=== PATIENT | male | born 1960 | race Caucasian/White ===

== ENCOUNTER 2016-10-17 18:08 | Emergency (ER) | payer MEDICARE, MEDICAID ==
[~2016-10-17 18:08] MED LIST: /ATOR40TA PO; /BENA10TA PO; /ESCI10TA PO; /TAMS4CA PO; ASPI1TAB PO; ASPI1TAB24 PO; ASPI81TA7 PO; ASPI81TA85 PO; ATEN25TA PO; ATOR1TAB18 PO; AUGM500T34 PO; BISCODYL PO; CRAN500C4 PO; DOXY-278 PO; DULC10SU9 PR; FISH1000 PO; GLUC500T PO; HUMU70IN SC; INSULANT SC; LEXA1TAB PO; LIPI20TA PO; LISI25TA PO; LISI5TAB PO; MICA5TAB PO; MOM30SS PO; MULTCAP PO; NITR4TASL SL; NYAM10003 EXT; PERCOCET PO; SANT250O EX; SENO8.6T9 PO; TEST1VL IM; TRIC145T PO; TYLE325T5 PO; UROCTAB3 PO; VESI10TA PO; VITMTA PO; ZEST5TAB PO; ZOCO10TA PO; [UNRECOGNIZED DRUG - CODE] TOP; [UNRECOGNIZED DRUG - REMARK]; cranberry OR; fish oil OR; humalog insulin SC; lantus insulin SC; nitroglycerine SL; no home medications; potassium citrate OR; tenormin OR
[2016-10-17] MEDS ORDERED: regular insulin SC (18:37)
[2016-10-17 20:01] LABS: BASO % 0.6 % (0.0-1.0); EOS # 0.1 K/mm3 (0.0-0.50); EOS % 1.8 % (0.0-3.0); LARGE UNSTAINED CELL # 0.1 K/mm3 (0.0-0.4); LARGE UNSTAINED CELL % 1.5 % (0.0-4.0); LYMPH # 1.7 K/mm3 (1.5-4.5); LYMPH % 27.6 % (24.0-44.0); MEAN CORPUSCULAR HEMOGLOBIN 29.2 pg (27.0-33.0); MEAN CORPUSCULAR HGB CONC 34.4 g/dl (32.0-36.5); MEAN CORPUSCULAR VOLUME 84.9 fl (80.0-96.0); MONO # 0.5 K/mm3 (0.0-0.8); NEUTROPHILS # 3.6 K/mm3 (1.8-7.7); NEUTROPHILS % 60.6 % (36.0-66.0); PLATELET COUNT, AUTOMATED 179 k/mm3 (150-450); WHITE BLOOD COUNT 5.9 K/mm3 (4.0-10.0)
[2016-10-17 20:18] LABS: ANION GAP 8 MEQ/L (8-16); BLOOD UREA NITROGEN 19 MG/DL (7-18); CALCIUM LEVEL 9.6 MG/DL (8.5-10.1); CARBON DIOXIDE LEVEL 28 MEQ/L (21-32); CHLORIDE LEVEL 102 MEQ/L (98-107); CREATININE FOR GFR 0.53 MG/DL (0.70-1.30); GLOMERULAR FILTRATION RATE > 60.0 (>56); GLUCOSE, FASTING 122 MG/DL (70-105); POTASSIUM SERUM 3.4 MEQ/L (3.5-5.1); SODIUM LEVEL 138 MEQ/L (136-145)
[2016-10-17 21:06] LABS: YEAST LIKE CELL URINE AUTO LARGE
[2016-10-17 22:45] VITALS: BP 143/88
[2016-10-17] MEDS ORDERED: DOXYCYCLINE HYCLATE 100 MG TAB PO ONE (22:45)
[2016-10-17] MEDS ORDERED: DOXY-278 PO (22:49)
[2016-10-17] MEDS ORDERED: SANT250O8 TOP (22:49)
== END 2016-10-17 23:37 | disposition home or self-care (01) ==
LOC: M ED 20:59
DX: N39.0 Urinary tract infection, site not specified (principal); L89.301 Pressure ulcer of unspecified buttock, stage 1; Z89.512 Acquired absence of left leg below knee; Z88.0 Allergy status to penicillin; Z88.1 Allergy status to other antibiotic agents; Z88.8 Allergy status to other drugs, medicaments and biological substances; Z93.50 Unspecified cystostomy status; G47.30 Sleep apnea, unspecified; Z85.51 Personal history of malignant neoplasm of bladder; Z79.82 Long term (current) use of aspirin; Z79.899 Other long term (current) drug therapy

== ENCOUNTER → 2016-11-13 | Outpatient (REF) | payer MEDICARE, MEDICAID ==
[~2016-11-13] MED LIST changes: +SANT250O8 TOP; +regular insulin SC
[2016-11-13 15:17] LABS: MEAN CORPUSCULAR HEMOGLOBIN 28.7 pg (27.0-33.0); MEAN CORPUSCULAR HGB CONC 32.4 g/dl (32.0-36.5); MEAN CORPUSCULAR VOLUME 88.5 fl (80.0-96.0); RED CELL DISTRIBUTION WIDTH 14.2 % (11.5-14.5); WHITE BLOOD COUNT 8.3 K/mm3 (4.0-10.0)
[2016-11-13 15:48] LABS: ALBUMIN 3.4 GM/DL (3.2-5.2); ALBUMIN/GLOBULIN RATIO 1.03 (1.00-1.93); ALKALINE PHOSPHATASE 86 U/L (45-117); ALT/SGPT 61 U/L (12-78); ANION GAP 6 MEQ/L (8-16); AST/SGOT 30 U/L (15-37); BILIRUBIN,TOTAL 0.3 MG/DL (0.2-1.0); BLOOD UREA NITROGEN 16 MG/DL (7-18); CALCIUM LEVEL 8.7 MG/DL (8.5-10.1); CARBON DIOXIDE LEVEL 31 MEQ/L (21-32); CHLORIDE LEVEL 102 MEQ/L (98-107); CREATININE FOR GFR 0.44 MG/DL (0.70-1.30); GLOMERULAR FILTRATION RATE > 60.0 (>56); GLUCOSE, FASTING 155 MG/DL (70-105); POTASSIUM SERUM 4.2 MEQ/L (3.5-5.1); SODIUM LEVEL 139 MEQ/L (136-145); TOTAL PROTEIN 6.7 GM/DL (6.4-8.2)
== END ==
LOC: M LAB REF 14:54
PROVIDERS: ATTEND Surgery
DX: L89.151 Pressure ulcer of sacral region, stage 1 (principal); E13.622 Other specified diabetes mellitus with other skin ulcer

== ENCOUNTER → 2016-11-22 | Outpatient (REF) | payer MEDICARE, MEDICAID ==
[~2016-11-22] MED LIST changes: +LISI2.5T3 PO; +LISI2.5T76 PO; -LISI25TA PO
== END ==
LOC: M SMT 17:21
PROVIDERS: ATTEND Urology
DX: Z30.2 Encounter for sterilization (principal)

== ENCOUNTER → 2016-12-01 | Outpatient (CLI) | payer MEDICARE, MEDICAID ==
[2016-12-01 09:37] LABS: INR 0.86
== END ==
LOC: M LAB 08:12
PROVIDERS: ATTEND Urology
DX: Z01.818 Encounter for other preprocedural examination (principal); Z79.899 Other long term (current) drug therapy; E11.59 Type 2 diabetes mellitus with other circulatory complications; Z79.4 Long term (current) use of insulin; Z79.2 Long term (current) use of antibiotics; Z88.8 Allergy status to other drugs, medicaments and biological substances; Z88.1 Allergy status to other antibiotic agents

== ENCOUNTER → 2016-12-04 | Day surgery (SDC) | payer MEDICARE, MEDICAID ==
[~2016-12-04] VITALS: Ht 190.5 cm; Wt 111.1 kg
[~2016-12-04] MED LIST changes: +BUPIVACAINE HCL 0.25% 30 ML VIAL As Ordered ONE; +GENTAMICIN 80 MG in APPROPRIATE DILUENT 1 EA IV ONE; +LIDOCAINE 1% SDV INJ 30 ML VIAL As Ordered ONE; +LIDOCAINE 2% INJ 100 MG/5 ML SDV (FOR ANES.) As Ordered ONE; +LR 1,000 ML IV SCH; +METOCLOPRAMIDE INJ 10MG/2ML VIAL (J2765) As Ordered ONE; +MIDAZOLAM INJ 2 MG/2 ML VIAL (J2250) As Ordered ONE; +ONDANSETRON 4MG/2ML VIAL (J2405) As Ordered ONE; +PROPOFOL 200 MG/20 ML VIAL As Ordered ONE; +VANCOMYCIN HCL 1,000 MG, VIAL MATE ADAPTER 1 EACH in D5W 250 ML IV ONE; +fentaNYL 100 MCG/2 ML INJECTION (J3010) As Ordered ONE
[2016-12-04 15:15] VITALS: BP 155/80
--- NOTE | 2016-12-04 22:43 | RO ---
DATE OF PROCEDURE: 12/04/2016 PREPROCEDURE DIAGNOSIS: Sterilization, urinary retention. POSTPROCEDURE DIAGNOSIS: Sterilization, urinary retention. PROCEDURE: Right scrotal exploration and right vasectomy, suprapubic catheter change. SURGEON: Dr. Xavi Gongora LANDSCAPE FOREMAN: None. ANESTHESIA: MAC. OPERATIVE INDICATIONS: This is a 56-year-old male who underwent attempted bilateral vasectomy approximately 2-3 weeks ago in the office. The left side vasectomy was successful, but on the right side, I had a very difficult time palpating his vas deferens. I sent a segment off of a tubular structure, which I thought might have been his vas deferens to pathology, and they confirmed that it was not his vas deferens. It was, therefore, recommended he be brought to the operating room for right scrotal exploration, to perform a vasectomy. Of note, this patient also has urinary retention, which is managed with a suprapubic catheter. We also changed his suprapubic catheter in the operating room today. DESCRIPTION OF PROCEDURE: The patient was brought to the operating room and MAC anesthesia was administered. Prophylactic antibiotics were infused. He was then placed in the supine position and prepped and draped in the usual sterile fashion. At this point, I tried examining him under anesthesia to palpate the right sided vas deferens and I still could not palpate it. I, therefore, decided to perform a right scrotal exploration and a 4 cm transverse incision was made over the right hemiscrotum. I then dissected down through the scrotal wall layers and delivered the testicle out of the scrotum. The tunica vaginalis was then opened and the testicle was delivered out of the tunica vaginalis. I then dissected down to the epididymis and then tried tracing the vas deferens off the epididymis. Of note, I still had a very difficult time palpating a cord-like structure which is what the vas deferens normally feels like. This patient either has an absence of the right side of vas deferens or has an atretic right vas deferens. I was ultimately able to identify a tubular structure, which I thought was the vas deferens coming off the epididymal tail, and this was doubly ligated with separate #3-0 chromic ties. This structure was then transected in between and a segment of the structure was sent off for pathologic analysis to determine whether or not it was the right vas deferens. At this point, I checked for hemostasis and hemostasis was obtained using electrocautery. The testicle was then delivered back within the right hemiscrotum and it was thoroughly irrigated. The testicle was delivered back in its normal anatomic position. I then closed the dartos with a running #2-0 chromic suture. The skin was then closed with a running #4-0 subcuticular monocryl suture. Local anesthesia was applied and the skin was cleaned. Dermabond was then applied to the incision. At this point, the patient's suprapubic catheter was changed with a new 20- Slovenian suprapubic catheter under sterile conditions. There was return of clear yellow urine and the balloon was inflated with about 6-7 mL of sterile water. This was connected to gravity drainage. This marked the conclusion of the procedure. The patient was then awakened from anesthesia and transported to the recovery room in stable condition. ESTIMATED BLOOD LOSS: 5 mL. COMPLICATIONS: None. SPECIMENS: Segment of right vas deferens. PLAN: The patient will followup in the clinic in a few weeks for a postoperative visit. KETAN
== END | disposition home or self-care (01) ==
LOC: M SDC 11:07
PROVIDERS: ATTEND Urology
DX: Z30.2 Encounter for sterilization (principal); R33.9 Retention of urine, unspecified; E11.9 Type 2 diabetes mellitus without complications; I25.2 Old myocardial infarction; I11.0 Hypertensive heart disease with heart failure; E78.00 Pure hypercholesterolemia, unspecified; I73.9 Peripheral vascular disease, unspecified; R29.898 Other symptoms and signs involving the musculoskeletal system; M12.9 Arthropathy, unspecified; I50.30 Unspecified diastolic (congestive) heart failure; G47.33 Obstructive sleep apnea (adult) (pediatric); N31.9 Neuromuscular dysfunction of bladder, unspecified; E29.1 Testicular hypofunction; F32.9 Major depressive disorder, single episode, unspecified; K59.00 Constipation, unspecified; N39.0 Urinary tract infection, site not specified; M71.21 Synovial cyst of popliteal space [Baker], right knee; Z88.1 Allergy status to other antibiotic agents; Z79.899 Other long term (current) drug therapy; Z79.82 Long term (current) use of aspirin; Z79.4 Long term (current) use of insulin; Z89.512 Acquired absence of left leg below knee
CPT/HCPCS: 51705; 55110; 55250; 88302; J1580; J2250; J2405; J2765; J3010; J3370

== ENCOUNTER → 2017-01-09 | Outpatient (REF) | payer MEDICARE, MEDICAID ==
[~2017-01-09] MED LIST changes: -BUPIVACAINE HCL 0.25% 30 ML VIAL As Ordered ONE; -GENTAMICIN 80 MG in APPROPRIATE DILUENT 1 EA IV ONE; -LIDOCAINE 1% SDV INJ 30 ML VIAL As Ordered ONE; -LIDOCAINE 2% INJ 100 MG/5 ML SDV (FOR ANES.) As Ordered ONE; -LR 1,000 ML IV SCH; -METOCLOPRAMIDE INJ 10MG/2ML VIAL (J2765) As Ordered ONE; -MIDAZOLAM INJ 2 MG/2 ML VIAL (J2250) As Ordered ONE; -ONDANSETRON 4MG/2ML VIAL (J2405) As Ordered ONE; -PROPOFOL 200 MG/20 ML VIAL As Ordered ONE; -VANCOMYCIN HCL 1,000 MG, VIAL MATE ADAPTER 1 EACH in D5W 250 ML IV ONE; -fentaNYL 100 MCG/2 ML INJECTION (J3010) As Ordered ONE
[2017-01-09 18:14] LABS: LUTEINIZING HORMONE 7.8 mIU/mL (1.5-9.3)
[2017-01-09 18:15] LABS: FOLLICLE STIMULATING HORMONE 14.4 mIU/mL (1.4-18.1)
== END ==
LOC: M LAB REF 17:09
PROVIDERS: ATTEND Internal Medicine
DX: N52.9 Male erectile dysfunction, unspecified (principal)

== ENCOUNTER → 2017-02-12 | Outpatient (CLI) | payer MEDICARE, MEDICAID ==
[2017-02-12 10:03] LABS: PROLACTIN 19.9 NG/ML (2.1-17.7)
[2017-02-12 10:08] LABS: ESTRADIOL 51.8 PG/ML (<39.8)
== END ==
LOC: M LAB 08:24
PROVIDERS: ATTEND Urology
DX: E29.1 Testicular hypofunction (principal)

== ENCOUNTER → 2017-03-06 | Outpatient (CLI) | payer MEDICARE, MEDICAID ==
[~2017-03-06] MED LIST changes: +ASPI-161 PO; +ASPI1TAB15 PO; -ASPI1TAB24 PO; -ASPI81TA7 PO; -ATOR1TAB18 PO; +ATOR80TA59 PO; +IBUP-1022 PO; -TRIC145T PO; +TRIC145T22 PO; -VESI10TA PO; +VESI10TA2 PO
== END ==
LOC: M SMT 14:49
PROVIDERS: ATTEND Urology
DX: Z12.5 Encounter for screening for malignant neoplasm of prostate (principal)
CPT/HCPCS: 36415; G0103; G0463

== ENCOUNTER 2017-03-10 14:00 | Emergency (ER) | payer MEDICARE, MEDICAID ==
[~2017-03-10] VITALS: Ht 190.5 cm; Wt 106.8 kg
[~2017-03-10 14:00] MED LIST changes: -IBUP-1022 PO
[2017-03-10] MEDS ORDERED: ASPIRIN 81 MG CHEW TABLET PO ONE (14:45)
[2017-03-10 14:53] LABS: WHITE BLOOD COUNT 7.1 K/mm3 (4.0-10.0)
[2017-03-10 14:54] LABS: BASO % 0.3 % (0.0-1.0); EOS % 0.6 % (0.0-3.0); LARGE UNSTAINED CELL # 0.1 K/mm3 (0.0-0.4); LARGE UNSTAINED CELL % 1.5 % (0.0-4.0); LYMPH # 1.2 K/mm3 (1.5-4.5); LYMPH % 15.1 % (24.0-44.0); MEAN CORPUSCULAR HEMOGLOBIN 29.4 pg (27.0-33.0); MEAN CORPUSCULAR HGB CONC 33.5 g/dl (32.0-36.5); MEAN CORPUSCULAR VOLUME 87.9 fl (80.0-96.0); MONO # 0.7 K/mm3 (0.0-0.8); MONO % 9.1 % (0.0-5.0); NEUTROPHILS # 5.2 K/mm3 (1.8-7.7); NEUTROPHILS % 73.4 % (36.0-66.0); PLATELET COUNT, AUTOMATED 172 k/mm3 (150-450); RED CELL DISTRIBUTION WIDTH 14.2 % (11.5-14.5)
[2017-03-10 14:58] LABS: ALBUMIN 3.1 GM/DL (3.2-5.2); ALBUMIN/GLOBULIN RATIO 0.82 (1.00-1.93); ALKALINE PHOSPHATASE 83 U/L (45-117); ALT/SGPT 21 U/L (12-78); ANION GAP 8 MEQ/L (8-16); AST/SGOT 10 U/L (15-37); BILIRUBIN,DIRECT 0.2 MG/DL (0.0-0.2); BILIRUBIN,TOTAL 0.7 MG/DL (0.2-1.0); BLOOD UREA NITROGEN 5 MG/DL (7-18); CALCIUM LEVEL 8.5 MG/DL (8.5-10.1); CARBON DIOXIDE LEVEL 30 MEQ/L (21-32); CHLORIDE LEVEL 95 MEQ/L (98-107); CREATININE FOR GFR 0.44 MG/DL (0.70-1.30); GLOMERULAR FILTRATION RATE > 60.0 (>56); GLUCOSE, FASTING 242 MG/DL (70-105); POTASSIUM SERUM 3.6 MEQ/L (3.5-5.1); SODIUM LEVEL 133 MEQ/L (136-145); TOTAL PROTEIN 6.9 GM/DL (6.4-8.2)
[2017-03-10 18:10] VITALS: BP 196/88
--- NOTE | 2017-03-10 20:08 | ECGEPIP ---
Stationary ECG Study [facility] - ED Test Date: 2017-03-10 Pat Name: KERRY PERKINS Department: Room: - Gender: M Cordwainer: macario : 1960 Requested By: Chema Hawkins Order Number: [id number] Reading MD: Marybeth Whitten Measurements Intervals [place] Rate: 85 P: 4 MS: 190 QRS: -31 QRSD: 96 T: 26 QT: 389 QTc: 464 Interpretive Statements SINUS RHYTHM MARKED LEFT AXIS DEVIATION MODERATE VOLTAGE CRITERIA FOR LVH, CONSIDER NORMAL VARIANT NONSPECIFIC T-WAVE ABNORMALITY SIMILAR 08/05/16 Electronically Signed On 03-10-2017 20:08:13 EDT by Marybeth Whitten
--- NOTE | 2017-03-10 20:12 | ECGEPIP ---
Stationary ECG Study [facility] - ED Test Date: 2017-03-10 Pat Name: KERRY PERKINS Department: Room: - Gender: M Chief Communications Officer: sylvester : 1960 Requested By: Chema Hawkins Order Number: [id number] Reading MD: Marybteh Whitten Measurements Intervals [place] Rate: 86 P: 7 NC: 192 QRS: -31 QRSD: 95 T: 25 QT: 387 QTc: 463 Interpretive Statements SINUS RHYTHM MARKED LEFT AXIS DEVIATION MODERATE VOLTAGE CRITERIA FOR LVH, CONSIDER NORMAL VARIANT NSTTW ABNORMALITY SIMILAR 14:10 Electronically Signed On 03-10-2017 20:12:36 EDT by Marybeth Whitten
--- NOTE | 2017-03-11 06:50 | REP ---
PORTABLE CHEST: AP portable view of the chest is performed and compared to prior study of 08/05/2016. There is mild bibasilar fibroatelectatic change. There is left ventricular prominence. The mediastinal silhouette is unchanged. IMPRESSION: No acute pulmonary disease. Signed by Gustavo Plummer MD 03/11/2017 07:23 P
== END 2017-03-10 19:05 | disposition home or self-care (01) ==
LOC: M ED 14:00 → EDBD 14:00 → M ED 19:05
DX: R07.89 Other chest pain (principal); I10 Essential (primary) hypertension; I25.10 Atherosclerotic heart disease of native coronary artery without angina pectoris; E11.9 Type 2 diabetes mellitus without complications; E78.5 Hyperlipidemia, unspecified; N40.0 Benign prostatic hyperplasia without lower urinary tract symptoms; Z89.512 Acquired absence of left leg below knee; Z79.899 Other long term (current) drug therapy; Z88.1 Allergy status to other antibiotic agents; Z88.0 Allergy status to penicillin

== ENCOUNTER 2017-03-11 21:48 | Emergency (ER) | payer MEDICARE, MEDICAID ==
[~2017-03-11] VITALS: Ht 190.5 cm; Wt 107.0 kg
[2017-03-11 23:17] VITALS: BP 145/65
--- NOTE | 2017-03-12 07:53 | REP ---
Acute abdominal series four views including PA chest, upright abdomen and two supine views of the abdomen: PA chest: Comparison is 03/10/2017. The lung tiwari are clear. Cardiac size is normal. The alejandro, mediastinum, and bony thorax are unremarkable. There is no free subdiaphragmatic air. Impression: Negative PA chest. Abdomen, supine upright views: Comparison is the CT abdomen pelvis dated 12/08/2015. The bowel gas pattern is normal. There is no bowel obstruction. There are no calcifications. Skeletal structures and soft tissues are otherwise unremarkable. There are bridging osteophytes in the lumbar spine compatible with multilevel degenerative disc disease. Impression: Normal bowel gas pattern. Signed by Gustavo Mckinney MD 03/12/2017 07:44 A
== END 2017-03-11 23:20 | disposition home or self-care (01) ==
LOC: M ED 21:48
DX: R19.4 Change in bowel habit (principal); M51.36 Other intervertebral disc degeneration, lumbar region; I25.10 Atherosclerotic heart disease of native coronary artery without angina pectoris; E11.9 Type 2 diabetes mellitus without complications; I10 Essential (primary) hypertension; E66.9 Obesity, unspecified; F17.200 Nicotine dependence, unspecified, uncomplicated; Z88.1 Allergy status to other antibiotic agents; Z88.8 Allergy status to other drugs, medicaments and biological substances; Z79.4 Long term (current) use of insulin; Z79.82 Long term (current) use of aspirin; Z79.899 Other long term (current) drug therapy

== ENCOUNTER 2017-03-15 18:06 | Emergency (ER) | payer MEDICARE, MEDICAID ==
[~2017-03-15] VITALS: Ht 182.9 cm; Wt 106.8 kg
[2017-03-15] MEDS ORDERED: PERCOCET 5MG/325MG TAB PO ONE (20:15)
[2017-03-15] MEDS ORDERED: IBUP-1022 PO (21:14)
[2017-03-15 21:22] VITALS: BP 153/76
--- NOTE | 2017-03-16 07:56 | REP ---
Right ribs and PA chest: Right ribs four views: There is a nondisplaced fracture of the right sixth rib. There questionably fractures of the right fifth and seventh ribs. PA chest: Comparison is 03/11/2017. There is no pneumothorax, hemothorax or pulmonary contusion. Lung tiwari otherwise clear. Cardiac size is upper normal. The alejandro, mediastinum, and bony thorax are otherwise unremarkable. Signed by Gustavo Mckinney MD 03/16/2017 07:47 A
== END 2017-03-15 21:48 | disposition home or self-care (01) ==
LOC: M ED 18:06 → EDBD 18:06 → M ED 21:48
DX: S20.211A Contusion of right front wall of thorax, initial encounter (principal); W01.0XXA Fall on same level from slipping, tripping and stumbling without subsequent striking against object, initial encounter; Y92.099 Unspecified place in other non-institutional residence as the place of occurrence of the external cause; Y93.89 Activity, other specified; Y99.8 Other external cause status; E11.9 Type 2 diabetes mellitus without complications; I10 Essential (primary) hypertension; I51.9 Heart disease, unspecified; N40.0 Benign prostatic hyperplasia without lower urinary tract symptoms; Z87.442 Personal history of urinary calculi; Z89.512 Acquired absence of left leg below knee; Z88.0 Allergy status to penicillin; Z88.1 Allergy status to other antibiotic agents; Z88.8 Allergy status to other drugs, medicaments and biological substances; Z79.899 Other long term (current) drug therapy; Z79.82 Long term (current) use of aspirin; Z79.4 Long term (current) use of insulin

== ENCOUNTER → 2017-04-20 | Outpatient (CLI) | payer MEDICARE, MEDICAID ==
[~2017-04-20] MED LIST changes: +IBUP-1022 PO
== END ==
LOC: M LAB 08:41
PROVIDERS: ATTEND Urology
DX: E29.1 Testicular hypofunction (principal)

== ENCOUNTER → 2017-06-13 | Outpatient (CLI) | payer MEDICARE, MEDICAID ==
[2017-06-13 08:04] LABS: ALBUMIN 3.6 GM/DL (3.2-5.2); ANION GAP 9 MEQ/L (8-16); BLOOD UREA NITROGEN 8 MG/DL (7-18); CARBON DIOXIDE LEVEL 34 MEQ/L (21-32); CHLORIDE LEVEL 94 MEQ/L (98-107); CHOLESTEROL LEVEL 158 MG/DL (<200); CREATININE FOR GFR 0.68 MG/DL (0.70-1.30); GLOMERULAR FILTRATION RATE > 60.0 (>56); GLUCOSE, FASTING 314 MG/DL (70-105); PHOSPHORUS LEVEL 3.2 MG/DL (2.5-4.9); POTASSIUM SERUM 4.2 MEQ/L (3.5-5.1); SODIUM LEVEL 137 MEQ/L (136-145); TRIGLYCERIDES LEVEL 328 MG/DL (<150)
== END ==
LOC: M LAB 06:52
PROVIDERS: ATTEND Nurse Practitioner Family
DX: I11.9 Hypertensive heart disease without heart failure (principal); E78.2 Mixed hyperlipidemia

== ENCOUNTER → 2017-07-30 | Outpatient (CLI) | payer MEDICARE, MEDICAID ==
[2017-07-30 09:39] LABS: ALBUMIN 3.3 GM/DL (3.2-5.2); ALBUMIN/GLOBULIN RATIO 0.97 (1.00-1.93); ALKALINE PHOSPHATASE 66 U/L (45-117); ALT/SGPT 20 U/L (12-78); ANION GAP 10 MEQ/L (8-16); AST/SGOT 13 U/L (7-37); BILIRUBIN,TOTAL 0.5 MG/DL (0.2-1.0); BLOOD UREA NITROGEN 13 MG/DL (7-18); CALCIUM LEVEL 8.8 MG/DL (8.5-10.1); CARBON DIOXIDE LEVEL 28 MEQ/L (21-32); CHLORIDE LEVEL 104 MEQ/L (98-107); CREATININE FOR GFR 0.49 MG/DL (0.70-1.30); GLOMERULAR FILTRATION RATE > 60.0 (>56); GLUCOSE, FASTING 96 MG/DL (70-105); POTASSIUM SERUM 4.2 MEQ/L (3.5-5.1); SODIUM LEVEL 142 MEQ/L (136-145); TOTAL PROTEIN 6.7 GM/DL (6.4-8.2)
== END ==
LOC: M LAB 08:35
PROVIDERS: ATTEND Urology
DX: E29.1 Testicular hypofunction (principal); Z12.5 Encounter for screening for malignant neoplasm of prostate
CPT/HCPCS: 36415; 80053; 84403; 85014; 85018; G0103

== ENCOUNTER 2017-08-10 10:00 | Inpatient (IN) | payer MEDICARE, MEDICAID ==
[2017-08-10] MEDS: DEXTROSE 50% 50 ML SYRINGE IV ×3 (10:08→22:05)
[2017-08-10] MEDS: NS 500 ML IV ×2 (10:18→12:26)
[2017-08-10 10:20] LABS: ABG BASE EXCESS 1.9 (-2.0-2.0); ABG HCO3 28.1 MEQ/L (22.0-26.0); ABG O2 SATURATION 97.4 % (95.0-99.0); ABG PARTIAL PRESSURE CO2 49.1 mmHg (35.0-45.0); ABG STANDARD HCO3 26.2 MEQ/L (22.0-26.0); ABG TOTAL CO2 29.6 MEQ/L (22.0-29.0); ABG pH (ARTERIAL) 7.375 UNITS (7.350-7.450)
[2017-08-10 10:23] LABS: BASO % 0.3 % (0.0-1.0); EOS % 0.1 % (0.0-3.0); HEMATOCRIT 52.8 % (42.0-52.0); HEMOGLOBIN 16.7 g/dl (14.0-18.0); IMMATURE GRANULOCYTE # 0.1 10^3/uL (0-0); IMMATURE GRANULOCYTE % 0.9 % (0-0); LYMPH # 0.8 10^3/uL (1.5-4.5); LYMPH % 7.7 % (24.0-44.0); MEAN CORPUSCULAR HEMOGLOBIN 27.5 pg (27.0-33.0); MEAN CORPUSCULAR HGB CONC 31.6 g/dl (32.0-36.5); MEAN CORPUSCULAR VOLUME 86.8 fl (80.0-96.0); MONO # 0.9 10^3/uL (0.0-0.8); MONO % 9.3 % (0.0-5.0); NEUTROPHILS # 8.2 10^3/uL (1.8-7.7); NEUTROPHILS % 81.7 % (36.0-66.0); PLATELET COUNT, AUTOMATED 212 10^3/uL (150-450); RED BLOOD COUNT 6.08 10^6/uL (4.30-6.10); RED CELL DISTRIBUTION WIDTH 15.1 % (11.5-14.5); WHITE BLOOD COUNT 10.1 10^3/uL (4.0-10.0)
[2017-08-10 10:23] LABS: BEDSIDE GLUCOSE 178 MG/DL (70-105)
[2017-08-10 10:39] LABS: AMMONIA 20 uMOL/L (<32)
[2017-08-10 10:40] LABS: INR 0.89; PROTHROMBIN TIME 12.1 SECONDS (12.4-14.5)
[2017-08-10 10:46] LABS: ALBUMIN 3.6 GM/DL (3.2-5.2); ALKALINE PHOSPHATASE 76 U/L (45-117); ALT/SGPT 24 U/L (12-78); ANION GAP 4 MEQ/L (8-16); AST/SGOT 16 U/L (7-37); BILIRUBIN,DIRECT < 0.1 MG/DL (0.0-0.2); BILIRUBIN,TOTAL 0.5 MG/DL (0.2-1.0); BLOOD UREA NITROGEN 17 MG/DL (7-18); CALCIUM LEVEL 8.6 MG/DL (8.5-10.1); CARBON DIOXIDE LEVEL 34 MEQ/L (21-32); CHLORIDE LEVEL 99 MEQ/L (98-107); CPK CREATINE PHOSPHOKINASE 42 U/L (39-308); CREATININE FOR GFR 0.48 MG/DL (0.70-1.30); ETHYL ALCOHOL (ETHANOL) < 0.003 % (0.000-0.010); GLOMERULAR FILTRATION RATE > 60.0 (>56); GLUCOSE, FASTING 42 MG/DL (70-105); POTASSIUM SERUM 4.3 MEQ/L (3.5-5.1); SALICYLATE LEVEL < 1.7 MG/DL (5.0-30.0); SODIUM LEVEL 137 MEQ/L (136-145); TOTAL PROTEIN 7.6 GM/DL (6.4-8.2); TROPONIN I 0.04 NG/ML (< 0.10)
[2017-08-10 10:47] LABS: LACTIC ACID SEPSIS PROTOCOL 0.9 MMOL/L (0.4-2.0)
[2017-08-10 10:52] LABS: CK-MB VALUE MASS 3.6 NG/ML (0.0-3.6); MB/CK RELATIVE INDEX 8.57 (< OR =4)
[2017-08-10 10:55] LABS: ACETAMINOPHEN LEVEL < 2.0 UG/ML (10.0-30.0)
[2017-08-10] MEDS: NALOXONE INJ 2 MG/2 ML SYRINGE (J2310) IV (11:05)
[2017-08-10 11:08] LABS: KETONE, URINE AUTO RFX NEGATIVE (NEGATIVE); MUCUS, URINE RFX LARGE (NEGATIVE); NITRITE, URINE AUTO RFX NEGATIVE (NEGATIVE); RBC, URINE AUTO RFX 15 /HPF (0-3); SPECIFIC GRAVITY UR AUTO RFX 1.017 (1.002-1.035); SQUAM EPITHELIAL CELL UR AURFX 0 /HPF (0-6)
[2017-08-10 11:09] LABS: LEUKOCYTE ESTERASE UR AUTO RFX 3+ (NEGATIVE); WBC, URINE AUTO RFX TNTC /HPF (0-3)
[2017-08-10 11:28] LABS: AMPHETAMINES LEVEL URINE NEGATIVE (NEGATIVE); BARBITURATES URINE NEGATIVE (NEGATIVE); BENZODIAZEPINES URINE NEGATIVE (NEGATIVE); CANNABINOIDS URINE NEGATIVE (NEGATIVE); COCAINE METABOLITE URINE NEGATIVE (NEGATIVE); METHADONE URINE NEGATIVE (NEGATIVE); OPIATES URINE NEGATIVE (NEGATIVE); PHENCYCLIDINE URINE NEGATIVE (NEGATIVE)
[2017-08-10] MEDS: LORazepam 2 MG/ML VIAL (J2060) IV (11:29)
[2017-08-10] MEDS: POLYVINYL ALCOHOL OPHTH SOLN 15 ML(LIQUITEARS) OU (11:29)
[2017-08-10] MEDS ORDERED: LORazepam 2 MG/ML VIAL (J2060) As Ordered (11:29)
[2017-08-10 11:40] LABS: BEDSIDE GLUCOSE 103 MG/DL (70-105)
[2017-08-10] MEDS: levETIRAcetam INJection 1,000 MG in D5W 100 ML IV (12:46)
[2017-08-10] MEDS: LABETALOL HCL 100 MG/20 ML VIAL IV (12:46)
[2017-08-10 15:03] LABS: OSMOLALITY SERUM 287 MOSM/KG (275-295)
[2017-08-10 16:25] LABS: ABG BASE EXCESS -1.3 (-2.0-2.0); ABG HCO3 22.3 MEQ/L (22.0-26.0); ABG PARTIAL PRESSURE CO2 34.3 mmHg (35.0-45.0); ABG PARTIAL PRESSURE O2 131.4 mmHg (75.0-100.0); ABG STANDARD HCO3 23.5 MEQ/L (22.0-26.0); ABG TOTAL CO2 23.4 MEQ/L (22.0-29.0); ABG pH (ARTERIAL) 7.431 UNITS (7.350-7.450)
[2017-08-10 16:29] LABS: ABG O2 SATURATION 98.9 % (95.0-99.0)
[2017-08-10] MEDS ORDERED: GLUCAGON FOR INJ 1 MG VIAL (J1610) SC (16:30)
[2017-08-10] MEDS ORDERED: DEXTROSE 50% 50 ML SYRINGE IV (16:30)
[2017-08-10] MEDS ORDERED: GLUCOSE 4 GM CHEW TABLET PO (16:30)
[2017-08-10] MEDS: D5W 1,000 ML IV (16:32)
[2017-08-10 16:56] LABS: BEDSIDE GLUCOSE 183 MG/DL (70-105)
[2017-08-10 16:56] LABS: BEDSIDE GLUCOSE 21 MG/DL (70-105)
[2017-08-10 19:12] LABS: BEDSIDE GLUCOSE 108 MG/DL (70-105)
[2017-08-10] MEDS ORDERED: LORazepam 2 MG/ML VIAL (J2060) IV (20:15)
[2017-08-10] MEDS: D10W 1,000 ML IV (20:51)
[2017-08-10] MEDS ORDERED: levETIRAcetam 250MG TABLET (KEPPRA) PO (21:00)
[2017-08-10] MEDS: hydrALAZINE INJ 20 MG/ML VIAL IV (21:15)
[2017-08-10 21:45] LABS: BEDSIDE GLUCOSE 65 MG/DL (70-105)
[2017-08-10 21:59] LABS: BEDSIDE GLUCOSE 66 MG/DL (70-105)
[2017-08-10 22:49] LABS: HEMATOCRIT 48.8 % (42.0-52.0); HEMOGLOBIN 15.5 g/dl (14.0-18.0); MEAN CORPUSCULAR HEMOGLOBIN 27.7 pg (27.0-33.0); MEAN CORPUSCULAR HGB CONC 31.8 g/dl (32.0-36.5); MEAN CORPUSCULAR VOLUME 87.1 fl (80.0-96.0); PLATELET COUNT, AUTOMATED 166 10^3/uL (150-450); WHITE BLOOD COUNT 6.1 10^3/uL (4.0-10.0)
[2017-08-10 23:04] LABS: ANION GAP 6 MEQ/L (8-16); BLOOD UREA NITROGEN 14 MG/DL (7-18); CALCIUM LEVEL 7.5 MG/DL (8.5-10.1); CARBON DIOXIDE LEVEL 29 MEQ/L (21-32); CHLORIDE LEVEL 103 MEQ/L (98-107); CREATININE FOR GFR 0.54 MG/DL (0.70-1.30); GLOMERULAR FILTRATION RATE > 60.0 (>56); GLUCOSE, FASTING 159 MG/DL (70-105); MAGNESIUM LEVEL 1.4 MG/DL (1.8-2.4); POTASSIUM SERUM 3.5 MEQ/L (3.5-5.1); SODIUM LEVEL 138 MEQ/L (136-145)
[2017-08-10 23:10] LABS: LACTIC ACID SEPSIS PROTOCOL 2.1 MMOL/L (0.4-2.0)
[2017-08-10] MEDS: VANCOMYCIN HCL 1,000 MG, VIAL MATE ADAPTER 1 EACH in D5W 250 ML IV (23:15)
[2017-08-10] MEDS: ACETAMINOPHEN 650 MG SUPP PR (23:17)
[2017-08-10 23:30] LABS: OSMOLALITY SERUM 287 MOSM/KG (275-295)
[2017-08-10 23:42] LABS: BEDSIDE GLUCOSE 103 MG/DL (70-105)
[2017-08-10] MEDS: D10W IV (23:44)
[2017-08-10] MEDS: [UNRECOGNIZED DRUG - OTHER] IV (23:44)
[2017-08-11] MEDS: VANCOMYCIN HCL 1,000 MG, VIAL MATE ADAPTER 1 EACH in D5W 250 ML IV ×3 (00:30→15:42)
[2017-08-11] MEDS: FUROSEMIDE 20 MG/2 ML VIAL (J1940) IV ×2 (00:30→15:42)
[2017-08-11] MEDS ORDERED: levETIRAcetam INJection 750 MG in D5W 100 ML IV (01:00)
[2017-08-11] MEDS: levETIRAcetam INJection 1,000 MG in D5W 100 ML IV ×2 (01:38→12:29)
[2017-08-11 01:58] LABS: BEDSIDE GLUCOSE 146 MG/DL (70-105)
[2017-08-11] MEDS: MEROPENEM INJ 2 GM in NS 100 ML IV ×3 (02:48→18:26)
[2017-08-11] MEDS: hydrALAZINE INJ 20 MG/ML VIAL IV ×4 (03:00→20:57)
[2017-08-11 03:08] LABS: CK-MB VALUE MASS 2.8 NG/ML (0.0-3.6); CPK CREATINE PHOSPHOKINASE 82 U/L (39-308); MB/CK RELATIVE INDEX 3.41 (< OR =4); TROPONIN I 0.02 NG/ML (< 0.10)
[2017-08-11 03:13] LABS: HEMATOCRIT 47.1 % (42.0-52.0); HEMOGLOBIN 14.8 g/dl (14.0-18.0); MEAN CORPUSCULAR HEMOGLOBIN 27.3 pg (27.0-33.0); MEAN CORPUSCULAR HGB CONC 31.4 g/dl (32.0-36.5); MEAN CORPUSCULAR VOLUME 86.7 fl (80.0-96.0); PLATELET COUNT, AUTOMATED 174 10^3/uL (150-450); RED BLOOD COUNT 5.43 10^6/uL (4.30-6.10); RED CELL DISTRIBUTION WIDTH 15.1 % (11.5-14.5); WHITE BLOOD COUNT 7.4 10^3/uL (4.0-10.0)
[2017-08-11 03:17] LABS: ADD MANUAL DIFFER YES; DIFF SLIDE NUMBER 65; LEFT SHIFT POS FLAG; POSITIVE MORPH POS FLAG
[2017-08-11 03:38] LABS: BEDSIDE GLUCOSE 142 MG/DL (70-105)
[2017-08-11 04:02] LABS: ALBUMIN 2.9 GM/DL (3.2-5.2); ALBUMIN/GLOBULIN RATIO 0.83 (1.00-1.93); ALKALINE PHOSPHATASE 61 U/L (45-117); ALT/SGPT 16 U/L (12-78); ANION GAP 9 MEQ/L (8-16); AST/SGOT 13 U/L (7-37); BILIRUBIN,TOTAL 0.9 MG/DL (0.2-1.0); BLOOD UREA NITROGEN 14 MG/DL (7-18); CALCIUM LEVEL 7.5 MG/DL (8.5-10.1); CARBON DIOXIDE LEVEL 29 MEQ/L (21-32); CHLORIDE LEVEL 101 MEQ/L (98-107); CREATININE FOR GFR 0.61 MG/DL (0.70-1.30); GLOMERULAR FILTRATION RATE > 60.0 (>56); GLUCOSE, FASTING 175 MG/DL (70-105); MAGNESIUM LEVEL 1.5 MG/DL (1.8-2.4); POTASSIUM SERUM 3.5 MEQ/L (3.5-5.1); SODIUM LEVEL 139 MEQ/L (136-145); TOTAL PROTEIN 6.4 GM/DL (6.4-8.2)
[2017-08-11] MEDS: MAG SULF 1GM/100ML (MAG RUN) 1 GM in APPROPRIATE DILUENT 1 EA IV ×3 (04:20→06:25)
[2017-08-11 04:26] LABS: ATYPICAL LYMPH 1 % (0-5); BANDS 1 % (< 11); LYMPHOCYTES 8 % (16-52); MONOCYTES 10 % (0-8); NEUTROPHILS 80 % (35-75)
[2017-08-11 04:27] LABS: PLATELET ESTIMATE NORMAL (NORMAL)
[2017-08-11 05:25] LABS: BEDSIDE GLUCOSE 139 MG/DL (70-105)
[2017-08-11 09:33] LABS: BEDSIDE GLUCOSE 124 MG/DL (70-105)
[2017-08-11 09:33] LABS: BEDSIDE GLUCOSE 154 MG/DL (70-105)
[2017-08-11 10:02] LABS: CPK CREATINE PHOSPHOKINASE 159 U/L (39-308); MB/CK RELATIVE INDEX 2.51 (< OR =4); TROPONIN I < 0.02 NG/ML (< 0.10)
[2017-08-11 11:16] LABS: BEDSIDE GLUCOSE 147 MG/DL (70-105)
[2017-08-11 15:26] LABS: CSF TUBE# GLU TUBE 2; CSF TUBE# TP TUBE 2; GLUCOSE CSF 83 MG/DL (40-75); TOTAL PROTEIN,CSF 145.3 MG/DL (15-45)
[2017-08-11 15:38] LABS: CSF RBC 2 10^3/uL (<2)
[2017-08-11 15:41] LABS: CSF RBC < 2 10^3/uL (<2)
[2017-08-11] MEDS: D10W IV (15:42)
[2017-08-11] MEDS: [UNRECOGNIZED DRUG - OTHER] IV (15:42)
[2017-08-11 15:43] LABS: CSF TUBE# CELL CNT TUBE 1; CSF WBC 9 /uL (0-10)
[2017-08-11 15:44] LABS: APPEARANCE, CSF CLEAR (CLEAR); APPEARANCE, CSF HAZY (CLEAR); COLOR, CSF COLORLESS (COLORLESS); COLOR, CSF PINK (COLORLESS); CSF DIFF IF INDICATED? NO (NO); CSF TUBE# CELL CNT TUBE 4; CSF WBC 4 /uL (0-10)
[2017-08-11 15:45] LABS: CSF DIFF IF INDICATED? NO (NO)
[2017-08-11] MEDS: LABETALOL HCL 100 MG/20 ML VIAL IV (17:40)
[2017-08-11] MEDS: PHENYTOIN INJ 250 MG/5 ML VIAL (J1165) IV (20:44)
[2017-08-11 21:55] LABS: BEDSIDE GLUCOSE 158 MG/DL (70-105)
[2017-08-11 21:55] LABS: BEDSIDE GLUCOSE 185 MG/DL (70-105)
[2017-08-12] MEDS: LABETALOL HCL 100 MG/20 ML VIAL IV ×4 (01:01→17:57)
[2017-08-12] MEDS: VANCOMYCIN HCL 1,000 MG, VIAL MATE ADAPTER 1 EACH in D5W 250 ML IV ×3 (01:01→16:25)
[2017-08-12 01:24] LABS: BEDSIDE GLUCOSE 189 MG/DL (70-105)
[2017-08-12] MEDS: levETIRAcetam INJection 1,000 MG in D5W 100 ML IV ×2 (02:50→13:44)
[2017-08-12] MEDS: hydrALAZINE INJ 20 MG/ML VIAL IV ×4 (03:00→21:01)
[2017-08-12] MEDS: PHENYTOIN 100 MG/2 ML VIAL (J1165) IV ×3 (03:10→17:52)
[2017-08-12] MEDS: MEROPENEM INJ 2 GM in NS 100 ML IV ×3 (03:57→18:06)
[2017-08-12 04:55] LABS: BASO % 0.3 % (0.0-1.0); EOS % 0.4 % (0.0-3.0); HEMATOCRIT 43.6 % (42.0-52.0); HEMOGLOBIN 13.8 g/dl (14.0-18.0); IMMATURE GRANULOCYTE % 0.4 % (0-0); LYMPH % 13.9 % (24.0-44.0); MEAN CORPUSCULAR HEMOGLOBIN 27.2 pg (27.0-33.0); MEAN CORPUSCULAR HGB CONC 31.7 g/dl (32.0-36.5); MONO # 0.9 10^3/uL (0.0-0.8); MONO % 11.7 % (0.0-5.0); NEUTROPHILS # 5.5 10^3/uL (1.8-7.7); NEUTROPHILS % 73.3 % (36.0-66.0); PLATELET COUNT, AUTOMATED 164 10^3/uL (150-450); RED BLOOD COUNT 5.07 10^6/uL (4.30-6.10); RED CELL DISTRIBUTION WIDTH 15.3 % (11.5-14.5); WHITE BLOOD COUNT 7.5 10^3/uL (4.0-10.0)
[2017-08-12 05:18] LABS: ALBUMIN 2.7 GM/DL (3.2-5.2); ALBUMIN/GLOBULIN RATIO 0.71 (1.00-1.93); ALKALINE PHOSPHATASE 62 U/L (45-117); ALT/SGPT 22 U/L (12-78); ANION GAP 7 MEQ/L (8-16); AST/SGOT 19 U/L (7-37); BILIRUBIN,TOTAL 0.8 MG/DL (0.2-1.0); BLOOD UREA NITROGEN 16 MG/DL (7-18); CALCIUM LEVEL 7.8 MG/DL (8.5-10.1); CARBON DIOXIDE LEVEL 32 MEQ/L (21-32); CHLORIDE LEVEL 96 MEQ/L (98-107); CREATININE FOR GFR 0.67 MG/DL (0.70-1.30); GLOMERULAR FILTRATION RATE > 60.0 (>56); GLUCOSE, FASTING 249 MG/DL (70-105); MAGNESIUM LEVEL 2.1 MG/DL (1.8-2.4); PHENYTOIN (DILANTIN) 13.5 UG/ML (10.0-20.0); POTASSIUM SERUM 3.8 MEQ/L (3.5-5.1); SODIUM LEVEL 135 MEQ/L (136-145); TOTAL PROTEIN 6.5 GM/DL (6.4-8.2)
[2017-08-12 06:49] LABS: BEDSIDE GLUCOSE 202 MG/DL (70-105)
[2017-08-12] MEDS: [UNRECOGNIZED DRUG - OTHER] IV (08:24)
[2017-08-12] MEDS: D10W IV (08:24)
[2017-08-12] MEDS: FUROSEMIDE 40 MG/4 ML VIAL (J1940) IV (08:59)
[2017-08-12 15:53] LABS: VANCOMYCIN LEVEL TROUGH 16.3 UG/ML (10.0-20.0)
[2017-08-12 16:10] LABS: BEDSIDE GLUCOSE 218 MG/DL (70-105)
[2017-08-12 16:10] LABS: BEDSIDE GLUCOSE 225 MG/DL (70-105)
[2017-08-12 18:38] LABS: BEDSIDE GLUCOSE 208 MG/DL (70-105)
[2017-08-12 20:21] LABS: BEDSIDE GLUCOSE 160 MG/DL (70-105)
[2017-08-13] MEDS: VANCOMYCIN HCL 1,000 MG, VIAL MATE ADAPTER 1 EACH in D5W 250 ML IV ×2 (00:27→08:24)
[2017-08-13] MEDS: levETIRAcetam INJection 1,000 MG in D5W 100 ML IV ×2 (01:05→13:36)
[2017-08-13] MEDS: PHENYTOIN 100 MG/2 ML VIAL (J1165) IV ×3 (01:05→17:51)
[2017-08-13 01:08] LABS: BEDSIDE GLUCOSE 169 MG/DL (70-105)
[2017-08-13] MEDS: NYSTATIN 100,000 UNITS/GM TOPICAL PWD 15 GM TOP ×3 (03:25→21:03)
[2017-08-13] MEDS: MEROPENEM INJ 2 GM in NS 100 ML IV ×3 (03:26→17:56)
[2017-08-13] MEDS: hydrALAZINE INJ 20 MG/ML VIAL IV ×4 (03:31→20:26)
[2017-08-13 04:16] LABS: BASO % 0.6 % (0.0-1.0); EOS # 0.1 10^3/uL (0.0-0.50); EOS % 1.3 % (0.0-3.0); HEMATOCRIT 48.1 % (42.0-52.0); HEMOGLOBIN 15.3 g/dl (14.0-18.0); IMMATURE GRANULOCYTE # 0.1 10^3/uL (0-0); IMMATURE GRANULOCYTE % 1.3 % (0-0); LYMPH # 1.3 10^3/uL (1.5-4.5); LYMPH % 18.4 % (24.0-44.0); MEAN CORPUSCULAR HEMOGLOBIN 27.5 pg (27.0-33.0); MEAN CORPUSCULAR HGB CONC 31.8 g/dl (32.0-36.5); MEAN CORPUSCULAR VOLUME 86.4 fl (80.0-96.0); MONO % 13.6 % (0.0-5.0); NEUTROPHILS # 4.7 10^3/uL (1.8-7.7); NEUTROPHILS % 64.8 % (36.0-66.0); PLATELET COUNT, AUTOMATED 185 10^3/uL (150-450); RED BLOOD COUNT 5.57 10^6/uL (4.30-6.10); RED CELL DISTRIBUTION WIDTH 15.1 % (11.5-14.5); WHITE BLOOD COUNT 7.2 10^3/uL (4.0-10.0)
[2017-08-13 04:37] LABS: ALBUMIN 2.9 GM/DL (3.2-5.2); ALBUMIN/GLOBULIN RATIO 0.67 (1.00-1.93); ALKALINE PHOSPHATASE 81 U/L (45-117); ALT/SGPT 50 U/L (12-78); ANION GAP 5 MEQ/L (8-16); AST/SGOT 38 U/L (7-37); BILIRUBIN,TOTAL 0.8 MG/DL (0.2-1.0); BLOOD UREA NITROGEN 19 MG/DL (7-18); CALCIUM LEVEL 8.3 MG/DL (8.5-10.1); CARBON DIOXIDE LEVEL 35 MEQ/L (21-32); CHLORIDE LEVEL 94 MEQ/L (98-107); CREATININE FOR GFR 0.48 MG/DL (0.70-1.30); GLOMERULAR FILTRATION RATE > 60.0 (>56); GLUCOSE, FASTING 180 MG/DL (70-105); MAGNESIUM LEVEL 2.2 MG/DL (1.8-2.4); POTASSIUM SERUM 3.9 MEQ/L (3.5-5.1); SODIUM LEVEL 134 MEQ/L (136-145); TOTAL PROTEIN 7.2 GM/DL (6.4-8.2)
[2017-08-13] MEDS: LABETALOL HCL 100 MG/20 ML VIAL IV ×5 (05:26→23:57)
[2017-08-13] MEDS: D10W IV (06:14)
[2017-08-13] MEDS: [UNRECOGNIZED DRUG - OTHER] IV (06:14)
[2017-08-13 08:05] LABS: BEDSIDE GLUCOSE 162 MG/DL (70-105)
[2017-08-13] MEDS: FUROSEMIDE 40 MG/4 ML VIAL (J1940) IV ×2 (09:55→17:55)
[2017-08-13 10:25] LABS: BEDSIDE GLUCOSE 192 MG/DL (70-105)
[2017-08-13] MEDS: HumaLOG INSULIN (NovoLOG) PER UNIT SC ×2 (12:00→17:55)
[2017-08-13] MEDS: ENOXAPARIN 40 MG/0.4 ML SYRINGE (J1650) SC (12:17)
[2017-08-13 13:10] LABS: BEDSIDE GLUCOSE 200 MG/DL (70-105)
[2017-08-13] MEDS ORDERED: DEXTROSE 50% 50 ML SYRINGE IV (14:30)
[2017-08-13] MEDS ORDERED: GLUCOSE 4 GM CHEW TABLET PO (14:30)
[2017-08-13] MEDS ORDERED: GLUCAGON FOR INJ 1 MG VIAL (J1610) SC (14:30)
[2017-08-13 17:32] LABS: BEDSIDE GLUCOSE 170 MG/DL (70-105)
[2017-08-14] MEDS: HumaLOG INSULIN (NovoLOG) PER UNIT SC ×4 (00:05→17:16)
[2017-08-14 00:07] LABS: BEDSIDE GLUCOSE 180 MG/DL (70-105)
[2017-08-14] MEDS: levETIRAcetam INJection 1,000 MG in D5W 100 ML IV ×2 (00:56→12:02)
[2017-08-14] MEDS: hydrALAZINE INJ 20 MG/ML VIAL IV ×4 (03:00→20:37)
[2017-08-14] MEDS: PHENYTOIN 100 MG/2 ML VIAL (J1165) IV ×3 (03:02→17:16)
[2017-08-14] MEDS: MEROPENEM INJ 2 GM in NS 100 ML IV ×2 (03:04→12:01)
[2017-08-14 05:12] LABS: BASO # 0.1 10^3/uL (0.0-0.2); BASO % 0.6 % (0.0-1.0); EOS # 0.1 10^3/uL (0.0-0.50); EOS % 0.8 % (0.0-3.0); HEMATOCRIT 49.1 % (42.0-52.0); HEMOGLOBIN 15.6 g/dl (14.0-18.0); IMMATURE GRANULOCYTE # 0.2 10^3/uL (0-0); IMMATURE GRANULOCYTE % 1.8 % (0-0); LYMPH # 1.5 10^3/uL (1.5-4.5); LYMPH % 18.3 % (24.0-44.0); MEAN CORPUSCULAR HEMOGLOBIN 27.5 pg (27.0-33.0); MEAN CORPUSCULAR HGB CONC 31.8 g/dl (32.0-36.5); MEAN CORPUSCULAR VOLUME 86.4 fl (80.0-96.0); MONO # 1.2 10^3/uL (0.0-0.8); NEUTROPHILS # 5.3 10^3/uL (1.8-7.7); NEUTROPHILS % 64.5 % (36.0-66.0); PLATELET COUNT, AUTOMATED 211 10^3/uL (150-450); RED BLOOD COUNT 5.68 10^6/uL (4.30-6.10); RED CELL DISTRIBUTION WIDTH 15.3 % (11.5-14.5); WHITE BLOOD COUNT 8.3 10^3/uL (4.0-10.0)
[2017-08-14 05:31] LABS: ALBUMIN 2.8 GM/DL (3.2-5.2); ALBUMIN/GLOBULIN RATIO 0.64 (1.00-1.93); ALKALINE PHOSPHATASE 96 U/L (45-117); ALT/SGPT 76 U/L (12-78); ANION GAP 5 MEQ/L (8-16); AST/SGOT 45 U/L (7-37); BILIRUBIN,TOTAL 0.6 MG/DL (0.2-1.0); BLOOD UREA NITROGEN 29 MG/DL (7-18); CALCIUM LEVEL 8.6 MG/DL (8.5-10.1); CARBON DIOXIDE LEVEL 36 MEQ/L (21-32); CHLORIDE LEVEL 94 MEQ/L (98-107); CREATININE FOR GFR 0.55 MG/DL (0.70-1.30); GLOMERULAR FILTRATION RATE > 60.0 (>56); GLUCOSE, FASTING 217 MG/DL (70-105); MAGNESIUM LEVEL 2.4 MG/DL (1.8-2.4); SODIUM LEVEL 135 MEQ/L (136-145); TOTAL PROTEIN 7.2 GM/DL (6.4-8.2)
[2017-08-14] MEDS: LABETALOL HCL 100 MG/20 ML VIAL IV ×3 (05:51→17:16)
[2017-08-14 06:02] LABS: BEDSIDE GLUCOSE 182 MG/DL (70-105)
[2017-08-14] MEDS: ENOXAPARIN 40 MG/0.4 ML SYRINGE (J1650) SC (09:16)
[2017-08-14] MEDS: NYSTATIN 100,000 UNITS/GM TOPICAL PWD 15 GM TOP ×2 (09:17→20:37)
[2017-08-14 11:58] LABS: BEDSIDE GLUCOSE 189 MG/DL (70-105)
[2017-08-14] MEDS ORDERED: CEFTRIAXONE SOD 1 GM in APPROPRIATE DILUENT 1 EA IV (14:45)
[2017-08-14] MEDS ORDERED: DOXYCYCLINE HYCLATE 100 MG in D5W MINI-BAG PLUS 100 ML IV (16:00)
[2017-08-14 16:46] LABS: BEDSIDE GLUCOSE 190 MG/DL (70-105)
[2017-08-14] MEDS: ACETAMINOPHEN 650 MG SUPP PR (18:01)
[2017-08-14] MEDS: MEROPENEM INJ 1 GM in APPROPRIATE DILUENT 1 EA IV (20:35)
[2017-08-15 01:21] LABS: BEDSIDE GLUCOSE 166 MG/DL (70-105)
[2017-08-15] MEDS: HumaLOG INSULIN (NovoLOG) PER UNIT SC ×4 (01:30→17:27)
[2017-08-15] MEDS: levETIRAcetam INJection 1,000 MG in D5W 100 ML IV ×2 (01:30→16:03)
[2017-08-15] MEDS: LABETALOL HCL 100 MG/20 ML VIAL IV ×4 (01:32→17:28)
[2017-08-15] MEDS: hydrALAZINE INJ 20 MG/ML VIAL IV ×4 (02:50→21:43)
[2017-08-15] MEDS: PHENYTOIN 100 MG/2 ML VIAL (J1165) IV ×3 (02:56→17:27)
[2017-08-15] MEDS: MEROPENEM INJ 1 GM in APPROPRIATE DILUENT 1 EA IV ×3 (04:52→19:22)
[2017-08-15 05:41] LABS: BASO # 0.1 10^3/uL (0.0-0.2); BASO % 0.6 % (0.0-1.0); EOS # 0.1 10^3/uL (0.0-0.50); EOS % 1.6 % (0.0-3.0); HEMATOCRIT 49.4 % (42.0-52.0); HEMOGLOBIN 15.3 g/dl (14.0-18.0); IMMATURE GRANULOCYTE # 0.2 10^3/uL (0-0); IMMATURE GRANULOCYTE % 2.1 % (0-0); LYMPH # 1.6 10^3/uL (1.5-4.5); LYMPH % 17.8 % (24.0-44.0); MEAN CORPUSCULAR HEMOGLOBIN 27.2 pg (27.0-33.0); MEAN CORPUSCULAR VOLUME 87.9 fl (80.0-96.0); MONO # 1.3 10^3/uL (0.0-0.8); MONO % 15.1 % (0.0-5.0); NEUTROPHILS # 5.5 10^3/uL (1.8-7.7); NEUTROPHILS % 62.8 % (36.0-66.0); PLATELET COUNT, AUTOMATED 199 10^3/uL (150-450); RED BLOOD COUNT 5.62 10^6/uL (4.30-6.10); RED CELL DISTRIBUTION WIDTH 15.5 % (11.5-14.5); WHITE BLOOD COUNT 8.7 10^3/uL (4.0-10.0)
[2017-08-15 05:51] LABS: BEDSIDE GLUCOSE 207 MG/DL (70-105)
[2017-08-15 06:05] LABS: ALBUMIN 2.8 GM/DL (3.2-5.2); ALBUMIN/GLOBULIN RATIO 0.65 (1.00-1.93); ALKALINE PHOSPHATASE 95 U/L (45-117); ALT/SGPT 68 U/L (12-78); ANION GAP 5 MEQ/L (8-16); AST/SGOT 40 U/L (7-37); BILIRUBIN,TOTAL 0.5 MG/DL (0.2-1.0); BLOOD UREA NITROGEN 27 MG/DL (7-18); CALCIUM LEVEL 9.1 MG/DL (8.5-10.1); CARBON DIOXIDE LEVEL 36 MEQ/L (21-32); CHLORIDE LEVEL 94 MEQ/L (98-107); CREATININE FOR GFR 0.46 MG/DL (0.70-1.30); GLOMERULAR FILTRATION RATE > 60.0 (>56); GLUCOSE, FASTING 191 MG/DL (70-105); MAGNESIUM LEVEL 2.5 MG/DL (1.8-2.4); POTASSIUM SERUM 4.1 MEQ/L (3.5-5.1); SODIUM LEVEL 135 MEQ/L (136-145); TOTAL PROTEIN 7.1 GM/DL (6.4-8.2)
[2017-08-15] MEDS: NYSTATIN 100,000 UNITS/GM TOPICAL PWD 15 GM TOP ×2 (08:56→21:42)
[2017-08-15] MEDS: ENOXAPARIN 40 MG/0.4 ML SYRINGE (J1650) SC (08:57)
[2017-08-15 11:46] LABS: BEDSIDE GLUCOSE 192 MG/DL (70-105)
[2017-08-15 17:18] LABS: BEDSIDE GLUCOSE 226 MG/DL (70-105)
[2017-08-15] MEDS: D5W 1,000 ML IV (21:41)
[2017-08-15] MEDS: LEVEMIR (INSULIN DETEMIR) 1 UNITS/0.01ML SC (21:42)
[2017-08-15] MEDS: ASPIRIN 300 MG SUPP PR (21:42)
[2017-08-16] MEDS: HumaLOG INSULIN (NovoLOG) PER UNIT SC ×4 (00:52→17:37)
[2017-08-16 00:57] LABS: BEDSIDE GLUCOSE 185 MG/DL (70-105)
[2017-08-16] MEDS: LABETALOL HCL 100 MG/20 ML VIAL IV ×4 (01:45→17:38)
[2017-08-16] MEDS: PHENYTOIN 100 MG/2 ML VIAL (J1165) IV ×3 (02:26→17:37)
[2017-08-16] MEDS: MEROPENEM INJ 1 GM in APPROPRIATE DILUENT 1 EA IV ×3 (03:34→22:00)
[2017-08-16] MEDS: hydrALAZINE INJ 20 MG/ML VIAL IV ×4 (03:34→22:00)
[2017-08-16 05:53] LABS: BEDSIDE GLUCOSE 220 MG/DL (70-105)
[2017-08-16] MEDS: ENOXAPARIN 40 MG/0.4 ML SYRINGE (J1650) SC (08:35)
[2017-08-16] MEDS: ASPIRIN 300 MG SUPP PR (08:36)
[2017-08-16] MEDS: NYSTATIN 100,000 UNITS/GM TOPICAL PWD 15 GM TOP ×2 (08:36→21:59)
[2017-08-16 11:59] LABS: BEDSIDE GLUCOSE 246 MG/DL (70-105)
[2017-08-16] MEDS ORDERED: ISOVUE-370 76% 100ML VIAL (Q9967) As Ordered (13:30)
[2017-08-16 16:22] LABS: BASO % 0.4 % (0.0-1.0); EOS # 0.2 10^3/uL (0.0-0.50); EOS % 2.2 % (0.0-3.0); HEMATOCRIT 48.6 % (42.0-52.0); HEMOGLOBIN 15.2 g/dl (14.0-18.0); IMMATURE GRANULOCYTE # 0.2 10^3/uL (0-0); IMMATURE GRANULOCYTE % 2.6 % (0-0); LYMPH # 1.4 10^3/uL (1.5-4.5); LYMPH % 19.8 % (24.0-44.0); MEAN CORPUSCULAR HEMOGLOBIN 27.3 pg (27.0-33.0); MEAN CORPUSCULAR HGB CONC 31.3 g/dl (32.0-36.5); MEAN CORPUSCULAR VOLUME 87.4 fl (80.0-96.0); MONO # 0.8 10^3/uL (0.0-0.8); NEUTROPHILS # 4.7 10^3/uL (1.8-7.7); PLATELET COUNT, AUTOMATED 191 10^3/uL (150-450); RED BLOOD COUNT 5.56 10^6/uL (4.30-6.10); RED CELL DISTRIBUTION WIDTH 15.5 % (11.5-14.5); WHITE BLOOD COUNT 7.3 10^3/uL (4.0-10.0)
[2017-08-16] MEDS: D5W 1,000 ML IV (16:37)
[2017-08-16 16:44] LABS: ALBUMIN 2.9 GM/DL (3.2-5.2); ALBUMIN/GLOBULIN RATIO 0.83 (1.00-1.93); ALKALINE PHOSPHATASE 104 U/L (45-117); ALT/SGPT 64 U/L (12-78); ANION GAP 6 MEQ/L (8-16); AST/SGOT 33 U/L (7-37); BILIRUBIN,TOTAL 0.4 MG/DL (0.2-1.0); BLOOD UREA NITROGEN 25 MG/DL (7-18); CALCIUM LEVEL 8.5 MG/DL (8.5-10.1); CARBON DIOXIDE LEVEL 37 MEQ/L (21-32); CHLORIDE LEVEL 95 MEQ/L (98-107); GLOMERULAR FILTRATION RATE > 60.0 (>56); GLUCOSE, FASTING 249 MG/DL (70-105); MAGNESIUM LEVEL 2.5 MG/DL (1.8-2.4); POTASSIUM SERUM 4.2 MEQ/L (3.5-5.1); SODIUM LEVEL 138 MEQ/L (136-145); TOTAL PROTEIN 6.4 GM/DL (6.4-8.2)
[2017-08-16 17:32] LABS: BEDSIDE GLUCOSE 215 MG/DL (70-105)
[2017-08-16] MEDS: SODIUM CHLORIDE 0.9% INJ 10 ML SYR IV (17:38)
[2017-08-16] MEDS: LEVEMIR (INSULIN DETEMIR) 1 UNITS/0.01ML SC (22:00)
[2017-08-17 01:51] LABS: BEDSIDE GLUCOSE 205 MG/DL (70-105)
[2017-08-17] MEDS: PHENYTOIN 100 MG/2 ML VIAL (J1165) IV ×3 (01:58→18:00)
[2017-08-17] MEDS: HumaLOG INSULIN (NovoLOG) PER UNIT SC ×4 (01:58→18:00)
[2017-08-17] MEDS: hydrALAZINE INJ 20 MG/ML VIAL IV ×4 (02:10→21:52)
[2017-08-17] MEDS: MEROPENEM INJ 1 GM in APPROPRIATE DILUENT 1 EA IV ×3 (03:48→21:51)
[2017-08-17] MEDS: LABETALOL HCL 100 MG/20 ML VIAL IV ×4 (06:00→18:03)
[2017-08-17] MEDS: SODIUM CHLORIDE 0.9% INJ 10 ML SYR IV ×5 (06:36→22:32)
[2017-08-17 06:46] LABS: BASO # 0.1 10^3/uL (0.0-0.2); BASO % 0.6 % (0.0-1.0); EOS # 0.2 10^3/uL (0.0-0.50); EOS % 3.1 % (0.0-3.0); HEMATOCRIT 47.6 % (42.0-52.0); HEMOGLOBIN 14.9 g/dl (14.0-18.0); IMMATURE GRANULOCYTE # 0.2 10^3/uL (0-0); IMMATURE GRANULOCYTE % 2.6 % (0-0); LYMPH # 1.6 10^3/uL (1.5-4.5); LYMPH % 20.5 % (24.0-44.0); MEAN CORPUSCULAR HEMOGLOBIN 27.1 pg (27.0-33.0); MEAN CORPUSCULAR HGB CONC 31.3 g/dl (32.0-36.5); MEAN CORPUSCULAR VOLUME 86.7 fl (80.0-96.0); MONO # 0.8 10^3/uL (0.0-0.8); MONO % 10.5 % (0.0-5.0); NEUTROPHILS # 4.8 10^3/uL (1.8-7.7); NEUTROPHILS % 62.7 % (36.0-66.0); PLATELET COUNT, AUTOMATED 206 10^3/uL (150-450); RED BLOOD COUNT 5.49 10^6/uL (4.30-6.10); RED CELL DISTRIBUTION WIDTH 15.2 % (11.5-14.5); WHITE BLOOD COUNT 7.7 10^3/uL (4.0-10.0)
[2017-08-17 07:12] LABS: ALBUMIN 2.9 GM/DL (3.2-5.2); ALBUMIN/GLOBULIN RATIO 0.81 (1.00-1.93); ALKALINE PHOSPHATASE 103 U/L (45-117); ALT/SGPT 60 U/L (12-78); ANION GAP 5 MEQ/L (8-16); AST/SGOT 35 U/L (7-37); BILIRUBIN,TOTAL 0.5 MG/DL (0.2-1.0); BLOOD UREA NITROGEN 22 MG/DL (7-18); CALCIUM LEVEL 8.6 MG/DL (8.5-10.1); CARBON DIOXIDE LEVEL 37 MEQ/L (21-32); CHLORIDE LEVEL 95 MEQ/L (98-107); CREATININE FOR GFR 0.43 MG/DL (0.70-1.30); GLOMERULAR FILTRATION RATE > 60.0 (>56); GLUCOSE, FASTING 182 MG/DL (70-105); MAGNESIUM LEVEL 2.4 MG/DL (1.8-2.4); SODIUM LEVEL 137 MEQ/L (136-145); TOTAL PROTEIN 6.5 GM/DL (6.4-8.2)
[2017-08-17] MEDS: ENOXAPARIN 40 MG/0.4 ML SYRINGE (J1650) SC (08:45)
[2017-08-17] MEDS: NYSTATIN 100,000 UNITS/GM TOPICAL PWD 15 GM TOP ×2 (09:52→21:52)
[2017-08-17 11:45] LABS: BEDSIDE GLUCOSE 167 MG/DL (70-105)
[2017-08-17] MEDS: ASPIRIN 300 MG SUPP PR (14:46)
[2017-08-17 17:57] LABS: BEDSIDE GLUCOSE 167 MG/DL (70-105)
[2017-08-17] MEDS: LEVEMIR (INSULIN DETEMIR) 1 UNITS/0.01ML SC (21:51)
[2017-08-17 22:05] LABS: BEDSIDE GLUCOSE 173 MG/DL (70-105)
[2017-08-18] MEDS: HumaLOG INSULIN (NovoLOG) PER UNIT SC ×4 (00:13→18:12)
[2017-08-18 00:16] LABS: BEDSIDE GLUCOSE 145 MG/DL (70-105)
[2017-08-18] MEDS: PHENYTOIN 100 MG/2 ML VIAL (J1165) IV ×3 (02:20→18:11)
[2017-08-18] MEDS: hydrALAZINE INJ 20 MG/ML VIAL IV ×4 (03:59→21:00)
[2017-08-18] MEDS: MEROPENEM INJ 1 GM in APPROPRIATE DILUENT 1 EA IV ×3 (04:59→20:52)
[2017-08-18] MEDS: LABETALOL HCL 100 MG/20 ML VIAL IV ×4 (06:00→18:10)
[2017-08-18] MEDS: SODIUM CHLORIDE 0.9% INJ 10 ML SYR IV ×2 (06:08→18:11)
[2017-08-18 06:33] LABS: HEMOGLOBIN 14.5 g/dl (14.0-18.0); MEAN CORPUSCULAR HEMOGLOBIN 27.7 pg (27.0-33.0); MEAN CORPUSCULAR HGB CONC 31.5 g/dl (32.0-36.5); PLATELET COUNT, AUTOMATED 188 10^3/uL (150-450); RED BLOOD COUNT 5.23 10^6/uL (4.30-6.10); RED CELL DISTRIBUTION WIDTH 15.1 % (11.5-14.5); WHITE BLOOD COUNT 7.1 10^3/uL (4.0-10.0)
[2017-08-18 07:06] LABS: BEDSIDE GLUCOSE 165 MG/DL (70-105)
[2017-08-18 07:06] LABS: ANION GAP 7 MEQ/L (8-16); BLOOD UREA NITROGEN 22 MG/DL (7-18); CALCIUM LEVEL 8.3 MG/DL (8.5-10.1); CARBON DIOXIDE LEVEL 33 MEQ/L (21-32); CHLORIDE LEVEL 100 MEQ/L (98-107); CREATININE FOR GFR 0.43 MG/DL (0.70-1.30); GLOMERULAR FILTRATION RATE > 60.0 (>56); GLUCOSE, FASTING 198 MG/DL (70-105); SODIUM LEVEL 140 MEQ/L (136-145)
[2017-08-18] MEDS: ASPIRIN 300 MG SUPP PR (09:38)
[2017-08-18] MEDS: NYSTATIN 100,000 UNITS/GM TOPICAL PWD 15 GM TOP ×2 (09:39→21:22)
[2017-08-18] MEDS: ENOXAPARIN 40 MG/0.4 ML SYRINGE (J1650) SC (09:40)
[2017-08-18 12:07] LABS: BEDSIDE GLUCOSE 159 MG/DL (70-105)
[2017-08-18 17:26] LABS: BEDSIDE GLUCOSE 147 MG/DL (70-105)
[2017-08-18] MEDS: LEVEMIR (INSULIN DETEMIR) 1 UNITS/0.01ML SC (21:21)
[2017-08-18] MEDS: POLYVINYL ALCOHOL OPHTH SOLN 15 ML(LIQUITEARS) OU (21:22)
[2017-08-18 22:13] LABS: BEDSIDE GLUCOSE 158 MG/DL (70-105)
[2017-08-19] MEDS: LABETALOL HCL 100 MG/20 ML VIAL IV ×2 (00:08→05:16)
[2017-08-19] MEDS: EUCERIN 120GM CREAM TOP ×3 (00:08→21:32)
[2017-08-19] MEDS: HumaLOG INSULIN (NovoLOG) PER UNIT SC ×4 (00:09→18:09)
[2017-08-19 00:11] LABS: BEDSIDE GLUCOSE 175 MG/DL (70-105)
[2017-08-19] MEDS: hydrALAZINE INJ 20 MG/ML VIAL IV ×2 (02:25→16:52)
[2017-08-19] MEDS: PHENYTOIN 100 MG/2 ML VIAL (J1165) IV ×2 (02:25→10:08)
[2017-08-19] MEDS: MEROPENEM INJ 1 GM in APPROPRIATE DILUENT 1 EA IV (04:03)
[2017-08-19] MEDS: SODIUM CHLORIDE 0.9% INJ 10 ML SYR IV ×2 (05:16→18:10)
[2017-08-19 05:34] LABS: HEMATOCRIT 45.1 % (42.0-52.0); HEMOGLOBIN 14.1 g/dl (14.0-18.0); MEAN CORPUSCULAR HEMOGLOBIN 27.6 pg (27.0-33.0); MEAN CORPUSCULAR HGB CONC 31.3 g/dl (32.0-36.5); MEAN CORPUSCULAR VOLUME 88.3 fl (80.0-96.0); PLATELET COUNT, AUTOMATED 188 10^3/uL (150-450); RED BLOOD COUNT 5.11 10^6/uL (4.30-6.10); RED CELL DISTRIBUTION WIDTH 14.9 % (11.5-14.5); WHITE BLOOD COUNT 6.7 10^3/uL (4.0-10.0)
[2017-08-19 05:53] LABS: ANION GAP 6 MEQ/L (8-16); BLOOD UREA NITROGEN 19 MG/DL (7-18); CALCIUM LEVEL 8.2 MG/DL (8.5-10.1); CARBON DIOXIDE LEVEL 36 MEQ/L (21-32); CHLORIDE LEVEL 100 MEQ/L (98-107); CREATININE FOR GFR 0.42 MG/DL (0.70-1.30); GLOMERULAR FILTRATION RATE > 60.0 (>56); GLUCOSE, FASTING 181 MG/DL (70-105); SODIUM LEVEL 142 MEQ/L (136-145)
[2017-08-19] MEDS: ASPIRIN 81 MG ENTERIC TAB PEG (10:06)
[2017-08-19] MEDS: ENOXAPARIN 40 MG/0.4 ML SYRINGE (J1650) SC (10:06)
[2017-08-19] MEDS: NYSTATIN 100,000 UNITS/GM TOPICAL PWD 15 GM TOP ×2 (10:07→21:33)
[2017-08-19 12:39] LABS: BEDSIDE GLUCOSE 152 MG/DL (70-105)
[2017-08-19] MEDS: amLODIPine 5 MG TAB PO (16:52)
[2017-08-19 18:11] LABS: BEDSIDE GLUCOSE 139 MG/DL (70-105)
[2017-08-19] MEDS: LEVEMIR (INSULIN DETEMIR) 1 UNITS/0.01ML SC (21:32)
[2017-08-19] MEDS: ENOXAPARIN 100MG/1ML SYRINGE (J1650) SC (21:32)
[2017-08-19 21:33] LABS: BEDSIDE GLUCOSE 164 MG/DL (70-105)
[2017-08-20] MEDS: HumaLOG INSULIN (NovoLOG) PER UNIT SC ×4 (00:39→17:41)
[2017-08-20 00:42] LABS: BEDSIDE GLUCOSE 164 MG/DL (70-105)
[2017-08-20 04:55] LABS: HEMATOCRIT 45.1 % (42.0-52.0); HEMOGLOBIN 14.2 g/dl (14.0-18.0); MEAN CORPUSCULAR HEMOGLOBIN 27.6 pg (27.0-33.0); MEAN CORPUSCULAR HGB CONC 31.5 g/dl (32.0-36.5); MEAN CORPUSCULAR VOLUME 87.7 fl (80.0-96.0); PLATELET COUNT, AUTOMATED 175 10^3/uL (150-450); RED BLOOD COUNT 5.14 10^6/uL (4.30-6.10); RED CELL DISTRIBUTION WIDTH 14.9 % (11.5-14.5); WHITE BLOOD COUNT 6.3 10^3/uL (4.0-10.0)
[2017-08-20 05:31] LABS: ANION GAP 3 MEQ/L (8-16); BLOOD UREA NITROGEN 21 MG/DL (7-18); CALCIUM LEVEL 8.5 MG/DL (8.5-10.1); CARBON DIOXIDE LEVEL 35 MEQ/L (21-32); CHLORIDE LEVEL 100 MEQ/L (98-107); CREATININE FOR GFR 0.39 MG/DL (0.70-1.30); GLOMERULAR FILTRATION RATE > 60.0 (>56); GLUCOSE, FASTING 172 MG/DL (70-105); POTASSIUM SERUM 4.1 MEQ/L (3.5-5.1); SODIUM LEVEL 138 MEQ/L (136-145)
[2017-08-20] MEDS: SODIUM CHLORIDE 0.9% INJ 10 ML SYR IV ×2 (06:35→17:41)
[2017-08-20 08:18] LABS: C REACTIVE PROTEIN QUANTITATIV 4.04 MG/DL (0.00-0.30)
[2017-08-20 09:06] LABS: ABG BASE EXCESS 3.6 (-2.0-2.0); ABG HCO3 26.9 MEQ/L (22.0-26.0); ABG O2 SATURATION 94.5 % (95.0-99.0); ABG PARTIAL PRESSURE CO2 36.7 mmHg (35.0-45.0); ABG PARTIAL PRESSURE O2 69.5 mmHg (75.0-100.0); ABG STANDARD HCO3 27.6 MEQ/L (22.0-26.0); ABG pH (ARTERIAL) 7.483 UNITS (7.350-7.450)
[2017-08-20] MEDS: ASPIRIN 81 MG ENTERIC TAB PEG (09:27)
[2017-08-20] MEDS: ENOXAPARIN 100MG/1ML SYRINGE (J1650) SC ×2 (09:27→20:34)
[2017-08-20] MEDS: amLODIPine 5 MG TAB PO (09:27)
[2017-08-20] MEDS: NYSTATIN 100,000 UNITS/GM TOPICAL PWD 15 GM TOP ×2 (09:28→20:35)
[2017-08-20] MEDS: EUCERIN 120GM CREAM TOP ×2 (09:28→20:34)
[2017-08-20 11:36] LABS: BEDSIDE GLUCOSE 175 MG/DL (70-105)
[2017-08-20 15:26] LABS: APPEARANCE, URINE HAZY (CLEAR); BACTERIA, URINE AUTO 1+ (NEGATIVE); BILIRUBIN, URINE AUTO NEGATIVE (NEGATIVE); BLOOD, URINE BLOOD 2+ (NEGATIVE); COLOR, URINE YELLOW (YELLOW); GLUCOSE, URINE (UA) AUTO 1+ mg/dL (NEGATIVE); KETONE, URINE AUTO 1+ mg/dL (NEGATIVE); LEUKOCYTE ESTERASE, URINE AUTO 2+ (NEGATIVE); MUCUS, URINE SMALL (NEGATIVE); NITRITE, URINE AUTO NEGATIVE (NEGATIVE); PROTEIN, URINE AUTO 1+ mg/dL (NEGATIVE); RBC, URINE AUTO 58 /HPF (0-3); SPECIFIC GRAVITY URINE AUTO 1.025 (1.002-1.035); SQUAMOUS EPITHELIAL CELL UR AU 0 /HPF (0-6); WBC, URINE AUTO 71 /HPF (0-3); YEAST LIKE CELL URINE AUTO LARGE
[2017-08-20 17:24] LABS: BEDSIDE GLUCOSE 136 MG/DL (70-105)
[2017-08-20 20:06] LABS: BEDSIDE GLUCOSE 119 MG/DL (70-105)
[2017-08-20] MEDS: LEVEMIR (INSULIN DETEMIR) 1 UNITS/0.01ML SC (20:34)
[2017-08-21] MEDS: HumaLOG INSULIN (NovoLOG) PER UNIT SC ×4 (01:00→18:04)
[2017-08-21 01:16] LABS: BEDSIDE GLUCOSE 142 MG/DL (70-105)
[2017-08-21] MEDS: SODIUM CHLORIDE 0.9% INJ 10 ML SYR IV ×2 (04:41→18:04)
[2017-08-21 05:00] LABS: HEMATOCRIT 45.4 % (42.0-52.0); MEAN CORPUSCULAR HEMOGLOBIN 27.2 pg (27.0-33.0); MEAN CORPUSCULAR HGB CONC 30.8 g/dl (32.0-36.5); MEAN CORPUSCULAR VOLUME 88.3 fl (80.0-96.0); PLATELET COUNT, AUTOMATED 182 10^3/uL (150-450); RED BLOOD COUNT 5.14 10^6/uL (4.30-6.10); RED CELL DISTRIBUTION WIDTH 14.8 % (11.5-14.5); WHITE BLOOD COUNT 5.4 10^3/uL (4.0-10.0)
[2017-08-21 05:27] LABS: ANION GAP 7 MEQ/L (8-16); BLOOD UREA NITROGEN 20 MG/DL (7-18); CALCIUM LEVEL 8.3 MG/DL (8.5-10.1); CARBON DIOXIDE LEVEL 34 MEQ/L (21-32); CHLORIDE LEVEL 101 MEQ/L (98-107); CREATININE FOR GFR 0.37 MG/DL (0.70-1.30); GLOMERULAR FILTRATION RATE > 60.0 (>56); GLUCOSE, FASTING 146 MG/DL (70-105); SODIUM LEVEL 142 MEQ/L (136-145)
[2017-08-21] MEDS: EUCERIN 120GM CREAM TOP ×2 (09:38→20:07)
[2017-08-21] MEDS: amLODIPine 5 MG TAB PO (09:39)
[2017-08-21] MEDS: ENOXAPARIN 100MG/1ML SYRINGE (J1650) SC ×2 (09:39→20:06)
[2017-08-21] MEDS: NYSTATIN 100,000 UNITS/GM TOPICAL PWD 15 GM TOP ×2 (09:39→20:07)
[2017-08-21] MEDS: ASPIRIN 81 MG ENTERIC TAB PEG (09:41)
[2017-08-21 12:30] LABS: BEDSIDE GLUCOSE 175 MG/DL (70-105)
[2017-08-21 18:08] LABS: BEDSIDE GLUCOSE 186 MG/DL (70-105)
[2017-08-21] MEDS: LEVEMIR (INSULIN DETEMIR) 1 UNITS/0.01ML SC (20:06)
[2017-08-21 20:07] LABS: BEDSIDE GLUCOSE 184 MG/DL (70-105)
[2017-08-22 00:05] LABS: BEDSIDE GLUCOSE 168 MG/DL (70-105)
[2017-08-22] MEDS: HumaLOG INSULIN (NovoLOG) PER UNIT SC ×4 (00:58→17:43)
[2017-08-22] MEDS: SODIUM CHLORIDE 0.9% INJ 10 ML SYR IV ×2 (05:11→17:44)
[2017-08-22 05:35] LABS: HEMATOCRIT 45.2 % (42.0-52.0); MEAN CORPUSCULAR HEMOGLOBIN 27.5 pg (27.0-33.0); MEAN CORPUSCULAR VOLUME 88.6 fl (80.0-96.0); PLATELET COUNT, AUTOMATED 173 10^3/uL (150-450); RED CELL DISTRIBUTION WIDTH 14.6 % (11.5-14.5); WHITE BLOOD COUNT 5.5 10^3/uL (4.0-10.0)
[2017-08-22 06:04] LABS: ANION GAP 6 MEQ/L (8-16); BLOOD UREA NITROGEN 18 MG/DL (7-18); CALCIUM LEVEL 8.2 MG/DL (8.5-10.1); CARBON DIOXIDE LEVEL 33 MEQ/L (21-32); CHLORIDE LEVEL 103 MEQ/L (98-107); CREATININE FOR GFR 0.37 MG/DL (0.70-1.30); GLOMERULAR FILTRATION RATE > 60.0 (>56); GLUCOSE, FASTING 176 MG/DL (70-105); POTASSIUM SERUM 4.1 MEQ/L (3.5-5.1); SODIUM LEVEL 142 MEQ/L (136-145)
[2017-08-22] MEDS: NYSTATIN 100,000 UNITS/GM TOPICAL PWD 15 GM TOP ×2 (09:15→21:48)
[2017-08-22] MEDS: ENOXAPARIN 100MG/1ML SYRINGE (J1650) SC ×2 (09:15→21:47)
[2017-08-22] MEDS: EUCERIN 120GM CREAM TOP ×2 (09:15→21:48)
[2017-08-22] MEDS: ASPIRIN 81 MG ENTERIC TAB PEG (09:16)
[2017-08-22] MEDS: amLODIPine 5 MG TAB PO (09:16)
[2017-08-22 11:59] LABS: BEDSIDE GLUCOSE 187 MG/DL (70-105)
[2017-08-22 17:46] LABS: BEDSIDE GLUCOSE 213 MG/DL (70-105)
[2017-08-22] MEDS: LEVEMIR (INSULIN DETEMIR) 1 UNITS/0.01ML SC (21:00)
[2017-08-22 21:51] LABS: BEDSIDE GLUCOSE 129 MG/DL (70-105)
[2017-08-23 00:38] LABS: BEDSIDE GLUCOSE 118 MG/DL (70-105)
[2017-08-23 02:39] LABS: BEDSIDE GLUCOSE 128 MG/DL (70-105)
[2017-08-23 05:19] LABS: HEMATOCRIT 45.3 % (42.0-52.0); HEMOGLOBIN 14.1 g/dl (14.0-18.0); MEAN CORPUSCULAR HEMOGLOBIN 27.5 pg (27.0-33.0); MEAN CORPUSCULAR HGB CONC 31.1 g/dl (32.0-36.5); MEAN CORPUSCULAR VOLUME 88.3 fl (80.0-96.0); PLATELET COUNT, AUTOMATED 187 10^3/uL (150-450); RED BLOOD COUNT 5.13 10^6/uL (4.30-6.10); RED CELL DISTRIBUTION WIDTH 14.6 % (11.5-14.5); WHITE BLOOD COUNT 4.8 10^3/uL (4.0-10.0)
[2017-08-23 05:56] LABS: ANION GAP 7 MEQ/L (8-16); BLOOD UREA NITROGEN 18 MG/DL (7-18); CALCIUM LEVEL 8.5 MG/DL (8.5-10.1); CARBON DIOXIDE LEVEL 32 MEQ/L (21-32); CHLORIDE LEVEL 105 MEQ/L (98-107); CREATININE FOR GFR 0.43 MG/DL (0.70-1.30); GLOMERULAR FILTRATION RATE > 60.0 (>56); GLUCOSE, FASTING 152 MG/DL (70-105); POTASSIUM SERUM 4.1 MEQ/L (3.5-5.1); SODIUM LEVEL 144 MEQ/L (136-145)
[2017-08-23] MEDS: HumaLOG INSULIN (NovoLOG) PER UNIT SC ×5 (06:00→21:35)
[2017-08-23] MEDS: SODIUM CHLORIDE 0.9% INJ 10 ML SYR IV ×2 (06:08→17:11)
[2017-08-23] MEDS: ENOXAPARIN 100MG/1ML SYRINGE (J1650) SC (08:02)
[2017-08-23] MEDS: EUCERIN 120GM CREAM TOP ×2 (08:02→21:34)
[2017-08-23] MEDS: ASPIRIN 81 MG ENTERIC TAB PEG (08:03)
[2017-08-23] MEDS: amLODIPine 5 MG TAB PO ×2 (08:03→17:11)
[2017-08-23] MEDS: NYSTATIN 100,000 UNITS/GM TOPICAL PWD 15 GM TOP ×2 (08:03→21:34)
[2017-08-23 17:09] LABS: BEDSIDE GLUCOSE 213 MG/DL (70-105)
[2017-08-23 20:42] LABS: BEDSIDE GLUCOSE 296 MG/DL (70-105)
[2017-08-23] MEDS: APIXABAN 5 MG TAB (ELIQUIS) PO (21:31)
[2017-08-23] MEDS: LEVEMIR (INSULIN DETEMIR) 1 UNITS/0.01ML SC (21:32)
[2017-08-24] MEDS: SODIUM CHLORIDE 0.9% INJ 10 ML SYR IV (05:11)
[2017-08-24 05:35] LABS: HEMATOCRIT 44.5 % (42.0-52.0); MEAN CORPUSCULAR HEMOGLOBIN 27.7 pg (27.0-33.0); MEAN CORPUSCULAR HGB CONC 31.5 g/dl (32.0-36.5); MEAN CORPUSCULAR VOLUME 88.1 fl (80.0-96.0); PLATELET COUNT, AUTOMATED 178 10^3/uL (150-450); RED BLOOD COUNT 5.05 10^6/uL (4.30-6.10); RED CELL DISTRIBUTION WIDTH 14.3 % (11.5-14.5)
[2017-08-24 06:30] LABS: ANION GAP 8 MEQ/L (8-16); BLOOD UREA NITROGEN 16 MG/DL (7-18); CALCIUM LEVEL 8.2 MG/DL (8.5-10.1); CARBON DIOXIDE LEVEL 30 MEQ/L (21-32); CHLORIDE LEVEL 104 MEQ/L (98-107); CREATININE FOR GFR 0.44 MG/DL (0.70-1.30); GLOMERULAR FILTRATION RATE > 60.0 (>56); GLUCOSE, FASTING 209 MG/DL (70-105); POTASSIUM SERUM 4.2 MEQ/L (3.5-5.1); SODIUM LEVEL 142 MEQ/L (136-145)
[2017-08-24] MEDS: HumaLOG INSULIN (NovoLOG) PER UNIT SC ×2 (08:06→12:44)
[2017-08-24] MEDS: EUCERIN 120GM CREAM TOP (08:07)
[2017-08-24] MEDS: amLODIPine 5 MG TAB PO (08:07)
[2017-08-24] MEDS: ASPIRIN 81 MG ENTERIC TAB PEG (08:07)
[2017-08-24] MEDS: APIXABAN 5 MG TAB (ELIQUIS) PO (08:07)
[2017-08-24] MEDS: NYSTATIN 100,000 UNITS/GM TOPICAL PWD 15 GM TOP (08:07)
[2017-08-24] MEDS: FLEET ENEMA PR (11:07)
[2017-08-24 12:43] LABS: BEDSIDE GLUCOSE 292 MG/DL (70-105)
== END 2017-08-24 14:00 | DRG 871 ==
LOC: M ED 10:00 → M MS5PR 08-23 18:40 → M ED INP 14:28 → M PCU 20:33
PROC: 009U3ZX Drainage of Spinal Canal, Percutaneous Approach, Diagnostic (ICD-10-PCS; principal; 2017-08-11)
PROC: 02HV33Z Insertion of Infusion Device into Superior Vena Cava, Percutaneous Approach (ICD-10-PCS; 2017-08-16)
DX: A41.9 Sepsis, unspecified organism (principal); I50.33 Acute on chronic diastolic (congestive) heart failure; G93.41 Metabolic encephalopathy; E11.641 Type 2 diabetes mellitus with hypoglycemia with coma; J69.0 Pneumonitis due to inhalation of food and vomit; I63.532 Cerebral infarction due to unspecified occlusion or stenosis of left posterior cerebral artery; E87.2 Acidosis; N39.0 Urinary tract infection, site not specified; R56.9 Unspecified convulsions; Z66 Do not resuscitate; E78.5 Hyperlipidemia, unspecified; I25.10 Atherosclerotic heart disease of native coronary artery without angina pectoris; I25.2 Old myocardial infarction; I11.0 Hypertensive heart disease with heart failure; I16.0 Hypertensive urgency; E78.00 Pure hypercholesterolemia, unspecified; E11.51 Type 2 diabetes mellitus with diabetic peripheral angiopathy without gangrene; R33.9 Retention of urine, unspecified; B95.61 Methicillin susceptible Staphylococcus aureus infection as the cause of diseases classified elsewhere; M71.21 Synovial cyst of popliteal space [Baker], right knee; B96.20 Unspecified Escherichia coli [E. coli] as the cause of diseases classified elsewhere; F32.9 Major depressive disorder, single episode, unspecified; G47.33 Obstructive sleep apnea (adult) (pediatric); Z79.82 Long term (current) use of aspirin; Z79.4 Long term (current) use of insulin; Z79.899 Other long term (current) drug therapy; Z88.0 Allergy status to penicillin; Z88.1 Allergy status to other antibiotic agents; Z88.8 Allergy status to other drugs, medicaments and biological substances; Z89.512 Acquired absence of left leg below knee; Z99.3 Dependence on wheelchair; Z86.718 Personal history of other venous thrombosis and embolism; Z87.440 Personal history of urinary (tract) infections

== ENCOUNTER 2017-10-10 12:05 | Inpatient (IN) | payer MEDICARE, MEDICAID ==
[2017-10-10 12:57] LABS: HEMOGLOBIN 14.6 g/dl (14.0-18.0); MEAN CORPUSCULAR HEMOGLOBIN 28.9 pg (27.0-33.0); MEAN CORPUSCULAR HGB CONC 33.2 g/dl (32.0-36.5); PLATELET COUNT, AUTOMATED 162 10^3/uL (150-450); RED BLOOD COUNT 5.06 10^6/uL (4.30-6.10); WHITE BLOOD COUNT 7.4 10^3/uL (4.0-10.0)
[2017-10-10 13:10] LABS: INR 1.03; PARTIAL THROMBOPLASTIN TIME 29.4 SECONDS (26.8-37.9); PROTHROMBIN TIME 13.6 SECONDS (12.4-14.5)
[2017-10-10 13:13] LABS: ANION GAP 6 MEQ/L (8-16); BLOOD UREA NITROGEN 12 MG/DL (7-18); CALCIUM LEVEL 9.4 MG/DL (8.5-10.1); CARBON DIOXIDE LEVEL 35 MEQ/L (21-32); CHLORIDE LEVEL 95 MEQ/L (98-107); CREATININE FOR GFR 0.58 MG/DL (0.70-1.30); GLOMERULAR FILTRATION RATE > 60.0 (>56); GLUCOSE, FASTING 304 MG/DL (70-100); POTASSIUM SERUM 4.4 MEQ/L (3.5-5.1); SODIUM LEVEL 136 MEQ/L (136-145)
[2017-10-10] MEDS ORDERED: GLUCAGON FOR INJ 1 MG VIAL (J1610) SC (13:45)
[2017-10-10] MEDS ORDERED: DEXTROSE 50% 50 ML SYRINGE IV (13:45)
[2017-10-10] MEDS ORDERED: GLUCOSE 4 GM CHEW TABLET PO (13:45)
[2017-10-10] MEDS: KCL 20MEQ in NS 1000ML 1,000 ML IV (13:58)
[2017-10-10] MEDS: NS 1,000 ML IV (16:16)
[2017-10-10] MEDS: hydrALAZINE INJ 20 MG/ML VIAL IV ×2 (16:17→23:06)
[2017-10-10] MEDS: HumaLOG INSULIN (NovoLOG) PER UNIT SC (18:01)
[2017-10-10 18:05] LABS: BEDSIDE GLUCOSE 302 MG/DL (70-105)
[2017-10-10] MEDS: LABETALOL HCL 100 MG/20 ML VIAL IV (18:35)
[2017-10-10] MEDS: ATORVASTATIN 20 MG TAB PO (21:00)
[2017-10-10] MEDS: LEVEMIR (INSULIN DETEMIR) 1 UNITS/0.01ML SC (21:00)
[2017-10-10 21:11] LABS: BEDSIDE GLUCOSE 258 MG/DL (70-105)
[2017-10-11] MEDS: LABETALOL HCL 100 MG/20 ML VIAL IV ×4 (00:21→18:10)
[2017-10-11] MEDS: HumaLOG INSULIN (NovoLOG) PER UNIT SC ×4 (00:31→20:50)
[2017-10-11 00:39] LABS: BEDSIDE GLUCOSE 195 MG/DL (70-105)
[2017-10-11 05:06] LABS: HEMOGLOBIN 13.8 g/dl (14.0-18.0); MEAN CORPUSCULAR HEMOGLOBIN 28.5 pg (27.0-33.0); MEAN CORPUSCULAR HGB CONC 32.1 g/dl (32.0-36.5); MEAN CORPUSCULAR VOLUME 88.7 fl (80.0-96.0); PLATELET COUNT, AUTOMATED 154 10^3/uL (150-450); RED BLOOD COUNT 4.85 10^6/uL (4.30-6.10); RED CELL DISTRIBUTION WIDTH 15.2 % (11.5-14.5); WHITE BLOOD COUNT 7.2 10^3/uL (4.0-10.0)
[2017-10-11 05:33] LABS: ALBUMIN 3.4 GM/DL (3.2-5.2); ALBUMIN/GLOBULIN RATIO 0.89 (1.00-1.93); ALKALINE PHOSPHATASE 97 U/L (45-117); ALT/SGPT 20 U/L (12-78); ANION GAP 5 MEQ/L (8-16); AST/SGOT 7 U/L (7-37); BILIRUBIN,TOTAL 0.6 MG/DL (0.2-1.0); BLOOD UREA NITROGEN 11 MG/DL (7-18); CALCIUM LEVEL 8.8 MG/DL (8.5-10.1); CARBON DIOXIDE LEVEL 33 MEQ/L (21-32); CHLORIDE LEVEL 101 MEQ/L (98-107); CREATININE FOR GFR 0.44 MG/DL (0.70-1.30); GLOMERULAR FILTRATION RATE > 60.0 (>56); GLUCOSE, FASTING 242 MG/DL (70-100); SODIUM LEVEL 139 MEQ/L (136-145); TOTAL PROTEIN 7.2 GM/DL (6.4-8.2)
[2017-10-11 07:09] LABS: BEDSIDE GLUCOSE 255 MG/DL (70-105)
[2017-10-11] MEDS: NS 1,000 ML IV (08:23)
[2017-10-11] MEDS: ESCITALOPRAM OXALATE 10 MG TAB (LEXAPRO) PO (10:11)
[2017-10-11] MEDS: hydrALAZINE INJ 20 MG/ML VIAL IV ×2 (11:07→18:10)
[2017-10-11 11:22] LABS: BEDSIDE GLUCOSE 252 MG/DL (70-105)
[2017-10-11 17:40] LABS: BEDSIDE GLUCOSE 256 MG/DL (70-105)
[2017-10-11] MEDS: ATORVASTATIN 20 MG TAB PO (20:50)
[2017-10-11] MEDS: LEVEMIR (INSULIN DETEMIR) 1 UNITS/0.01ML SC (20:50)
[2017-10-11 20:54] LABS: BEDSIDE GLUCOSE 318 MG/DL (70-105)
[2017-10-12] MEDS: LABETALOL HCL 100 MG/20 ML VIAL IV ×2 (00:19→06:00)
[2017-10-12] MEDS: hydrALAZINE INJ 20 MG/ML VIAL IV ×2 (00:58→04:59)
[2017-10-12] MEDS: ACETAMINOPHEN TAB 650MG DOSE (2X325MG) PO (04:58)
[2017-10-12 06:37] LABS: HEMATOCRIT 40.1 % (42.0-52.0); MEAN CORPUSCULAR HEMOGLOBIN 28.8 pg (27.0-33.0); MEAN CORPUSCULAR HGB CONC 32.4 g/dl (32.0-36.5); MEAN CORPUSCULAR VOLUME 88.7 fl (80.0-96.0); PLATELET COUNT, AUTOMATED 163 10^3/uL (150-450); RED BLOOD COUNT 4.52 10^6/uL (4.30-6.10); RED CELL DISTRIBUTION WIDTH 15.2 % (11.5-14.5); WHITE BLOOD COUNT 6.4 10^3/uL (4.0-10.0)
[2017-10-12 06:49] LABS: ALBUMIN 3.2 GM/DL (3.2-5.2); ALBUMIN/GLOBULIN RATIO 0.89 (1.00-1.93); ALKALINE PHOSPHATASE 98 U/L (45-117); ALT/SGPT 11 U/L (12-78); ANION GAP 4 MEQ/L (8-16); AST/SGOT 4 U/L (7-37); BILIRUBIN,TOTAL 0.6 MG/DL (0.2-1.0); BLOOD UREA NITROGEN 13 MG/DL (7-18); CALCIUM LEVEL 8.5 MG/DL (8.5-10.1); CARBON DIOXIDE LEVEL 33 MEQ/L (21-32); CHLORIDE LEVEL 98 MEQ/L (98-107); CREATININE FOR GFR 0.56 MG/DL (0.70-1.30); GLOMERULAR FILTRATION RATE > 60.0 (>56); GLUCOSE, FASTING 255 MG/DL (70-100); MAGNESIUM LEVEL 1.8 MG/DL (1.8-2.4); SODIUM LEVEL 135 MEQ/L (136-145); TOTAL PROTEIN 6.8 GM/DL (6.4-8.2)
[2017-10-12] MEDS: ESCITALOPRAM OXALATE 10 MG TAB (LEXAPRO) PO (08:43)
[2017-10-12 11:56] LABS: BEDSIDE GLUCOSE 278 MG/DL (70-105)
[2017-10-12] MEDS: METOPROLOL TART 12.5 MG PER 1/2 TAB PO (12:21)
[2017-10-12] MEDS ORDERED: HumaLOG INSULIN (NovoLOG) PER UNIT SC (17:30)
[2017-10-13] MEDS ORDERED: hydrALAZINE INJ 20 MG/ML VIAL IV (06:00)
== END 2017-10-12 16:17 | DRG 86 ==
LOC: M PCU 10-11 18:50 → M ED 12:05 → M ED INP 12:30 → M ICU 15:45
DX: S06.5X0A Traumatic subdural hemorrhage without loss of consciousness, initial encounter (principal); I50.32 Chronic diastolic (congestive) heart failure; W06.XXXA Fall from bed, initial encounter; Y92.122 Bedroom in nursing home as the place of occurrence of the external cause; E11.9 Type 2 diabetes mellitus without complications; G47.33 Obstructive sleep apnea (adult) (pediatric); I73.9 Peripheral vascular disease, unspecified; R33.9 Retention of urine, unspecified; F32.9 Major depressive disorder, single episode, unspecified; Z66 Do not resuscitate; E78.5 Hyperlipidemia, unspecified; I25.10 Atherosclerotic heart disease of native coronary artery without angina pectoris; Z79.82 Long term (current) use of aspirin; Z86.718 Personal history of other venous thrombosis and embolism; Z86.73 Personal history of transient ischemic attack (TIA), and cerebral infarction without residual deficits; Z79.4 Long term (current) use of insulin; Z79.899 Other long term (current) drug therapy; Z79.01 Long term (current) use of anticoagulants; Z88.0 Allergy status to penicillin; Z88.1 Allergy status to other antibiotic agents; Z88.8 Allergy status to other drugs, medicaments and biological substances; Z89.512 Acquired absence of left leg below knee

== ENCOUNTER → 2017-10-10 | Outpatient (CLI) | payer MEDICARE, MEDICAID | LOC: M RAD 10:14 | DX: I67.82 Cerebral ischemia (principal); I62.01 Nontraumatic acute subdural hemorrhage; G31.9 Degenerative disease of nervous system, unspecified ==

== ENCOUNTER → 2017-10-26 | Outpatient (REF) | payer MEDICARE, MEDICAID | LOC: SKLAB3 17:44 | DX: R39.89 Other symptoms and signs involving the genitourinary system (principal) | CPT/HCPCS: 87086 ==

== ENCOUNTER → 2017-10-29 | Outpatient (REF) ==
[2017-10-29 09:04] LABS: HEMATOCRIT 45.8 % (42.0-52.0); MEAN CORPUSCULAR HGB CONC 32.8 g/dl (32.0-36.5); MEAN CORPUSCULAR VOLUME 88.4 fl (80.0-96.0); PLATELET COUNT, AUTOMATED 186 10^3/uL (150-450); RED BLOOD COUNT 5.18 10^6/uL (4.30-6.10); RED CELL DISTRIBUTION WIDTH 14.2 % (11.5-14.5)
== END ==
LOC: SKLAB3 12:41
DX: Z79.01 Long term (current) use of anticoagulants (principal)

== ENCOUNTER 2017-11-07 15:35 | Emergency (ER) | payer MEDICARE, MEDICAID ==
[2017-11-07 16:17] LABS: BASO % 0.2 % (0.0-1.0); EOS # 0.1 10^3/uL (0.0-0.50); EOS % 0.9 % (0.0-3.0); HEMATOCRIT 41.2 % (42.0-52.0); HEMOGLOBIN 13.7 g/dl (14.0-18.0); IMMATURE GRANULOCYTE % 1.2 % (0-3.0); LYMPH # 1.6 10^3/uL (1.5-4.5); LYMPH % 17.7 % (24.0-44.0); MEAN CORPUSCULAR HGB CONC 33.3 g/dl (32.0-36.5); MEAN CORPUSCULAR VOLUME 87.1 fl (80.0-96.0); MONO # 1.1 10^3/uL (0.0-0.8); MONO % 11.8 % (0.0-5.0); NEUTROPHILS # 6.3 10^3/uL (1.8-7.7); NEUTROPHILS % 68.2 % (36.0-66.0); PLATELET COUNT, AUTOMATED 186 10^3/uL (150-450); RED BLOOD COUNT 4.73 10^6/uL (4.30-6.10); RED CELL DISTRIBUTION WIDTH 13.9 % (11.5-14.5); WHITE BLOOD COUNT 9.2 10^3/uL (4.0-10.0)
[2017-11-07 16:20] LABS: BEDSIDE GLUCOSE 360 MG/DL (70-105)
[2017-11-07 16:26] LABS: INR 1.08; PROTHROMBIN TIME 14.1 SECONDS (12.4-14.5)
[2017-11-07 16:27] LABS: PARTIAL THROMBOPLASTIN TIME 37.8 SECONDS (26.8-37.9)
[2017-11-07 16:41] LABS: ALBUMIN 3.2 GM/DL (3.2-5.2); ALBUMIN/GLOBULIN RATIO 0.91 (1.00-1.93); ALKALINE PHOSPHATASE 102 U/L (45-117); ALT/SGPT 16 U/L (12-78); ANION GAP 8 MEQ/L (8-16); AST/SGOT 6 U/L (7-37); BILIRUBIN,DIRECT 0.2 MG/DL (0.0-0.2); BILIRUBIN,TOTAL 0.5 MG/DL (0.2-1.0); BLOOD UREA NITROGEN 15 MG/DL (7-18); CALCIUM LEVEL 8.5 MG/DL (8.5-10.1); CARBON DIOXIDE LEVEL 30 MEQ/L (21-32); CHLORIDE LEVEL 94 MEQ/L (98-107); CPK CREATINE PHOSPHOKINASE 38 U/L (39-308); CREATININE FOR GFR 0.61 MG/DL (0.70-1.30); GLOMERULAR FILTRATION RATE > 60.0 (>56); GLUCOSE, FASTING 344 MG/DL (70-100); POTASSIUM SERUM 4.2 MEQ/L (3.5-5.1); SODIUM LEVEL 132 MEQ/L (136-145); TOTAL PROTEIN 6.7 GM/DL (6.4-8.2); TROPONIN I < 0.02 NG/ML (< 0.10)
[2017-11-07 16:47] LABS: CK-MB VALUE MASS 1.1 NG/ML (<3.6); MB/CK RELATIVE INDEX 2.89 (< OR =4)
[2017-11-07] MEDS: NS 1,000 ML IV (18:12)
== END 2017-11-07 19:28 | disposition short-term general hospital (02) ==
LOC: M ED 15:35
DX: S06.5X0D Traumatic subdural hemorrhage without loss of consciousness, subsequent encounter (principal); W19.XXXD Unspecified fall, subsequent encounter; Y92.129 Unspecified place in nursing home as the place of occurrence of the external cause; I67.81 Acute cerebrovascular insufficiency; G31.9 Degenerative disease of nervous system, unspecified; E11.40 Type 2 diabetes mellitus with diabetic neuropathy, unspecified; I11.0 Hypertensive heart disease with heart failure; G47.33 Obstructive sleep apnea (adult) (pediatric); Z79.899 Other long term (current) drug therapy; Z79.4 Long term (current) use of insulin; Z79.82 Long term (current) use of aspirin; Z88.0 Allergy status to penicillin; Z88.1 Allergy status to other antibiotic agents; Z88.8 Allergy status to other drugs, medicaments and biological substances; Z86.73 Personal history of transient ischemic attack (TIA), and cerebral infarction without residual deficits; Z98.890 Other specified postprocedural states; Z79.01 Long term (current) use of anticoagulants
CPT/HCPCS: 70450

== ENCOUNTER → 2017-11-07 | Outpatient (CLI) | payer MEDICARE, MEDICAID | LOC: M RAD 14:18 | DX: S06.5X0D Traumatic subdural hemorrhage without loss of consciousness, subsequent encounter (principal); X58.XXXA Exposure to other specified factors, initial encounter; Y92.89 Other specified places as the place of occurrence of the external cause; G31.9 Degenerative disease of nervous system, unspecified ==

== ENCOUNTER 2017-11-13 06:21 | Emergency (ER) | payer MEDICARE, MEDICAID ==
[2017-11-13 07:25] LABS: BASO % 0.4 % (0.0-1.0); EOS % 0.5 % (0.0-3.0); HEMATOCRIT 41.2 % (42.0-52.0); HEMOGLOBIN 13.7 g/dl (14.0-18.0); IMMATURE GRANULOCYTE % 2.2 % (0-3.0); LYMPH # 1.3 10^3/uL (1.5-4.5); LYMPH % 17.3 % (24.0-44.0); MEAN CORPUSCULAR HEMOGLOBIN 29.3 pg (27.0-33.0); MEAN CORPUSCULAR HGB CONC 33.3 g/dl (32.0-36.5); MEAN CORPUSCULAR VOLUME 88.2 fl (80.0-96.0); MONO # 0.8 10^3/uL (0.0-0.8); MONO % 10.2 % (0.0-5.0); NEUTROPHILS # 5.4 10^3/uL (1.8-7.7); NEUTROPHILS % 69.4 % (36.0-66.0); PLATELET COUNT, AUTOMATED 227 10^3/uL (150-450); RED BLOOD COUNT 4.67 10^6/uL (4.30-6.10); RED CELL DISTRIBUTION WIDTH 13.8 % (11.5-14.5); WHITE BLOOD COUNT 7.7 10^3/uL (4.0-10.0)
[2017-11-13 07:35] LABS: ABG HCO3 32.6 MEQ/L (22.0-26.0); ABG O2 SATURATION 98.9 % (95.0-99.0); ABG PARTIAL PRESSURE CO2 50.3 mmHg (35.0-45.0); ABG PARTIAL PRESSURE O2 134.8 mmHg (75.0-100.0); ABG STANDARD HCO3 30.9 MEQ/L (22.0-26.0); ABG TOTAL CO2 34.2 MEQ/L (22.0-29.0)
[2017-11-13 07:39] LABS: AMMONIA 32 uMOL/L (<32)
[2017-11-13 07:44] LABS: LACTIC ACID SEPSIS PROTOCOL 0.7 MMOL/L (0.4-2.0)
[2017-11-13 07:46] LABS: ALBUMIN/GLOBULIN RATIO 0.65 (1.00-1.93); ALKALINE PHOSPHATASE 81 U/L (45-117); ALT/SGPT 12 U/L (12-78); ANION GAP 7 MEQ/L (8-16); AST/SGOT 7 U/L (7-37); BILIRUBIN,DIRECT 0.1 MG/DL (0.0-0.2); BILIRUBIN,TOTAL 0.5 MG/DL (0.2-1.0); BLOOD UREA NITROGEN 17 MG/DL (7-18); CALCIUM LEVEL 8.9 MG/DL (8.5-10.1); CARBON DIOXIDE LEVEL 32 MEQ/L (21-32); CHLORIDE LEVEL 99 MEQ/L (98-107); CPK CREATINE PHOSPHOKINASE 41 U/L (39-308); CREATININE FOR GFR 0.38 MG/DL (0.70-1.30); GLOMERULAR FILTRATION RATE > 60.0 (>56); GLUCOSE, FASTING 46 MG/DL (70-100); POTASSIUM SERUM 3.4 MEQ/L (3.5-5.1); SODIUM LEVEL 138 MEQ/L (136-145); TOTAL PROTEIN 7.6 GM/DL (6.4-8.2); TROPONIN I < 0.02 NG/ML (< 0.10)
[2017-11-13 07:51] LABS: CK-MB VALUE MASS < 1.0 NG/ML (<3.6); MB/CK RELATIVE INDEX 2.43 (< OR =4)
[2017-11-13 08:19] LABS: OSMOLALITY SERUM 287 MOSM/KG (275-295)
[2017-11-13] MEDS: NS 1,000 ML IV (08:39)
[2017-11-13 08:58] LABS: KETONE, URINE AUTO RFX TRACE mg/dL (NEGATIVE); LEUKOCYTE ESTERASE UR AUTO RFX 3+ (NEGATIVE); MUCUS, URINE RFX LARGE (NEGATIVE); NITRITE, URINE AUTO RFX POSITIVE (NEGATIVE); RBC, URINE AUTO RFX 67 /HPF (0-3); SPECIFIC GRAVITY UR AUTO RFX 1.024 (1.002-1.035); SQUAM EPITHELIAL CELL UR AURFX 0 /HPF (0-6); WBC, URINE AUTO RFX 151 /HPF (0-3); YEAST LIKE CELL URINE AUTO RFX LARGE
[2017-11-13 09:00] LABS: INR 0.98
[2017-11-13 09:33] LABS: VALPROIC ACID (DEPAKOTE) 74.7 UG/ML (50.0-100.0)
[2017-11-13 10:28] LABS: BEDSIDE GLUCOSE 92 MG/DL (70-105)
[2017-11-13 13:34] LABS: BEDSIDE GLUCOSE 61 MG/DL (70-105)
[2017-11-13 14:43] LABS: BEDSIDE GLUCOSE 89 MG/DL (70-105)
== END 2017-11-13 10:16 | disposition short-term general hospital (02) ==
LOC: M ED 06:21
DX: S06.5X0D Traumatic subdural hemorrhage without loss of consciousness, subsequent encounter (principal); X58.XXXD Exposure to other specified factors, subsequent encounter; E11.51 Type 2 diabetes mellitus with diabetic peripheral angiopathy without gangrene; I11.0 Hypertensive heart disease with heart failure; I25.10 Atherosclerotic heart disease of native coronary artery without angina pectoris; I50.9 Heart failure, unspecified; I73.9 Peripheral vascular disease, unspecified; E78.5 Hyperlipidemia, unspecified; G47.33 Obstructive sleep apnea (adult) (pediatric); R56.9 Unspecified convulsions; R33.9 Retention of urine, unspecified; Z98.890 Other specified postprocedural states; Z96.0 Presence of urogenital implants; Z86.718 Personal history of other venous thrombosis and embolism; Z88.0 Allergy status to penicillin; Z88.1 Allergy status to other antibiotic agents; Z88.8 Allergy status to other drugs, medicaments and biological substances; Z79.899 Other long term (current) drug therapy; Z79.4 Long term (current) use of insulin; Z79.82 Long term (current) use of aspirin
CPT/HCPCS: 71045

== ENCOUNTER → 2017-12-14 | Outpatient (REF) ==
[2017-12-14 14:49] LABS: ANION GAP 9 MEQ/L (8-16); BLOOD UREA NITROGEN 25 MG/DL (7-18); CALCIUM LEVEL 8.6 MG/DL (8.5-10.1); CARBON DIOXIDE LEVEL 22 MEQ/L (21-32); CHLORIDE LEVEL 103 MEQ/L (98-107); CREATININE FOR GFR 0.77 MG/DL (0.70-1.30); GLOMERULAR FILTRATION RATE > 60.0 (>56); GLUCOSE, FASTING 227 MG/DL (70-100); POTASSIUM SERUM 4.8 MEQ/L (3.5-5.1); SODIUM LEVEL 134 MEQ/L (136-145)
== END ==
LOC: SKLAB3 13:19
DX: I10 Essential (primary) hypertension (principal); E11.9 Type 2 diabetes mellitus without complications

== ENCOUNTER → 2017-12-24 | Outpatient (CLI) | payer MEDICARE, MEDICAID | LOC: M ST 12:17 | DX: R13.12 Dysphagia, oropharyngeal phase (principal) | CPT/HCPCS: 74230 ==

== ENCOUNTER → 2018-01-05 | Outpatient (REF) | payer MEDICARE ==
[2018-01-05 12:22] LABS: APPEARANCE, URINE TURBID (CLEAR); BACTERIA, URINE AUTO NEGATIVE (NEGATIVE); BILIRUBIN, URINE AUTO NEGATIVE (NEGATIVE); BLOOD, URINE BLOOD NEGATIVE (NEGATIVE); COLOR, URINE YELLOW (YELLOW); GLUCOSE, URINE (UA) AUTO 3+ mg/dL (NEGATIVE); KETONE, URINE AUTO NEGATIVE (NEGATIVE); LEUKOCYTE ESTERASE, URINE AUTO 3+ (NEGATIVE); NITRITE, URINE AUTO NEGATIVE (NEGATIVE); PROTEIN, URINE AUTO NEGATIVE (NEGATIVE); RBC, URINE AUTO TNTC /HPF (0-3); SQUAMOUS EPITHELIAL CELL UR AU 1 /HPF (0-6); UROBILINOGEN, URINE AUTO 0.2 mg/dL (0.0-2.0); WBC, URINE AUTO 139 /HPF (0-3); YEAST LIKE CELL URINE AUTO LARGE
== END ==
LOC: SKLAB3 11:43
DX: R30.0 Dysuria (principal)
CPT/HCPCS: 81001

== ENCOUNTER → 2018-01-07 | Outpatient (REF) | payer MEDICARE ==
[2018-01-07 09:24] LABS: HEMATOCRIT 41.1 % (42.0-52.0); HEMOGLOBIN 13.5 g/dl (13.5-17.5); MEAN CORPUSCULAR HEMOGLOBIN 29.4 pg (27.0-33.0); MEAN CORPUSCULAR HGB CONC 32.8 g/dl (32.0-36.5); MEAN CORPUSCULAR VOLUME 89.5 fl (80.0-96.0); PLATELET COUNT, AUTOMATED 234 10^3/uL (150-450); RED BLOOD COUNT 4.59 10^6/uL (4.30-6.10); WHITE BLOOD COUNT 7.7 10^3/uL (4.0-10.0)
[2018-01-07 10:56] LABS: ESTIMATED AVERAGE GLUCOSE 206 MG/DL (60-110); HEMOGLOBIN A1c 8.8 %
== END ==
LOC: SKLAB3 12:45
DX: I11.0 Hypertensive heart disease with heart failure (principal); E11.9 Type 2 diabetes mellitus without complications
CPT/HCPCS: 83036

== ENCOUNTER → 2018-01-17 | Outpatient (CLI) | payer MEDICARE, MEDICAID | LOC: M RAD 09:44 | DX: S06.5X0D Traumatic subdural hemorrhage without loss of consciousness, subsequent encounter (principal); X58.XXXA Exposure to other specified factors, initial encounter; Y92.89 Other specified places as the place of occurrence of the external cause | CPT/HCPCS: 70450 ==

== ENCOUNTER → 2018-02-01 | Outpatient (REF) | payer MEDICARE, MEDICAID | LOC: SKLAB3 09:54 | DX: M25.511 Pain in right shoulder (principal); W19.XXXA Unspecified fall, initial encounter | CPT/HCPCS: 73030 ==

== ENCOUNTER → 2018-03-04 | Outpatient (REF) | payer MEDICARE, MEDICAID ==
[2018-03-04 09:33] LABS: HEMATOCRIT 41.2 % (42.0-52.0); HEMOGLOBIN 13.5 g/dl (13.5-17.5); MEAN CORPUSCULAR HEMOGLOBIN 29.5 pg (27.0-33.0); MEAN CORPUSCULAR HGB CONC 32.8 g/dl (32.0-36.5); PLATELET COUNT, AUTOMATED 182 10^3/uL (150-450); RED BLOOD COUNT 4.58 10^6/uL (4.30-6.10); RED CELL DISTRIBUTION WIDTH 14.4 % (11.5-14.5); WHITE BLOOD COUNT 6.7 10^3/uL (4.0-10.0)
[2018-03-04 10:04] LABS: ALBUMIN 3.6 GM/DL (3.2-5.2); ALBUMIN/GLOBULIN RATIO 0.97 (1.00-1.93); ALKALINE PHOSPHATASE 117 U/L (45-117); ALT/SGPT 26 U/L (12-78); ANION GAP 7 MEQ/L (8-16); AST/SGOT 9 U/L (7-37); BILIRUBIN,TOTAL 0.4 MG/DL (0.2-1.0); BLOOD UREA NITROGEN 25 MG/DL (7-18); CALCIUM LEVEL 9.1 MG/DL (8.5-10.1); CARBON DIOXIDE LEVEL 33 MEQ/L (21-32); CHLORIDE LEVEL 100 MEQ/L (98-107); CREATININE FOR GFR 0.56 MG/DL (0.70-1.30); GLOMERULAR FILTRATION RATE > 60.0 (>56); GLUCOSE, FASTING 149 MG/DL (70-100); POTASSIUM SERUM 4.4 MEQ/L (3.5-5.1); SODIUM LEVEL 140 MEQ/L (136-145); TOTAL PROTEIN 7.3 GM/DL (6.4-8.2)
== END ==
LOC: SKLAB3 08:00
DX: D64.9 Anemia, unspecified (principal); I10 Essential (primary) hypertension; E11.9 Type 2 diabetes mellitus without complications
CPT/HCPCS: 80053

== ENCOUNTER → 2018-03-31 | Outpatient (REF) | payer MEDICARE, MEDICAID ==
[2018-03-31 10:52] LABS: APPEARANCE, URINE CLOUDY (CLEAR); BACTERIA, URINE AUTO 1+ (NEGATIVE); BILIRUBIN, URINE AUTO NEGATIVE (NEGATIVE); BLOOD, URINE BLOOD 1+ (NEGATIVE); COLOR, URINE YELLOW (YELLOW); GLUCOSE, URINE (UA) AUTO 3+ mg/dL (NEGATIVE); KETONE, URINE AUTO NEGATIVE (NEGATIVE); LEUKOCYTE ESTERASE, URINE AUTO 3+ (NEGATIVE); NITRITE, URINE AUTO NEGATIVE (NEGATIVE); PROTEIN, URINE AUTO 2+ mg/dL (NEGATIVE); RBC, URINE AUTO 33 /HPF (0-3); SQUAMOUS EPITHELIAL CELL UR AU 0 /HPF (0-6); UROBILINOGEN, URINE AUTO 0.2 mg/dL (0.0-2.0); WBC, URINE AUTO TNTC /HPF (0-3); YEAST LIKE CELL URINE AUTO SMALL
== END ==
LOC: SKLAB3 10:32
DX: R39.89 Other symptoms and signs involving the genitourinary system (principal)
CPT/HCPCS: 81001

== ENCOUNTER → 2018-04-08 | Outpatient (REF) | payer MEDICARE, MEDICAID ==
[2018-04-08 09:36] LABS: HEMATOCRIT 42.9 % (42.0-52.0); MEAN CORPUSCULAR HEMOGLOBIN 29.6 pg (27.0-33.0); MEAN CORPUSCULAR HGB CONC 32.6 g/dl (32.0-36.5); MEAN CORPUSCULAR VOLUME 90.7 fl (80.0-96.0); PLATELET COUNT, AUTOMATED 209 10^3/uL (150-450); RED BLOOD COUNT 4.73 10^6/uL (4.30-6.10); RED CELL DISTRIBUTION WIDTH 13.7 % (11.5-14.5)
[2018-04-08 09:42] LABS: ANION GAP 9 MEQ/L (8-16); BLOOD UREA NITROGEN 35 MG/DL (7-18); CARBON DIOXIDE LEVEL 30 MEQ/L (21-32); CHLORIDE LEVEL 98 MEQ/L (98-107); CREATININE FOR GFR 0.79 MG/DL (0.70-1.30); GLOMERULAR FILTRATION RATE > 60.0 (>56); GLUCOSE, FASTING 398 MG/DL (70-100); POTASSIUM SERUM 4.8 MEQ/L (3.5-5.1); SODIUM LEVEL 137 MEQ/L (136-145)
[2018-04-08 11:56] LABS: ESTIMATED AVERAGE GLUCOSE 260 MG/DL (60-110); HEMOGLOBIN A1c 10.7 %
== END ==
LOC: SKLAB3 08:00
DX: E11.9 Type 2 diabetes mellitus without complications (principal); D64.9 Anemia, unspecified
CPT/HCPCS: 83036

== ENCOUNTER 2018-05-06 14:17 | Outpatient (REF) | payer MEDICARE, MEDICAID ==
[2018-05-06 10:20] LABS: HEMATOCRIT 39.5 % (42.0-52.0); HEMOGLOBIN 12.7 g/dl (13.5-17.5); MEAN CORPUSCULAR HGB CONC 32.2 g/dl (32.0-36.5); MEAN CORPUSCULAR VOLUME 90.2 fl (80.0-96.0); PLATELET COUNT, AUTOMATED 216 10^3/uL (150-450); RED BLOOD COUNT 4.38 10^6/uL (4.30-6.10); RED CELL DISTRIBUTION WIDTH 13.3 % (11.5-14.5); WHITE BLOOD COUNT 7.1 10^3/uL (4.0-10.0)
== END 2018-05-09 ==
LOC: SKLAB3 05-09 14:17
DX: D64.9 Anemia, unspecified (principal); I62.00 Nontraumatic subdural hemorrhage, unspecified
CPT/HCPCS: 85027

== ENCOUNTER → 2018-06-03 | Outpatient (REF) | payer MEDICARE, MEDICAID ==
[2018-06-03 09:14] LABS: HEMATOCRIT 39.2 % (42.0-52.0); HEMOGLOBIN 12.7 g/dl (13.5-17.5); MEAN CORPUSCULAR HEMOGLOBIN 28.8 pg (27.0-33.0); MEAN CORPUSCULAR HGB CONC 32.4 g/dl (32.0-36.5); MEAN CORPUSCULAR VOLUME 88.9 fl (80.0-96.0); PLATELET COUNT, AUTOMATED 161 10^3/uL (150-450); RED BLOOD COUNT 4.41 10^6/uL (4.30-6.10); RED CELL DISTRIBUTION WIDTH 13.9 % (11.5-14.5); WHITE BLOOD COUNT 6.3 10^3/uL (4.0-10.0)
== END ==
LOC: SKLAB3 07:00
DX: D64.9 Anemia, unspecified (principal)
CPT/HCPCS: 85027

== ENCOUNTER → 2018-07-08 | Outpatient (REF) | payer MEDICARE, MEDICAID ==
[2018-07-08 08:53] LABS: ALBUMIN/GLOBULIN RATIO 1.05 (1.00-1.93); ALKALINE PHOSPHATASE 108 U/L (45-117); ALT/SGPT 39 U/L (12-78); ANION GAP 9 MEQ/L (8-16); AST/SGOT 13 U/L (7-37); BILIRUBIN,TOTAL 0.4 MG/DL (0.2-1.0); BLOOD UREA NITROGEN 18 MG/DL (7-18); CALCIUM LEVEL 9.7 MG/DL (8.5-10.1); CARBON DIOXIDE LEVEL 29 MEQ/L (21-32); CHLORIDE LEVEL 101 MEQ/L (98-107); CREATININE FOR GFR 0.66 MG/DL (0.70-1.30); GLOMERULAR FILTRATION RATE > 60.0 (>56); GLUCOSE, FASTING 294 MG/DL (70-100); POTASSIUM SERUM 4.5 MEQ/L (3.5-5.1); SODIUM LEVEL 139 MEQ/L (136-145); TOTAL PROTEIN 7.8 GM/DL (6.4-8.2)
[2018-07-08 12:57] LABS: ESTIMATED AVERAGE GLUCOSE 243 MG/DL (60-110); HEMOGLOBIN A1c 10.1 %
== END ==
LOC: SKLAB3 07:00
DX: E11.9 Type 2 diabetes mellitus without complications (principal); I10 Essential (primary) hypertension
CPT/HCPCS: 80053

== ENCOUNTER → 2018-08-15 | Outpatient (REF) | payer MEDICARE, MEDICAID ==
[~2018-08-15] MED LIST changes: +ASPI81CH PO; +ATOR40TA75 PO; -DOXY-278 PO; +DOXY-350 PO; +DULC10SU2 PR; +ELIQ5TAB PO; +ENEMENE16 PR; +ESCI20TA PO; +FEVE650S3 PR; +GLUC1INJ11 SC; +GLUC1KIT SC; +GLUC4CHW19 PO; +HYDR10TAB PO; +INSUDET SC; +INSUH10VL SC; +INSUHUMDS SC; -LISI2.5T3 PO; +LISI2.5T5 PO; +LOPR1TAB6 PO; +MILK12002 PO; +OSEL75CA PO; +PATIENT COMMENT; +TEST1GEL6 TD; +TYLE325T5 PR; +[UNRECOGNIZED DRUG - OTHER]
[2018-08-15 10:25] LABS: HEMATOCRIT 40.6 % (42.0-52.0); HEMOGLOBIN 12.8 g/dl (13.5-17.5); MEAN CORPUSCULAR HEMOGLOBIN 28.4 pg (27.0-33.0); MEAN CORPUSCULAR HGB CONC 31.5 g/dl (32.0-36.5); PLATELET COUNT, AUTOMATED 135 10^3/uL (150-450); RED BLOOD COUNT 4.51 10^6/uL (4.30-6.10); WHITE BLOOD COUNT 5.8 10^3/uL (4.0-10.0)
[2018-08-15 10:50] LABS: BLOOD UREA NITROGEN 10 MG/DL (7-18); CALCIUM LEVEL 8.3 MG/DL (8.5-10.1); CARBON DIOXIDE LEVEL 27 MEQ/L (21-32); CHLORIDE LEVEL 103 MEQ/L (98-107); CREATININE FOR GFR 0.56 MG/DL (0.70-1.30); GLOMERULAR FILTRATION RATE > 60.0 (>56); GLUCOSE, FASTING 129 MG/DL (70-100); POTASSIUM SERUM 3.9 MEQ/L (3.5-5.1); SODIUM LEVEL 137 MEQ/L (136-145)
== END ==
LOC: SKLAB3 08:45
PROVIDERS: ATTEND Internal Medicine
DX: J06.9 Acute upper respiratory infection, unspecified (principal); Z79.899 Other long term (current) drug therapy

== ENCOUNTER → 2018-10-07 | Outpatient (REF) | payer MEDICARE, MEDICAID ==
[~2018-10-07] MED LIST changes: -ENEMENE16 PR; +ENEMENE4 PR; +MILK120011 PO; -MILK12002 PO
[2018-10-07 09:25] LABS: ALBUMIN 3.4 GM/DL (3.2-5.2); ALT/SGPT 24 U/L (12-78); BILIRUBIN,TOTAL 0.3 MG/DL (0.2-1.0); BLOOD UREA NITROGEN 11 MG/DL (7-18); CALCIUM LEVEL 8.7 MG/DL (8.5-10.1); CARBON DIOXIDE LEVEL 33 MEQ/L (21-32); CHLORIDE LEVEL 101 MEQ/L (98-107); GLOMERULAR FILTRATION RATE > 60.0 (>56); GLUCOSE, FASTING 178 MG/DL (70-100); SODIUM LEVEL 139 MEQ/L (136-145)
[2018-10-07 10:41] LABS: HEMOGLOBIN A1c 9.3 %
== END ==
LOC: SKLAB3 07:34
PROVIDERS: ATTEND Internal Medicine
DX: I10 Essential (primary) hypertension (principal); E11.9 Type 2 diabetes mellitus without complications

== ENCOUNTER → 2018-10-18 | Outpatient (REF) | payer MEDICARE, MEDICAID ==
[2018-10-18 15:50] LABS: INFLUENZA A AMPLIFICATION NEGATIVE (NEGATIVE); INFLUENZA B AMPLIFICATION NEGATIVE (NEGATIVE)
== END ==
LOC: SKLAB3 14:41
PROVIDERS: ATTEND Family Medicine
DX: R19.7 Diarrhea, unspecified (principal); R11.10 Vomiting, unspecified

== ENCOUNTER → 2018-10-21 | Outpatient (REF) | payer MEDICARE, MEDICAID ==
[2018-10-21 18:12] LABS: HEMATOCRIT 41.4 % (42.0-52.0); HEMOGLOBIN 13.1 g/dl (13.5-17.5); MEAN CORPUSCULAR HEMOGLOBIN 28.7 pg (27.0-33.0); MEAN CORPUSCULAR HGB CONC 31.6 g/dl (32.0-36.5); MEAN CORPUSCULAR VOLUME 90.8 fl (80.0-96.0); PLATELET COUNT, AUTOMATED 229 10^3/uL (150-450); RED BLOOD COUNT 4.56 10^6/uL (4.30-6.10); WHITE BLOOD COUNT 8.3 10^3/uL (4.0-10.0)
[2018-10-21 18:14] LABS: BLOOD UREA NITROGEN 21 MG/DL (7-18); CALCIUM LEVEL 8.3 MG/DL (8.5-10.1); CARBON DIOXIDE LEVEL 31 MEQ/L (21-32); CHLORIDE LEVEL 102 MEQ/L (98-107); CREATININE FOR GFR 0.89 MG/DL (0.70-1.30); GLOMERULAR FILTRATION RATE > 60.0 (>56); GLUCOSE, FASTING 168 MG/DL (70-100); POTASSIUM SERUM 3.9 MEQ/L (3.5-5.1); SODIUM LEVEL 141 MEQ/L (136-145)
== END ==
LOC: SKLAB3 17:44
PROVIDERS: ATTEND Internal Medicine
DX: R50.9 Fever, unspecified (principal); M25.50 Pain in unspecified joint

== ENCOUNTER → 2018-10-22 | Outpatient (REF) | payer MEDICARE, MEDICAID ==
--- NOTE | 2018-10-22 09:43 | REP ---
RIGHT KNEE SERIES: Five views. HISTORY: Pain and locking. Comparison right femur series is from June 24, 2014. FINDINGS: There is moderate osteoarthritis affecting the medial compartment and patellofemoral compartments of the knee. These joint spaces are narrowed, particularly the medial compartment. There is mild spurring at the lateral compartment. Vascular calcifications noted. No erosive change is seen. There is no evidence of joint effusion. There is some spurring at the distal patellar attachment site on the proximal tibial tuberosity. IMPRESSION: Advanced medial and patellofemoral compartment osteoarthritis. Medial compartment joint space narrowing. Vascular calcification. Electronically Signed by Abdifatah Schaffer MD 10/22/2018 11:13 A
== END ==
LOC: SKLAB3 07:16
PROVIDERS: ATTEND Internal Medicine
DX: M25.561 Pain in right knee (principal)

== ENCOUNTER → 2018-12-02 | Outpatient (REF) | payer MEDICARE, MEDICAID ==
[~2018-12-02] MED LIST changes: -/ATOR40TA PO; -/ESCI10TA PO; -/TAMS4CA PO; -ASPI81CH PO; +ASPI81CH49 PO; +COLL30OI EX; +FLOM0.4C39 PO; +LIPI1TAB2 PO; +LISI-1046 PO; -LISI2.5T5 PO; +OXYC1TAB23 PO; -PERCOCET PO; -SANT250O EX
[2018-12-02 08:01] LABS: HEMATOCRIT 41.4 % (42.0-52.0); MEAN CORPUSCULAR HEMOGLOBIN 28.6 pg (27.0-33.0); MEAN CORPUSCULAR HGB CONC 31.4 g/dl (32.0-36.5); MEAN CORPUSCULAR VOLUME 91.2 fl (80.0-96.0); PLATELET COUNT, AUTOMATED 146 10^3/uL (150-450); RED BLOOD COUNT 4.54 10^6/uL (4.30-6.10); WHITE BLOOD COUNT 4.4 10^3/uL (4.0-10.0)
[2018-12-02 08:30] LABS: URIC ACID 4.3 MG/DL (3.5-7.2)
== END ==
LOC: SKLAB3 07:00
PROVIDERS: ATTEND Internal Medicine
DX: E11.9 Type 2 diabetes mellitus without complications (principal); I62.00 Nontraumatic subdural hemorrhage, unspecified

== ENCOUNTER → 2018-12-03 | Outpatient (REF) | LOC: SKLAB3 11:46 | PROVIDERS: ATTEND Internal Medicine | DX: R09.81 Nasal congestion (principal) ==

== ENCOUNTER 2018-12-17 12:32 | Inpatient (IN) | payer MEDICARE, MEDICAID ==
[~2018-12-17] VITALS: Ht 190.5 cm; Wt 104.4 kg
[~2018-12-17 12:32] MED LIST changes: +GLUC1INJ11 IM; -GLUC1INJ11 SC
[2018-12-17] MEDS ORDERED: NS 1,000 ML IV ONE (13:00)
[2018-12-17 13:04] LABS: VENOUS BASE EXCESS 2.6 (-2.0-2.0); VENOUS HCO3 29.7 MEQ/L (23.0-27.0); VENOUS O2 SATURATION 60.8 % (60.0-80.0); VENOUS PARTIAL PRESSURE CO2 55.8 mmHg (38.0-50.0); VENOUS PARTIAL PRESSURE O2 31.4 mmHg (30.0-50.0); VENOUS PH 7.344 UNITS (7.330-7.430); VENOUS STANDARD HCO3 25.8 MEQ/L; VENOUS TOTAL CO2 31.4 MEQ/L (24.0-28.0)
[2018-12-17] MEDS ORDERED: APAP325T4 PO (13:08)
[2018-12-17] MEDS ORDERED: BACL5TAB2 PO (13:08)
[2018-12-17] MEDS ORDERED: TRES1INJ2 SC (13:08)
[2018-12-17] MEDS ORDERED: LISI10TA4 PO (13:08)
[2018-12-17] MEDS ORDERED: BENG1CRE3 TOP (13:08)
[2018-12-17] MEDS ORDERED: INSUHUMDS SC (13:08)
[2018-12-17] MEDS ORDERED: NIZO2SHA TOP (13:08)
[2018-12-17] MEDS ORDERED: LEXA5TAB13 PO (13:08)
[2018-12-17] MEDS ORDERED: DOXY100C PO (13:08)
[2018-12-17] MEDS ORDERED: ALLE1TAB23 PO (13:08)
[2018-12-17] MEDS ORDERED: DETR1TAB5 PO (13:08)
[2018-12-17] MEDS ORDERED: ACET500T15 PO (13:08)
[2018-12-17] MEDS ORDERED: MILKSUS3 PO (13:08)
[2018-12-17] MEDS ORDERED: TRAD5TAB PO (13:08)
[2018-12-17 13:13] LABS: BASO % 0.4 % (0.0-1.0); EOS # 0.1 10^3/uL (0.0-0.50); EOS % 1.1 % (0.0-3.0); HEMATOCRIT 45.2 % (42.0-52.0); HEMOGLOBIN 14.2 g/dl (13.5-17.5); LYMPH # 1.3 10^3/uL (1.5-4.5); LYMPH % 17.7 % (24.0-44.0); MEAN CORPUSCULAR HEMOGLOBIN 28.8 pg (27.0-33.0); MEAN CORPUSCULAR HGB CONC 31.4 g/dl (32.0-36.5); MEAN CORPUSCULAR VOLUME 91.7 fl (80.0-96.0); MONO # 0.7 10^3/uL (0.0-0.8); MONO % 9.2 % (0.0-5.0); NEUTROPHILS # 5.3 10^3/uL (1.8-7.7); NEUTROPHILS % 70.8 % (36.0-66.0); PLATELET COUNT, AUTOMATED 191 10^3/uL (150-450); RED BLOOD COUNT 4.93 10^6/uL (4.30-6.10); WHITE BLOOD COUNT 7.5 10^3/uL (4.0-10.0)
[2018-12-17] MEDS ORDERED: HYDR5TAB PO (13:15)
[2018-12-17 13:39] LABS: INR 0.92; PARTIAL THROMBOPLASTIN TIME 26.9 SECONDS (25.4-37.6); PROTHROMBIN TIME 12.5 SECONDS (12.1-14.4)
--- NOTE | 2018-12-17 13:42 | REP ---
CT Head without contrast HISTORY: Infarction COMPARISON: 01/18/1980 Areas of decreased attenuation are present in the periventricular and subcortical white matter. This represents small-vessel ischemic disease. There is no intraparenchymal hemorrhage, acute infarct, mass or midline shift. The ventricular system and cortical sulci are dilated consistent with minimal volume loss. There is no extra cerebral collection. There is no fracture. The visualized sinuses are clear. Soft tissue swelling is present overlying the left parietal bone at the vertex. IMPRESSION: 1. Small vessel ischemic disease. 2. Minimal volume loss. Electronically Signed by Mark Dominguez MD 12/17/2018 01:34 P
[2018-12-17 13:46] LABS: ALBUMIN 3.6 GM/DL (3.2-5.2); ALT/SGPT 24 U/L (12-78); BILIRUBIN,DIRECT 0.1 MG/DL (0.0-0.2); BILIRUBIN,TOTAL 0.5 MG/DL (0.2-1.0); BLOOD UREA NITROGEN 13 MG/DL (7-18); CALCIUM LEVEL 8.8 MG/DL (8.5-10.1); CARBON DIOXIDE LEVEL 36 MEQ/L (21-32); CHLORIDE LEVEL 102 MEQ/L (98-107); CPK CREATINE PHOSPHOKINASE 59 U/L (39-308); CREATININE FOR GFR 0.76 MG/DL (0.70-1.30); ETHYL ALCOHOL (ETHANOL) < 0.003 % (0.000-0.010); GLOMERULAR FILTRATION RATE > 60.0 (>56); GLUCOSE, FASTING 163 MG/DL (70-100); MB/CK RELATIVE INDEX 3.22 (< OR =4); POTASSIUM SERUM 4.1 MEQ/L (3.5-5.1); SODIUM LEVEL 141 MEQ/L (136-145); TOTAL PROTEIN 6.7 GM/DL (6.4-8.2); TROPONIN I 0.06 NG/ML (< 0.10)
[2018-12-17 13:56] LABS: OSMOLALITY SERUM 299 MOSM/KG (275-295)
[2018-12-17 15:51] LABS: AMPHETAMINES LEVEL URINE NEGATIVE (NEGATIVE); BARBITURATES URINE NEGATIVE (NEGATIVE); BENZODIAZEPINES URINE NEGATIVE (NEGATIVE); CANNABINOIDS URINE NEGATIVE (NEGATIVE); COCAINE METABOLITE URINE NEGATIVE (NEGATIVE); METHADONE URINE NEGATIVE (NEGATIVE); OPIATES URINE NEGATIVE (NEGATIVE); PHENCYCLIDINE URINE NEGATIVE (NEGATIVE)
[2018-12-17] MEDS ORDERED: ISOVUE-370 76% 100ML VIAL (Q9967) As Ordered ONE (17:06)
[2018-12-17] MEDS ORDERED: ASPIRIN 325 MG TAB PO ONE (17:15)
[2018-12-17] MEDS ORDERED: DEXTROSE 50% 50 ML SYRINGE IV PRN (18:30)
[2018-12-17] MEDS ORDERED: GLUCOSE 4 GM CHEW TABLET PO PRN (18:30)
[2018-12-17] MEDS ORDERED: MOM 30ML SUSPENSION UDC PO PRN (18:30)
[2018-12-17] MEDS ORDERED: FLEET ENEMA PR PRN (18:30)
[2018-12-17] MEDS ORDERED: GLUCAGON FOR INJ 1 MG VIAL (J1610) SC PRN (18:30)
[2018-12-17] MEDS ORDERED: BISACODYL 10 MG SUPP PR PRN (18:30)
[2018-12-17] MEDS ORDERED: NITROGLYCERIN 0.4 MG SUBL TABLET SL PRN (18:30)
--- NOTE | 2018-12-17 18:35 | REP ---
CT ABDOMEN AND PELVIS WITH IV CONTRAST: TECHNIQUE: Axial contrast enhanced images from the lung bases to the pubic symphysis using 100 mL Isovue 370 intravenous contrast material with multiplanar reformations. Visualized lung bases demonstrate fibroatelectatic change. No definite abnormality is seen of the liver or gallbladder. There is no evidence of biliary dilatation. Spleen, adrenals and pancreas are unremarkable. A small cyst is seen in each kidney without hydronephrosis. There is mild atherosclerotic calcification of the abdominal aorta without aneurysm. I see no adenopathy. There is no free air or free fluid. I see no bowel wall thickening. There is no evidence of appendicitis. The urinary bladder is diffusely thickened and contains a suprapubic catheter. IMPRESSION: No evidence of appendicitis. Diffusely thickened urinary bladder contains a suprapubic catheter. Electronically Signed by Gustavo Plummer MD 12/18/2018 04:50 P
--- NOTE | 2018-12-17 18:52 | HPEPDOC ---
General Date of Admission Dec 17, 2018 at 18:17 Chief Complaint The patient is a 58-year-old male who presented to [facility] from [facility] after he was suspected to have a stroke. History of Present Illness Patient is a 58-year-old male with a PMHx of CAD (Hx of [place] 1984), Chronic Diastolic CHF / Valvular heart disease, PAD s/p L BKA, DLP, IDDM2, Hx of SDH / SAH s/p surgical intervention (2017), ANALY (not compliant with CPAP), Urinary retention s/p Suprapubic catheter (2015), Neuroapthy, Depression who presented to [facility] after he was suspected to have stroke. As per nursing records and ER physician, patient was reported to have weakness of his left hand medical supervisor and slurring of his speech. He was transferred to [facility] for further evaluation. As per the patient, he denies any symptoms of stroke. He reports that he has been coughing for the last several days. Denies any shortness of breath, chest pain or palpitations. He has not expense any nausea, vomiting, abdominal pain, constipation, diarrhea. His last bowel movement was today. Patient has a suprapubic Whittaker catheter in place. He notes that his appetite has been so-so. Reports that his weight has been relatively consistent. Home Medications Scheduled Acetaminophen (Acetaminophen) 500 Mg Tablet, 1,000 MG PO BID, (Reported) Atorvastatin Calcium (Atorvastatin Calcium) 40 Mg Tab, 40 MG PO QHS, (Reported) Baclofen (Baclofen) 5 Mg Tablet, 5 MG PO TID, (Reported) Doxycycline Hyclate (Doxycycline Hyclate) 100 Mg Capsule, 100 MG PO BID, (Report ed) FOR 8 DAYS, FINISH DATE 12/20/18 Escitalopram Oxalate (Lexapro) 5 Mg Tablet, 5 MG PO DAILY, (Reported) Fexofenadine HCl (Fexofenadine HCl) 180 Mg Tablet, 180 MG PO QHS, (Reported) Hydralazine HCl (Hydralazine HCl) 10 Mg Tab, 10 MG PO DAILY, (Reported) HOLD IF SBP<130 Hydralazine HCl (Hydralazine HCl) 10 Mg Tablet, 10 MG PO BID, (Reported) 1200/2030 HOLD IF SBP<120 Insulin Degludec (Tresiba Flextouch U-100) 100 Unit/1 Ml Insuln.pen, 80 UNIT SC QHS, (Reported) Insulin Human Lispro (Humalog) 1 Units/0.01 Ml Inj, 14 UNITS SC BID, (Reported) 0730/1200 Insulin Human Lispro (Humalog) 100 Unit/1 Ml Vial, 10 UNITS SC QPM, (Reported) 1700 Ketoconazole (Nizoral) 120 Ml Shampoo, 1 APLCT TOP QWEEK, (Reported) SUNDAY MORNINGS FOR DERMATITIS Linagliptin (Tradjenta) 5 Mg Tablet, 5 MG PO DAILY, (Reported) Lisinopril (Lisinopril) 10 Mg Tablet, 10 MG PO BID, (Reported) Tolterodine Tartrate (Detrol) 2 Mg Tablet, 2 MG PO BID, (Reported) Scheduled PRN Acetaminophen (Acetaminophen) 325 Mg Tablet, 650 MG PO Q4H PRN for PAIN / FEVER, (Reported) Bisacodyl (Dulcolax) 10 Mg Sup, 10 MG NE DAILY PRN for CONSTIPATION, (Reported) Glucagon HCl (Glucagon HCl) 1 Mg Inj, 1 MG IM ASDIRECTED PRN for LOW BLOOD SUGAR, (Reported) Magnesium Hydroxide (Milk of Magnesia) 400 Mg/5 Ml Oral.susp, 2,400 MG PO DAILY PRN for CONSTIPATION, (Reported) Methyl Salicylate/Menthol (Bengay Greaseless Cream) 57 Gm Cream..g., 1 APLCT TOP BID PRN for MUSCLE PAIN, (Reported) APPLY TO SHOULDERS Nitroglycerin (Nitrostat) 0.4 Mg Subl, 0.4 MG SL Q5MP PRN for ANGINA, (Reported) Sodium Phosphate,[place]-Dibasic (Enema Xpqlg-Lf-Jql) 1 Carol Carol, 1 CAROL NE DAILY PRN for CONSTIPATION, (Reported) Allergies Coded Allergies: cefuroxime (Verified Allergy, Intermediate, HIVES, 12/17/18) clindamycin (Verified Allergy, Intermediate, HIVES, 12/17/18) amoxicillin (Verified Allergy, Unknown, 12/17/18) cephalexin (Verified Allergy, Unknown, 12/17/18) ciprofloxacin (Verified Allergy, Unknown, 12/17/18) levofloxacin (Verified Allergy, Unknown, 12/17/18) nitrofurantoin (Verified Allergy, Unknown, 12/17/18) oxacillin (Verified Allergy, Unknown, 12/17/18) meclizine (Verified Adverse Reaction, Mild, DIZZINESS/DRUNK FEELING, 12/17/18) Past Medical History Medical History CAD (Hx of [place] 1984), Chronic Diastolic CHF / Valvular heart disease, PAD s/p L BKA, DLP, IDDM2, Hx of SDH / SAH s/p surgical intervention (2018), ANALY (not compliant with CPAP), Urinary retention s/p Suprapubic catheter (2015), Neuropathy, Depression Surgical History Left leg below the knee amputation 2013 Cystolitholapaxy 2015 Suprapubic catheter placement in 2016 Vasectomy in 2017 Family History - Mother with a history of falls - Father with a history of heart attack - No history of malignancies Social History - Denies the use of alcohol, tobacco or illicit drugs - Denies recent travel or sick contacts - Patient is a resident at [facility] and has been there for approximately one year Review of Systems Other systems 10 point review systems complete, all negative otherwise stated in HPI Vital Signs - Vitals: BP 160/77, HR 81, RR 18, Sat 91%NC2L, Temp 98.6F - General: Lying in bed, No acute distress, Speaking in full sentences, Awake / Alert - HEENT: NC, AT, PERRLA, EOMI - CVS: RRR, +S1S2 - Lungs: Fair air entry bilaterally, Clear to auscultation, No wheezing / rales / rhonchi - Abdomen: Soft, Non-distended, Non-tender - Extremities: No lower extremity edema at R LE, No calf tenderness, L BKA - Neuro: 5/5 strength at bilateral upper extremities; 5/5 strength at right lower extremity; 5/5 strength at left BKA - Skin: No visible rashes Laboratory Data Labs 24H Laboratory Tests 2 12/17/18 12:48: Prothrombin Time 12.5, Prothromb Time International Ratio 0.92, Activated Partial Thromboplast Time 26.9 12/17/18 12:55: Immature Granulocyte % (Auto) 0.8, White Blood Count 7.5, Red Blood Count 4.93, Hemoglobin 14.2, Hematocrit 45.2, Mean Corpuscular Volume 91.7, Mean Corpuscular Hemoglobin 28.8, Mean Corpuscular Hemoglobin Concent 31.4L, Red Cell Distribution Width 13.9, Platelet Count 191, Neutrophils (%) (Auto) 70.8H, Lymphocytes (%) (Auto) 17.7L, Monocytes (%) (Auto) 9.2H, Eosinophils (%) (Auto) 1.1, Basophils (%) (Auto) 0.4, Neutrophils # (Auto) 5.3, Lymphocytes # (Auto) 1.3L, Monocytes # (Auto) 0.7, Eosinophils # (Auto) 0.1, Basophils # (Auto) 0.0, Nucleated Red Blood Cells % (auto) 0.0, Blood Gas Bicarbonate Standard 25.8, Venous Blood pH 7.344, Venous Blood Partial Pressure CO2 55.8H, Venous Blood Partial Pressure O2 31.4, Venous Blood Total Carbon Dioxide 31.4H, Venous Blood HCO3 29.7H, Venous Blood Oxygen Saturation 60.8, Venous Blood Base Excess 2.6H, Anion Gap 3L, Glomerular Filtration Rate > 60.0, Osmolality 299H, Lactic Acid Level 1.6, Calcium Level 8.8, Aspartate Amino Transf (AST/SGOT) 14, Alanine Aminotransferase (ALT/SGPT) 24, Alkaline Phosphatase 99, Total Bilirubin 0.5, Direct Bilirubin 0.1, Ammonia 26, Total Creatine Kinase 59, Creatine Kinase MB 2.0, Creatine Kinase MB Relative Index 3.22, Troponin I 0.06, Total Protein 6.7, Albumin 3.6, Albumin/Globulin Ratio 1.16, Thyroid Stimulating Hormone (TSH) 1.960, Ethyl Alcohol Level < 0.003 12/17/18 13:04: Urine Color YELLOW, Urine Appearance CLOUDYH, Urine pH 7.0, Urine Specific Lolo 1.017, Urine Protein 2+H, Urine Glucose (UA) 1+H, Urine Ketones NEGATIVE, Urine Blood NEGATIVE, Urine Nitrite POSITIVEH, Urine Bilirubin NEGATIVE, Urine Urobilinogen 0.2, Urine Leukocyte Esterase 3+H, Urine WBC (Auto) 144H, Urine RBC (Auto) 9H, Urine Hyaline Casts (Auto) 0, Urine Bacteria (Auto) 2+H, Urine Squamous Epithelial Cells 0, Urine Mucus (Auto) SMALL, Urine Sperm (Auto) , Urine Amphetamines Screen NEGATIVE, Urine Benzodiazepines Screen NEGATIVE, Urine Opiates Screen NEGATIVE, Urine Methadone Screen NEGATIVE, Urine Barbiturates Screen NEGATIVE, Urine Phencyclidine Screen NEGATIVE, Urine Cocaine Metabolite Screen NEGATIVE, Urine Cannabinoids Screen NEGATIVE CBC/BMP Laboratory Tests 12/17/18 12:55 Red Blood Count 4.93, Mean Corpuscular Volume 91.7, Mean Corpuscular Hemoglobin 28.8, Mean Corpuscular Hemoglobin Concent 31.4 L, Red Cell Distribution Width 13.9, Neutrophils (%) (Auto) 70.8 H, Lymphocytes (%) (Auto) 17.7 L, Monocytes (%) (Auto) 9.2 H, Eosinophils (%) (Auto) 1.1, Basophils (%) (Auto) 0.4, Neutrophils # (Auto) 5.3, Lymphocytes # (Auto) 1.3 L, Monocytes # (Auto) 0.7, Eosinophils # (Auto) 0.1, Basophils # (Auto) 0.0 Microbiology Microbiology 12/17/18 Blood Culture, Received Pending 12/17/18 Blood Culture, Received Pending 12/17/18 Urine Culture, Received Pending Plan / VTE VTE Prophylaxis Ordered?: Yes Plan Plan Slurred speech / Left hand weakness - possibly 2/2 TIA - Patient presented to the emergency room after he experienced left hand weakness and slurred speech - Patient had full resolution of his symptoms upon arrival to emergency room - Currently physical does not reveal any focal neurologic deficits - CT head 12/17: 1. Small vessel ischemic disease. 2. Minimal volume loss. - Will get MRI and MRA of head, duplex ultrasound of carotids, echocardiogram of heart - Continue with neurologic checks every 4 hours - Will continue with the patients atorvastatin; patient has already received aspirin 325 emergency room - Will consult neurology based on MRI findings Cough - possibly 2/2 URTI - Patient meets hemodynamically stable and afebrile - Lungs do not reveal any adventitious lung sounds - No leukocytosis or lactic acidosis - Chest x-ray was completed in emergency room. Imaging was reviewed. Does not appear to show any signs of pneumonia - Will check respiratory panel Possible UTI - Patient has a history of urinary tract infections with Staphylococcus / Enterococcus / Pseudomonas - Urinalysis does appear to be infected - No significant leukocytosis or lactic acidosis - Will await culture results of urine and blood - Patient is currently already on doxycycline; will continue with this CAD (Hx of [place] 1984) - Currently not on any anti-platelet therapy Chronic Diastolic CHF / Valvular heart disease - No evidence of exacerbation - Currently not on any diuretics PAD s/p L BKA - Currently not on any anti-platelet therapy DLP - c/w Atorvastatin IDDM2 - c/w ISS and Levemir at BID dosing Hx of SDH / SAH - s/p surgical intervention (2017) ANALY - Not compliant with CPAP - Allow home CPAP use Urinary retention - s/p Suprapubic catheter (2015) Neuropathy - c/w Gabapentin Depression - c/w Escitalopram DVT prophylaxis - Will start TEDs/Sequentials LEVI VALLECILLO MD Dec 17, 2018 18:52
[2018-12-17] MEDS: LISINOPRIL 10 MG TAB PO SCH (20:54)
[2018-12-17] MEDS: **hydrALAZINE** 10 MG TAB PO SCH (20:55)
[2018-12-17] MEDS: DOXYCYCLINE HYCLATE 100 MG TAB PO SCH (20:55)
[2018-12-17] MEDS: ATORVASTATIN 20 MG TAB PO SCH (20:55)
[2018-12-17] MEDS: LEVEMIR (INSULIN DETEMIR) 1 UNITS/0.01ML SC SCH (20:56)
[2018-12-17] MEDS: HumaLOG INSULIN (NovoLOG) PER UNIT SC SCH (20:56)
--- NOTE | 2018-12-17 21:15 | REPVR ---
EXAM: MR Head Without Contrast EXAM DATE/TIME: 12/17/2018 8:29 PM CLINICAL HISTORY: 58 years old, male; Signs and symptoms; Other: Neuro symptoms; Patient HX: PT denies any symptoms order states possible stroke; Additional info: Possilbe stroke TECHNIQUE: Imaging protocol: MR of the head without contrast. COMPARISON: MRI-Brain without Contrast 08/15/2017 3:16 PM FINDINGS: Brain: Patchy areas of increased T2/FLAIR signal intensity in the periventricular and subcortical white matter, as well as the teofilo, consistent with chronic small vessel ischemic disease. Chronic right aaron radiata/centrum semiovale and right cerebellar lacunar infarcts. No hemorrhage. No edema. Ventricles: Prominence of the cortical sulci, cisterns and ventricular system, consistent with cerebral and cerebellar volume loss. Bones/joints: Unremarkable. Soft tissues: Normal. Sinuses: Mild mucosal thickening of the ethmoid air cells and paranasal sinuses. No acute sinusitis. Mastoid air cells: Normal as visualized. No mastoid effusion. Orbits: Unremarkable. IMPRESSION: No acute intracranial pathology. Electronically signed by: Noe Sweeney On 12/17/2018 21:14:44 PM
--- NOTE | 2018-12-17 22:18 | REPVR ---
EXAM: US Duplex Bilateral Extracranial Arteries EXAM DATE/TIME: 12/17/2018 9:42 PM CLINICAL HISTORY: 58 years old, male; Signs and symptoms; Altered mental status/memory loss and weakness, extremity; Left; Confusion or disorientation; Additional info: Possible stroke TECHNIQUE: Imaging protocol: Real-time Duplex ultrasound scan of the Bilateral carotid and vertebral arteries combining obrien scale, color Doppler and spectral waveform analysis. COMPARISON: MRI-Brain without Contrast 12/17/2018 7:43 PM FINDINGS: Evaluation of the visualized portions of the bilateral common carotid, internal carotid and external carotid arteries reveals mild calcified plaque in the carotid bulbs and proximal internal carotid arteries. Antegrade flow is seen in both vertebral arteries. Peak systolic velocities are as follows: Right CCA: 86 cm/s Right proximal ICA: 68 cm/s Right mid ICA: 68 cm/s Right distal ICA: 83 cm/s Right ECA: 126 cm/s Right I/C ratio: 1 Left CCA: 88 cm/s Left proximal ICA: 57 cm/s Left mid ICA: 73 cm/s Left distal ICA: 76 cm/s Left ECA: 128 cm/s Left I/C ratio: 0.9 IMPRESSION: No sonographic evidence of hemodynamically significant stenosis. COMMENT: Carotid Stenosis Reference using SRU criteria: Mild: less than 50% stenosis. ICA PSV is less than 125 cm/second and plaque or intimal thickening is visible. Moderate: 50-69% stenosis. ICA PSV is 125 to 230 cm/second and plaque is visible. Severe: 70-94% stenosis. ICA PSV is more than 230 cm/second and visible plaque and lumen narrowing are seen. Near occlusion: 95-99% stenosis. ICA PSV is variable and significant plaque and luminal narrowing are seen. Occluded: 100% stenosis. No flow identified. Electronically signed by: Noe Sweeney On 12/17/2018 22:17:53 PM
--- NOTE | 2018-12-17 22:22 | REPVR ---
EXAM: MR Angiogram Head Without Contrast, Arteries EXAM DATE/TIME: 12/17/2018 8:29 PM CLINICAL HISTORY: 58 years old, male; Signs and symptoms; Other: Neuro symptoms; Patient HX: PT denied any symptoms, order states possible stroke; Additional info: Possilbe stroke TECHNIQUE: Imaging protocol: MR angiogram head without contrast. Exam focused on the arteries. 3D rendering: MIP reconstructed images were created and reviewed. COMPARISON: MRA BRAIN W/O CONTRAST 08/10/2017 6:37 PM FINDINGS: Right internal carotid artery: Unremarkable. Intracranial segment is patent with no significant stenosis. No aneurysm. Right anterior cerebral artery: Unremarkable. No occlusion or significant stenosis. No aneurysm. Right middle cerebral artery: Unremarkable. No occlusion or significant stenosis. No aneurysm. Right posterior cerebral artery: Unremarkable. No occlusion or significant stenosis. No aneurysm. Right vertebral artery: Unremarkable. No occlusion or significant stenosis. No aneurysm. Left internal carotid artery: Unremarkable. Intracranial segment is patent with no significant stenosis. No aneurysm. Left anterior cerebral artery: Unremarkable. No occlusion or significant stenosis. No aneurysm. Left middle cerebral artery: Unremarkable. No occlusion or significant stenosis. No aneurysm. Left posterior cerebral artery: Unremarkable. No occlusion or significant stenosis. No aneurysm. Left vertebral artery: Unremarkable. No occlusion or significant stenosis. No aneurysm. Basilar artery: Unremarkable. No occlusion or significant stenosis. No aneurysm. IMPRESSION: No acute findings. Electronically signed by: Noe Sweeney On 12/17/2018 22:22:03 PM
[2018-12-17] MEDS: FEXOFENADINE 60 MG TAB PO SCH (22:47)
[2018-12-17] MEDS: TOLTERODINE (DETROL) 2 MG TAB PO SCH (22:48)
[2018-12-17] MEDS: BACLOFEN 5MG PER 1/2 TABLET PO SCH (22:48)
[2018-12-17 23:12] VITALS: BP 170/90
[2018-12-18] VITALS (8 sets, daily range): BP systolic 100–170; BP diastolic 60–96
--- NOTE | 2018-12-18 05:51 | ECGEPIP ---
Stationary ECG Study [facility] - ED Test Date: 2018-12-17 Pat Name: KERRY PERKINS Department: Room: - Gender: M Manager Eligibility: ct : 1960 Requested By: VIC Maciel Order Number: [id number] Reading MD: Chema Wright Measurements Intervals Collins Rate: 82 P: 6 MT: 192 QRS: -30 QRSD: 89 T: 7 QT: 386 QTc: 451 Interpretive Statements SINUS RHYTHM BORDERLINE LEFT AXIS DEVIATION VOLTAGE CRITERIA FOR LVH SIMILAR TO 11/13/17 Electronically Signed On 12-18-2018 5:51:13 EDT by Chema Wright
[2018-12-18 06:12] LABS: HEMATOCRIT 42.8 % (42.0-52.0); HEMOGLOBIN 13.5 g/dl (13.5-17.5); MEAN CORPUSCULAR HEMOGLOBIN 28.7 pg (27.0-33.0); MEAN CORPUSCULAR HGB CONC 31.5 g/dl (32.0-36.5); MEAN CORPUSCULAR VOLUME 91.1 fl (80.0-96.0); PLATELET COUNT, AUTOMATED 159 10^3/uL (150-450); WHITE BLOOD COUNT 6.3 10^3/uL (4.0-10.0)
[2018-12-18 06:37] LABS: BLOOD UREA NITROGEN 10 MG/DL (7-18); CALCIUM LEVEL 8.5 MG/DL (8.5-10.1); CARBON DIOXIDE LEVEL 31 MEQ/L (21-32); CHLORIDE LEVEL 105 MEQ/L (98-107); CREATININE FOR GFR 0.55 MG/DL (0.70-1.30); GLOMERULAR FILTRATION RATE > 60.0 (>56); GLUCOSE, FASTING 152 MG/DL (70-100); MAGNESIUM LEVEL 1.7 MG/DL (1.8-2.4); POTASSIUM SERUM 3.6 MEQ/L (3.5-5.1); SODIUM LEVEL 141 MEQ/L (136-145)
[2018-12-18] MEDS ORDERED: FLUBLOK(EGG FREE)(QUAD)INFLUENZA VACC 0.5ML SYRINGE (90682)18YRS&OLDER IM ONE (09:00)
[2018-12-18] MEDS: guaiFENesin ER 600 MG TAB PO SCH ×2 (09:00→20:29)
[2018-12-18] MEDS: HumaLOG INSULIN (NovoLOG) PER UNIT SC SCH ×4 (09:35→20:29)
[2018-12-18] MEDS: LEVEMIR (INSULIN DETEMIR) 1 UNITS/0.01ML SC SCH ×2 (09:36→20:30)
[2018-12-18] MEDS: DOXYCYCLINE HYCLATE 100 MG TAB PO SCH ×2 (09:37→20:28)
[2018-12-18] MEDS: LISINOPRIL 10 MG TAB PO SCH ×2 (09:37→20:29)
[2018-12-18] MEDS: BACLOFEN 5MG PER 1/2 TABLET PO SCH ×3 (09:37→20:27)
[2018-12-18] MEDS: ESCITALOPRAM OXALATE 5MG TABLET (LEXAPRO) PO SCH (09:37)
[2018-12-18] MEDS: TOLTERODINE (DETROL) 2 MG TAB PO SCH ×2 (09:37→20:29)
[2018-12-18] MEDS: **hydrALAZINE** 10 MG TAB PO SCH ×3 (09:38→20:28)
--- NOTE | 2018-12-18 13:13 | IPNPDOC ---
Text Note Date of Service The patient was seen on 12/18/18. NOTE Subjective: Patient is a 58-year-old male with a PMHx of CAD (Hx of ID 1984), Chronic Diastolic CHF / Valvular heart disease, PAD s/p L BKA, DLP, IDDM2, Hx of SDH / SAH s/p surgical intervention (2017), ANALY (not compliant with CPAP), Urinary retention s/p Suprapubic catheter (2015), Neuroapthy, Depression who presented to [facility] after he was suspected to have stroke. 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 He was transferred to [facility] for further evaluation. As per the patient, he denies any symptoms of stroke. He reports that he has been coughing for the last several days. Patient was seen and examined at the bedside. Currently, he reports that he slept well. He denies any chest pain or palpitations. Notes that his breathing is relatively at baseline. He does report a cough. Denies any nausea, vomiting, abdominal pain, constipation, diarrhea, or urinary discomfort Objective: Vitals (See below) General: Lying in bed, no acute distress, comfortable, AAOx3 HEENT: NC, AT CVS: RRR, +S1S2 Lungs: Fair air entry b/l, -w/r/r Abdomen: Soft, ND, NT Extremities: - Edema, - Calf tenderness, L BKA Assessment and plan: Slurred speech / Left hand weakness - possibly 2/2 TIA - Patient presented to the emergency room after he experienced left hand weakness and slurred speech; patient denied any such symptoms - Patient had full resolution of his symptoms upon arrival to emergency room - Again, there do not appear to be any focal neurologic deficits - CT head 12/17: 1. Small vessel ischemic disease. 2. Minimal volume loss. - MRI Brain 12/17: No acute findings. - MRA Brain 12/17: No acute intracranial pathology. - Duplex ultrasound of carotids 12/17: No sonographic evidence of hemodynamically significant stenosis. - Echocardiogram of heart is pending - Continue with neurologic checks every 4 hours - c/w atorvastatin; s/p aspirin 325 emergency room Cough - possibly 2/2 URTI - likeyl 22/ parainfluenza - Patient meets hemodynamically stable and afebrile - Lungs do not reveal any adventitious lung sounds - Respiratory panel 12/17: Parainfluenza - No leukocytosis or lactic acidosis - Chest x-ray was completed in emergency room. Imaging was reviewed. Does not appear to show any signs of pneumonia - Will c/w supportive care; will start mucinex Possible UTI - Patient has a history of urinary tract infections with Staphylococcus / Enterococcus / Pseudomonas - Urinalysis does appear to be infected - No significant leukocytosis or lactic acidosis - Will await culture results of urine and blood - Patient is currently already on doxycycline; will continue with this CAD (Hx of ID 1984) - Currently not on any anti-platelet therapy Chronic Diastolic CHF / Valvular heart disease - No evidence of exacerbation - Currently not on any diuretics PAD s/p L BKA - Currently not on any anti-platelet therapy DLP - c/w Atorvastatin IDDM2 - c/w ISS and Levemir at BID dosing Hx of SDH / SAH - s/p surgical intervention (2017) ANALY - Not compliant with CPAP - Allow home CPAP use Urinary retention - s/p Suprapubic catheter (2015) Neuropathy - c/w Gabapentin Depression - c/w Escitalopram DVT prophylaxis - c/w TEDs/Sequentials Disposition: - Anticipate return to [facility] tomorrow VS,Kevin, I+O VS, Kevin, I+O Laboratory Tests 12/18/18 05:47 Red Blood Count 4.70, Mean Corpuscular Volume 91.1, Mean Corpuscular Hemoglobin 28.7, Mean Corpuscular Hemoglobin Concent 31.5 L, Red Cell Distribution Width 13.7, Calcium Level 8.5 Vital Signs Date Time Temp Pulse Resp B/P (MAP) Pulse Ox O2 Delivery O2 Flow Rate FiO2 12/18/18 09:38 156/96 12/18/18 08:00 98.7 80 18 96 2.0 12/17/18 22:31 Nasal Cannula I&O- Last 24 Hours up to 6 AM 12/18/18 06:00 Intake Total 1000 ml Output Total 1050 ml Balance -50 ml LEVI VALLECILLO MD December 18, 2018 13:13
--- NOTE | 2018-12-18 14:55 | REP ---
CHEST, PORTABLE: AP portable view of the chest is performed and compared to prior study 11/13/2017. There is cardiomegaly. There is calcification of the thoracic aorta. The mediastinal silhouette is unchanged. There appear to be mild bibasilar fibroatelectatic changes without evidence of acute infiltrate. There are degenerative changes of the spine. IMPRESSION: Cardiomegaly and chronic changes without definite infiltrate. Electronically Signed by Gustavo Plummer MD 12/20/2018 11:53 A
--- NOTE | 2018-12-18 17:41 | ECHO ---
DATE OF PROCEDURE: 12/18/2018 REFERRING PHYSICIAN: Dr. Tracie Mills INDICATION: Transient cerebral ischemia unspecified. WEIGHT: 231.5 pounds 2D MEASUREMENTS: Left atrium: 3.8 cm Aortic root: 3.4 cm Ventricular septum: 1.34 cm Posterior wall: 1.34 cm Left ventricle diastole: 4.6 cm Aortic root: 3.2 cm Inferior vena cava: 2.2 cm DOPPLER MEASUREMENTS: Aortic valve velocity: 108 cm/s LVOT velocity: 94.6 cm/s LVOT VTI: 17.4 cm Very mild mitral regurgitation. Mitral E velocity 65.0 cm/s Mitral A velocity 78.1 cm/s Mild tricuspid regurgitation. Estimated right ventricle systolic pressure: 45-50 mmHg assuming a pressure of 5-10 mmHg. MITRAL ANNULAR TISSUE DOPPLER: E-prime septal 5.2 cm/s E-prime lateral 5.0 cm/s DESCRIPTION: Rhythm was sinus. Image quality was fair. No pericardial effusion. This was a 2D, M-mode, color flow Doppler and pulse wave Doppler examination and included mitral annular tissue Doppler. CONCLUSIONS: 1. Mild concentric left ventricular hypertrophy. Normal regional LV wall motion and wall thickening. Normal LV systolic function. Left ventricular ejection fraction (LVEF) 60% by visual estimate. Grade 1 LV diastolic dysfunction (impaired relaxation filling pattern). 2. Mild aortic valve sclerosis of a three-cusp aortic valve. No aortic regurgitation. 3. Suggestive of moderate elevation of estimated right ventricle systolic pressure (systolic pressure 45-50% by visual estimate). Normal right ventricle size and systolic function. Mild tricuspid regurgitation. 4. Otherwise normal appearing echocardiogram Doppler features.
[2018-12-18] MEDS: ATORVASTATIN 20 MG TAB PO SCH (20:27)
[2018-12-18] MEDS: FEXOFENADINE 60 MG TAB PO SCH (20:29)
[2018-12-19 04:00] VITALS: BP 154/86
[2018-12-19 06:04] LABS: HEMATOCRIT 42.9 % (42.0-52.0); HEMOGLOBIN 13.4 g/dl (13.5-17.5); MEAN CORPUSCULAR HEMOGLOBIN 28.1 pg (27.0-33.0); MEAN CORPUSCULAR HGB CONC 31.2 g/dl (32.0-36.5); MEAN CORPUSCULAR VOLUME 89.9 fl (80.0-96.0); PLATELET COUNT, AUTOMATED 170 10^3/uL (150-450); RED BLOOD COUNT 4.77 10^6/uL (4.30-6.10); WHITE BLOOD COUNT 6.4 10^3/uL (4.0-10.0)
[2018-12-19 06:18] LABS: BLOOD UREA NITROGEN 9 MG/DL (7-18); CALCIUM LEVEL 8.6 MG/DL (8.5-10.1); CARBON DIOXIDE LEVEL 34 MEQ/L (21-32); CHLORIDE LEVEL 104 MEQ/L (98-107); CREATININE FOR GFR 0.53 MG/DL (0.70-1.30); GLOMERULAR FILTRATION RATE > 60.0 (>56); GLUCOSE, FASTING 158 MG/DL (70-100); MAGNESIUM LEVEL 1.8 MG/DL (1.8-2.4); POTASSIUM SERUM 3.8 MEQ/L (3.5-5.1); SODIUM LEVEL 140 MEQ/L (136-145)
[2018-12-19 08:00] VITALS: BP 160/84
[2018-12-19] MEDS: HumaLOG INSULIN (NovoLOG) PER UNIT SC SCH (08:13)
[2018-12-19] MEDS: LEVEMIR (INSULIN DETEMIR) 1 UNITS/0.01ML SC SCH (08:13)
[2018-12-19] MEDS: TOLTERODINE (DETROL) 2 MG TAB PO SCH (08:14)
[2018-12-19] MEDS: ESCITALOPRAM OXALATE 5MG TABLET (LEXAPRO) PO SCH (08:14)
[2018-12-19] MEDS: DOXYCYCLINE HYCLATE 100 MG TAB PO SCH (08:15)
[2018-12-19] MEDS: BACLOFEN 5MG PER 1/2 TABLET PO SCH (08:15)
[2018-12-19] MEDS: guaiFENesin ER 600 MG TAB PO SCH (08:15)
[2018-12-19] MEDS: LISINOPRIL 10 MG TAB PO SCH (08:15)
[2018-12-19] MEDS: **hydrALAZINE** 10 MG TAB PO SCH (08:15)
[2018-12-19] MEDS ORDERED: MUCI600T31 PO (09:01)
[2018-12-19] MEDS ORDERED: BACT400T PO (11:24)
--- NOTE | 2018-12-19 11:24 | DS.PDOC ---
Discharge Summary General Date of Admission Dec 17, 2018 at 18:17 Date of Discharge 12/19/2018 Discharge Summary PROCEDURES PERFORMED DURING STAY: [None]. ADMITTING DIAGNOSES / DISCHARGE DIAGNOSES: Slurred speech / Left hand weakness - possibly 2/2 TIA Cough - possibly 2/2 URTI - likely 22/ parainfluenza Possible UTI CAD (Hx of [place] 1984) Chronic Diastolic CHF / Valvular heart disease PAD s/p L BKA DLP IDDM2 Hx of SDH / SAH ANALY Urinary retention Neuropathy Depression DVT prophylaxis COMPLICATIONS/CHIEF COMPLAINT: Staff at [facility] reported Left hand weakness and slurred speech - that has resolved on ER arrival; patient denies symptoms HISTORY OF PRESENT ILLNESS: Patient is a 58-year-old male with a PMHx of CAD (Hx of [place] 1984), Chronic Diastolic CHF / Valvular heart disease, PAD s/p L BKA, DLP, IDDM2, Hx of SDH / SAH s/p surgical intervention (2017), ANALY (not compliant with CPAP), U rinary retention s/p Suprapubic catheter (2015), Neuroapthy, Depression who presented to [facility] after he was suspected to have stroke. 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 He was transferred to [facility] for further evaluation. As per the patient, he denies any symptoms of stroke. He reports that he has been coughing for the last several days. HOSPITAL COURSE: Slurred speech / Left hand weakness - possibly 2/2 TIA - Patient has had full resolution of his symptoms prior to arrival to ER; has had no recurrence of the symptoms - No focal neurologic deficits - CT head 12/17: 1. Small vessel ischemic disease. 2. Minimal volume loss. - MRI Brain 12/17: No acute findings. - MRA Brain 12/17: No acute intracranial pathology. - Duplex ultrasound of carotids 12/17: No sonographic evidence of hemodynamically significant stenosis. - Echocardiogram 12/18: - s/p neurologic checks every 4 hours - c/w atorvastatin; s/p aspirin 325 emergency room - Will have outpatient f/u with Dr. Yamile Diaz Cough - possibly 2/2 URTI - likely 2/2 parainfluenza - Patient meets hemodynamically stable and afebrile - Lungs do not reveal any adventitious lung sounds - Respiratory panel 12/17: Parainfluenza - No leukocytosis or lactic acidosis - Chest x-ray was completed in emergency room. Imaging was reviewed. Does not appear to show any signs of pneumonia - c/w supportive care; c/w Mucinex Possible UTI - Patient has a history of urinary tract infections with Staphylococcus / Enterococcus / Pseudomonas - Remains hemodynamically stable and afebrile - No leukocytosis or lactic acidosis - Urinalysis does appear to be infected - No significant leukocytosis or lactic acidosis - Urine culture 12/17: Proteus Mirabilis - possibly 2/2 colonization - Will have outpatient f/u with Dr. Yamile Diaz CAD (Hx of [place] 1984) - Currently not on any anti-platelet therapy Chronic Diastolic CHF / Valvular heart disease - No evidence of exacerbation - Currently not on any diuretics PAD s/p L BKA - Currently not on any anti-platelet therapy DLP - c/w Atorvastatin IDDM2 - c/w ISS and Levemir at BID dosing Hx of SDH / SAH - s/p surgical intervention (2017) ANALY - Not compliant with CPAP - Allow home CPAP use Urinary retention - s/p Suprapubic catheter (2015) Neuropathy - c/w Gabapentin Depression - c/w Escitalopram DVT prophylaxis - c/w TEDs/Sequentials DISCHARGE MEDICATIONS: Please see below. ALLERGIES: Please see below. PHYSICAL EXAMINATION ON DISCHARGE: Vitals (See below) General: Lying in bed, no acute distress, comfortable, AAOx3 HEENT: NC, AT CVS: RRR, +S1S2 Lungs: Fair air entry b/l, patient is without any wheezing, rales or rhonchi Abdomen: Soft, nondistended, without tenderness Extremities: No evidence of lower extremity edema, - Calf tenderness, L BKA LABORATORY DATA: Please see below. ACTIVITY: [As tolerated]. DISCHARGE PLAN: Follow up with Dr. Balaji Diaz within 7 days Remain compliant with treatment plan and medications Return to the ER if you experience any problems DISPOSITION: [facility] DISCHARGE CONDITION: [Stable]. TIME SPENT ON DISCHARGE: Greater than [35] minutes. Vital Signs/I&Os Vital Signs Date Time Temp Pulse Resp B/P (MAP) Pulse Ox O2 Delivery O2 Flow Rate FiO2 12/19/18 08:18 2.0 12/19/18 08:00 99.2 81 20 160/84 (109) 96 12/17/18 22:31 Nasal Cannula I&O- Last 24 Hours up to 6 AM 12/19/18 06:00 Intake Total 360 ml Output Total 675 ml Balance -315 ml Laboratory Data Labs 24H Laboratory Tests 2 12/18/18 11:48: Bedside Glucose (Misc Panel) 155H 12/18/18 17:49: Bedside Glucose (Misc Panel) 199H 12/18/18 20:20: Bedside Glucose (Misc Panel) 189H 12/19/18 05:38: Nucleated Red Blood Cells % (auto) 0.0, Anion Gap 2L, Glomerular Filtration Rate > 60.0, Blood Urea Nitrogen 9, Creatinine 0.53L, Sodium Level 140, Potassium Level 3.8, Chloride Level 104, Carbon Dioxide Level 34H, Calcium Level 8.6, Magnesium Level 1.8 CBC/BMP Laboratory Tests 12/19/18 05:38 Red Blood Count 4.77, Mean Corpuscular Volume 89.9, Mean Corpuscular Hemoglobin 28.1, Mean Corpuscular Hemoglobin Concent 31.2 L, Red Cell Distribution Width 13.7, Calcium Level 8.6 FSBS Laboratory Tests Test 12/18/18 11:48 12/18/18 17:49 12/18/18 20:20 Range/Units Bedside Glucose (Misc Panel) 155 199 189 70-105 MG/DL Microbiology Microbiology 12/17/18 Blood Culture - Preliminary, Resulted No growth after 24 hours . All specim... 12/17/18 Blood Culture - Preliminary, Resulted No growth after 24 hours . All specim... 12/17/18 Respiratory Virus Panel (PCR) (VIANEY) - Final, Complete Parainfluenza 3 (Piv3) 12/17/18 Urine Culture - Final, Complete Proteus Mirabilis Discharge Medications Scheduled Acetaminophen (Acetaminophen) 500 Mg Tablet, 1,000 MG PO BID, (Reported) Atorvastatin Calcium (Atorvastatin Calcium) 40 Mg Tab, 40 MG PO QHS, (Reported) Baclofen (Baclofen) 5 Mg Tablet, 5 MG PO TID, (Reported) Doxycycline Hyclate (Doxycycline Hyclate) 100 Mg Capsule, 100 MG PO BID, (Reported) FOR 8 DAYS, FINISH DATE 12/20/18 Escitalopram Oxalate (Lexapro) 5 Mg Tablet, 5 MG PO DAILY, (Reported) Fexofenadine HCl (Fexofenadine HCl) 180 Mg Tablet, 180 MG PO QHS, (Reported) Guaifenesin (Mucinex) 600 Mg Tab.er.12h, 600 MG PO BID Hydralazine HCl (Hydralazine HCl) 10 Mg Tab, 10 MG PO DAILY, (Reported) HOLD IF SBP<130 Hydralazine HCl (Hydralazine HCl) 10 Mg Tablet, 10 MG PO BID, (Reported) 1200/2030 HOLD IF SBP<120 Insulin Degludec (Tresiba Flextouch U-100) 100 Unit/1 Ml Insuln.pen, 80 UNIT SC QHS, (Reported) Insulin Human Lispro (Humalog) 1 Units/0.01 Ml Inj, 14 UNITS SC BID, (Reported) 0730/1200 Insulin Human Lispro (Humalog) 100 Unit/1 Ml Vial, 10 UNITS SC QPM, (Reported) 1700 Ketoconazole (Nizoral) 120 Ml Shampoo, 1 APLCT TOP QWEEK, (Reported) SUNDAY MORNINGS FOR DERMATITIS Linagliptin (Tradjenta) 5 Mg Tablet, 5 MG PO DAILY, (Reported) Lisinopril (Lisinopril) 10 Mg Tablet, 10 MG PO BID, (Reported) Tolterodine Tartrate (Detrol) 2 Mg Tablet, 2 MG PO BID, (Reported) Scheduled PRN Acetaminophen (Acetaminophen) 325 Mg Tablet, 650 MG PO Q4H PRN for PAIN / FEVER, (Reported) Bisacodyl (Dulcolax) 10 Mg Sup, 10 MG W[place] DAILY PRN for CONSTIPATION, (Reported) Glucagon HCl (Glucagon HCl) 1 Mg Inj, 1 MG IM ASDIRECTED PRN for LOW BLOOD SUGAR, (Reported) Magnesium Hydroxide (Milk of Magnesia) 400 Mg/5 Ml Oral.susp, 2,400 MG PO DAILY PRN for CONSTIPATION, (Reported) Methyl Salicylate/Menthol (Bengay Greaseless Cream) 57 Gm Cream..g., 1 APLCT TOP BID PRN for MUSCLE PAIN, (Reported) APPLY TO SHOULDERS Nitroglycerin (Nitrostat) 0.4 Mg Subl, 0.4 MG SL Q5MP PRN for ANGINA, (Reported) Sodium Phosphate,Millard-Dibasic (Enema Tszpt-Lo-Elj) 1 Colton Colton, 1 COLTON [place] DAILY PRN for CONSTIPATION, (Reported) Allergies Coded Allergies: cefuroxime (Verified Allergy, Intermediate, HIVES, 12/17/18) clindamycin (Verified Allergy, Intermediate, HIVES, 12/17/18) amoxicillin (Verified Allergy, Unknown, 12/17/18) cephalexin (Verified Allergy, Unknown, 12/17/18) ciprofloxacin (Verified Allergy, Unknown, 12/17/18) levofloxacin (Verified Allergy, Unknown, 12/17/18) nitrofurantoin (Verified Allergy, Unknown, 12/17/18) oxacillin (Verified Allergy, Unknown, 12/17/18) meclizine (Verified Adverse Reaction, Mild, DIZZINESS/DRUNK FEELING, 12/17/18) LEVI VALLECILLO MD December 19, 2018 11:24
== END 2018-12-19 10:13 | DRG 69 ==
LOC: M ED 12:32 → EDBD 12:32 → M ED INP 18:17 → M PCU 22:57
PROVIDERS: ADMIT Internal Medicine; ATTEND Internal Medicine
DX: G45.9 Transient cerebral ischemic attack, unspecified (principal); I50.32 Chronic diastolic (congestive) heart failure; I25.10 Atherosclerotic heart disease of native coronary artery without angina pectoris; I25.2 Old myocardial infarction; E78.5 Hyperlipidemia, unspecified; E11.51 Type 2 diabetes mellitus with diabetic peripheral angiopathy without gangrene; G47.33 Obstructive sleep apnea (adult) (pediatric); R33.9 Retention of urine, unspecified; B34.8 Other viral infections of unspecified site; J06.9 Acute upper respiratory infection, unspecified; E11.40 Type 2 diabetes mellitus with diabetic neuropathy, unspecified; F32.9 Major depressive disorder, single episode, unspecified; Z89.512 Acquired absence of left leg below knee; Z79.4 Long term (current) use of insulin; Z79.899 Other long term (current) drug therapy; Z88.0 Allergy status to penicillin; Z88.1 Allergy status to other antibiotic agents; Z88.8 Allergy status to other drugs, medicaments and biological substances

== ENCOUNTER → 2019-03-20 | Outpatient (REF) | payer MEDICARE, MEDICAID ==
[~2019-03-20] MED LIST changes: +ACET500T15 PO; +ALLE1TAB23 PO; +APAP325T4 PO; +BACL5TAB2 PO; +BACT400T PO; +BENG1CRE3 TOP; +DETR1TAB5 PO; +DOXY100C PO; +HYDR5TAB PO; +LEXA5TAB13 PO; +LISI10TA4 PO; +MILKSUS3 PO; +MUCI600T31 PO; +NIZO2SHA TOP; +TRAD5TAB PO; +TRES1INJ2 SC
[2019-03-20 07:47] LABS: BASO % 0.6 % (0.0-1.0); EOS # 0.1 10^3/uL (0.0-0.50); EOS % 1.1 % (0.0-3.0); HEMATOCRIT 45.9 % (42.0-52.0); HEMOGLOBIN 14.8 g/dl (13.5-17.5); LYMPH # 1.7 10^3/uL (1.5-4.5); LYMPH % 24.1 % (24.0-44.0); MEAN CORPUSCULAR HEMOGLOBIN 29.4 pg (27.0-33.0); MEAN CORPUSCULAR HGB CONC 32.2 g/dl (32.0-36.5); MEAN CORPUSCULAR VOLUME 91.1 fl (80.0-96.0); MONO # 0.7 10^3/uL (0.0-0.8); MONO % 9.4 % (0.0-5.0); NEUTROPHILS # 4.5 10^3/uL (1.8-7.7); NEUTROPHILS % 63.5 % (36.0-66.0); PLATELET COUNT, AUTOMATED 170 10^3/uL (150-450); RED BLOOD COUNT 5.04 10^6/uL (4.30-6.10)
[2019-03-20 08:20] LABS: HEMOGLOBIN A1c 9.6 %
[2019-03-20 08:58] LABS: COLLAGEN EPINEPHRINE > 300 SECONDS (74-162)
[2019-03-20 09:19] LABS: COLLAGEN ADP 119 SECONDS (56-103)
--- NOTE | 2019-03-25 16:38 | SKHPN ---
[facility] Progress Note Date of Service/Time Date: Mar 25, 2019 Time: 15:00 Progress Note Patient seen at [facility] on: Date of Service by Resident Physician: 03/25/19 and 03/26/19 Date of Service by Attending Physician: 03/26/19 Subjective: 58 yo M [facility] resident since 08/2017 was seen at bedside today. He continues to use his prosthetic leg for ambulation due to his L-BKA but report he feels like he doesn't use it that much and lies in bed a lot. Today, his main complaint is L- shoulder pain that he reported was doing better at his last visit with Dr. Prajapati after she had increased his tylenol regiment to 650 mg q8 prn pain. He went to [facility] where he had imaging done that allegedly came back positive "for arthritis". He was given an injection in his left shoulder about a week ago that he states has not made his pain better. He was seen by Sharlene in OT today who discussed giving him a TENS unit to help with his pain r elief. At his last visit, he was also started on Metformin 500 mg BID and reports he has not had any adverse effects from the medication. Resident is doing well and has no acute concerns or complaints today. Denies chest pain, SOB, n/v/d/c, weakness, muscle aches/pains, abdominal pain. Reason for keep home residence: Recurrent admissions early in 2018, none since 11/2017. Had been living alone with caregiver assistance twice weekly, but due to noncompliance with medications he developed worsening of chronic medical issues. PMHx: Type 2 IDDM Diabetic peripheral neuropathy Hypertensive heart disease with chronic diastolic CHF PVD with L-BKA 2012 ANALY noncompliant with CPAP Urinary retention requiring suprapubic catheter since 2016 Vasectomy 2017 Hx of cystolitholapaxy in 2014 Coronary artery disease s/p FL in 1984 HLD valvular heart disease with tricuspid regurg on echo Hx of CVA with residual R hemiparesis Depression Hx of DVT Hx of subdural hematoma Erectile dysfunction. Soc Hx: Never smoker. Prior intermittent EtOH use (Hilaria Geronimo), but never heavy. No illicit drug use. Recent returned lab work: A1C of Labs due soon: In addition, as per nursing staff, resident's last set of labs were 12/02/18 and are not due until May 2019 for repeat CBC, lipids. Urine microalbumin is done once yearly. Last HgbA1C was 9.3 on 09/27/18. He is actually due for another A1C. Will order. Is also due for a CMP soon. For Type 2 DM, resident is on 80 units tresiba QHS, humalog 16 units SC BID at 07:30 and 12:00 and 12 units SC qdaily at 17:00. He was also recently begun on Trulicity by ms 1.5 mg SC injection qweekly on Fridays. Resident's FS are checked before suppers, before meals, and before breakfast. FS this AM was 185. AC FS have been running 180s-300s. Mainly between 200s-300s. It has been reported that sometimes resident does not eat breakfast, thus his AM humalog is not always given. Resident is not on metformin and unclear if there is any reason why. Renal function has been WNL. Suprapubic catheter is changed PRN and once every month. He is Transfer 2 assist s/p encore if tired. Walks with a walker. Diet is Level 4 with thin liquids. For L shoulder pain, I had stopped his regular tylenol on 02/25/19 and begun patient on extra strength tylenol arthritis 650 mg 2 tabs PO Q8H PRN pain. Resident reports improvement in his pain now and states it is better controlled than prior. Recent and Upcoming Doctor/Specialist appointments include: Urologist for Erectile Dysfunction in November 2018. [facility] 01/24/19 for L Leg Prosthesis: follows up for liners and for stump. Cardiology Dr. Guillen: saw 01/29/19: recommends f/u in 6 months and no new medication changes. Orthopedics: Goes to [facility] on 03/12/19 for hx of L shoulder pain for a possible corticosteroid injection. Podiatry: had his routine visit 02/25/19 for cutting of toenails, painful onychomycosis, and PAD with diabetes. Has hx of chronic bacteremia and is only treated for symptoms of UTI. Always has bleeding and drainage from suprapubic catheter site. Therefore, an antibiotic ointment and dressing is applied at the site every day (bacitracin). Also has a sacral pressure ulcer Stage 1 that is being treated with foam dressing change to the buttocks every 3 days. The ulcer site is cleaned off with saline. Saw Family Practice Physician 01/29/19 and there were no new orders. Today, resident only reports a bit of a runny nose today. Other than that, he denies any acute complaints today. Denies depressed/anxious mood. Denies fevers, chills, chest pain, SOB, n/v/d/c. Admits to chronic low back pain and muscle spasms. Admits to hx of urinary retention, but no issues currently as he has suprapubic catheter that is draining urine well. Nursing staff reports that resident has a bad attitude at times and throws temper tantrums if he doesn't have his own way sometimes. Nursing staff reports resident does have a stage 2 sacral wound that is now more superficial that is being cleansed with normal saline, patted dry with application of skin prep to surrounding intact skin, covered with flexicol 4x4, change every 3 days, and as needed if missing or soiled. Followed by wound care team. Current Medications: Losartan 100 mg PO qdaily. Amlodipine 5 mg PO daily. Atorvastatin 40 mg PO daily Aspirin 81 mg PO daily Sofia 180 mg PO daily Baclofen 5 mg PO TID for chronic back pain/muscle spasms Tresiba 80 units SC injection daily Humalog 16 units before breakfast and lunch, 12 units before dinner Lexapro 5 mg PO daily. Detrol 2 mg PO BID for bladder spasms and overactive bladder. Acetaminophen Arthritis 650 mg 2 tablets PO q8h PRN chronic back pain. Disposable enema 1 per rectum PRN constipation. Dulcolax 10 mg suppository rectum per rectum PRN daily for constipation Milk of Magnesia Concentrated Suspension 2400 mg/10 mL: give 10 mLs PO PRN constipation. Ketoconazole Shampoo 2% as directed topical 1 time per day every Sun, Sun at 10:00 for 60 days for dermatitis: scalp, face, and neck. Glucagon HCL 1 mg IM PRN for DM. Nitrostat SL 0.4 mg as directed SL PRN for chest pain. May give up to 3 doses 5 minute apart. Bengay Greaseless Cream 15-10%: Apply 1 Tablespoon Topical PRN 2 times per day for muscle pain: apply to shoulders PRN for pain. Change Suprapubic Catheter PRN. FS BID 2 times per at 7:00 and 16:00. Allergies: Multiple antibiotic allergies which I have personally reviewed with patient. However, in future I would like to confirm with [facility] as well. The following are what patient reports are his allergies: Amoxicillin: Hives, anaphylaxis Cefuroxime: just itching Cephalexin: itching, rash Ciprofloxacin: hives but no SOB Clindamycin: stops his urination through penile urethra vs. suprapubic catheter, used for UTIs. Levaquin: is ok, no allergies. Meclizine: makes him disoriented, crazy, confused, and unable to stand right; makes him lose balance. Nitrofurantoin: is ok, no allergies. Ofloxacin: Does not recall allergy and doesn't think there is one. Denies using eyedrops. Objective: Most Recent Vital Signs: 03/05/19: T 97.5 P 85 RR 16 02 Sat 91% RA; BP 110/68 on 03/04/19. 02/05/19: T 98.4 BP 152/82 P 76 RR 18 01/11/19: O2 Saturation: 94% room air (per nursing runs: 94-96% room air) General: Awake and alert. Sitting comfortably in bed in NAD. Normal speech and answers questions appropriately. Good mentation. Conversive. HEENT: Head: normocephalic, atraumatic. Eyes: sclera are nonicteric. Nose: No external lesions. Respiratory: Clear to auscultation bilaterally with no wheezes, rales, or rhonchi. Neck: Supple. Cardiovascular: Normal S1S2, regular rate and rhythm, with no murmurs, rubs or gallops. Abdomen: Soft, obese, nontender, nondistended. No hepatosplenomegaly appreciated. Bowel sounds present. Suprapubic catheter in place with no erythema or drainage at site. Extremities: L BKA. No RLE edema. Neurological: Generalized weakness noted. However, full neurological exam not performed today. Integumentary: Stage 1 pressure ulcer on sacral region, no purulent drainage. Is open. No signs of rashes on face/chest any longer. MSK: Difficulty with sitting up in bed on own. Needs assistance from lying to sitting to standing position. L BKA noted. Moves all other extremities, but full ROM not tested today. Laboratory data: Most recent Labs: 12/19/18: CBC: Hgb 13.4 (L) Hct 42.9 MCV 89.9 Plt 170 CMP: Na 140 K 3.8 Cl 104 CO2 34 Anion Gap 2 BUN 9 Cr 0.53 GFR >60 Glucose 158 Calcium 8.6 Mg 1.8 10/07/18: HgbA1C: 9.3 12/17/18: PT: 12.5 INR: 0.92 APTT: 26.9 12/02/18: CBC: Hgb 13 (L), MCV 91.2, MCHC 31.4 (L), RDW: 14.6 (H), Platelets: 146 (L) Lipid panel: Trig 180 (H), Cholesterol 108, HDL 27 (L), LDL 45. Not able to calculate 10-year ASCVD risk due to low LDL level of 45. However, patient is on moderate intensity statin therapy at this time. Uric Acid: 4.3. Imaging: Please refer to chart for most recent imaging studies. None recently identified in chart or on mytrax. Assessment/Plan: 58 yo M who is a resident at [facility] with the following medical problems: -Type 2 IDDM: Last HgbA1C was 9.3 on 10/07/18. FS running in 180s-300s, mainly 200s-300s. Currently on tresiba 80 units, trulicity 1.5 mg SC qweekly, humalog 16 units before breakfast and lunch, humalog 12 units before dinner. Not on me tformin. Current GFR is >60 and has been so for years. Will plan on beginning metformin 500 mg BID ER as it is an insulin boat tester and may improve ability of other medications to be more therapeutic. Will plan to titrate up to therapeutic dose 1000 mg BID if tolerates this well and if no kidney dysfunction develops. Will recheck HgbA1C and order now. Will plan to recheck CMP in March. Will continue tresiba 80 units and humalog as above. Will order carb-consistent diet if patient not already on this at next reevaluation. -Diabetic Neuropathy: continue to monitor. If becomes symptomatic, will plan to begin a trial of gabapentin. Monitor lower extremities for skin breakdown, ulcerations, wounds, etc. -CAD status-post FL 1984: Continue aspirin 81 mg daily and atorvastatin 40 mg daily for secondary prevention. Nitrostat PRN SL order is in place as well. In addition, it was noted by Fallon Jade in her last progress note on resident that it has been quite some time since patient has had evidence of any brain bleeding and has not had any falls at [facility]. Thus, she had restarted resident on aspirin to benefit his CAD and PVD. -HLD: Lipid panel as above from 12/02/18. Unable to calculate 10-year ASCVD risk due to low LDL level of 45. However, patient will continue on aspirin 81 mg daily and moderate intensity statin therapy atorvastatin 40 mg daily. -Hypertensive Heart Disease: BPs now under better control. Continue losartan 100 mg daily and amlodipine to 10 mg daily. Check BPs BID and report any BPs >140/90 for readjustment of his antihypertensive regimen as necessary. -Chronic diastolic HF: Most recent echocardiogram 12/18/18 showed: 1. Mild concentric left ventricular hypertrophy. Normal regional LV wall motion and wall thickening. Normal LV systolic function. Left ventricular ejection fraction (LVEF) 60% by visual estimate. Grade 1 LV diastolic dysfunction (impaired relaxation filling pattern). 2. Mild aortic valve sclerosis of a three-cusp aortic valve. No aortic regurgitation. 3. Suggestive of moderate elevation of estimated right ventricle systolic pressure (systolic pressure 45-50% by visual estimate). Normal right ventricle size and systolic function. Mild tricuspid regurgitation. 4. Otherwise normal appearing echocardiogram Doppler features. Continue statin, ARB, and optimize tx of HTN. Consider addition of beta raj to regimen: carvedilol or metoprolol if necessary. Encourage tx of ANALY with compliance of CPAP. -PVD with L BKA 2012: Continue atorvastatin and tx of HTN as above to optimize BP control. -ANALY noncompliant with CPAP: Had discussion with patient regarding ANALY leading to heart strain and placing him at risk of worsening heart failure and cardiovascular complications as well as neurological complications to brain not getting enough O2 if he does not wear CPAP. He is not very enthusiastic about trying CPAP and declines trying it at this time. However, I will try to convince him and encourage him to try CPAP every time I see him. -Urinary retention requiring a suprapubic catheter since 2016: Continue with suprapubic catheter and change catheter as necessary. Continue with detrol for overactive bladder and bladder spasms. Last seen by Urology November 2018. No new recommendations. -Erectile Dysfunction: saw Urology November 2018. -Chronic Back Pain with muscle spasms: continue baclofen. -Depression: Controlled and stable. Continue lexapro 5 mg PO daily. According to Fallon Jade's note from 11/23/18, resident's lexapro was decreased from 10 mg to 5 mg per pharmacy review and due to description from nurses of his inappropriate crying, perhaps, due to pseudo bipolar affect disorder. In addition, resident is noted to have a tendency to have an angry mood off of this medication as per nursing staff. -Stage I Sacral Ulcer: It is more superficial now. Continue wound care as mentioned above until heals. Wound care team following. -Hx of CVA with residual R hemiparesis: Continue to optimize BP control. Encourage getting OOB and walking with LLE prosthesis for maintaining strength and mobility. -Hx of DVT: was previously on eliquis for this. I cannot locate imaging study nor original note that diagnosed resident with DVT. It was noted in both Fallon Jade and Dr. Patricia Diaz' notes. Resident reports that his LLE had the DVT. According to resident, it was an unprovoked DVT. He was apparently discontinued on the eliquis for his recent hx of subdural hematoma earlier this year in October 2018. Has had hx of falls hitting head leading to subdural hematoma. It is decided that it is in the best interest of the patient that because of chronic subdural hematoma and frequent falls, that it is more of a risk vs. a benefit for him to be on chronic anticoagulation for DVT. He is stable at this time and no new concerns for blood clots/DVTs or PEs have been reported. He does get up and out of bed to go to the bathroom and/or walk with his walker at times. He is not completely immobile. I have recommended that patient remain off of the Eliquis. He verbalizes understanding of this. -Hx of subdural hematoma: chronic found on 09/2017. Rebleed on 11/07/[address] scan of head measuring 2.3 cm on L cerebral hemisphere with increased mass effect and midline shift to the R. Eliquis was held due to subdural hematoma secondary to a fall where patient hit head in 10/12/17. As per assessment above. -Normocytic anemia: will plan to perform iron studies. -Thrombocytopenia: will reevaluate with CBC and platelet function analysis. -Multiple allergies to antibiotics: recommend confirmation of these allergies and if they are accurate antibiotic allergies with [facility] pharmacy. Has MOLST Form Updated 10/23/18 DNR/DNI, Limited Medical Interventions No feeding tube. Trial period of IVF, Use Antibiotics. My preceptor for this patient encounter was Dr. Ruth Dutta, and was physically present in the building during the encounter and was fully available. As needed, all aspects of the patient interview, examination, medical decision making process, and medical care plan development were reviewed and approved by the preceptor. Preceptor is aware and concurs with the plan as stated in the body of this note and will attest to such by his/her cosignature. Allergies Coded Allergies: cefuroxime (Verified Allergy, Intermediate, HIVES, 12/17/18) clindamycin (Verified Allergy, Intermediate, HIVES, 12/17/18) amoxicillin (Verified Allergy, Unknown, 12/17/18) cephalexin (Verified Allergy, Unknown, 12/17/18) ciprofloxacin (Verified Allergy, Unknown, 12/17/18) levofloxacin (Verified Allergy, Unknown, 12/17/18) nitrofurantoin (Verified Allergy, Unknown, 12/17/18) oxacillin (Verified Allergy, Unknown, 12/17/18) meclizine (Verified Adverse Reaction, Mild, DIZZINESS/DRUNK FEELING, 12/17/18) GME ATTESTATION GME ATTESTATION My faculty preceptor for this patient encounter was physically present during the encounter and was fully available. All aspects of the patient interview, examination, medical decision making process, and medical care plan development were reviewed and approved by the faculty preceptor. The faculty preceptor is aware and concurs with the plan as stated in the body of this note and will attest to such by his/her cosignature. HILARIA REGAN DO Mar 25, 2019 16:38
== END ==
LOC: SKLAB3 07:00
DX: E11.9 Type 2 diabetes mellitus without complications (principal); D64.9 Anemia, unspecified; D69.6 Thrombocytopenia, unspecified

== ENCOUNTER → 2019-04-29 | Outpatient (CLI) | payer MEDICARE, MEDICAID ==
--- NOTE | 2019-04-29 16:51 | REP ---
MRI LEFT SHOULDER: TECHNIQUE: Axial T2 fat sat, gradient echo, sagittal oblique T2 fat sat, coronal oblique T1, T2 fat sat. The supraspinatus and subscapularis tendons demonstrate mild ill-defined high signal on T2 weighted images compatible with mild tendinopathy. There does appear to be a small focal partial full thickness tear of the supraspinatus tendon. There are mild hypertrophic degenerative changes of the acromioclavicular joint with a tiny amount of fluid in the joint. The acromion is type 1. The biceps tendon is within the bicipital groove without tenosynovitis. There is no Hill Sach's deformity. There is no abnormal signal in the deltoid muscle. Study is limited by patient motion. There does appear to be fraying of the biceps labral complex and superior labrum with a possible slap tear. There may also be a tear of the inferior labrum. There is a very small effusion at the glenohumeral joint. There is mild chondromalacia at the glenohumeral joint. No paralabral cyst is seen. There is mild spurring of the humeral head. IMPRESSION: Limited by patient motion. Mild supraspinatus and subcapsularis tendinopathy with a small focal full thickness partial tear of the supraspinatus tendon. Mild hypertrophic degenerative changes of the acromioclavicular joint. There appears to be fraying of the biceps labral complex and superior labrum with a possible slap tear. There may also be an inferior labral tear. Electronically Signed by Gustavo Plummer MD 04/30/2019 04:56 P
== END ==
LOC: M RAD 13:24
PROVIDERS: ATTEND Physician Assistant Medical
DX: M19.012 Primary osteoarthritis, left shoulder (principal)

== ENCOUNTER → 2019-05-05 | Outpatient (REF) | payer MEDICARE, MEDICAID ==
[2019-05-05 09:57] LABS: ALBUMIN 3.4 GM/DL (3.2-5.2); ALT/SGPT 35 U/L (12-78); BILIRUBIN,TOTAL 0.4 MG/DL (0.2-1.0); BLOOD UREA NITROGEN 16 MG/DL (7-18); CALCIUM LEVEL 8.9 MG/DL (8.5-10.1); CARBON DIOXIDE LEVEL 28 MEQ/L (21-32); CHLORIDE LEVEL 104 MEQ/L (98-107); GLOMERULAR FILTRATION RATE > 60.0 (>56); GLUCOSE, FASTING 233 MG/DL (70-100); SODIUM LEVEL 142 MEQ/L (136-145); TOTAL PROTEIN 6.2 GM/DL (6.4-8.2)
== END ==
LOC: SKLAB3 11:29
DX: I10 Essential (primary) hypertension (principal); E11.9 Type 2 diabetes mellitus without complications

== ENCOUNTER → 2019-05-27 | Outpatient (CLI) | payer MEDICARE, MEDICAID ==
[~2019-05-27] MED LIST changes: +CONRAY-43 43% 50ML VIAL (Q9960) As Ordered ONE; +LIDOCAINE 1% MDV 20ML VIAL As Ordered ONE; +TRIAMCINOLONE ACETONIDE SUSP 40 MG/ML VIAL (J3301) As Ordered ONE
--- NOTE | 2019-05-28 16:13 | REP ---
LEFT SHOULDER INJECTION The procedure was performed under the direct supervision of Dr. Plummer. The benefits and risks including but not limited to pain infection bleeding and anaphylaxis were explained to the patient and informed consent was obtained. The left glenohumeral joint space was localized using fluoroscopic guidance. The skin was prepped and draped in a sterile fashion. 1% lidocaine was used as a local anesthetic. Using fluoroscopic guidance a 22-gauge needle was inserted and advanced into the joint. 0.5 ml of Conray 43 was injected to verify placement. 6 ml of a solution containing 5 ml of 1% lidocaine and 1 ml of Kenalog 40 mg injected. The needle was then removed. The patient tolerated the procedure well and there were no immediate complications. Less than 6 seconds of fluoroscopy time was utilized for this procedure. Electronically Signed by KHADRA Tobin 05/27/2019 04:31 P Electronically Signed by Gustavo Plummer MD 05/28/2019 04:04 P
== END ==
LOC: M RADPRO 10:17
PROVIDERS: ATTEND Physician Assistant Medical
DX: S43.422A Sprain of left rotator cuff capsule, initial encounter (principal); X58.XXXA Exposure to other specified factors, initial encounter; Y92.89 Other specified places as the place of occurrence of the external cause; Y93.89 Activity, other specified
CPT/HCPCS: 20610; 77002; J3301; Q9960

== ENCOUNTER → 2019-05-29 | Outpatient (REF) | payer MEDICARE, MEDICAID ==
[~2019-05-29] MED LIST changes: -CONRAY-43 43% 50ML VIAL (Q9960) As Ordered ONE; -LIDOCAINE 1% MDV 20ML VIAL As Ordered ONE; -TRIAMCINOLONE ACETONIDE SUSP 40 MG/ML VIAL (J3301) As Ordered ONE
[2019-05-29 08:57] LABS: BLOOD UREA NITROGEN 20 MG/DL (7-18); CALCIUM LEVEL 9.3 MG/DL (8.5-10.1); CARBON DIOXIDE LEVEL 31 MEQ/L (21-32); CHLORIDE LEVEL 101 MEQ/L (98-107); CREATININE FOR GFR 0.64 MG/DL (0.70-1.30); GLOMERULAR FILTRATION RATE > 60.0 (>56); GLUCOSE, FASTING 248 MG/DL (70-100); POTASSIUM SERUM 4.1 MEQ/L (3.5-5.1); SODIUM LEVEL 139 MEQ/L (136-145)
[2019-05-29 10:37] LABS: HEMOGLOBIN A1c 8.6 %
== END ==
LOC: SKLAB3 07:00
PROVIDERS: ATTEND Family Medicine
DX: E11.9 Type 2 diabetes mellitus without complications (principal)

== ENCOUNTER → 2019-06-16 | Outpatient (REF) | payer MEDICARE, MEDICAID ==
[~2019-06-16] MED LIST changes: +LOSA100T50 PO; +METF-791 PO; +TRUL0.5I SC
[2019-06-16 08:30] LABS: CHOLESTEROL RISK RATIO 3.933 (<5)
== END ==
LOC: SKLAB3 07:00
PROVIDERS: ATTEND Family Medicine
DX: E78.5 Hyperlipidemia, unspecified (principal)

== ENCOUNTER 2019-06-25 09:40 | Day surgery (SDC) | payer MEDICARE, MEDICAID ==
[~2019-06-25] VITALS: Ht 190.5 cm; Wt 113.4 kg
[~2019-06-25 09:40] MED LIST changes: +NS 1,000 ML IV ONE
[2019-06-25] MEDS ORDERED: PROPOFOL 200 MG/20 ML VIAL As Ordered ONE ×2 (10:43→11:41)
--- NOTE | 2019-06-25 11:21 | ROOR ---
Patient Name: Brendon Robles Procedure Date: 06/25/2019 10:41 AM Date of : 1960 Age: 59 Room: [facility] Gender: Male Note Status: Finalized Procedure: Colonoscopy Indications: Screening for colorectal malignant neoplasm Providers: Oswald Castaneda MD Referring MD: Patricia Diaz DO Requesting Provider: Medicines: Monitored Anesthesia Care Complications: No immediate complications. Procedure: Pre-Anesthesia Assessment: - Prior to the procedure, a History and Physical was performed, and patient medications and allergies were reviewed. The patient is competent. The risks and benefits of the procedure and the sedation options and risks were discussed with the patient. All questions were answered and informed consent was obtained. Patient identification and proposed procedure were verified by the physician, the nurse and the anesthesiologist in the endoscopy suite. Mental Status Examination: alert and oriented. Airway Examination: normal oropharyngeal airway and neck mobility. Respiratory Examination: clear to auscultation. CV Examination: normal. Prophylactic Antibiotics: The patient does not require prophylactic antibiotics. Prior Anticoagulants: The patient has taken aspirin, last dose was day of procedure. ASA Grade Assessment: III - A patient with severe systemic disease. After reviewing the risks and benefits, the patient was deemed in satisfactory condition to undergo the procedure. The anesthesia plan was to use monitored anesthesia care (MAC). Immediately prior to administration of medications, the patient was re-assessed for adequacy to receive sedatives. The heart rate, respiratory rate, oxygen saturations, blood pressure, adequacy of pulmonary ventilation, and response to care were monitored throughout the procedure. The physical status of the patient was re-assessed after the procedure. The Colonoscope was introduced through the anus and advanced to the cecum, identified by appendiceal orifice and ileocecal valve. The colonoscopy was somewhat difficult due to poor bowel prep. The patient tolerated the procedure well. The quality of the bowel preparation was adequate to identify polyps 6 mm and larger in size. Findings: Hemorrhoids were found on perianal exam. The colon (entire examined portion) appeared normal. No additional abnormalities were found on retroflexion. Impression: - Hemorrhoids found on perianal exam. - No specimens collected. Recommendation: - Discharge patient to a [facility] (with escort). - Repeat colonoscopy in 10 years for screening purposes. Oswald Castaneda MD Oswald Castaneda MD 06/25/2019 11:21:36 AM Electronically signed by Oswald Castaneda MD Number of Addenda: 0 Note Initiated On: 06/25/2019 10:41 AM Estimated Blood Loss: Estimated blood loss: none. Estimated blood loss: none.
[2019-06-25 11:51] VITALS: BP 140/71
== END 2019-06-25 11:53 | disposition home or self-care (01) ==
LOC: M OPP 09:40
PROVIDERS: ATTEND Surgery
DX: Z12.11 Encounter for screening for malignant neoplasm of colon (principal); K64.8 Other hemorrhoids; I25.10 Atherosclerotic heart disease of native coronary artery without angina pectoris; I25.2 Old myocardial infarction; I10 Essential (primary) hypertension; E78.5 Hyperlipidemia, unspecified; R07.89 Other chest pain; I73.9 Peripheral vascular disease, unspecified; E11.51 Type 2 diabetes mellitus with diabetic peripheral angiopathy without gangrene; R19.7 Diarrhea, unspecified; Z86.718 Personal history of other venous thrombosis and embolism; M19.90 Unspecified osteoarthritis, unspecified site; M54.89 Other dorsalgia; F32.9 Major depressive disorder, single episode, unspecified; G62.9 Polyneuropathy, unspecified; Z89.512 Acquired absence of left leg below knee; Z87.820 Personal history of traumatic brain injury; J44.9 Chronic obstructive pulmonary disease, unspecified; G47.30 Sleep apnea, unspecified; N40.1 Benign prostatic hyperplasia with lower urinary tract symptoms; N31.9 Neuromuscular dysfunction of bladder, unspecified; Z88.0 Allergy status to penicillin; Z88.1 Allergy status to other antibiotic agents; Z88.2 Allergy status to sulfonamides; Z88.8 Allergy status to other drugs, medicaments and biological substances; Z79.82 Long term (current) use of aspirin; Z79.899 Other long term (current) drug therapy; Z79.4 Long term (current) use of insulin; Z93.8 Other artificial opening status

== ENCOUNTER → 2019-08-28 | Outpatient (REF) | payer MEDICARE, MEDICAID ==
[~2019-08-28] MED LIST changes: -NS 1,000 ML IV ONE
[2019-08-28 11:55] LABS: HEMOGLOBIN A1c 7.8 %
== END ==
LOC: SKLAB3 07:09
PROVIDERS: ATTEND Internal Medicine
DX: E11.9 Type 2 diabetes mellitus without complications (principal)

== ENCOUNTER → 2019-08-29 | Outpatient (REF) | payer MEDICARE, MEDICAID | LOC: SKLAB3 21:47 | PROVIDERS: ATTEND Internal Medicine | DX: E16.2 Hypoglycemia, unspecified (principal) ==

== ENCOUNTER → 2019-10-06 | Outpatient (REF) | payer MEDICARE, MEDICAID ==
[2019-10-06 10:18] LABS: HEMATOCRIT 46.5 % (42.0-52.0); HEMOGLOBIN 14.3 g/dl (13.5-17.5); MEAN CORPUSCULAR HEMOGLOBIN 28.1 pg (27.0-33.0); MEAN CORPUSCULAR HGB CONC 30.8 g/dl (32.0-36.5); MEAN CORPUSCULAR VOLUME 91.5 fl (80.0-96.0); PLATELET COUNT, AUTOMATED 195 10^3/uL (150-450); RED BLOOD COUNT 5.08 10^6/uL (4.30-6.10); WHITE BLOOD COUNT 7.1 10^3/uL (4.0-10.0)
== END ==
LOC: SKLAB3 07:00
PROVIDERS: ATTEND Family Medicine
DX: D64.9 Anemia, unspecified (principal)

== ENCOUNTER → 2019-11-19 | Outpatient (REF) | payer MEDICARE, MEDICAID ==
[2019-11-19 11:07] LABS: BLOOD UREA NITROGEN 23 MG/DL (7-18); CALCIUM LEVEL 8.9 MG/DL (8.5-10.1); CARBON DIOXIDE LEVEL 30 MEQ/L (21-32); CHLORIDE LEVEL 102 MEQ/L (98-107); CREATININE FOR GFR 0.68 MG/DL (0.70-1.30); GLOMERULAR FILTRATION RATE > 60.0 (>56); GLUCOSE, FASTING 121 MG/DL (70-100); POTASSIUM SERUM 3.8 MEQ/L (3.5-5.1); SODIUM LEVEL 141 MEQ/L (136-145)
[2019-11-19 12:03] LABS: HEMOGLOBIN A1c 7.2 %
[2019-11-19 12:58] LABS: MAU/CREAT RATIO 572.8 MCG/MG (0.0-30.0)
== END ==
LOC: SKLAB3 09:52
PROVIDERS: ATTEND Internal Medicine
DX: E11.9 Type 2 diabetes mellitus without complications (principal); I50.9 Heart failure, unspecified

== ENCOUNTER → 2019-12-09 | Outpatient (REF) | payer MEDICARE, MEDICAID ==
[2019-12-09 11:57] LABS: CHOLESTEROL RISK RATIO 3.739 (<5)
== END ==
LOC: SKLAB3 14:57
PROVIDERS: ATTEND Family Medicine
DX: E78.5 Hyperlipidemia, unspecified (principal)

== ENCOUNTER → 2019-12-30 | Outpatient (REF) ==
[~2019-12-30] MED LIST changes: -LISI-1046 PO; +LISI2.5T2 PO; -METF-791 PO; +METF-838 PO
== END ==
LOC: SKLAB3 11:20
PROVIDERS: ATTEND Internal Medicine
DX: Z03.818 Encounter for observation for suspected exposure to other biological agents ruled out (principal)

== ENCOUNTER → 2020-03-04 | Outpatient (REF) | payer MEDICARE, MEDICAID ==
[2020-03-04 12:23] LABS: BLOOD UREA NITROGEN 33 MG/DL (7-18); CALCIUM LEVEL 9.1 MG/DL (8.5-10.1); CARBON DIOXIDE LEVEL 29 MEQ/L (21-32); CHLORIDE LEVEL 102 MEQ/L (98-107); CREATININE FOR GFR 0.68 MG/DL (0.70-1.30); GLOMERULAR FILTRATION RATE > 60.0 (>56); GLUCOSE, FASTING 151 MG/DL (70-100); POTASSIUM SERUM 4.1 MEQ/L (3.5-5.1); SODIUM LEVEL 137 MEQ/L (136-145)
[2020-03-04 15:54] LABS: HEMOGLOBIN A1c 6.8 %
== END ==
LOC: SKLAB3 07:00
PROVIDERS: ATTEND Internal Medicine
DX: E11.9 Type 2 diabetes mellitus without complications (principal)

== ENCOUNTER → 2020-03-09 | Outpatient (REF) | payer MEDICARE, MEDICAID ==
[~2020-03-09] MED LIST changes: +ASPI-546 PO; -ASPI1TAB15 PO; +ASPI81TA86 PO
[2020-03-09 08:48] LABS: HEMOGLOBIN A1c 6.8 %
[2020-03-09 08:53] LABS: BLOOD UREA NITROGEN 27 MG/DL (7-18); CALCIUM LEVEL 9.2 MG/DL (8.5-10.1); CARBON DIOXIDE LEVEL 28 MEQ/L (21-32); CHLORIDE LEVEL 103 MEQ/L (98-107); CREATININE FOR GFR 0.53 MG/DL (0.70-1.30); GLOMERULAR FILTRATION RATE > 60.0 (>56); GLUCOSE, FASTING 169 MG/DL (70-100); POTASSIUM SERUM 4.7 MEQ/L (3.5-5.1); SODIUM LEVEL 140 MEQ/L (136-145)
== END ==
LOC: SKLAB3 07:00
DX: E11.9 Type 2 diabetes mellitus without complications (principal)

== ENCOUNTER → 2020-04-06 | Outpatient (REF) | payer MEDICARE, MEDICAID ==
[2020-05-26 19:00] LABS: WHITE BLOOD COUNT 6.7 10^3/uL (4.0-10.0)
[2020-05-26 19:01] LABS: HEMATOCRIT 41.8 % (42.0-52.0); HEMOGLOBIN 13.3 g/dl (13.5-17.5); MEAN CORPUSCULAR HGB CONC 31.8 g/dl (32.0-36.5); MEAN CORPUSCULAR VOLUME 91.3 fl (80.0-96.0); PLATELET COUNT, AUTOMATED 190 10^3/uL (150-450); RED BLOOD COUNT 4.58 10^6/uL (4.30-6.10)
== END ==
LOC: SKLAB3 10:32
DX: D64.9 Anemia, unspecified (principal)

== ENCOUNTER → 2020-04-06 | Outpatient (REF) | payer MEDICARE, MEDICAID | LOC: CANPREREF → SKLAB3 07:00 | DX: D64.9 Anemia, unspecified (principal) ==

== ENCOUNTER → 2020-05-12 | Outpatient (REF) | payer MEDICARE, MEDICAID ==
[2020-05-12 10:45] LABS: CREATININE, URINE 47.6 MG/DL; MAU/CREAT RATIO 464.2 MCG/MG (0.0-30.0)
== END ==
LOC: SKLAB3 08:56
DX: E11.9 Type 2 diabetes mellitus without complications (principal)

== ENCOUNTER → 2020-06-03 | Outpatient (REF) | payer MEDICARE, MEDICAID ==
[2020-06-03 10:33] LABS: BASO % 0.2 % (0.0-1.0); EOS # 0.1 10^3/uL (0.0-0.5); EOS % 1.6 % (0.0-3.0); HEMATOCRIT 40.8 % (42.0-52.0); HEMOGLOBIN 12.8 g/dl (13.5-17.5); LYMPH # 1.4 10^3/uL (1.5-5.0); LYMPH % 22.4 % (24.0-44.0); MEAN CORPUSCULAR HEMOGLOBIN 28.3 pg (27.0-33.0); MEAN CORPUSCULAR HGB CONC 31.4 g/dl (32.0-36.5); MEAN CORPUSCULAR VOLUME 90.3 fl (80.0-96.0); MONO # 0.7 10^3/uL (0.0-0.8); NEUTROPHILS # 4.1 10^3/uL (1.5-8.5); PLATELET COUNT, AUTOMATED 210 10^3/uL (150-450); RED BLOOD COUNT 4.52 10^6/uL (4.30-6.10); WHITE BLOOD COUNT 6.3 10^3/uL (4.0-10.0)
[2020-06-03 11:45] LABS: ALBUMIN 3.4 GM/DL (3.2-5.2); BLOOD UREA NITROGEN 21 MG/DL (7-18); CARBON DIOXIDE LEVEL 30 MEQ/L (21-32); CHLORIDE LEVEL 102 MEQ/L (98-107); GLOMERULAR FILTRATION RATE > 60.0 (>56); GLUCOSE, FASTING 165 MG/DL (70-100); MAGNESIUM LEVEL 1.5 MG/DL (1.8-2.4); SODIUM LEVEL 139 MEQ/L (136-145)
[2020-06-03 14:28] LABS: APPEARANCE, URINE HAZY (CLEAR); BACTERIA, URINE AUTO 3+ (NEGATIVE); BILIRUBIN, URINE AUTO NEGATIVE (NEGATIVE); BLOOD, URINE BLOOD 2+ (NEGATIVE); COLOR, URINE YELLOW (YELLOW); GLUCOSE, URINE (UA) AUTO NEGATIVE (NEGATIVE); KETONE, URINE AUTO NEGATIVE (NEGATIVE); LEUKOCYTE ESTERASE, URINE AUTO 3+ (NEGATIVE); MUCUS, URINE SMALL (NEGATIVE); NITRITE, URINE AUTO POSITIVE (NEGATIVE); PROTEIN, URINE AUTO NEGATIVE (NEGATIVE); RBC, URINE AUTO 7 /HPF (0-3); SPECIFIC GRAVITY URINE AUTO 1.006 (1.002-1.035); SQUAMOUS EPITHELIAL CELL UR AU 0 /HPF (0-6); UROBILINOGEN, URINE AUTO 0.2 mg/dL (0.0-2.0); WBC, URINE AUTO 76 /HPF (0-3)
== END ==
LOC: SKLAB3 07:00
DX: R80.9 Proteinuria, unspecified (principal)

== ENCOUNTER → 2020-06-10 | Outpatient (REF) | payer MEDICARE, MEDICAID ==
[2020-06-10 10:31] LABS: HEMOGLOBIN A1c 6.3 %
== END ==
LOC: SKLAB3 04:18
DX: E11.9 Type 2 diabetes mellitus without complications (principal)

== ENCOUNTER → 2020-07-01 | Outpatient (REF) | LOC: SKLAB3 11:11 | DX: Z20.828 Contact with and (suspected) exposure to other viral communicable diseases (principal) ==

== ENCOUNTER → 2020-07-07 | Outpatient (REF) | payer MEDICARE, MEDICAID | LOC: SKLAB3 07-06 12:59 → EDSTATUS 07-19 13:16 | DX: Z20.828 Contact with and (suspected) exposure to other viral communicable diseases (principal) ==

== ENCOUNTER → 2020-07-14 | Outpatient (REF) | payer MEDICARE, MEDICAID | LOC: SKLAB3 08:00 | DX: Z20.828 Contact with and (suspected) exposure to other viral communicable diseases (principal) ==

== ENCOUNTER → 2020-07-21 | Outpatient (REF) | payer MEDICARE, MEDICAID | LOC: SKLAB3 08:00 | DX: Z20.828 Contact with and (suspected) exposure to other viral communicable diseases (principal) ==

== ENCOUNTER → 2020-07-28 | Outpatient (REF) | payer MEDICARE, MEDICAID | LOC: SKLAB3 07:06 | DX: Z20.828 Contact with and (suspected) exposure to other viral communicable diseases (principal) ==

== ENCOUNTER → 2020-08-04 | Outpatient (REF) | payer MEDICARE, MEDICAID | LOC: SKLAB3 10:09 | DX: Z20.828 Contact with and (suspected) exposure to other viral communicable diseases (principal) ==

== ENCOUNTER → 2020-08-05 | Outpatient (REF) | payer MEDICARE, MEDICAID | LOC: SKLAB3 14:28 | DX: Z20.828 Contact with and (suspected) exposure to other viral communicable diseases (principal) ==

== ENCOUNTER → 2020-08-11 | Outpatient (REF) | payer MEDICARE, MEDICAID | LOC: SKLAB3 07:00 | DX: Z20.828 Contact with and (suspected) exposure to other viral communicable diseases (principal) ==

== ENCOUNTER → 2020-08-18 | Outpatient (REF) | payer MEDICARE, MEDICAID | LOC: SKLAB3 07:03 | DX: Z20.828 Contact with and (suspected) exposure to other viral communicable diseases (principal) ==

== ENCOUNTER → 2020-08-25 | Outpatient (REF) | payer MEDICARE, MEDICAID | LOC: SKLAB3 09:43 | PROVIDERS: ATTEND Internal Medicine | DX: Z11.52 Encounter for screening for COVID-19 (principal) ==

== ENCOUNTER → 2020-09-01 | Outpatient (REF) | payer MEDICARE, MEDICAID ==
[~2020-09-01] MED LIST changes: -ESCI20TA PO; +ESCI20TA16 PO
== END ==
LOC: SKLAB3 10:09
PROVIDERS: ATTEND Internal Medicine
DX: Z20.822 Contact with and (suspected) exposure to COVID-19 (principal)

== ENCOUNTER → 2020-09-07 | Outpatient (REF) | payer MEDICARE, MEDICAID ==
[~2020-09-07] MED LIST changes: +LISI10TA22 PO; -LISI10TA4 PO
[2020-09-07 10:52] LABS: CHOLESTEROL RISK RATIO 2.888 (<5)
[2020-09-07 11:13] LABS: HEMOGLOBIN A1c 6.3 %
== END ==
LOC: SKLAB3 07:00
DX: E78.5 Hyperlipidemia, unspecified (principal); E11.9 Type 2 diabetes mellitus without complications

== ENCOUNTER → 2020-09-08 | Outpatient (REF) | payer MEDICARE, MEDICAID | LOC: SKLAB3 07:00 | PROVIDERS: ATTEND Internal Medicine | DX: Z20.822 Contact with and (suspected) exposure to COVID-19 (principal) ==

== ENCOUNTER → 2020-09-15 | Outpatient (REF) | payer MEDICARE, MEDICAID | LOC: SKLAB3 14:51 | PROVIDERS: ATTEND Internal Medicine | DX: Z20.822 Contact with and (suspected) exposure to COVID-19 (principal) ==

== ENCOUNTER → 2020-09-22 | Outpatient (REF) | payer MEDICARE, MEDICAID | LOC: SKLAB3 07:00 | PROVIDERS: ATTEND Internal Medicine | DX: Z11.52 Encounter for screening for COVID-19 (principal) ==

== ENCOUNTER → 2020-09-29 | Outpatient (REF) | payer MEDICARE, MEDICAID | LOC: SKLAB3 11:17 | PROVIDERS: ATTEND Internal Medicine | DX: Z20.822 Contact with and (suspected) exposure to COVID-19 (principal) ==

== ENCOUNTER → 2020-10-06 | Outpatient (REF) | payer MEDICARE, MEDICAID | LOC: SKLAB3 07:00 | PROVIDERS: ATTEND Internal Medicine | DX: Z20.822 Contact with and (suspected) exposure to COVID-19 (principal) ==

== ENCOUNTER → 2020-10-07 | Outpatient (REF) | payer MEDICARE, MEDICAID ==
[2020-10-07 15:21] LABS: AMORPHOUS SEDIMENT SMALL (NEGATIVE); APPEARANCE, URINE TURBID (CLEAR); BACTERIA, URINE AUTO 3+ (NEGATIVE); BILIRUBIN, URINE AUTO NEGATIVE (NEGATIVE); BLOOD, URINE BLOOD NEGATIVE (NEGATIVE); COLOR, URINE YELLOW (YELLOW); GLUCOSE, URINE (UA) AUTO NEGATIVE (NEGATIVE); KETONE, URINE AUTO TRACE mg/dL (NEGATIVE); LEUKOCYTE ESTERASE, URINE AUTO 3+ (NEGATIVE); MUCUS, URINE SMALL (NEGATIVE); NITRITE, URINE AUTO NEGATIVE (NEGATIVE); PROTEIN, URINE AUTO 3+ mg/dL (NEGATIVE); RBC, URINE AUTO 30 /HPF (0-3); SPECIFIC GRAVITY URINE AUTO 1.014 (1.002-1.035); SQUAMOUS EPITHELIAL CELL UR AU 1 /HPF (0-6); TRIPLE PHOSPHATE CRYSTALS LARGE; UROBILINOGEN, URINE AUTO 0.2 mg/dL (0.0-2.0); WBC, URINE AUTO 56 /HPF (0-3)
[2020-10-07 15:24] LABS: BASO % 0.3 % (0.0-1.0); EOS # 0.1 10^3/uL (0.0-0.5); EOS % 1.9 % (0.0-3.0); HEMATOCRIT 41.1 % (42.0-52.0); HEMOGLOBIN 12.6 g/dl (13.5-17.5); LYMPH # 1.6 10^3/uL (1.5-5.0); MEAN CORPUSCULAR HEMOGLOBIN 27.6 pg (27.0-33.0); MEAN CORPUSCULAR HGB CONC 30.7 g/dl (32.0-36.5); MEAN CORPUSCULAR VOLUME 90.1 fl (80.0-96.0); MONO # 0.7 10^3/uL (0.0-0.8); MONO % 10.4 % (2.0-8.0); NEUTROPHILS # 4.2 10^3/uL (1.5-8.5); NEUTROPHILS % 62.5 % (36.0-66.0); PLATELET COUNT, AUTOMATED 199 10^3/uL (150-450); RED BLOOD COUNT 4.56 10^6/uL (4.30-6.10); WHITE BLOOD COUNT 6.7 10^3/uL (4.0-10.0)
[2020-10-07 15:44] LABS: ALBUMIN 3.4 GM/DL (3.2-5.2); BLOOD UREA NITROGEN 17 MG/DL (7-18); CALCIUM LEVEL 8.7 MG/DL (8.5-10.1); CARBON DIOXIDE LEVEL 32 MEQ/L (21-32); CHLORIDE LEVEL 101 MEQ/L (98-107); GLOMERULAR FILTRATION RATE > 60.0 (>56); GLUCOSE, FASTING 169 MG/DL (70-100); MAGNESIUM LEVEL 1.6 MG/DL (1.8-2.4); SODIUM LEVEL 140 MEQ/L (136-145)
[2020-10-07 15:45] LABS: CREATININE,RANDOM URINE 31.8 MG/DL; TOTAL PROTEIN,RANDOM URINE 64.8 MG/DL (0.0-12.0)
== END ==
LOC: SKLAB3 13:53
DX: N18.9 Chronic kidney disease, unspecified (principal)

== ENCOUNTER → 2020-10-08 | Outpatient (REF) | payer MEDICARE, MEDICAID | LOC: SKLAB3 13:46 | DX: N18.9 Chronic kidney disease, unspecified (principal) ==

== ENCOUNTER → 2020-10-13 | Outpatient (REF) | payer MEDICARE, MEDICAID | LOC: SKLAB3 10:52 | PROVIDERS: ATTEND Internal Medicine | DX: Z20.822 Contact with and (suspected) exposure to COVID-19 (principal) ==

== ENCOUNTER → 2020-10-27 | Outpatient (REF) | payer MEDICARE, MEDICAID ==
[~2020-10-27] MED LIST changes: +DEXT4TAB2 PO; -GLUC4CHW19 PO
== END ==
LOC: SKLAB3 14:43
PROVIDERS: ATTEND Internal Medicine
DX: Z20.822 Contact with and (suspected) exposure to COVID-19 (principal)

== ENCOUNTER 2020-11-02 17:28 | Inpatient (IN) | payer MEDICARE, MEDICAID ==
[~2020-11-02] VITALS: Ht 182.9 cm; Wt 100.5 kg
[~2020-11-02 17:28] MED LIST changes: -AMLO1TAB24 PO; -ASPI81CH33 PO; -CHLO1.4S2 PO; -CRAN400C PO; -GLUC1KIT IM; -JUVEPOW4 PO; -KETO2SHA8 TOP; -METF-882 PO; -SENN-23 PO; -SM M250T2 PO; -TYLE650T38 PO
[2020-11-02 18:19] LABS: ABG HCO3 30.2 MEQ/L (22.0-26.0); ABG O2 SATURATION 92.8 % (95.0-99.0); ABG PARTIAL PRESSURE CO2 53.1 mmHg (35.0-45.0); ABG PARTIAL PRESSURE O2 66.8 mmHg (75.0-100.0); ABG STANDARD HCO3 27.9 MEQ/L (22.0-26.0); ABG TOTAL CO2 31.8 MEQ/L (22.0-29.0); ABG pH (ARTERIAL) 7.373 UNITS (7.350-7.450)
[2020-11-02] MEDS ORDERED: KETO2SHA8 TOP ×2 (18:39)
[2020-11-02] MEDS ORDERED: AMLO1TAB24 PO (18:39)
[2020-11-02] MEDS ORDERED: METF-882 PO (18:39)
[2020-11-02] MEDS ORDERED: CRAN400C PO (18:39)
[2020-11-02] MEDS ORDERED: SENN-23 PO (18:39)
[2020-11-02] MEDS ORDERED: GLUC1KIT IM (18:39)
[2020-11-02] MEDS ORDERED: MOM30SS PO (18:39)
[2020-11-02] MEDS ORDERED: SM M250T2 PO (18:39)
[2020-11-02] MEDS ORDERED: JUVEPOW4 PO (18:39)
[2020-11-02] MEDS ORDERED: TYLE650T38 PO (18:39)
[2020-11-02] MEDS ORDERED: ASPI81CH33 PO (18:39)
[2020-11-02 18:42] LABS: BASO % 0.2 % (0.0-1.0); EOS # 0.1 10^3/uL (0.0-0.5); HEMATOCRIT 40.9 % (42.0-52.0); HEMOGLOBIN 11.8 g/dl (13.5-17.5); LYMPH # 1.5 10^3/uL (1.5-5.0); LYMPH % 24.2 % (24.0-44.0); MEAN CORPUSCULAR HGB CONC 28.9 g/dl (32.0-36.5); MEAN CORPUSCULAR VOLUME 93.6 fl (80.0-96.0); MONO # 0.7 10^3/uL (0.0-0.8); MONO % 10.4 % (2.0-8.0); NEUTROPHILS % 62.1 % (36.0-66.0); PLATELET COUNT, AUTOMATED 215 10^3/uL (150-450); RED BLOOD COUNT 4.37 10^6/uL (4.30-6.10); WHITE BLOOD COUNT 6.4 10^3/uL (4.0-10.0)
[2020-11-02] MEDS ORDERED: CHLO1.4S2 PO (18:45)
[2020-11-02 19:11] LABS: ALBUMIN 3.4 GM/DL (3.2-5.2); ALT/SGPT 15 U/L (12-78); BILIRUBIN,DIRECT 0.1 MG/DL (0.0-0.2); BILIRUBIN,TOTAL 0.3 MG/DL (0.2-1.0); BLOOD UREA NITROGEN 24 MG/DL (7-18); CALCIUM LEVEL 8.7 MG/DL (8.5-10.1); CARBON DIOXIDE LEVEL 35 MEQ/L (21-32); CHLORIDE LEVEL 104 MEQ/L (98-107); CK-MB VALUE MASS 2.4 NG/ML (<3.6); CPK CREATINE PHOSPHOKINASE 49 U/L (39-308); CREATININE FOR GFR 0.45 MG/DL (0.70-1.30); GLOMERULAR FILTRATION RATE > 60.0 (>56); GLUCOSE, FASTING 108 MG/DL (70-100); NT-PRO BNP 1069 PG/ML (<125); POTASSIUM SERUM 3.8 MEQ/L (3.5-5.1); SODIUM LEVEL 144 MEQ/L (136-145); TOTAL PROTEIN 6.6 GM/DL (6.4-8.2); TROPONIN I 0.35 NG/ML (< 0.10)
--- NOTE | 2020-11-02 20:14 | ECGEPIP ---
[facility] - ED Test Date: 2020-11-02 Pat Name: KERRY PERKINS Department: Room: - Gender: Male Etl Architect: Mode MARTIN : 1960 Requested By: Aman Ham Order Number: [id number] Reading MD: Chema Wright Measurements Intervals Chapman Rate: 86 P: 16 [place]: 188 QRS: -27 QRSD: 86 T: 26 QT: 376 QTc: 449 Interpretive Statements Normal sinus rhythm POOR R WAVE PROGRESSION SIMILAR TO 12/17/18 Electronically Signed on 11-02-2020 20:13:58 EDT by Chema Wright
[2020-11-02] MEDS ORDERED: FUROSEMIDE 40MG/4ML VIAL (J1940) IV ONE (21:20)
[2020-11-02] MEDS ORDERED: GLUCAGON INJ 1MG VIAL SC PRN (21:40)
[2020-11-02] MEDS ORDERED: MOM 30ML SUSPENSION UDC PO PRN (21:40)
[2020-11-02] MEDS ORDERED: DEXTROSE 50% 50 ML SYRINGE IV PRN (21:40)
[2020-11-02] MEDS ORDERED: MAALOX 30 ML SUSP *UDC PO PRN (21:40)
[2020-11-02] MEDS ORDERED: GLUCOSE 4GM CHEW TABLET PO PRN (21:40)
[2020-11-02] MEDS ORDERED: ACETAMINOPHEN TAB 650MG DOSE (2X325MG) PO PRN (21:40)
--- NOTE | 2020-11-02 21:52 | HPEPDOC ---
[facility] Medical History & Physical Date of Admission Nov 02, 2020 Date of Service: Nov 02, 2020 Primary Care Physician: Ruth Wilson DO Attending Physician: ANIVAL THORNE MD History and Physical TIME OF SERVICE: 1010pm CHIEF COMPLAINT: sent from [facility] HISTORY OF PRESENT ILLNESS: This 60 yr old M reports being sent from his [facility] for evaluation bc his O2 sat reading was low. He denied having dyspnea, cough, runny nose, fevers, chills chest pain, dizziness or feeling cold. Per the patient had some tests done at the [facility] including a chest xray which showed alveolar infiltrates, a Troponin which was 0.33, a BNP which was 1000 and a negative COVID test; repeat troponin was 0.35 and the patient was given Lasix for management of hypoxemia presumed to be 2/2 pulmonary edema. 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 HOME MEDICATIONS: Please see below. PHYSICAL EXAMINATION: Vital Signs Date Time Temp Pulse Resp B/P (MAP) Pulse Ox O2 Delivery O2 Flow Rate FiO2 11/02/20 17:31 88 25 190/91 70 Room Air 11/02/20 20:04 97.4 11/03/20 00:00 2.0 GENERAL APPEARANCE: well nourished and developed /NAD HEENT: NC in place / EOMI / lips acyanotic CARDIOVASCULAR: RRR/NMRG LUNGS: not coughing / CTAB on 2L via NC ABDOMEN: obese/ soft & NT MUSCULOSKELETAL: NALLELY in all extremities including left stump INTEGUMENT: is not flushed or diaphoretic NEUROLOGICAL: CN 2-12 grossly intact PSYCHIATRIC: A&O / able to understand simple questions, give coherent answer & follow simple commands LABORATORY DATA: 11/02/20 18:19 Blood Gas Bicarbonate Standard 27.9H, Arterial Blood pH 7.373, Arterial Blood Pa rtial Pressure CO2 53.1H, Arterial Blood Partial Pressure O2 66.8L, Arterial Blood Total CO2 31.8H, Arterial Blood HCO3 30.2H, Arterial Blood Base Excess 4.0H, Arterial Blood Oxygen Saturation 92.8L 11/02/20 18:19: Immature Granulocyte % (Auto) 1.1, Neutrophils (%) (Auto) 62.1, Lymphocytes (%) (Auto) 24.2, Monocytes (%) (Auto) 10.4H, Eosinophils (%) (Auto) 2.0, Basophils (%) (Auto) 0.2, Neutrophils # (Auto) 4.0, Lymphocytes # (Auto) 1.5, Monocytes # (Auto) 0.7, Eosinophils # (Auto) 0.1, Basophils # (Auto) 0.0, Nucleated Red Blood Cells % (auto) 0.0, Anion Gap 5L, Glomerular Filtration Rate > 60.0, Lactic Acid Level 4.2*H, Calcium Level 8.7, Total Bilirubin 0.3, Direct Bilirubin 0.1, Aspartate Amino Transf (AST/SGOT) 5L, Alanine Aminotransferase (ALT/SGPT) 15, Alkaline Phosphatase 76, Total Creatine Kinase 49, Creatine Kinase MB 2.4, Creatine Kinase MB Relative Index 4.90H, Troponin I 0.35H, DV-Evp-F-Type Natriuretic Peptide 1069H, Total Protein 6.6, Albumin 3.4, Albumin/Globulin Ratio 1.1 11/02/20 18:31: POC Troponin I (Misc) 0.13H IMAGING: Chest xray IMPRESSION: Pulmonary edema.: MICROBIOLOGY: COVID October 27, 2020 and November 02 2020 - neg ASSESSMENT: is a 60 yr old M w a hx of IDDM, neuropathy, HFpEF, DLP, CVA, Urinary retention w najera, L BKA and Debility who was sent from [facility] for evaluation of hypoxemia likely 2/2 acute HFpEF PLAN: 1 Hypoxemia likey 2/2 Pulmonary Edema / Acute HFpEF His calculated A-a gradient is 16.6 which is greater than the expected A-a gr adient of 8.3. Currently it is unclear what the caused his CHF exacerbation. Plan: admit to PCU / continuous pulse ox / c/w supplemental O2 / f/u strict Is and Os & daily weights/ restrict salt to 2G and fluids to 2L / c/w IV Lasix / f/u Echo 2. Elevated Troponin likely 2/2 acute CHF vs HTN Urgency He doesnt have CP or dyspnea The EKG showed NSR w a rate of [address] changes The troponins appeared to have plateaued Plan: telemetry / trend trops / control BP 3. Type B lactic acidosis likley 2/2 hypoxemia Plan: see plan for #1 4. Chronic Hypercapnia Likely 2/2 ANALY He is not compliance with CPAP Plan: bc he doesnt have encephalopathy and pH is wnl, we will hold of BIPAP for now 5. Hypertensive Urgency - resolved His BP was 190/91 on arrival which was likely partially due to fluid overload but improved after he received lasix Plan: c/w IV Lasix, amlodipine & losartan 6. NN Anemia Plan: f/u iron studies, ferritin, soluble transferrin receptor & stool occult 7 IDDM2 with neuropathy Plan: diabetic diet / f/u accuchecks / / hypoglycemia protocol / sliding scale insulin / hold oral anti-glycemics / f/u A1C / will switch from tresiba to levemir 35 units QHS 8 DLP / hx of CVA Plan: Atorvastatin & Aspirin 9 Sacral Ulcers Plan: air matress / frequent repositioning / wound care per RNs 10 Chronic urinary retention Plan: c/w chronic indwelling najera catheter 11. L BKA / Debility Plan: will require 2 person assistance for transferring 12. Obesity He has co-existing DM, HTN and ANALY which complicate his care DVT px w Heparin Dispo: home after at least 2 midnights stay Home Medications Scheduled Acetaminophen (Tylenol 8 Hour) 650 Mg Tablet.er, 1,300 MG PO BID Amlodipine Besylate (Amlodipine Besylate) 5 Mg Tablet, 5 MG PO DAILY Arginine/Glutamine/Calcium Bmb (Dk Packet) 1 Each Powd.pack, 1 POW PO BID Aspirin (Aspirin) 81 Mg Tab.chew, 81 MG PO DAILY Atorvastatin Calcium (Atorvastatin Calcium) 40 Mg Tab, 40 MG PO QHS Cranberry (Cranberry) 400 Mg Capsule, 400 MG PO DAILY Dulaglutide (Trulicity) 1.5 Mg/0.5 Ml Pen.injctr, 1.5 MG SC 1XWK FRI Insulin Degludec (Tresiba Flextouch U-100) 100 Unit/1 Ml Insuln.pen, 35 UNIT SC QHS Insulin Human Lispro (Humalog) 1 Units/0.01 Ml Inj, 12 UNITS SC BID 0730/1200 Insulin Human Lispro (Humalog) 100 Unit/1 Ml Vial, 10 UNITS SC QPM 1700 Ketoconazole (Ketoconazole) 120 Ml Shampoo, 1 DOSE TOP QWEEK WEDNESDAYS - APPLY TO FACE AND SCALP Losartan Potassium (Losartan Potassium) 100 Mg Tablet, 100 MG PO DAILY Magnesium (Magnesium) 250 Mg Tablet, 250 MG PO 3XW SUN, SUN, SUN Metformin HCl (Metformin ER Osmotic) 1,000 Mg Tab.er.24, 1,000 MG PO BID Sennosides/Docusate Sodium (Senna-S Tablet) 1 Each Tablet, 1 TAB PO BID Tolterodine Tartrate (Detrol) 2 Mg Tablet, 2 MG PO DAILY Scheduled PRN Acetaminophen (Acetaminophen) 325 Mg Tablet, 650 MG PO Q4H PRN for PAIN / FEVER Baclofen (Baclofen) 5 Mg Tablet, 5 MG PO TID PRN for MUSCLE SPASMS Bisacodyl (Dulcolax) 10 Mg Sup, 10 MG MS DAILY PRN for CONSTIPATION Fexofenadine HCl (Fexofenadine HCl) 180 Mg Tablet, 180 MG PO QHS PRN for ALLERG IES Glucagon,Human Recombinant (Glucagon Emergency Kit) 1 Mg Vial, 1 MG IM PRN PRN for LOW BLOOD SUGAR Ketoconazole (Ketoconazole) 120 Ml Shampoo, 1 DOSE TOP PRN PRN for RASH Methyl Salicylate/Menthol (Bengay Greaseless Cream) 57 Gm Cream..g., 1 APLCT TOP BID PRN for MUSCLE PAIN APPLY TO SHOULDERS Milk Of Magnesia (Milk of Magnesia) 2,400 Mg/10 Ml Oral.susp, 10 ML PO DAILY PRN for CONSTIPATION Nitroglycerin (Nitrostat) 0.4 Mg Subl, 0.4 MG SL Q5MP PRN for ANGINA Sodium Phosphate,[place]-Dibasic (Enema Hssow-Wl-Ssq) 1 Colton Colton, 1 COLTON MS DAILY PRN for CONSTIPATION Allergies Coded Allergies: cefuroxime (Verified Allergy, Intermediate, HIVES, 12/17/18) clindamycin (Verified Allergy, Intermediate, HIVES, 12/17/18) amoxicillin (Verified Allergy, Unknown, 12/17/18) cephalexin (Verified Allergy, Unknown, 12/17/18) ciprofloxacin (Verified Allergy, Unknown, 12/17/18) levofloxacin (Verified Allergy, Unknown, 12/17/18) nitrofurantoin (Verified Allergy, Unknown, 12/17/18) oxacillin (Verified Allergy, Unknown, 12/17/18) sulfamethoxazole (Verified Allergy, Unknown, 06/17/19) trimethoprim (Verified Allergy, Unknown, 06/17/19) meclizine (Verified Adverse Reaction, Mild, DIZZINESS/DRUNK FEELING, 12/17/18) A-FIB/CHADSVASC A-FIB History Current/History of A-Fib/PAF?: No Current PO Anticoag Therapy: No ANIVAL THORNE MD Nov 02, 2020 21:52
[2020-11-02 22:10] LABS: MAGNESIUM LEVEL 1.8 MG/DL (1.8-2.4); PHOSPHORUS LEVEL 3.8 MG/DL (2.5-4.9)
--- NOTE | 2020-11-02 22:41 | REPVR ---
PROCEDURE INFORMATION: Exam: XR Chest Exam date and time: 11/02/2020 10:19 PM Age: 60 years old Clinical indication: Multifical inflitrates (due to chf or multifocal pna ?) TECHNIQUE: Imaging protocol: XR of the chest Views: 2 views. COMPARISON: 1. [facility] Chest, 1 view 11/02/2020 3:13 PM 2. [facility] PORTABLE CHEST X-RAY 12/17/2018 1:19:15 PM 3. [facility] PORTABLE CHEST X-RAY 11/13/2017 7:35:19 AM FINDINGS: Lungs: The lung volumes are low. There is pulmonary vascular congestion and edema with Omer B-lines. There is left basilar atelectasis. No focal lung consolidation is identified. Pleural spaces: Unremarkable. No pleural effusion. No pneumothorax. Heart/Mediastinum: The cardiac silhouette is top normal in size. The mediastinal contours are unremarkable. Vasculature: There are atherosclerotic calcifications of the aortic arch. Bones/joints: There are endplate spurs in the thoracic spine. IMPRESSION: Pulmonary edema. Electronically signed by: Jarred Iverson On 11/02/2020 22:41:13 PM
[2020-11-03] VITALS (18 sets, daily range): BP systolic 145–171; BP diastolic 70–87; O2SAT 88–95
[2020-11-03] MEDS: FUROSEMIDE 40MG/4ML VIAL (J1940) IV SCH ×6 (00:56→20:09)
[2020-11-03] MEDS ORDERED: NITROGLYCERIN 0.4 MG SUBL TABLET SL PRN (02:30)
[2020-11-03] MEDS ORDERED: BISACODYL 10 MG SUPP PR PRN (02:30)
[2020-11-03 05:18] LABS: HEMATOCRIT 44.2 % (42.0-52.0); HEMOGLOBIN 13.2 g/dl (13.5-17.5); MEAN CORPUSCULAR HEMOGLOBIN 27.1 pg (27.0-33.0); MEAN CORPUSCULAR HGB CONC 29.9 g/dl (32.0-36.5); MEAN CORPUSCULAR VOLUME 90.8 fl (80.0-96.0); PLATELET COUNT, AUTOMATED 212 10^3/uL (150-450); RED BLOOD COUNT 4.87 10^6/uL (4.30-6.10); WHITE BLOOD COUNT 6.6 10^3/uL (4.0-10.0)
[2020-11-03 05:29] LABS: BLOOD UREA NITROGEN 17 MG/DL (7-18); CALCIUM LEVEL 9.2 MG/DL (8.5-10.1); CARBON DIOXIDE LEVEL 41 MEQ/L (21-32); CHLORIDE LEVEL 94 MEQ/L (98-107); CREATININE FOR GFR 0.37 MG/DL (0.70-1.30); FERRITIN 17 NG/ML (26-388); GLOMERULAR FILTRATION RATE > 60.0 (>56); GLUCOSE, FASTING 119 MG/DL (70-100); IRON (FE) 37 UG/DL (65-175); MAGNESIUM LEVEL 1.6 MG/DL (1.8-2.4); PERCENT SATURATION 9.6 % (19.7-50.0); POTASSIUM SERUM 3.3 MEQ/L (3.5-5.1); SODIUM LEVEL 141 MEQ/L (136-145); TOTAL IRON BINDING CAPACITY 385 UG/DL (250-450); TROPONIN I 0.32 NG/ML (< 0.10)
[2020-11-03 05:38] LABS: VENOUS BASE EXCESS 13.9 (-2.0-2.0); VENOUS HCO3 40.5 MEQ/L (23.0-27.0); VENOUS O2 SATURATION 96.9 % (60.0-80.0); VENOUS PARTIAL PRESSURE CO2 58.7 mmHg (38.0-50.0); VENOUS PARTIAL PRESSURE O2 83.9 mmHg (30.0-50.0); VENOUS PH 7.457 UNITS (7.330-7.430); VENOUS STANDARD HCO3 37.7 MEQ/L; VENOUS TOTAL CO2 42.3 MEQ/L (24.0-28.0)
[2020-11-03 05:46] LABS: HEMOGLOBIN A1c 6.4 %
[2020-11-03] MEDS: HumaLOG INSULIN (NovoLOG) PER UNIT SC SCH ×4 (07:30→21:00)
[2020-11-03] MEDS ORDERED: POTASSIUM CHLORIDE 10 MEQ SR TABLET PO ONE (08:05)
[2020-11-03] MEDS ORDERED: LOSARTAN 50MG TABLET PO SCH (09:00)
[2020-11-03] MEDS: ASPIRIN 81 MG CHEW TABLET PO SCH (09:15)
[2020-11-03] MEDS: SENOKOT S TAB PO SCH ×2 (09:16→20:11)
[2020-11-03] MEDS: LOSARTAN 50MG TABLET PO SCH ×2 (09:16→20:11)
[2020-11-03] MEDS: amLODIPine 5 MG TAB PO SCH (09:16)
[2020-11-03] MEDS: TOLTERODINE (DETROL) 2 MG TAB PO SCH (09:16)
[2020-11-03] MEDS: ENOXAPARIN 40MG/0.4ML SYRINGE (J1650 PER 10MG) SC SCH (09:17)
[2020-11-03 10:53] LABS: FOLATE 19.7 NG/ML (>5.4); VITAMIN B12 LEVEL 262 PG/ML (247-911)
--- NOTE | 2020-11-03 10:57 | IPNPDOC ---
Subjective Date Seen The patient was seen on 11/03/20. Subjective Chief Complaint/HPI Feels ok this morning. As per nurses his oxygen mainly drops when he is deeply asleep. Still on 2 - 3 liters oxygen Objective Physical Examination General Exam: Positive: Alert, Cooperative, No Acute Distress Eye Exam: Positive: PERRLA, Conjunctiva & lids normal, EOMI; Negative: Sclera icteric ENT Exam: Positive: Atraumatic, Mucous membr. moist/pink, Pharynx Normal Neck Exam: Positive: Supple; Negative: JVD, thyromegaly Chest Exam: Positive: Rales (at both the bases) Heart Exam: Positive: Rate Normal, Regular Rhythm, Normal S1, Normal S2; Negative: Murmurs, Rubs Abdomen Exam: Positive: Normal bowel sounds, Soft, Other (suprapubic cath); Negative: Tenderness, Hepatospenomegaly Extremity Exam: Negative: Clubbing, Cyanosis, Edema Skin Exam: Positive: Nl turgor and temperature, Other skin issue (left BKA); Negative: Rash, Breakdown Assessment /Plan Assessment is a 60 yr old M w a hx of IDDM, neuropathy, HFpEF, Moderate pulmonary hypertension, DLP, CVA, Urinary retention with chronic najera, PAD with Left BKA and Debility who was sent from [facility] for evaluation of hypoxemia. he was admitted for Acute respiratory failure with hypoxia likely 2/2 acute HFpEF Acute respiratory failure with hypoxia and hypercarbia. due to CHF exacerbation continue IV lasix Diastolic CHF exacerbation with pulmonary edema strict Is and Os & daily weights/ restrict salt to 2G and fluids to 2L / c/w IV Lasix Echo Elevated Troponin due to CHF vs HTN Urgency No features of ischemia. Type B lactic acidosis likley 2/2 hypoxemia resolved Chronic Hypercapnia Likely 2/2 untreated ANALY He lost his CPAP as he was not using it. Hypertensive Urgency - resolved continue losartan and amlodipine Anemia iron def present will add supplements on discharge IDDM2 with neuropathy diabetic diet / f/u accuchecks / / hypoglycemia protocol / sliding scale insulin levemir. Neurogenic bladder with suprapubic cath. hx of CVA with cognitive impairment. Slow speech but appropriate Atorvastatin & Aspirin HLD statin Sacral decubiti Ulcers Now healed. frequent repositioning L BKA due to diabetic foot infection requires 2 person assistance for transferring Obesity He has co-existing DM, HTN and ANALY which complicate his care Plan/VTE VTE Prophylaxis Ordered?: Yes VS, I&O, 24H, Carlosbone Vital Signs/I&O Vital Signs Date Time Temp Pulse Resp B/P (MAP) Pulse Ox O2 Delivery O2 Flow Rate FiO2 11/03/20 06:00 84 148/70 (96) 92 Nasal Cannula 3.0 11/03/20 04:00 98.0 20 I&O- Last 24 Hours up to 6 AM 11/03/20 06:00 Intake Total 0 ml Output Total 1875 ml Balance -1875 ml Laboratory Data 24H LABS Laboratory Tests 2 11/02/20 18:02: Blood Gas Bicarbonate Standard 27.9H, Arterial Blood pH 7.373, Arterial Blood Partial Pressure CO2 53.1H, Arterial Blood Partial Pressure O2 66.8L, Arterial Blood Total CO2 31.8H, Arterial Blood HCO3 30.2H, Arterial Blood Base Excess 4.0H, Arterial Blood Oxygen Saturation 92.8L 11/02/20 18:19: Immature Granulocyte % (Auto) 1.1, Neutrophils (%) (Auto) 62.1, Lymphocytes (%) (Auto) 24.2, Monocytes (%) (Auto) 10.4H, Eosinophils (%) (Auto) 2.0, Basophils (%) (Auto) 0.2, Neutrophils # (Auto) 4.0, Lymphocytes # (Auto) 1.5, Monocytes # (Auto) 0.7, Eosinophils # (Auto) 0.1, Basophils # (Auto) 0.0, Nucleated Red Blood Cells % (auto) 0.0, Anion Gap 5L, Glomerular Filtration Rate > 60.0, Lactic Acid Level 4.2*H, Calcium Level 8.7, Phosphorus Level 3.8, Magnesium Level 1.8, Total Bilirubin 0.3, Direct Bilirubin 0.1, Aspartate Amino Transf (AST/SGOT) 5L, Alanine Aminotransferase (ALT/SGPT) 15, Alkaline Phosphatase 76, Total Creatine Kinase 49, Creatine Kinase MB 2.4, Creatine Kinase MB Relative Index 4.90H, Troponin I 0.35H, NO-Cbu-A-Type Natriuretic Peptide 1069H, Total Protein 6.6, Albumin 3.4, Albumin/Globulin Ratio 1.1 11/02/20 18:31: POC Troponin I (Misc) 0.13H 11/02/20 22:54: Bedside Glucose (Misc Panel) 90 11/02/20 23:59: Lactic Acid Level 1.1, Troponin I 0.35H 11/03/20 04:41: Troponin I 0.32H, Nucleated Red Blood Cells % (auto) 0.0, Blood Gas Bicarbonate Standard 37.7, Venous Blood pH 7.457H, Venous Blood Partial Pressure CO2 58.7H, Venous Blood Partial Pressure O2 83.9H, Venous Blood Total Carbon Dioxide 42.3H, Venous Blood HCO3 40.5H, Venous Blood Oxygen Saturation 96.9H, Venous Blood Base Excess 13.9H, Anion Gap 6L, Glomerular Filtration Rate > 60.0, Estimated Mean Plasma Glucose 137H, Hemoglobin A1c 6.4, Calcium Level 9.2, Magnesium Level 1.6L, Iron Level 37L, Total Iron Binding Capacity 385, Transferrin % Saturation 9.6L, Ferritin 17L 11/03/20 04:47: CBC/BMP Laboratory Tests 11/02/20 18:19 11/03/20 04:41 SHAUNA NGUYEN MD Nov 03, 2020 08:15
[2020-11-03] MEDS: ATORVASTATIN 20 MG TAB PO SCH (20:11)
[2020-11-03] MEDS: LEVEMIR (INSULIN DETEMIR) 1 UNITS/0.01ML SC SCH (21:28)
[2020-11-04] VITALS (18 sets, daily range): BP systolic 105–143; BP diastolic 57–75; O2SAT 88–99
[2020-11-04] MEDS: FUROSEMIDE 40MG/4ML VIAL (J1940) IV SCH ×4 (00:03→20:26)
[2020-11-04] MEDS: SENOKOT S TAB PO SCH ×2 (08:01→20:28)
[2020-11-04] MEDS: ASPIRIN 81 MG CHEW TABLET PO SCH (08:01)
[2020-11-04] MEDS: TOLTERODINE (DETROL) 2 MG TAB PO SCH (08:01)
[2020-11-04] MEDS: LOSARTAN 50MG TABLET PO SCH ×2 (08:01→20:37)
[2020-11-04] MEDS: ENOXAPARIN 40MG/0.4ML SYRINGE (J1650 PER 10MG) SC SCH (08:02)
[2020-11-04] MEDS: amLODIPine 5 MG TAB PO SCH (08:02)
[2020-11-04] MEDS: HumaLOG INSULIN (NovoLOG) PER UNIT SC SCH ×4 (08:03→20:48)
[2020-11-04 08:38] LABS: BASO % 0.4 % (0.0-1.0); EOS # 0.1 10^3/uL (0.0-0.5); EOS % 1.4 % (0.0-3.0); HEMATOCRIT 47.1 % (42.0-52.0); HEMOGLOBIN 14.2 g/dl (13.5-17.5); LYMPH # 1.6 10^3/uL (1.5-5.0); LYMPH % 22.9 % (24.0-44.0); MEAN CORPUSCULAR HEMOGLOBIN 27.3 pg (27.0-33.0); MEAN CORPUSCULAR HGB CONC 30.1 g/dl (32.0-36.5); MEAN CORPUSCULAR VOLUME 90.4 fl (80.0-96.0); MONO % 13.7 % (2.0-8.0); NEUTROPHILS # 4.4 10^3/uL (1.5-8.5); NEUTROPHILS % 60.9 % (36.0-66.0); PLATELET COUNT, AUTOMATED 230 10^3/uL (150-450); RED BLOOD COUNT 5.21 10^6/uL (4.30-6.10); WHITE BLOOD COUNT 7.2 10^3/uL (4.0-10.0)
[2020-11-04 09:01] LABS: BLOOD UREA NITROGEN 27 MG/DL (7-18); CALCIUM LEVEL 9.5 MG/DL (8.5-10.1); CARBON DIOXIDE LEVEL 42 MEQ/L (21-32); CHLORIDE LEVEL 94 MEQ/L (98-107); CREATININE FOR GFR 0.53 MG/DL (0.70-1.30); GLOMERULAR FILTRATION RATE > 60.0 (>56); GLUCOSE, FASTING 155 MG/DL (70-100); POTASSIUM SERUM 3.6 MEQ/L (3.5-5.1); SODIUM LEVEL 141 MEQ/L (136-145)
--- NOTE | 2020-11-04 09:59 | IPNPDOC ---
Subjective Date Seen The patient was seen on 11/04/20. Subjective Chief Complaint/HPI very hypoxic during sleep so was put on BIPAP with 6 liters oxygen at night. This am still remains hypoxic and needing 3 to 4 liters of oxygen even when awake. will need sleep study on discharge. Patient will have to be discharged with oxygen. Objective Physical Examination General Exam: Positive: Alert, Cooperative, No Acute Distress Eye Exam: Positive: PERRLA, Conjunctiva & lids normal, EOMI; Negative: Sclera icteric ENT Exam: Positive: Atraumatic, Mucous membr. moist/pink, Pharynx Normal Neck Exam: Positive: Supple; Negative: JVD, thyromegaly Chest Exam: Positive: Rales (at both the bases) Heart Exam: Positive: Rate Normal, Regular Rhythm, Normal S1, Normal S2; Negative: Murmurs, Rubs Abdomen Exam: Positive: Normal bowel sounds, Soft, Other (suprapubic cath); Negative: Tenderness, Hepatospenomegaly Extremity Exam: Negative: Clubbing, Cyanosis, Edema Skin Exam: Positive: Nl turgor and temperature, Other skin issue (left BKA); Negative: Rash, Breakdown Assessment /Plan Assessment is a 60 yr old M w a hx of IDDM, neuropathy, HFpEF, Moderate pulmonary hypertension, DLP, CVA, Neurogenic bladder with supra pubic cath, PAD with Left BKA , h/o stroke and subdural hematomas, and Debility who was sent from [facility] for evaluation of hypoxemia. he was admitted for Acute respiratory failure with hypoxia likely 2/2 acute HFpEF Acute on chronic respiratory failure with hypoxia and hypercarbia. Patient has chronic resp failure with hypercarbia due to untreated ANALY +/- Obesity hypoventilation. This acutely worsened due to fluid overlaod. continue IV lasix CPAP at night with 17 cm of water with 6 liters bleed in to maintain saturations. will get CT chest. Diastolic CHF exacerbation with pulmonary edema strict Is and Os & daily weights/ restrict salt to 2G and fluids to 2L / c/w IV Lasix Echo Moderate pulmonary hypertension continue lasix Elevated Troponin due to CHF vs HTN Urgency No features of ischemia. Type B lactic acidosis likley 2/2 hypoxemia resolved Chronic Hypercapnia Likely 2/2 untreated ANALY/ Obesity hypoventilation. He lost his CPAP as he was not using it. Hypertensive Urgency - resolved continue losartan and amlodipine Anemia iron def present will add supplements on discharge IDDM2 with neuropathy diabetic diet / f/u accuchecks / / hypoglycemia protocol / sliding scale insulin levemir. Neurogenic bladder with suprapubic cath. hx of Ischemic CVA 2017 and Subdural hematoma x 2 in 2018 with cognitive impai rment. Slow speech but appropriate Atorvastatin & Aspirin HLD statin H/o Sacral decubiti Ulcers Now healed mostly with 2 pin point opening. rest or the area just blanches. frequent repositioning PAD L BKA in 2013 due to diabetic foot infection requires 2 person assistance for transferring Obesity He has co-existing DM, HTN and ANALY which complicate his care History of DVT but not on anticoagulation due to h/o falls and subdural hematomas. Plan/VTE VTE Prophylaxis Ordered?: Yes VS, I&O, 24H, Fishbone Vital Signs/I&O Vital Signs Date Time Temp Pulse Resp B/P (MAP) Pulse Ox O2 Delivery O2 Flow Rate FiO2 11/04/20 08:02 88 123/68 11/04/20 08:00 97.5 20 93 Nasal Cannula 2.0 I&O- Last 24 Hours up to 6 AM 11/04/20 06:00 Intake Total 1568 ml Output Total 3255 ml Balance -1687 ml Laboratory Data 24H LABS Laboratory Tests 2 11/03/20 12:02: Troponin I 0.25#H 11/03/20 12:12: Bedside Glucose (Misc Panel) 152H 11/03/20 16:44: Bedside Glucose (Misc Panel) 137H 11/03/20 17:53: Troponin I 0.21H 11/03/20 21:27: Bedside Glucose (Misc Panel) 212H 11/04/20 07:54: Bedside Glucose (Misc Panel) 148H 11/04/20 08:08: Immature Granulocyte % (Auto) 0.7, Neutrophils (%) (Auto) 60.9, Lymphocytes (%) (Auto) 22.9L, Monocytes (%) (Auto) 13.7H, Eosinophils (%) (Auto) 1.4, Basophils (%) (Auto) 0.4, Neutrophils # (Auto) 4.4, Lymphocytes # (Auto) 1.6, Monocytes # (Auto) 1.0H, Eosinophils # (Auto) 0.1, Basophils # (Auto) 0.0, Nucleated Red Blood Cells % (auto) 0.0, Anion Gap 5L, Glomerular Filtration Rate > 60.0, Calcium Level 9.5 CBC/BMP Laboratory Tests 11/04/20 08:08 SHAUNA NGUYEN MD Nov 04, 2020 09:28
[2020-11-04] MEDS: FERROUS SULFATE 325MG TAB PO SCH (11:50)
--- NOTE | 2020-11-04 12:22 | REP ---
INDICATION: Hypoxic resp failure. COMPARISON: Comparison CT study of the chest is from March 15, 2009.. TECHNIQUE: Helical scanning is acquired. 3 mm axial images are generated. Coronal and sagittal MPR and coronal MIP images are generated. FINDINGS: A preliminary digital potato picker radiograph is noncontributory. There is a small left pleural effusion layering posteriorly. No right pleural effusion or pericardial effusion is seen. There is no visible upper abdominal ascites. Normal adrenal glands are seen. The visualized upper abdominal structures are unremarkable. No hilar or mediastinal mass or adenopathy is seen. There is heavy left coronary artery vascular calcification. No mediastinal mass is seen. On lung window settings, there is no evidence of infiltrate or significant atelectasis. Mild subsegmental atelectasis is seen associated with the left pleural effusion in the left lower lobe posteriorly. There is mild linear fibrosis in the right upper lobe anteriorly. No pulmonary mass lesion is seen. Bone window settings show no bony destructive lesion. IMPRESSION: Small left pleural effusion. Mild subsegmental atelectatic change adjacent to the pleural fluid in the left base. Lung tiwari otherwise clear. Heavy vascular calcification in the distribution of the left main and anterior descending coronary artery. <Electronically signed by Benjamin Schaffer > 11/04/20 [id number]
[2020-11-04] MEDS: ATORVASTATIN 20 MG TAB PO SCH (20:31)
[2020-11-04] MEDS: LEVEMIR (INSULIN DETEMIR) 1 UNITS/0.01ML SC SCH (21:11)
[2020-11-05] VITALS (8 sets, daily range): BP systolic 101–142; BP diastolic 57–84; O2SAT 94–95
[2020-11-05] MEDS: FUROSEMIDE 40MG/4ML VIAL (J1940) IV SCH (04:37)
[2020-11-05 06:09] LABS: BASO % 0.5 % (0.0-1.0); EOS # 0.1 10^3/uL (0.0-0.5); EOS % 1.6 % (0.0-3.0); HEMATOCRIT 43.4 % (42.0-52.0); HEMOGLOBIN 13.2 g/dl (13.5-17.5); LYMPH # 1.5 10^3/uL (1.5-5.0); LYMPH % 22.5 % (24.0-44.0); MEAN CORPUSCULAR HEMOGLOBIN 27.7 pg (27.0-33.0); MEAN CORPUSCULAR HGB CONC 30.4 g/dl (32.0-36.5); MONO # 0.9 10^3/uL (0.0-0.8); MONO % 13.5 % (2.0-8.0); NEUTROPHILS # 3.9 10^3/uL (1.5-8.5); PLATELET COUNT, AUTOMATED 207 10^3/uL (150-450); RED BLOOD COUNT 4.77 10^6/uL (4.30-6.10); WHITE BLOOD COUNT 6.5 10^3/uL (4.0-10.0)
[2020-11-05 06:11] LABS: ABG BASE EXCESS 17.1 (-2.0-2.0); ABG O2 SATURATION 98.1 % (95.0-99.0); ABG PARTIAL PRESSURE O2 107.9 mmHg (75.0-100.0); ABG STANDARD HCO3 41.2 MEQ/L (22.0-26.0); ABG TOTAL CO2 45.9 MEQ/L (22.0-29.0)
[2020-11-05 06:14] LABS: ABG PARTIAL PRESSURE CO2 61.8 mmHg (35.0-45.0)
[2020-11-05 06:40] LABS: BLOOD UREA NITROGEN 43 MG/DL (7-18); CARBON DIOXIDE LEVEL 40 MEQ/L (21-32); CHLORIDE LEVEL 92 MEQ/L (98-107); CREATININE FOR GFR 0.71 MG/DL (0.70-1.30); GLOMERULAR FILTRATION RATE > 60.0 (>56); GLUCOSE, FASTING 185 MG/DL (70-100); POTASSIUM SERUM 3.7 MEQ/L (3.5-5.1); SODIUM LEVEL 139 MEQ/L (136-145)
[2020-11-05] MEDS: ENOXAPARIN 40MG/0.4ML SYRINGE (J1650 PER 10MG) SC SCH (08:05)
[2020-11-05] MEDS: ASPIRIN 81 MG CHEW TABLET PO SCH (08:06)
[2020-11-05] MEDS: TOLTERODINE (DETROL) 2 MG TAB PO SCH (08:06)
[2020-11-05] MEDS: FERROUS SULFATE 325MG TAB PO SCH (08:06)
[2020-11-05] MEDS: HumaLOG INSULIN (NovoLOG) PER UNIT SC SCH ×2 (08:06→12:54)
[2020-11-05] MEDS: SENOKOT S TAB PO SCH (08:06)
[2020-11-05] MEDS: LOSARTAN 50MG TABLET PO SCH (08:07)
[2020-11-05] MEDS: amLODIPine 5 MG TAB PO SCH (08:07)
[2020-11-05] MEDS ORDERED: TORSEMIDE 20 MG TAB PO SCH (09:00)
[2020-11-05] MEDS ORDERED: FERR325T18 PO (10:42)
[2020-11-05] MEDS ORDERED: TORS20TA2 PO (10:42)
[2020-11-05] MEDS ORDERED: COZA50TA PO (10:42)
--- NOTE | 2020-11-05 14:07 | ECHO ---
DATE OF PROCEDURE: 11/03/2020 Age: 60 Gender: Male PATIENT LOCATION: Room 3205 REFERRING PHYSICIAN: Lynette Weems MD. REASON FOR STUDY: Congestive heart failure. MEASUREMENTS: IVS 1.2 cm LV 4.6 cm LVPW 1.2 cm LA 3.8 cm Aorta 3.3 cm DOPPLER MEASUREMENT Peak velocity across the aortic valve 1.2 m/s Peak velocity across the LVOT 0.8 m/s Mitral E 0.4 Mitral A 0.7 with a ratio of 0.7 Maximum tricuspid valve velocity 2.9 m/s 2D COMMENTS: 1. Normal left ventricular size, wall thickness, and normal global left ventricular systolic function. The estimated left ventricular systolic ejection fraction is 60% to 65%. 2. Normal left atrium. The right atrium and the right ventricle appear to be mildly enlarged. 3. The atrial septum appeared to be normal without evidence of defect or shunt. 4. Normal aortic root. 5. No pericardial effusion seen. 6. Mildly calcified aortic valve with normal leaflet excursion. Mildly calcified mitral annulus with normal anterior mitral valve leaflet motion. Normal tricuspid valve and pulmonic valve. The proximal pulmonary artery branches also appear to be normal in size. 7. The inferior vena cava was not visualized. DOPPLER: It detects trace mitral regurgitation, trace pulmonic regurgitation, and moderate tricuspid regurgitation. The calculated pulmonary artery systolic pressure varies between 40 to 50 mmHg. Abnormal relaxation pattern was noted across the mitral valve leaflets, as well as the mitral valve annulus consistent with features of grade 1 left ventricular diastolic dysfunction. IMPRESSION: 1. Normal global left ventricular systolic function. There are some features of grade 1 left ventricular diastolic dysfunction manifested by abnormal relaxation. 2. Aortic valve sclerosis without stenosis or aortic regurgitation. 3. Mitral annular calcification with trace mitral regurgitation. 4. Moderate tricuspid regurgitation with moderate pulmonary hypertension and dilated right atrium and right ventricle. 5. Trace pulmonic regurgitation. 6. No prior study in the system for comparison. [facility]
== END 2020-11-05 13:20 | DRG 291 ==
LOC: EDBD 17:28 → M ED 17:28 → M ED INP 21:37 → ENRESERV 22:35 → M ICU 11-03 00:30 → M PCU 11-04 02:27
PROVIDERS: ADMIT Internal Medicine; ATTEND Internal Medicine Nephrology
DX: I11.0 Hypertensive heart disease with heart failure (principal); J96.22 Acute and chronic respiratory failure with hypercapnia; J96.21 Acute and chronic respiratory failure with hypoxia; E87.2 Acidosis; J84.89 Other specified interstitial pulmonary diseases; I50.33 Acute on chronic diastolic (congestive) heart failure; I16.0 Hypertensive urgency; G47.33 Obstructive sleep apnea (adult) (pediatric); E11.40 Type 2 diabetes mellitus with diabetic neuropathy, unspecified; E78.5 Hyperlipidemia, unspecified; R33.9 Retention of urine, unspecified; E66.9 Obesity, unspecified; E11.51 Type 2 diabetes mellitus with diabetic peripheral angiopathy without gangrene; N31.9 Neuromuscular dysfunction of bladder, unspecified; D64.9 Anemia, unspecified; I27.20 Pulmonary hypertension, unspecified; Z66 Do not resuscitate; Z79.4 Long term (current) use of insulin; Z79.899 Other long term (current) drug therapy; Z88.1 Allergy status to other antibiotic agents; Z88.2 Allergy status to sulfonamides; Z88.8 Allergy status to other drugs, medicaments and biological substances; Z88.0 Allergy status to penicillin; Z68.33 Body mass index [BMI] 33.0-33.9, adult; Z89.512 Acquired absence of left leg below knee

== ENCOUNTER → 2020-11-02 | Outpatient (REF) | payer MEDICARE, MEDICAID ==
[~2020-11-02] MED LIST changes: +AMLO1TAB24 PO; +ASPI81CH33 PO; +CHLO1.4S2 PO; +CRAN400C PO; +GLUC1KIT IM; +JUVEPOW4 PO; +KETO2SHA8 TOP; +METF-882 PO; +SENN-23 PO; +SM M250T2 PO; +TYLE650T38 PO
--- NOTE | 2020-11-02 15:44 | REP ---
INDICATION: LOW OS SATS COMPARISON: 12/17/2018 TECHNIQUE: Portable AP view of the chest FINDINGS: Cardiac silhouette is upper limits of normal for portable technique. The lung tiwari demonstrate chronic changes with superimposed alveolar and interstitial infiltrates. No effusion. No pneumothorax. Skeletal structures intact. IMPRESSION: Multifocal alveolar and interstitial infiltrates. <Electronically signed by Ty Villa > 11/02/20 [id number]
[2020-11-02 16:28] LABS: HEMOGLOBIN 11.6 g/dl (13.5-17.5); MEAN CORPUSCULAR HEMOGLOBIN 27.3 pg (27.0-33.0); MEAN CORPUSCULAR VOLUME 94.1 fl (80.0-96.0); PLATELET COUNT, AUTOMATED 220 10^3/uL (150-450); RED BLOOD COUNT 4.25 10^6/uL (4.30-6.10); WHITE BLOOD COUNT 6.7 10^3/uL (4.0-10.0)
[2020-11-02 17:02] LABS: BLOOD UREA NITROGEN 28 MG/DL (7-18); CALCIUM LEVEL 8.7 MG/DL (8.5-10.1); CARBON DIOXIDE LEVEL 33 MEQ/L (21-32); CHLORIDE LEVEL 105 MEQ/L (98-107); CREATININE FOR GFR 0.46 MG/DL (0.70-1.30); GLOMERULAR FILTRATION RATE > 60.0 (>56); GLUCOSE, FASTING 91 MG/DL (70-100); NT-PRO BNP 1134 PG/ML (<125); POTASSIUM SERUM 3.8 MEQ/L (3.5-5.1); SODIUM LEVEL 145 MEQ/L (136-145); TROPONIN I 0.33 NG/ML (< 0.10)
== END ==
LOC: SKLAB3 14:55
DX: J84.89 Other specified interstitial pulmonary diseases (principal)

== ENCOUNTER → 2020-11-03 | Outpatient (REF) | payer MEDICARE, MEDICAID ==
[~2020-11-03] MED LIST changes: +AMLO1TAB24 PO; +ASPI81CH33 PO; +CHLO1.4S2 PO; +COZA50TA PO; +CRAN400C PO; +FERR325T18 PO; +GLUC1KIT IM; +JUVEPOW4 PO; +KETO2SHA8 TOP; +METF-882 PO; +SENN-23 PO; +SM M250T2 PO; +TORS20TA2 PO; +TYLE650T38 PO
== END ==
LOC: SKLAB3 07:00
PROVIDERS: ATTEND Internal Medicine
DX: Z20.822 Contact with and (suspected) exposure to COVID-19 (principal)

== ENCOUNTER → 2020-11-06 | Outpatient (REF) | payer MEDICAID, MEDICARE | LOC: SKLAB3 07:00 | DX: R06.02 Shortness of breath (principal) ==

== ENCOUNTER → 2020-11-19 | Outpatient (REF) | LOC: SKLAB3 07:00 | PROVIDERS: ATTEND Internal Medicine | DX: Z20.822 Contact with and (suspected) exposure to COVID-19 (principal) ==

== ENCOUNTER → 2020-11-30 | Outpatient (REF) | payer MEDICARE, MEDICAID ==
[~2020-11-30] MED LIST changes: -DEXT4TAB2 PO; +SFHGLU4TA PO
[2020-11-30 12:25] LABS: BLOOD UREA NITROGEN 73 MG/DL (7-18); CALCIUM LEVEL 9.3 MG/DL (8.5-10.1); CARBON DIOXIDE LEVEL 30 MEQ/L (21-32); CHLORIDE LEVEL 97 MEQ/L (98-107); CREATININE FOR GFR 0.67 MG/DL (0.70-1.30); GLOMERULAR FILTRATION RATE > 60.0 (>56); GLUCOSE, FASTING 65 MG/DL (70-100); POTASSIUM SERUM 3.6 MEQ/L (3.5-5.1); SODIUM LEVEL 134 MEQ/L (136-145)
== END ==
LOC: SKLAB3 07:00
DX: I50.9 Heart failure, unspecified (principal); R63.4 Abnormal weight loss

== ENCOUNTER → 2020-12-01 | Outpatient (REF) | payer MEDICARE, MEDICAID ==
[2020-12-01 11:10] LABS: HEMATOCRIT 41.2 % (42.0-52.0); HEMOGLOBIN 12.9 g/dl (13.5-17.5); MEAN CORPUSCULAR HEMOGLOBIN 27.2 pg (27.0-33.0); MEAN CORPUSCULAR HGB CONC 31.3 g/dl (32.0-36.5); MEAN CORPUSCULAR VOLUME 86.9 fl (80.0-96.0); PLATELET COUNT, AUTOMATED 172 10^3/uL (150-450); RED BLOOD COUNT 4.74 10^6/uL (4.30-6.10); WHITE BLOOD COUNT 6.6 10^3/uL (4.0-10.0)
[2020-12-01 11:37] LABS: BLOOD UREA NITROGEN 66 MG/DL (7-18); CREATININE FOR GFR 0.71 MG/DL (0.70-1.30); GLUCOSE, FASTING 117 MG/DL (70-100)
[2020-12-01 11:38] LABS: CALCIUM LEVEL 9.7 MG/DL (8.5-10.1); CARBON DIOXIDE LEVEL 32 MEQ/L (21-32); CHLORIDE LEVEL 99 MEQ/L (98-107); GLOMERULAR FILTRATION RATE > 60.0 (>56); POTASSIUM SERUM 3.6 MEQ/L (3.5-5.1); SODIUM LEVEL 137 MEQ/L (136-145)
== END ==
LOC: SKLAB3 06:00
DX: E86.0 Dehydration (principal)

== ENCOUNTER → 2020-12-07 | Outpatient (REF) | payer MEDICARE, MEDICAID ==
[2020-12-07 09:56] LABS: ALBUMIN 3.3 GM/DL (3.2-5.2); ALT/SGPT 21 U/L (12-78); BILIRUBIN,TOTAL 0.2 MG/DL (0.2-1.0); BLOOD UREA NITROGEN 18 MG/DL (7-18); CALCIUM LEVEL 8.6 MG/DL (8.5-10.1); CARBON DIOXIDE LEVEL 30 MEQ/L (21-32); CHLORIDE LEVEL 104 MEQ/L (98-107); CREATININE FOR GFR 0.38 MG/DL (0.70-1.30); GLOMERULAR FILTRATION RATE > 60.0 (>56); GLUCOSE, FASTING 108 MG/DL (70-100); POTASSIUM SERUM 4.4 MEQ/L (3.5-5.1); SODIUM LEVEL 141 MEQ/L (136-145); TOTAL PROTEIN 6.4 GM/DL (6.4-8.2)
== END ==
LOC: SKLAB3 11:39
DX: E11.9 Type 2 diabetes mellitus without complications (principal); Z79.899 Other long term (current) drug therapy

== ENCOUNTER → 2021-01-13 | Outpatient (CLI) | payer MEDICARE, MEDICAID ==
--- NOTE | 2021-01-18 15:52 | SLEEPCENT ---
NOCTURNAL POLYSOMNOGRAPHY CPAP RETITRATION DATE: 01/13/2021 ORDERED BY: CESAR Schultz Nocturnal polysomnography was performed for retitration of pressure therapy in this patient with obstructive sleep apnea syndrome. For testing a ResMed Quattro full face mask of medium size was used. An initial pressure of 17 was applied to the circuit and the lights were extinguished. 9 hours and 11 minutes of data were reviewed. There were 496.5 minutes of sleep identified. Sleep latency was short at 3 minutes. REM latency was normal at 82 minutes. Sleep architecture improved later in the study. Overall sleep efficiency was 91.9% and there were four REM cycles noted. EKG showed atrial fibrillation with controlled ventricular response rate of 90 beats per minute. EEG showed reasonably normal waveforms for wake and sleep. Poor sleep progression prompted an increase in CPAP pressure. Micro arousals persisted despite optimal mask fit and minimal air leak. The patient was changed to a BiLevel device. Best sleep was seen on a BiLevel device inspiratory pressure of 24/expiratory pressure of 20. There were some mild hypopneic events, but no significant oxygen desaturations were seen at this level. IMPRESSION: Obstructive sleep apnea syndrome (G47.33). RECOMMENDATION: Nightly use of BiLevel pressure therapy inspiratory pressure 24/expiratory pressure 20. Cc: Diana Montes DO
== END ==
LOC: M SLEEP 20:00
PROVIDERS: ATTEND Nurse Practitioner Family
DX: G47.33 Obstructive sleep apnea (adult) (pediatric) (principal)

== ENCOUNTER → 2021-01-18 | Outpatient (REF) | payer MEDICARE, MEDICAID ==
[2021-01-24 12:07] LABS: Methylmalonic Acid 164 nmol/L (0-378)
== END ==
LOC: SKLAB3 07:00
DX: E53.8 Deficiency of other specified B group vitamins (principal)

== ENCOUNTER → 2021-02-24 | Outpatient (REF) | payer MEDICARE, MEDICAID ==
[2021-02-24 08:41] LABS: APPEARANCE, URINE TURBID (CLEAR); BACTERIA, URINE AUTO NEGATIVE (NEGATIVE); BILIRUBIN, URINE AUTO NEGATIVE (NEGATIVE); BLOOD, URINE BLOOD NEGATIVE (NEGATIVE); COLOR, URINE YELLOW (YELLOW); GLUCOSE, URINE (UA) AUTO NEGATIVE (NEGATIVE); KETONE, URINE AUTO TRACE mg/dL (NEGATIVE); LEUKOCYTE ESTERASE, URINE AUTO 3+ (NEGATIVE); NITRITE, URINE AUTO POSITIVE (NEGATIVE); PROTEIN, URINE AUTO 2+ mg/dL (NEGATIVE); RBC, URINE AUTO 0 /HPF (0-3); SPECIFIC GRAVITY URINE AUTO 1.019 (1.002-1.035); SQUAMOUS EPITHELIAL CELL UR AU 0 /HPF (0-6); UROBILINOGEN, URINE AUTO 0.2 mg/dL (0.0-2.0); WBC, URINE AUTO 0 /HPF (0-3)
[2021-02-24 09:11] LABS: CREATININE,RANDOM URINE 67.1 MG/DL; TOTAL PROTEIN,RANDOM URINE 50.2 MG/DL (0.0-12.0)
[2021-02-24 11:29] LABS: BASO % 0.3 % (0.0-1.0); EOS # 0.2 10^3/uL (0.0-0.5); EOS % 2.3 % (0.0-3.0); HEMATOCRIT 41.2 % (42.0-52.0); HEMOGLOBIN 12.4 g/dl (13.5-17.5); LYMPH # 1.7 10^3/uL (1.5-5.0); LYMPH % 23.5 % (24.0-44.0); MEAN CORPUSCULAR HEMOGLOBIN 28.2 pg (27.0-33.0); MEAN CORPUSCULAR HGB CONC 30.1 g/dl (32.0-36.5); MEAN CORPUSCULAR VOLUME 93.8 fl (80.0-96.0); MONO # 0.7 10^3/uL (0.0-0.8); MONO % 10.4 % (2.0-8.0); NEUTROPHILS # 4.4 10^3/uL (1.5-8.5); NEUTROPHILS % 62.5 % (36.0-66.0); PLATELET COUNT, AUTOMATED 230 10^3/uL (150-450); RED BLOOD COUNT 4.39 10^6/uL (4.30-6.10); WHITE BLOOD COUNT 7.1 10^3/uL (4.0-10.0)
[2021-02-24 12:11] LABS: ALBUMIN 3.6 GM/DL (3.2-5.2); BLOOD UREA NITROGEN 28 MG/DL (7-18); CALCIUM LEVEL 9.1 MG/DL (8.5-10.1); CARBON DIOXIDE LEVEL 31 MEQ/L (21-32); CHLORIDE LEVEL 100 MEQ/L (98-107); CREATININE FOR GFR 0.46 MG/DL (0.70-1.30); GLOMERULAR FILTRATION RATE > 60.0 (>56); GLUCOSE, FASTING 147 MG/DL (70-100); MAGNESIUM LEVEL 1.6 MG/DL (1.8-2.4); PHOSPHORUS LEVEL 3.9 MG/DL (2.5-4.9); POTASSIUM SERUM 4.4 MEQ/L (3.5-5.1); SODIUM LEVEL 140 MEQ/L (136-145)
== END ==
LOC: SKLAB3 07:00
DX: N18.9 Chronic kidney disease, unspecified (principal); R39.89 Other symptoms and signs involving the genitourinary system

== ENCOUNTER → 2021-03-08 | Outpatient (REF) | payer MEDICARE, MEDICAID ==
[2021-03-08 10:55] LABS: HEMOGLOBIN A1c 6.5 %
[2021-03-08 11:02] LABS: CHOLESTEROL RISK RATIO 4.136 (<5)
== END ==
LOC: SKLAB3 10:53
DX: E78.5 Hyperlipidemia, unspecified (principal); E11.9 Type 2 diabetes mellitus without complications

== ENCOUNTER → 2021-05-11 | Outpatient (REF) | payer MEDICARE, MEDICAID ==
[~2021-05-11] MED LIST changes: -DOXY100C PO; +DOXY100C3 PO; -LISI2.5T2 PO; +LISI2.5T9 PO
== END ==
LOC: SKLAB3 07:00
PROVIDERS: ATTEND Neuromusculoskeletal Medicine & OMM
DX: E11.9 Type 2 diabetes mellitus without complications (principal)

== ENCOUNTER → 2021-06-07 | Outpatient (REF) | payer MEDICARE, MEDICAID ==
[2021-06-07 11:14] LABS: BLOOD UREA NITROGEN 15 MG/DL (7-18); CARBON DIOXIDE LEVEL 37 MEQ/L (21-32); CHLORIDE LEVEL 100 MEQ/L (98-107); CREATININE FOR GFR 0.49 MG/DL (0.70-1.30); GLOMERULAR FILTRATION RATE > 60.0 (>56); GLUCOSE, FASTING 155 MG/DL (70-100); POTASSIUM SERUM 3.2 MEQ/L (3.5-5.1); SODIUM LEVEL 141 MEQ/L (136-145)
[2021-06-07 11:15] LABS: ALBUMIN 3.1 GM/DL (3.2-5.2); ALT/SGPT 19 U/L (12-78); BILIRUBIN,TOTAL 0.3 MG/DL (0.2-1.0); CALCIUM LEVEL 8.6 MG/DL (8.5-10.1); TOTAL PROTEIN 7.1 GM/DL (6.4-8.2)
== END ==
LOC: SKLAB3 09:18
PROVIDERS: ATTEND Neuromusculoskeletal Medicine & OMM
DX: E11.9 Type 2 diabetes mellitus without complications (principal)

== ENCOUNTER → 2021-06-09 | Outpatient (REF) | payer MEDICARE, MEDICAID | LOC: SKLAB3 07:43 | PROVIDERS: ATTEND Neuromusculoskeletal Medicine & OMM | DX: Z20.822 Contact with and (suspected) exposure to COVID-19 (principal) ==

== ENCOUNTER → 2021-06-13 | Outpatient (REF) | payer MEDICARE, MEDICAID | LOC: SKLAB3 07:09 | PROVIDERS: ATTEND Internal Medicine | DX: Z20.822 Contact with and (suspected) exposure to COVID-19 (principal) ==

== ENCOUNTER → 2021-06-14 | Outpatient (REF) | payer MEDICARE, MEDICAID ==
[2021-06-14 08:17] LABS: BLOOD UREA NITROGEN 18 MG/DL (7-18); CALCIUM LEVEL 8.9 MG/DL (8.5-10.1); CARBON DIOXIDE LEVEL 32 MEQ/L (21-32); CHLORIDE LEVEL 100 MEQ/L (98-107); GLOMERULAR FILTRATION RATE > 60.0 (>56); GLUCOSE, FASTING 172 MG/DL (70-100); POTASSIUM SERUM 3.7 MEQ/L (3.5-5.1); SODIUM LEVEL 139 MEQ/L (136-145)
== END ==
LOC: SKLAB3 06:52
PROVIDERS: ATTEND Neuromusculoskeletal Medicine & OMM
DX: I50.9 Heart failure, unspecified (principal)

== ENCOUNTER → 2021-06-16 | Outpatient (REF) | payer MEDICARE, MEDICAID | LOC: SKLAB3 06:28 | PROVIDERS: ATTEND Internal Medicine | DX: Z20.822 Contact with and (suspected) exposure to COVID-19 (principal) ==

== ENCOUNTER → 2021-06-20 | Outpatient (REF) | payer MEDICARE, MEDICAID | LOC: SKLAB3 06:21 | PROVIDERS: ATTEND Internal Medicine | DX: Z20.822 Contact with and (suspected) exposure to COVID-19 (principal) ==

== ENCOUNTER → 2021-06-21 | Outpatient (REF) | payer MEDICARE, MEDICAID ==
[2021-06-21 11:05] LABS: HEMOGLOBIN A1c 7.1 %
== END ==
LOC: SKLAB3 06:00
PROVIDERS: ATTEND Neuromusculoskeletal Medicine & OMM
DX: E11.9 Type 2 diabetes mellitus without complications (principal)

== ENCOUNTER → 2021-06-23 | Outpatient (REF) | payer MEDICARE, MEDICAID | LOC: SKLAB3 11:15 | PROVIDERS: ATTEND Neuromusculoskeletal Medicine & OMM | DX: Z20.822 Contact with and (suspected) exposure to COVID-19 (principal) ==

== ENCOUNTER → 2021-06-29 | Outpatient (REF) | payer MEDICARE, MEDICAID | LOC: SKLAB3 10:42 | PROVIDERS: ATTEND Neuromusculoskeletal Medicine & OMM | DX: Z20.822 Contact with and (suspected) exposure to COVID-19 (principal) ==

== ENCOUNTER → 2021-07-06 | Outpatient (REF) | payer MEDICARE, MEDICAID | LOC: SKLAB3 08:52 | PROVIDERS: ATTEND Neuromusculoskeletal Medicine & OMM | DX: Z20.822 Contact with and (suspected) exposure to COVID-19 (principal) ==

== ENCOUNTER → 2021-07-27 | Outpatient (REF) | payer MEDICARE, MEDICAID | LOC: SKLAB3 09:04 | PROVIDERS: ATTEND Neuromusculoskeletal Medicine & OMM | DX: Z20.822 Contact with and (suspected) exposure to COVID-19 (principal) ==

== ENCOUNTER → 2021-08-03 | Outpatient (REF) | payer MEDICARE, MEDICAID | LOC: SKLAB3 07:00 | PROVIDERS: ATTEND Neuromusculoskeletal Medicine & OMM | DX: Z20.822 Contact with and (suspected) exposure to COVID-19 (principal) ==

== ENCOUNTER → 2021-08-10 | Outpatient (REF) | payer MEDICARE, MEDICAID | LOC: SKLAB3 11:04 | PROVIDERS: ATTEND Neuromusculoskeletal Medicine & OMM | DX: Z20.822 Contact with and (suspected) exposure to COVID-19 (principal) ==

== ENCOUNTER → 2021-08-17 | Outpatient (REF) | payer MEDICARE, MEDICAID | LOC: SKLAB3 09:42 | PROVIDERS: ATTEND Neuromusculoskeletal Medicine & OMM | DX: Z20.822 Contact with and (suspected) exposure to COVID-19 (principal) ==

== ENCOUNTER → 2021-08-24 | Outpatient (REF) | payer MEDICARE, MEDICAID ==
[~2021-08-24] MED LIST changes: -CHLO1.4S2 PO; +CHLO1.4S7 PO; +LOSA100T45 PO; -LOSA100T50 PO
== END ==
LOC: SKLAB3 08-24 07:00
PROVIDERS: ATTEND Neuromusculoskeletal Medicine & OMM
DX: Z11.52 Encounter for screening for COVID-19 (principal); Z20.822 Contact with and (suspected) exposure to COVID-19

== ENCOUNTER → 2021-08-31 | Outpatient (REF) | payer MEDICARE, MEDICAID ==
[~2021-08-31] MED LIST changes: +CHLO1.4S2 PO; -CHLO1.4S7 PO
[2021-08-31 10:18] LABS: BASO % 0.4 % (0.0-1.0); EOS # 0.2 10^3/uL (0.0-0.5); EOS % 2.9 % (0.0-3.0); HEMATOCRIT 43.2 % (42.0-52.0); HEMOGLOBIN 13.2 g/dl (13.5-17.5); LYMPH # 1.6 10^3/uL (1.5-5.0); LYMPH % 23.5 % (24.0-44.0); MEAN CORPUSCULAR HEMOGLOBIN 27.6 pg (27.0-33.0); MEAN CORPUSCULAR HGB CONC 30.6 g/dl (32.0-36.5); MEAN CORPUSCULAR VOLUME 90.2 fl (80.0-96.0); MONO # 0.7 10^3/uL (0.0-0.8); MONO % 10.9 % (2.0-8.0); NEUTROPHILS # 4.2 10^3/uL (1.5-8.5); NEUTROPHILS % 61.4 % (36.0-66.0); PLATELET COUNT, AUTOMATED 201 10^3/uL (150-450); RED BLOOD COUNT 4.79 10^6/uL (4.30-6.10); WHITE BLOOD COUNT 6.8 10^3/uL (4.0-10.0)
[2021-08-31 11:04] LABS: ALBUMIN 3.6 GM/DL (3.2-5.2); BLOOD UREA NITROGEN 25 MG/DL (7-18); CALCIUM LEVEL 8.8 MG/DL (8.5-10.1); CARBON DIOXIDE LEVEL 28 MEQ/L (21-32); CHLORIDE LEVEL 101 MEQ/L (98-107); CHOLESTEROL LEVEL 76 MG/DL (<200); CREATININE FOR GFR 0.56 MG/DL (0.70-1.30); GLOMERULAR FILTRATION RATE > 60.0 (>56); GLUCOSE, FASTING 233 MG/DL (70-100); HDL CHOLESTEROL 25 MG/DL (>40); LDL CHOLESTEROL 7 MG/DL (<100); MAGNESIUM LEVEL 1.4 MG/DL (1.8-2.4); NON-HDL-C 51 MG/DL; PHOSPHORUS LEVEL 3.3 MG/DL (2.5-4.9); POTASSIUM SERUM 4.2 MEQ/L (3.5-5.1); SODIUM LEVEL 139 MEQ/L (136-145); TRIGLYCERIDES LEVEL 218 MG/DL (<150)
[2021-08-31 11:11] LABS: CREATININE,RANDOM URINE 52.8 MG/DL; TOTAL PROTEIN,RANDOM URINE 60.8 MG/DL (0.0-12.0)
== END ==
LOC: SKLAB3 07:17
PROVIDERS: ATTEND Neuromusculoskeletal Medicine & OMM
DX: N18.9 Chronic kidney disease, unspecified (principal)

== ENCOUNTER → 2021-09-15 | Outpatient (REF) | payer MEDICARE, MEDICAID ==
[~2021-09-15] MED LIST changes: -CHLO1.4S2 PO; +CHLO1.4S7 PO
[2021-09-15 10:34] LABS: BLOOD UREA NITROGEN 22 MG/DL (7-18); CALCIUM LEVEL 8.9 MG/DL (8.5-10.1); CARBON DIOXIDE LEVEL 31 MEQ/L (21-32); CHLORIDE LEVEL 102 MEQ/L (98-107); CREATININE FOR GFR 0.49 MG/DL (0.70-1.30); GLOMERULAR FILTRATION RATE > 60.0 (>56); GLUCOSE, FASTING 224 MG/DL (70-100); MAGNESIUM LEVEL 1.6 MG/DL (1.8-2.4); POTASSIUM SERUM 4.3 MEQ/L (3.5-5.1); SODIUM LEVEL 140 MEQ/L (136-145)
== END ==
LOC: SKLAB3 07:00
PROVIDERS: ATTEND Neuromusculoskeletal Medicine & OMM
DX: E83.42 Hypomagnesemia (principal)

== ENCOUNTER → 2021-09-28 | Outpatient (REF) | payer MEDICARE, MEDICAID | LOC: SKLAB3 10:07 | PROVIDERS: ATTEND Neuromusculoskeletal Medicine & OMM | DX: E83.42 Hypomagnesemia (principal) ==

== ENCOUNTER → 2021-10-04 | Outpatient (REF) | payer MEDICARE, MEDICAID ==
[2021-10-04 15:08] LABS: HEMOGLOBIN A1c 7.3 %
== END ==
LOC: SKLAB3 11:14
PROVIDERS: ATTEND Neuromusculoskeletal Medicine & OMM
DX: E11.9 Type 2 diabetes mellitus without complications (principal)

== ENCOUNTER → 2021-10-21 | Outpatient (REF) | payer MEDICARE, MEDICAID ==
[2021-10-21 14:27] LABS: INFLUENZA A AMPLIFICATION NEGATIVE (NEGATIVE); INFLUENZA B AMPLIFICATION NEGATIVE (NEGATIVE)
== END ==
LOC: SKLAB3 12:02
DX: R05.9 Cough, unspecified (principal); R09.89 Other specified symptoms and signs involving the circulatory and respiratory systems

== ENCOUNTER → 2021-12-06 | Outpatient (REF) | payer MEDICARE, MEDICAID ==
[2021-12-06 12:26] LABS: ALBUMIN 3.3 GM/DL (3.2-5.2); ALT/SGPT 22 U/L (12-78); BILIRUBIN,TOTAL 0.6 MG/DL (0.2-1.0); BLOOD UREA NITROGEN 33 MG/DL (7-18); CALCIUM LEVEL 9.1 MG/DL (8.5-10.1); CARBON DIOXIDE LEVEL 31 MEQ/L (21-32); CHLORIDE LEVEL 101 MEQ/L (98-107); CREATININE FOR GFR 0.59 MG/DL (0.70-1.30); GLOMERULAR FILTRATION RATE > 60.0 (>56); GLUCOSE, FASTING 209 MG/DL (70-100); POTASSIUM SERUM 4.1 MEQ/L (3.5-5.1); SODIUM LEVEL 137 MEQ/L (136-145); TOTAL PROTEIN 6.2 GM/DL (6.4-8.2)
== END ==
LOC: SKLAB3 11:43
PROVIDERS: ATTEND Neuromusculoskeletal Medicine & OMM
DX: E11.9 Type 2 diabetes mellitus without complications (principal)

== ENCOUNTER → 2022-01-03 | Outpatient (REF) | payer MEDICARE, MEDICAID ==
[2022-01-03 08:36] LABS: HEMOGLOBIN A1c 7.1 %
== END ==
LOC: SKLAB3 11:24
PROVIDERS: ATTEND Neuromusculoskeletal Medicine & OMM
DX: E11.9 Type 2 diabetes mellitus without complications (principal)

== ENCOUNTER → 2022-02-23 | Outpatient (REF) | payer MEDICARE, MEDICAID ==
[2022-02-23 08:18] LABS: BASO % 0.5 % (0.0-1.0); EOS # 0.2 10^3/uL (0.0-0.5); EOS % 2.7 % (0.0-3.0); HEMATOCRIT 38.7 % (42.0-52.0); LYMPH # 1.9 10^3/uL (1.5-5.0); LYMPH % 31.2 % (24.0-44.0); MEAN CORPUSCULAR HEMOGLOBIN 27.6 pg (27.0-33.0); MEAN CORPUSCULAR VOLUME 89.2 fl (80.0-96.0); MONO # 0.7 10^3/uL (0.0-0.8); NEUTROPHILS # 3.3 10^3/uL (1.5-8.5); NEUTROPHILS % 53.8 % (36.0-66.0); PLATELET COUNT, AUTOMATED 199 10^3/uL (150-450); RED BLOOD COUNT 4.34 10^6/uL (4.30-6.10); WHITE BLOOD COUNT 6.2 10^3/uL (4.0-10.0)
[2022-02-23 08:45] LABS: ALBUMIN 3.4 GM/DL (3.2-5.2); BLOOD UREA NITROGEN 25 MG/DL (7-18); CALCIUM LEVEL 9.3 MG/DL (8.5-10.1); CARBON DIOXIDE LEVEL 29 MEQ/L (21-32); CHLORIDE LEVEL 103 MEQ/L (98-107); CHOLESTEROL LEVEL 103 MG/DL (<200); CREATININE FOR GFR 0.49 MG/DL (0.70-1.30); GLOMERULAR FILTRATION RATE > 60.0 (>56); GLUCOSE, FASTING 248 MG/DL (70-100); HDL CHOLESTEROL 25 MG/DL (>40); LDL CHOLESTEROL 23 MG/DL (<100); NON-HDL-C 78 MG/DL; PHOSPHORUS LEVEL 3.8 MG/DL (2.5-4.9); POTASSIUM SERUM 4.7 MEQ/L (3.5-5.1); SODIUM LEVEL 139 MEQ/L (136-145); TRIGLYCERIDES LEVEL 276 MG/DL (<150)
== END ==
LOC: SKLAB3 07:00
PROVIDERS: ATTEND Nurse Practitioner Family
DX: N18.9 Chronic kidney disease, unspecified (principal)

== ENCOUNTER → 2022-03-02 | Outpatient (REF) | payer MEDICARE, MEDICAID ==
[2022-03-02 14:18] LABS: APPEARANCE, URINE TURBID (CLEAR); BACTERIA, URINE AUTO 3+ (NEGATIVE); BILIRUBIN, URINE AUTO NEGATIVE (NEGATIVE); BLOOD, URINE BLOOD 2+ (NEGATIVE); COLOR, URINE AMBER (YELLOW); GLUCOSE, URINE (UA) AUTO 3+ mg/dL (NEGATIVE); GRANULAR CAST, URINE AUTO 15 /LPF; KETONE, URINE AUTO NEGATIVE (NEGATIVE); LEUKOCYTE ESTERASE, URINE AUTO 2+ (NEGATIVE); MUCUS, URINE SMALL (NEGATIVE); NITRITE, URINE AUTO NEGATIVE (NEGATIVE); PROTEIN, URINE AUTO 2+ mg/dL (NEGATIVE); RBC, URINE AUTO 83 /HPF (0-3); SPECIFIC GRAVITY URINE AUTO 1.013 (1.002-1.035); SQUAMOUS EPITHELIAL CELL UR AU 2 /HPF (0-6); TRIPLE PHOSPHATE CRYSTALS SMALL; UROBILINOGEN, URINE AUTO 0.2 mg/dL (0.0-2.0); WBC, URINE AUTO TNTC /HPF (0-3)
[2022-03-02 14:56] LABS: CREATININE,RANDOM URINE 32.4 MG/DL; TOTAL PROTEIN,RANDOM URINE 99.5 MG/DL (0.0-12.0)
== END ==
LOC: SKLAB3 13:07
PROVIDERS: ATTEND Nurse Practitioner Family
DX: R80.9 Proteinuria, unspecified (principal)

== ENCOUNTER → 2022-03-16 | Outpatient (REF) | payer MEDICARE, MEDICAID ==
[2022-03-16 13:16] LABS: HEMATOCRIT 36.3 % (42.0-52.0); MEAN CORPUSCULAR HEMOGLOBIN 27.2 pg (27.0-33.0); MEAN CORPUSCULAR HGB CONC 30.3 g/dl (32.0-36.5); MEAN CORPUSCULAR VOLUME 89.9 fl (80.0-96.0); PLATELET COUNT, AUTOMATED 205 10^3/uL (150-450); RED BLOOD COUNT 4.04 10^6/uL (4.30-6.10); WHITE BLOOD COUNT 4.6 10^3/uL (4.0-10.0)
[2022-03-16 14:04] LABS: ALBUMIN 3.2 GM/DL (3.2-5.2); ALT/SGPT 26 U/L (12-78); BILIRUBIN,TOTAL 0.2 MG/DL (0.2-1.0); BLOOD UREA NITROGEN 28 MG/DL (7-18); CALCIUM LEVEL 9.4 MG/DL (8.5-10.1); CARBON DIOXIDE LEVEL 27 MEQ/L (21-32); CHLORIDE LEVEL 100 MEQ/L (98-107); CREATININE FOR GFR 0.73 MG/DL (0.70-1.30); GLOMERULAR FILTRATION RATE > 60.0 (>56); GLUCOSE, FASTING 247 MG/DL (70-100); POTASSIUM SERUM 4.4 MEQ/L (3.5-5.1); SODIUM LEVEL 135 MEQ/L (136-145); TOTAL PROTEIN 6.6 GM/DL (6.4-8.2)
== END ==
LOC: SKLAB2 08:55
PROVIDERS: ATTEND Nurse Practitioner Family
DX: U07.1 COVID-19 (principal); Z79.899 Other long term (current) drug therapy

== ENCOUNTER → 2022-03-20 | Outpatient (REF) | payer MEDICARE, MEDICAID ==
[2022-03-20 09:58] LABS: MEAN CORPUSCULAR HEMOGLOBIN 26.6 pg (27.0-33.0); MEAN CORPUSCULAR HGB CONC 29.5 g/dl (32.0-36.5); PLATELET COUNT, AUTOMATED 230 10^3/uL (150-450); RED BLOOD COUNT 4.89 10^6/uL (4.30-6.10); WHITE BLOOD COUNT 8.5 10^3/uL (4.0-10.0)
[2022-03-20 10:19] LABS: ALBUMIN 3.7 GM/DL (3.2-5.2); ALT/SGPT 16 U/L (12-78); BILIRUBIN,TOTAL 0.4 MG/DL (0.2-1.0); BLOOD UREA NITROGEN 38 MG/DL (7-18); CALCIUM LEVEL 9.3 MG/DL (8.5-10.1); CARBON DIOXIDE LEVEL 31 MEQ/L (21-32); CHLORIDE LEVEL 97 MEQ/L (98-107); CREATININE FOR GFR 0.73 MG/DL (0.70-1.30); GLOMERULAR FILTRATION RATE > 60.0 (>56); GLUCOSE, FASTING 80 MG/DL (70-100); POTASSIUM SERUM 4.5 MEQ/L (3.5-5.1); SODIUM LEVEL 136 MEQ/L (136-145); TOTAL PROTEIN 7.9 GM/DL (6.4-8.2)
== END ==
LOC: SKLAB2 09:30
PROVIDERS: ATTEND Nurse Practitioner Family
DX: U07.1 COVID-19 (principal); Z79.899 Other long term (current) drug therapy

== ENCOUNTER → 2022-03-23 | Outpatient (REF) | payer MEDICAID, MEDICARE | LOC: SKLAB2 07:00 | PROVIDERS: ATTEND Nurse Practitioner Family | DX: U07.1 COVID-19 (principal); Z53.9 Procedure and treatment not carried out, unspecified reason ==

== ENCOUNTER → 2022-03-27 | Outpatient (REF) | payer MEDICARE, MEDICAID ==
[2022-03-27 09:28] LABS: HEMATOCRIT 41.9 % (42.0-52.0); MEAN CORPUSCULAR HEMOGLOBIN 27.7 pg (27.0-33.0); MEAN CORPUSCULAR VOLUME 89.1 fl (80.0-96.0); PLATELET COUNT, AUTOMATED 224 10^3/uL (150-450); WHITE BLOOD COUNT 6.7 10^3/uL (4.0-10.0)
[2022-03-27 11:25] LABS: ALBUMIN 3.6 GM/DL (3.2-5.2); ALT/SGPT 28 U/L (12-78); BILIRUBIN,TOTAL 0.2 MG/DL (0.2-1.0); BLOOD UREA NITROGEN 29 MG/DL (7-18); CALCIUM LEVEL 10.3 MG/DL (8.5-10.1); CARBON DIOXIDE LEVEL 27 MEQ/L (21-32); CHLORIDE LEVEL 98 MEQ/L (98-107); CREATININE FOR GFR 0.62 MG/DL (0.70-1.30); GLOMERULAR FILTRATION RATE > 60.0 (>56); GLUCOSE, FASTING 108 MG/DL (70-100); POTASSIUM SERUM 5.7 MEQ/L (3.5-5.1); SODIUM LEVEL 136 MEQ/L (136-145); TOTAL PROTEIN 7.2 GM/DL (6.4-8.2)
== END ==
LOC: SKLAB2 14:55
PROVIDERS: ATTEND Nurse Practitioner Family
DX: U07.1 COVID-19 (principal); Z79.899 Other long term (current) drug therapy

== ENCOUNTER → 2022-03-29 | Outpatient (REF) | payer MEDICARE, MEDICAID ==
[2022-03-29 13:04] LABS: APPEARANCE, URINE MANUAL CLOUDY (CLEAR); BILIRUBIN, URINE MANUAL NEGATIVE (NEGATIVE); COLOR, URINE MANUAL LT YELLOW (YELLOW); GLUCOSE, URINE (UA) MANUAL NEGATIVE (NEGATIVE); KETONE, URINE MANUAL NEGATIVE (NEGATIVE); LEUKOCYTE ESTERASE, URINE MAN POSITIVE (NEGATIVE); NITRITE, URINE MANUAL NEGATIVE (NEGATIVE); SPECIFIC GRAVITY,URINE MANUAL 1.005 (1.002-1.035); UROBILINOGEN, URINE MANUAL NORMAL (NORMAL)
[2022-03-29 13:05] LABS: BLOOD URINE MANUAL POSITIVE (NEGATIVE)
[2022-03-29 14:04] LABS: RBC, URINE TNTC /hpf (0-3); WBC, URINE TNTC /hpf (0-3)
[2022-03-29 14:05] LABS: BACTERIA, URINE LARGE AMOUNT; HYALINE CAST, URINE NONE SEEN /lpf (0-1)
== END ==
LOC: SKLAB3 12:03
PROVIDERS: ATTEND Nurse Practitioner Family
DX: R82.998 Other abnormal findings in urine (principal)

== ENCOUNTER → 2022-04-04 | Outpatient (REF) | payer MEDICAID, MEDICARE ==
[2022-04-04 10:31] LABS: HEMOGLOBIN A1c 8.3 %
== END ==
LOC: SKLAB3 09:38
PROVIDERS: ATTEND Nurse Practitioner Family
DX: E11.9 Type 2 diabetes mellitus without complications (principal)

== ENCOUNTER → 2022-05-09 | Outpatient (REF) | payer MEDICARE, MEDICAID ==
[2022-05-09 14:50] LABS: CREATININE, URINE 33.6 MG/DL; MAU/CREAT RATIO 485.1 MCG/MG (0.0-30.0)
== END ==
LOC: SKLAB2 10:50
PROVIDERS: ATTEND Nurse Practitioner Family
DX: E11.9 Type 2 diabetes mellitus without complications (principal)

== ENCOUNTER → 2022-06-08 | Outpatient (REF) | payer MEDICARE, MEDICAID | LOC: M SFHCWOUN 16:31 | PROVIDERS: ATTEND Surgery | DX: M86.171 Other acute osteomyelitis, right ankle and foot (principal) ==

== ENCOUNTER → 2022-07-06 | Outpatient (REF) | payer MEDICARE, MEDICAID ==
[~2022-07-06] MED LIST changes: -DOXY-350 PO; +DOXY-444 PO
== END ==
LOC: SKLAB3 08:27
PROVIDERS: ATTEND Nurse Practitioner Family
DX: E11.9 Type 2 diabetes mellitus without complications (principal)

== ENCOUNTER → 2022-08-22 | Outpatient (REF) | payer MEDICARE, MEDICAID ==
[2022-08-22 12:57] LABS: APPEARANCE, URINE MANUAL HAZY (CLEAR); COLOR, URINE MANUAL LT YELLOW (YELLOW); GLUCOSE, URINE (UA) MANUAL 1+(100 MG/DL) mg/dL (NEGATIVE)
[2022-08-22 12:58] LABS: BILIRUBIN, URINE MANUAL NEGATIVE (NEGATIVE); BLOOD URINE MANUAL POSITIVE (NEGATIVE); KETONE, URINE MANUAL NEGATIVE (NEGATIVE); LEUKOCYTE ESTERASE, URINE MAN POSITIVE (NEGATIVE); NITRITE, URINE MANUAL POSITIVE (NEGATIVE); PROTEIN, URINE MANUAL TRACE mg/dL (NEGATIVE); UROBILINOGEN, URINE MANUAL NORMAL (NORMAL)
[2022-08-22 13:18] LABS: TOTAL PROTEIN,RANDOM URINE 29.6 MG/DL (0.0-14.0)
[2022-08-22 13:23] LABS: CREATININE,RANDOM URINE 22.9 MG/DL
[2022-08-22 13:29] LABS: BACTERIA, URINE MOD AMOUNT; HYALINE CAST, URINE NONE SEEN /lpf (0-1); SQUAMOUS EPITHELIAL CELL URINE NONE SEEN /hpf (SMALL AMT)
[2022-08-22 13:33] LABS: WBC, URINE 40-50 /hpf (0-3)
== END ==
LOC: SKLAB3 11:32
PROVIDERS: ATTEND Internal Medicine
DX: E11.9 Type 2 diabetes mellitus without complications (principal)

== ENCOUNTER → 2022-09-05 | Outpatient (REF) | payer MEDICARE, MEDICAID ==
[2022-09-05 08:43] LABS: CHOLESTEROL RISK RATIO 3.59 (<5); HDL CHOLESTEROL 25.9 MG/DL (>40); LDL CHOLESTEROL 28.5 MG/DL (<100)
== END ==
LOC: SKLAB3 13:56
PROVIDERS: ATTEND Internal Medicine
DX: E78.5 Hyperlipidemia, unspecified (principal)

== ENCOUNTER → 2022-10-10 | Outpatient (REF) | payer MEDICARE, MEDICAID ==
[2022-10-10 08:29] LABS: HEMATOCRIT 38.8 % (42.0-52.0); HEMOGLOBIN 11.7 g/dl (13.5-17.5); MEAN CORPUSCULAR HEMOGLOBIN 27.3 pg (27.0-33.0); MEAN CORPUSCULAR HGB CONC 30.2 g/dl (32.0-36.5); MEAN CORPUSCULAR VOLUME 90.4 fl (80.0-96.0); PLATELET COUNT, AUTOMATED 247 10^3/uL (150-450); RED BLOOD COUNT 4.29 10^6/uL (4.30-6.10); WHITE BLOOD COUNT 7.6 10^3/uL (4.0-10.0)
[2022-10-10 09:26] LABS: ALBUMIN 3.5 G/DL (3.2-5.2); ALKALINE PHOSPHATASE 73 U/L (46-116); ALT/SGPT 13 U/L (7.0-40); AST/SGOT 14 U/L (<34); BILIRUBIN,TOTAL 0.3 MG/DL (0.3-1.2); BLOOD UREA NITROGEN 34 MG/DL (9-23); CALCIUM LEVEL 9.5 MG/DL (8.3-10.6); CARBON DIOXIDE LEVEL 30 MMOL/L (20-31); CHLORIDE LEVEL 99 MMOL/L (98-107); CREATININE FOR GFR 0.68 MG/DL (0.70-1.30); GLOMERULAR FILTRATION RATE > 60.0 (>49); GLUCOSE, FASTING 71 MG/DL (74-106); POTASSIUM SERUM 5.2 MMOL/L (3.5-5.1); SODIUM LEVEL 138 MMOL/L (136-145); TOTAL PROTEIN 6.3 G/DL (5.7-8.2)
[2022-10-10 09:42] LABS: HEMOGLOBIN A1c 6.4 % (4.0-6.0)
== END ==
LOC: SKLAB3 10:02
PROVIDERS: ATTEND Internal Medicine
DX: E11.9 Type 2 diabetes mellitus without complications (principal)

== ENCOUNTER → 2023-01-02 | Outpatient (REF) | payer MEDICARE, MEDICAID ==
[~2023-01-02] MED LIST changes: -COZA50TA PO; +LOSA-528 PO; -LOSA100T45 PO; +LOSA100T46 PO
[2023-01-02 08:16] LABS: HEMOGLOBIN A1c 6.8 % (4.0-6.0)
== END ==
LOC: SKLAB3 09:32
PROVIDERS: ATTEND Internal Medicine
DX: E11.9 Type 2 diabetes mellitus without complications (principal)

== ENCOUNTER → 2023-02-21 | Outpatient (REF) | payer MEDICARE, MEDICAID ==
[2023-02-21 07:12] LABS: ALBUMIN 3.4 G/DL (3.2-5.2); BLOOD UREA NITROGEN 29 MG/DL (9-23); CALCIUM LEVEL 10.1 MG/DL (8.3-10.6); CARBON DIOXIDE LEVEL 29 MMOL/L (20-31); CHLORIDE LEVEL 101 MMOL/L (98-107); CREATININE FOR GFR 0.37 MG/DL (0.70-1.30); GLOMERULAR FILTRATION RATE > 60.0 (>49); GLUCOSE, FASTING 166 MG/DL (74-106); PHOSPHORUS LEVEL 3.6 MG/DL (2.4-5.1); POTASSIUM SERUM 4.4 MMOL/L (3.5-5.1); SODIUM LEVEL 140 MMOL/L (136-145)
== END ==
LOC: SKLAB3 07:00
PROVIDERS: ATTEND Internal Medicine
DX: N18.9 Chronic kidney disease, unspecified (principal)

== ENCOUNTER → 2023-02-22 | Outpatient (REF) | payer MEDICARE, MEDICAID ==
[2023-02-22 13:27] LABS: HEMATOCRIT 35.9 % (42.0-52.0); HEMOGLOBIN 10.9 g/dl (13.5-17.5); MEAN CORPUSCULAR HEMOGLOBIN 27.3 pg (27.0-33.0); MEAN CORPUSCULAR HGB CONC 30.4 g/dl (32.0-36.5); MEAN CORPUSCULAR VOLUME 89.8 fl (80.0-96.0); PLATELET COUNT, AUTOMATED 282 10^3/uL (150-450); WHITE BLOOD COUNT 7.6 10^3/uL (4.0-10.0)
== END ==
LOC: SKLAB3 12:18
PROVIDERS: ATTEND Internal Medicine
DX: N18.9 Chronic kidney disease, unspecified (principal)

== ENCOUNTER → 2023-02-23 | Outpatient (REF) | payer MEDICARE, MEDICAID ==
[2023-02-23 17:50] LABS: APPEARANCE, URINE CLOUDY (CLEAR); BACTERIA, URINE AUTO 3+ (NEGATIVE); BILIRUBIN, URINE AUTO NEGATIVE (NEGATIVE); BLOOD, URINE BLOOD 1+ (NEGATIVE); COLOR, URINE YELLOW (YELLOW); GLUCOSE, URINE (UA) AUTO NEGATIVE (NEGATIVE); KETONE, URINE AUTO NEGATIVE (NEGATIVE); LEUKOCYTE ESTERASE, URINE AUTO 3+ (NEGATIVE); MUCUS, URINE SMALL (NEGATIVE); NITRITE, URINE AUTO POSITIVE (NEGATIVE); PROTEIN, URINE AUTO 2+ mg/dL (NEGATIVE); RBC, URINE AUTO 6 /HPF (0-3); SPECIFIC GRAVITY URINE AUTO 1.016 (1.002-1.035); SQUAMOUS EPITHELIAL CELL UR AU 1 /HPF (0-6); TRIPLE PHOSPHATE CRYSTALS MODERATE; UROBILINOGEN, URINE AUTO 0.2 mg/dL (0.0-2.0); WBC, URINE AUTO 22 /HPF (0-3)
[2023-02-23 18:30] LABS: TOTAL PROTEIN,RANDOM URINE 49.9 MG/DL (0.0-14.0)
[2023-02-23 18:35] LABS: CREATININE,RANDOM URINE 30.3 MG/DL
== END ==
LOC: SKLAB3 15:37
PROVIDERS: ATTEND Internal Medicine
DX: N18.9 Chronic kidney disease, unspecified (principal)

== ENCOUNTER → 2023-03-05 | Outpatient (REF) | payer MEDICARE, MEDICAID ==
[2023-03-05 09:01] LABS: CHOLESTEROL LEVEL 72 MG/DL (<200); CHOLESTEROL RISK RATIO 3.52 (<5); HDL CHOLESTEROL 20.4 MG/DL (>40); NON-HDL-C 51.6 MG/DL; TRIGLYCERIDES LEVEL 259 MG/DL (<150)
== END ==
LOC: SKLAB3 07:00
PROVIDERS: ATTEND Internal Medicine
DX: E78.5 Hyperlipidemia, unspecified (principal)

== ENCOUNTER → 2023-04-03 | Outpatient (REF) | payer MEDICARE, MEDICAID ==
[2023-04-03 08:39] LABS: HEMATOCRIT 36.5 % (42.0-52.0); HEMOGLOBIN 11.2 g/dl (13.5-17.5); MEAN CORPUSCULAR HEMOGLOBIN 27.1 pg (27.0-33.0); MEAN CORPUSCULAR HGB CONC 30.7 g/dl (32.0-36.5); MEAN CORPUSCULAR VOLUME 88.4 fl (80.0-96.0); PLATELET COUNT, AUTOMATED 267 10^3/uL (150-450); RED BLOOD COUNT 4.13 10^6/uL (4.30-6.10); WHITE BLOOD COUNT 5.4 10^3/uL (4.0-10.0)
[2023-04-03 08:59] LABS: HEMOGLOBIN A1c 7.3 % (4.0-6.0)
[2023-04-03 09:13] LABS: ALBUMIN 3.4 G/DL (3.2-5.2); ALKALINE PHOSPHATASE 76 U/L (46-116); ALT/SGPT < 9 U/L (7.0-40); AST/SGOT < 8 U/L (<34); BILIRUBIN,TOTAL 0.2 MG/DL (0.3-1.2); BLOOD UREA NITROGEN 27 MG/DL (9-23); CALCIUM LEVEL 9.9 MG/DL (8.3-10.6); CARBON DIOXIDE LEVEL 30 MMOL/L (20-31); CHLORIDE LEVEL 102 MMOL/L (98-107); GLOMERULAR FILTRATION RATE > 60.0 (>49); GLUCOSE, FASTING 146 MG/DL (74-106); POTASSIUM SERUM 4.3 MMOL/L (3.5-5.1); SODIUM LEVEL 142 MMOL/L (136-145); TOTAL PROTEIN 6.3 G/DL (5.7-8.2)
== END ==
LOC: SKLAB3 07:00
PROVIDERS: ATTEND Internal Medicine
DX: E11.9 Type 2 diabetes mellitus without complications (principal); Z79.01 Long term (current) use of anticoagulants

== ENCOUNTER → 2023-05-08 | Outpatient (REF) | payer MEDICARE, MEDICAID | LOC: SKLAB3 07:00 | PROVIDERS: ATTEND Internal Medicine | DX: E11.9 Type 2 diabetes mellitus without complications (principal); E78.5 Hyperlipidemia, unspecified; Z53.8 Procedure and treatment not carried out for other reasons ==

== ENCOUNTER → 2023-06-18 | Outpatient (REF) | payer MEDICARE, MEDICAID ==
[2023-06-18 18:57] LABS: APPEARANCE, URINE CLOUDY (CLEAR); BACTERIA, URINE AUTO 2+ (NEGATIVE); BILIRUBIN, URINE AUTO NEGATIVE (NEGATIVE); BLOOD, URINE BLOOD NEGATIVE (NEGATIVE); COLOR, URINE YELLOW (YELLOW); GLUCOSE, URINE (UA) AUTO 1+ mg/dL (NEGATIVE); KETONE, URINE AUTO TRACE mg/dL (NEGATIVE); LEUKOCYTE ESTERASE, URINE AUTO 3+ (NEGATIVE); MUCUS, URINE MODERATE (NEGATIVE); NITRITE, URINE AUTO NEGATIVE (NEGATIVE); PROTEIN, URINE AUTO 3+ mg/dL (NEGATIVE); RBC, URINE AUTO 22 /HPF (0-3); SPECIFIC GRAVITY URINE AUTO 1.019 (1.002-1.035); SQUAMOUS EPITHELIAL CELL UR AU 9 /HPF (0-6); TRIPLE PHOSPHATE CRYSTALS SMALL; UROBILINOGEN, URINE AUTO 0.2 mg/dL (0.0-2.0); WBC, URINE AUTO 19 /HPF (0-3)
== END ==
LOC: SKLAB3 17:55
PROVIDERS: ATTEND Internal Medicine
DX: R41.0 Disorientation, unspecified (principal)

== ENCOUNTER → 2023-06-18 | Outpatient (REF) | payer MEDICARE, MEDICAID | LOC: SKLAB3 18:26 | PROVIDERS: ATTEND Internal Medicine | DX: R41.0 Disorientation, unspecified (principal) ==

== ENCOUNTER → 2023-06-19 | Outpatient (REF) | payer MEDICARE, MEDICAID ==
[2023-06-19 08:37] LABS: HEMATOCRIT 36.7 % (42.0-52.0); HEMOGLOBIN 11.3 g/dl (13.5-17.5); MEAN CORPUSCULAR HEMOGLOBIN 27.7 pg (27.0-33.0); MEAN CORPUSCULAR HGB CONC 30.8 g/dl (32.0-36.5); PLATELET COUNT, AUTOMATED 263 10^3/uL (150-450); RED BLOOD COUNT 4.08 10^6/uL (4.30-6.10); WHITE BLOOD COUNT 5.1 10^3/uL (4.0-10.0)
[2023-06-19 08:55] LABS: BLOOD UREA NITROGEN 23 MG/DL (9-23); CALCIUM LEVEL 8.8 MG/DL (8.3-10.6); CARBON DIOXIDE LEVEL 33 MMOL/L (20-31); CHLORIDE LEVEL 102 MMOL/L (98-107); CREATININE FOR GFR 0.36 MG/DL (0.70-1.30); GLOMERULAR FILTRATION RATE > 60.0 (>49); GLUCOSE, FASTING 105 MG/DL (74-106); POTASSIUM SERUM 4.2 MMOL/L (3.5-5.1); SODIUM LEVEL 141 MMOL/L (136-145)
== END ==
LOC: SKLAB3 07:58
PROVIDERS: ATTEND Internal Medicine
DX: R41.0 Disorientation, unspecified (principal)

== ENCOUNTER → 2023-07-10 | Outpatient (REF) | payer MEDICARE, MEDICAID | LOC: SKLAB3 07:00 | PROVIDERS: ATTEND Internal Medicine | DX: E11.9 Type 2 diabetes mellitus without complications (principal) ==

== ENCOUNTER → 2023-08-22 | Outpatient (REF) | payer MEDICARE, MEDICAID ==
[~2023-08-22] MED LIST changes: -ALLE1TAB23 PO; +FEXO-157 PO
[2023-08-22 10:54] LABS: BASO % 0.4 % (0.0-1.0); EOS # 0.1 10^3/uL (0.0-0.5); HEMOGLOBIN 11.2 g/dl (13.5-17.5); LYMPH # 1.5 10^3/uL (1.5-5.0); LYMPH % 22.1 % (24.0-44.0); MEAN CORPUSCULAR HEMOGLOBIN 27.1 pg (27.0-33.0); MEAN CORPUSCULAR HGB CONC 30.3 g/dl (32.0-36.5); MEAN CORPUSCULAR VOLUME 89.4 fl (80.0-96.0); MONO # 0.7 10^3/uL (0.0-0.8); MONO % 10.7 % (2.0-8.0); NEUTROPHILS # 4.4 10^3/uL (1.5-8.5); NEUTROPHILS % 64.1 % (36.0-66.0); PLATELET COUNT, AUTOMATED 319 10^3/uL (150-450); RED BLOOD COUNT 4.14 10^6/uL (4.30-6.10); WHITE BLOOD COUNT 6.9 10^3/uL (4.0-10.0)
[2023-08-22 11:17] LABS: ALBUMIN 3.5 G/DL (3.2-5.2); BLOOD UREA NITROGEN 33 MG/DL (9-23); CALCIUM LEVEL 9.6 MG/DL (8.3-10.6); CARBON DIOXIDE LEVEL 31 MMOL/L (20-31); CHLORIDE LEVEL 100 MMOL/L (98-107); GLOMERULAR FILTRATION RATE > 60.0 (>49); GLUCOSE, FASTING 172 MG/DL (74-106); MAGNESIUM LEVEL 2.2 MG/DL (1.8-2.4); PHOSPHORUS LEVEL 3.8 MG/DL (2.4-5.1); POTASSIUM SERUM 4.5 MMOL/L (3.5-5.1); SODIUM LEVEL 138 MMOL/L (136-145)
[2023-08-22 11:37] LABS: AMORPHOUS SEDIMENT SMALL (NEGATIVE); BACTERIA, URINE AUTO NEGATIVE (NEGATIVE); MUCUS, URINE SMALL (NEGATIVE); RBC, URINE AUTO 49 /HPF (0-3); SQUAMOUS EPITHELIAL CELL UR AU 0 /HPF (0-6); TRIPLE PHOSPHATE CRYSTALS LARGE; WBC, URINE AUTO 19 /HPF (0-3)
[2023-08-22 11:39] LABS: APPEARANCE, URINE TURBID (CLEAR); BILIRUBIN, URINE AUTO NEGATIVE (NEGATIVE); BLOOD, URINE BLOOD NEGATIVE (NEGATIVE); COLOR, URINE AMBER (YELLOW); GLUCOSE, URINE (UA) AUTO NEGATIVE (NEGATIVE); KETONE, URINE AUTO TRACE mg/dL (NEGATIVE); LEUKOCYTE ESTERASE, URINE AUTO 2+ (NEGATIVE); NITRITE, URINE AUTO NEGATIVE (NEGATIVE); PROTEIN, URINE AUTO 3+ mg/dL (NEGATIVE); SPECIFIC GRAVITY URINE AUTO 1.016 (1.002-1.035); UROBILINOGEN, URINE AUTO 0.2 mg/dL (0.0-2.0)
[2023-08-22 11:41] LABS: CREATININE,RANDOM URINE 37.8 MG/DL
[2023-08-22 12:02] LABS: TOTAL PROTEIN,RANDOM URINE 153.4 MG/DL (0.0-14.0)
== END ==
LOC: SKLAB3 09:54
PROVIDERS: ATTEND Internal Medicine
DX: N18.9 Chronic kidney disease, unspecified (principal)

== ENCOUNTER → 2023-09-04 | Outpatient (REF) | payer MEDICARE, MEDICAID ==
[~2023-09-04] MED LIST changes: +HYDR-161 PO; -HYDR10TAB PO
[2023-09-04 11:01] LABS: CHOLESTEROL RISK RATIO 3.33 (<5); HDL CHOLESTEROL 21.6 MG/DL (>40); NON-HDL-C 50.4 MG/DL
== END ==
LOC: SKLAB3 09:39
PROVIDERS: ATTEND Internal Medicine
DX: E78.5 Hyperlipidemia, unspecified (principal)

== ENCOUNTER → 2023-10-09 | Outpatient (REF) | payer MEDICARE, MEDICAID ==
[~2023-10-09] MED LIST changes: -ASPI-161 PO; +ASPI-615 PO
[2023-10-09 13:17] LABS: HEMATOCRIT 34.1 % (42.0-52.0); HEMOGLOBIN 10.2 g/dl (13.5-17.5); MEAN CORPUSCULAR HEMOGLOBIN 26.5 pg (27.0-33.0); MEAN CORPUSCULAR HGB CONC 29.9 g/dl (32.0-36.5); MEAN CORPUSCULAR VOLUME 88.6 fl (80.0-96.0); PLATELET COUNT, AUTOMATED 340 10^3/uL (150-450); RED BLOOD COUNT 3.85 10^6/uL (4.30-6.10); WHITE BLOOD COUNT 8.7 10^3/uL (4.0-10.0)
[2023-10-09 13:42] LABS: ALKALINE PHOSPHATASE 75 U/L (46-116); ALT/SGPT 10 U/L (7.0-40); AST/SGOT < 8 U/L (<34); BILIRUBIN,TOTAL 0.2 MG/DL (0.3-1.2); BLOOD UREA NITROGEN 39 MG/DL (9-23); CALCIUM LEVEL 9.2 MG/DL (8.3-10.6); CARBON DIOXIDE LEVEL 29 MMOL/L (20-31); CHLORIDE LEVEL 99 MMOL/L (98-107); CREATININE FOR GFR 0.45 MG/DL (0.70-1.30); GLOMERULAR FILTRATION RATE > 60.0 (>49); GLUCOSE, FASTING 152 MG/DL (74-106); POTASSIUM SERUM 4.7 MMOL/L (3.5-5.1); SODIUM LEVEL 136 MMOL/L (136-145); TOTAL PROTEIN 6.1 G/DL (5.7-8.2)
== END ==
LOC: SKLAB3 10:16
PROVIDERS: ATTEND Internal Medicine
DX: E11.9 Type 2 diabetes mellitus without complications (principal); Z79.01 Long term (current) use of anticoagulants

== ENCOUNTER → 2023-10-12 | Outpatient (REF) | payer MEDICARE, MEDICAID | LOC: M SFHCWOUN 11:41 | PROVIDERS: ATTEND Surgery | DX: M79.89 Other specified soft tissue disorders (principal) ==

== ENCOUNTER → 2023-10-26 | Outpatient (REF) | payer MEDICARE, MEDICAID ==
[2023-10-26 14:17] LABS: BASO % 0.2 % (0.0-1.0); EOS # 0.1 10^3/uL (0.0-0.5); EOS % 1.3 % (0.0-3.0); HEMOGLOBIN 10.1 g/dl (13.5-17.5); LYMPH # 1.4 10^3/uL (1.5-5.0); LYMPH % 15.9 % (24.0-44.0); MEAN CORPUSCULAR HEMOGLOBIN 26.4 pg (27.0-33.0); MEAN CORPUSCULAR HGB CONC 30.6 g/dl (32.0-36.5); MEAN CORPUSCULAR VOLUME 86.4 fl (80.0-96.0); MONO # 0.7 10^3/uL (0.0-0.8); MONO % 8.5 % (2.0-8.0); NEUTROPHILS # 6.3 10^3/uL (1.5-8.5); NEUTROPHILS % 72.6 % (36.0-66.0); PLATELET COUNT, AUTOMATED 408 10^3/uL (150-450); RED BLOOD COUNT 3.82 10^6/uL (4.30-6.10); WHITE BLOOD COUNT 8.6 10^3/uL (4.0-10.0)
[2023-10-26 14:31] LABS: ERYTHROCYTE SEDIMENTATION RATE 98 mm/hr (0-20)
[2023-10-26 14:42] LABS: ALBUMIN 2.7 G/DL (3.2-5.2); ALKALINE PHOSPHATASE 70 U/L (46-116); ALT/SGPT 10 U/L (7.0-40); AST/SGOT < 8 U/L (<34); BILIRUBIN,TOTAL 0.2 MG/DL (0.3-1.2); BLOOD UREA NITROGEN 27 MG/DL (9-23); CALCIUM LEVEL 8.7 MG/DL (8.3-10.6); CARBON DIOXIDE LEVEL 32 MMOL/L (20-31); CHLORIDE LEVEL 98 MMOL/L (98-107); GLOMERULAR FILTRATION RATE > 60.0 (>49); GLUCOSE, FASTING 130 MG/DL (74-106); POTASSIUM SERUM 4.1 MMOL/L (3.5-5.1); SODIUM LEVEL 134 MMOL/L (136-145); TOTAL PROTEIN 6.4 G/DL (5.7-8.2)
== END ==
LOC: SKLAB3 13:30
PROVIDERS: ATTEND Nurse Practitioner Family
DX: R11.10 Vomiting, unspecified (principal); E11.621 Type 2 diabetes mellitus with foot ulcer; L97.509 Non-pressure chronic ulcer of other part of unspecified foot with unspecified severity

== ENCOUNTER → 2023-10-26 | Outpatient (REF) | payer MEDICARE, MEDICAID | LOC: SKLAB3 16:18 | PROVIDERS: ATTEND Nurse Practitioner Family | DX: E11.621 Type 2 diabetes mellitus with foot ulcer (principal); L97.509 Non-pressure chronic ulcer of other part of unspecified foot with unspecified severity ==

== ENCOUNTER 2023-11-02 12:13 | Inpatient (IN) | payer MEDICARE, MEDICAID ==
[~2023-11-02] VITALS: Ht 190.5 cm; Wt 83.9 kg
[~2023-11-02 12:13] MED LIST changes: +UNRESOLVED CLARIFICATION ENTRY XX SCH
[2023-11-02 13:16] LABS: BASO % 0.5 % (0.0-1.0); EOS # 0.1 10^3/uL (0.0-0.5); EOS % 1.3 % (0.0-3.0); HEMATOCRIT 31.6 % (42.0-52.0); HEMOGLOBIN 9.4 g/dl (13.5-17.5); LYMPH # 1.3 10^3/uL (1.5-5.0); LYMPH % 16.3 % (24.0-44.0); MEAN CORPUSCULAR HEMOGLOBIN 25.8 pg (27.0-33.0); MEAN CORPUSCULAR HGB CONC 29.7 g/dl (32.0-36.5); MEAN CORPUSCULAR VOLUME 86.6 fl (80.0-96.0); MONO % 11.9 % (2.0-8.0); NEUTROPHILS # 5.5 10^3/uL (1.5-8.5); NEUTROPHILS % 68.6 % (36.0-66.0); PLATELET COUNT, AUTOMATED 458 10^3/uL (150-450); RED BLOOD COUNT 3.65 10^6/uL (4.30-6.10)
[2023-11-02 13:41] LABS: BLOOD UREA NITROGEN 41 MG/DL (9-23); CALCIUM LEVEL 8.9 MG/DL (8.3-10.6); CARBON DIOXIDE LEVEL 30 MMOL/L (20-31); CHLORIDE LEVEL 100 MMOL/L (98-107); CREATININE FOR GFR 0.41 MG/DL (0.70-1.30); GLOMERULAR FILTRATION RATE > 60.0 (>49); GLUCOSE, FASTING 159 MG/DL (74-106); POTASSIUM SERUM 4.5 MMOL/L (3.5-5.1); SODIUM LEVEL 137 MMOL/L (136-145)
[2023-11-02 14:12] LABS: ERYTHROCYTE SEDIMENTATION RATE 94 mm/hr (0-20)
[2023-11-02] MEDS ORDERED: VANCOMYCIN HCL 2,000 MG in D5W 500 ML IV ONE (14:15)
[2023-11-02 14:31] LABS: ALBUMIN 2.9 G/DL (3.2-5.2); ALKALINE PHOSPHATASE 78 U/L (46-116); ALT/SGPT < 9 U/L (7.0-40); AST/SGOT < 8 U/L (<34); BILIRUBIN,DIRECT 0.2 MG/DL (<0.4); BILIRUBIN,TOTAL 0.4 MG/DL (0.3-1.2); TOTAL PROTEIN 6.5 G/DL (5.7-8.2)
[2023-11-02] MEDS: VANCOMYCIN HCL 1,000 MG, VIAL MATE ADAPTER 1 EACH in D5W 250 ML IV ONE ×3 (14:46→18:35)
[2023-11-02] MEDS ORDERED: TRUL10IN SC (15:15)
[2023-11-02] MEDS ORDERED: CIME300T91 PO (15:15)
[2023-11-02] MEDS ORDERED: METF-838 PO (15:15)
[2023-11-02] MEDS ORDERED: ONDA-83 PO (15:15)
[2023-11-02] MEDS ORDERED: LOSA25TA13 PO (15:15)
[2023-11-02] MEDS ORDERED: OXYB5TAB14 PO (15:15)
[2023-11-02] MEDS ORDERED: MAGN400T35 PO (15:15)
[2023-11-02] MEDS ORDERED: PROC25SU24 PR (15:15)
[2023-11-02] MEDS ORDERED: HOME MED LIST COMPLETE! XX SCH (15:15)
[2023-11-02 16:00] VITALS: BP 155/79; TEMP 97.5; O2SAT 98
[2023-11-02] MEDS ORDERED: GLUCAGON INJ 1MG VIAL SC PRN (17:20)
[2023-11-02] MEDS ORDERED: GLUCOSE 4GM CHEW TABLET PO PRN (17:20)
[2023-11-02] MEDS ORDERED: DEXTROSE 50% 50ML SYRINGE IV PRN (17:20)
[2023-11-02] MEDS: INSULIN LISPRO (NovoLOG) PER UNIT SC SCH (17:30)
[2023-11-02] MEDS: NS 1,000 ML IV ONE (17:59)
[2023-11-02 20:01] VITALS: BP 145/80; TEMP 97.5; O2SAT 99
[2023-11-02] MEDS: MAGNESIUM OXIDE 400MG TAB (MAG-OX) PO SCH (20:11)
[2023-11-02] MEDS: PIPERACILLIN/TAZOBACTAM SOD 3.375 GM in D5W MINI-BAG PLUS 50 ML IV SCH (20:11)
[2023-11-02] MEDS: ACETAMINOPHEN 650MG ER TAB (TYLENOL ARTHRITIS) PO SCH (20:11)
[2023-11-02] MEDS: oxyBUTYnin 5 MG TAB PO SCH (20:11)
[2023-11-02] MEDS: ATORVASTATIN 20 MG TAB PO SCH (20:11)
[2023-11-03] MEDS: VANCOMYCIN HCL 1,000 MG, VIAL MATE ADAPTER 1 EACH in D5W 250 ML IV SCH (03:01)
[2023-11-03 06:02] VITALS: BP 132/69; TEMP 97.5; O2SAT 98
[2023-11-03 07:24] LABS: BASO % 0.7 % (0.0-1.0); EOS # 0.2 10^3/uL (0.0-0.5); EOS % 3.1 % (0.0-3.0); HEMATOCRIT 30.4 % (42.0-52.0); HEMOGLOBIN 9.2 g/dl (13.5-17.5); LYMPH # 1.1 10^3/uL (1.5-5.0); MEAN CORPUSCULAR HEMOGLOBIN 25.8 pg (27.0-33.0); MEAN CORPUSCULAR HGB CONC 30.3 g/dl (32.0-36.5); MEAN CORPUSCULAR VOLUME 85.2 fl (80.0-96.0); MONO # 0.8 10^3/uL (0.0-0.8); MONO % 13.8 % (2.0-8.0); NEUTROPHILS # 3.6 10^3/uL (1.5-8.5); NEUTROPHILS % 62.4 % (36.0-66.0); PLATELET COUNT, AUTOMATED 398 10^3/uL (150-450); RED BLOOD COUNT 3.57 10^6/uL (4.30-6.10); WHITE BLOOD COUNT 5.7 10^3/uL (4.0-10.0)
[2023-11-03 07:45] LABS: BLOOD UREA NITROGEN 22 MG/DL (9-23); CALCIUM LEVEL 8.6 MG/DL (8.3-10.6); CARBON DIOXIDE LEVEL 33 MMOL/L (20-31); CHLORIDE LEVEL 101 MMOL/L (98-107); CREATININE FOR GFR 0.37 MG/DL (0.70-1.30); GLOMERULAR FILTRATION RATE > 60.0 (>49); GLUCOSE, FASTING 139 MG/DL (74-106); POTASSIUM SERUM 4.1 MMOL/L (3.5-5.1); SODIUM LEVEL 138 MMOL/L (136-145)
[2023-11-03] MEDS: ESCITALOPRAM OXALATE 10 MG TAB (LEXAPRO) PO SCH (08:14)
[2023-11-03] MEDS: ASPIRIN 81MG CHEW TABLET PO SCH (08:14)
[2023-11-03] MEDS: ENOXAPARIN 40MG/0.4ML SYRINGE (J1650 PER 10MG) SC SCH (08:14)
[2023-11-03 14:59] VITALS: BP 121/64; TEMP 97.9; O2SAT 99
[2023-11-03 19:29] VITALS: BP 120/63; TEMP 97; O2SAT 96
[2023-11-04 05:44] VITALS: BP 136/78; TEMP 97.3; O2SAT 96
[2023-11-04 07:34] LABS: BASO % 0.6 % (0.0-1.0); EOS # 0.2 10^3/uL (0.0-0.5); EOS % 4.4 % (0.0-3.0); HEMATOCRIT 30.9 % (42.0-52.0); HEMOGLOBIN 9.6 g/dl (13.5-17.5); LYMPH # 1.2 10^3/uL (1.5-5.0); LYMPH % 23.1 % (24.0-44.0); MEAN CORPUSCULAR HEMOGLOBIN 26.5 pg (27.0-33.0); MEAN CORPUSCULAR HGB CONC 31.1 g/dl (32.0-36.5); MEAN CORPUSCULAR VOLUME 85.4 fl (80.0-96.0); MONO # 0.7 10^3/uL (0.0-0.8); MONO % 14.1 % (2.0-8.0); NEUTROPHILS % 56.8 % (36.0-66.0); PLATELET COUNT, AUTOMATED 392 10^3/uL (150-450); RED BLOOD COUNT 3.62 10^6/uL (4.30-6.10); WHITE BLOOD COUNT 5.2 10^3/uL (4.0-10.0)
[2023-11-04 08:00] LABS: BLOOD UREA NITROGEN 12 MG/DL (9-23); CALCIUM LEVEL 8.7 MG/DL (8.3-10.6); CARBON DIOXIDE LEVEL 34 MMOL/L (20-31); CHLORIDE LEVEL 100 MMOL/L (98-107); CREATININE FOR GFR 0.38 MG/DL (0.70-1.30); GLOMERULAR FILTRATION RATE > 60.0 (>49); GLUCOSE, FASTING 167 MG/DL (74-106); POTASSIUM SERUM 4.5 MMOL/L (3.5-5.1); SODIUM LEVEL 137 MMOL/L (136-145)
[2023-11-04 14:00] VITALS: BP 134/79; TEMP 98.6; O2SAT 98
[2023-11-04 20:28] VITALS: BP 140/81; TEMP 98.2; O2SAT 96
[2023-11-04] MEDS: LEVEMIR (INSULIN DETEMIR) 1 UNITS/0.01ML SC SCH (20:49)
[2023-11-05 05:12] VITALS: BP 115/57; TEMP 97.2; O2SAT 96
[2023-11-05 06:00] VITALS: BP 126/69; TEMP 97.7; O2SAT 96
[2023-11-05 06:59] LABS: BASO # 0.1 10^3/uL (0.0-0.2); BASO % 0.9 % (0.0-1.0); EOS # 0.2 10^3/uL (0.0-0.5); EOS % 4.5 % (0.0-3.0); HEMATOCRIT 31.6 % (42.0-52.0); HEMOGLOBIN 9.7 g/dl (13.5-17.5); LYMPH # 1.3 10^3/uL (1.5-5.0); LYMPH % 24.5 % (24.0-44.0); MEAN CORPUSCULAR HEMOGLOBIN 26.1 pg (27.0-33.0); MEAN CORPUSCULAR HGB CONC 30.7 g/dl (32.0-36.5); MEAN CORPUSCULAR VOLUME 85.2 fl (80.0-96.0); MONO # 0.8 10^3/uL (0.0-0.8); MONO % 14.1 % (2.0-8.0); NEUTROPHILS # 2.9 10^3/uL (1.5-8.5); NEUTROPHILS % 54.7 % (36.0-66.0); PLATELET COUNT, AUTOMATED 373 10^3/uL (150-450); RED BLOOD COUNT 3.71 10^6/uL (4.30-6.10); WHITE BLOOD COUNT 5.3 10^3/uL (4.0-10.0)
[2023-11-05 07:21] LABS: BLOOD UREA NITROGEN 11 MG/DL (9-23); CALCIUM LEVEL 8.7 MG/DL (8.3-10.6); CARBON DIOXIDE LEVEL 32 MMOL/L (20-31); CHLORIDE LEVEL 100 MMOL/L (98-107); CREATININE FOR GFR 0.33 MG/DL (0.70-1.30); GLOMERULAR FILTRATION RATE > 60.0 (>49); GLUCOSE, FASTING 184 MG/DL (74-106); POTASSIUM SERUM 4.6 MMOL/L (3.5-5.1); SODIUM LEVEL 135 MMOL/L (136-145)
[2023-11-05 10:37] VITALS: BP 131/68; TEMP 97.7; O2SAT 94
[2023-11-05] MEDS: VANCOMYCIN HCL 750 MG, VIAL MATE ADAPTER 1 EACH in D5W 250 ML IV SCH (17:07)
[2023-11-05 19:39] VITALS: BP 156/82; TEMP 98.1; O2SAT 98
[2023-11-06 05:40] VITALS: BP 143/75; TEMP 97.7; O2SAT 91
[2023-11-06 08:34] LABS: BASO % 0.5 % (0.0-1.0); EOS # 0.2 10^3/uL (0.0-0.5); EOS % 4.1 % (0.0-3.0); HEMATOCRIT 33.6 % (42.0-52.0); HEMOGLOBIN 10.1 g/dl (13.5-17.5); LYMPH # 1.4 10^3/uL (1.5-5.0); LYMPH % 24.9 % (24.0-44.0); MEAN CORPUSCULAR HEMOGLOBIN 25.9 pg (27.0-33.0); MEAN CORPUSCULAR HGB CONC 30.1 g/dl (32.0-36.5); MEAN CORPUSCULAR VOLUME 86.2 fl (80.0-96.0); MONO # 0.7 10^3/uL (0.0-0.8); MONO % 12.3 % (2.0-8.0); NEUTROPHILS # 3.2 10^3/uL (1.5-8.5); NEUTROPHILS % 56.2 % (36.0-66.0); PLATELET COUNT, AUTOMATED 390 10^3/uL (150-450); WHITE BLOOD COUNT 5.6 10^3/uL (4.0-10.0)
[2023-11-06 09:03] LABS: BLOOD UREA NITROGEN 11 MG/DL (9-23); CALCIUM LEVEL 8.9 MG/DL (8.3-10.6); CARBON DIOXIDE LEVEL 33 MMOL/L (20-31); CHLORIDE LEVEL 101 MMOL/L (98-107); CREATININE FOR GFR 0.41 MG/DL (0.70-1.30); GLOMERULAR FILTRATION RATE > 60.0 (>49); GLUCOSE, FASTING 199 MG/DL (74-106); POTASSIUM SERUM 4.9 MMOL/L (3.5-5.1); SODIUM LEVEL 137 MMOL/L (136-145)
[2023-11-06] MEDS ORDERED: CEFA500C2 PO (13:17)
== END 2023-11-06 14:05 | DRG 629 ==
LOC: M ED 12:13 → M ED INP 15:04 → ENRESERV 15:28 → M MS5PR 16:04
PROVIDERS: ADMIT Internal Medicine Nephrology; ATTEND Internal Medicine Nephrology
PROC: 0QBL0ZZ Excision of Right Tarsal, Open Approach (ICD-10-PCS; principal; 2023-11-03)
DX: E11.621 Type 2 diabetes mellitus with foot ulcer (principal); J96.11 Chronic respiratory failure with hypoxia; J96.12 Chronic respiratory failure with hypercapnia; I50.32 Chronic diastolic (congestive) heart failure; M86.8X7 Other osteomyelitis, ankle and foot; L03.116 Cellulitis of left lower limb; L97.519 Non-pressure chronic ulcer of other part of right foot with unspecified severity; E11.40 Type 2 diabetes mellitus with diabetic neuropathy, unspecified; E11.628 Type 2 diabetes mellitus with other skin complications; N31.9 Neuromuscular dysfunction of bladder, unspecified; E11.69 Type 2 diabetes mellitus with other specified complication; G47.33 Obstructive sleep apnea (adult) (pediatric); I11.0 Hypertensive heart disease with heart failure; I69.319 Unspecified symptoms and signs involving cognitive functions following cerebral infarction; I27.20 Pulmonary hypertension, unspecified; E11.51 Type 2 diabetes mellitus with diabetic peripheral angiopathy without gangrene; E78.5 Hyperlipidemia, unspecified; E29.1 Testicular hypofunction; F32.A Depression, unspecified; I25.2 Old myocardial infarction; R33.9 Retention of urine, unspecified; E83.42 Hypomagnesemia; D50.9 Iron deficiency anemia, unspecified; Z86.711 Personal history of pulmonary embolism; Z86.718 Personal history of other venous thrombosis and embolism; Z99.3 Dependence on wheelchair; Z89.512 Acquired absence of left leg below knee

== ENCOUNTER → 2023-11-06 | Outpatient (REF) | payer MEDICARE, MEDICAID ==
[~2023-11-06] MED LIST changes: +CEFA500C2 PO; +CIME300T91 PO; +LOSA25TA13 PO; +MAGN400T35 PO; +ONDA-83 PO; +OXYB5TAB14 PO; +PROC25SU24 PR; +TRUL10IN SC; -UNRESOLVED CLARIFICATION ENTRY XX SCH
== END ==
LOC: SKLAB3 10:28
PROVIDERS: ATTEND Nurse Practitioner Family
DX: E11.9 Type 2 diabetes mellitus without complications (principal); Z53.8 Procedure and treatment not carried out for other reasons

== ENCOUNTER → 2023-11-07 | Outpatient (REF) | payer MEDICARE, MEDICAID ==
[2023-11-07 11:56] LABS: BASO # 0.1 10^3/uL (0.0-0.2); BASO % 0.9 % (0.0-1.0); EOS # 0.2 10^3/uL (0.0-0.5); EOS % 3.9 % (0.0-3.0); HEMATOCRIT 33.5 % (42.0-52.0); HEMOGLOBIN 9.9 g/dl (13.5-17.5); LYMPH # 1.4 10^3/uL (1.5-5.0); MEAN CORPUSCULAR HEMOGLOBIN 26.1 pg (27.0-33.0); MEAN CORPUSCULAR HGB CONC 29.6 g/dl (32.0-36.5); MEAN CORPUSCULAR VOLUME 88.2 fl (80.0-96.0); MONO # 0.6 10^3/uL (0.0-0.8); MONO % 11.3 % (2.0-8.0); NEUTROPHILS # 3.2 10^3/uL (1.5-8.5); PLATELET COUNT, AUTOMATED 404 10^3/uL (150-450); WHITE BLOOD COUNT 5.7 10^3/uL (4.0-10.0)
[2023-11-07 12:25] LABS: FERRITIN 26.6 NG/ML (10.5-307.3)
[2023-11-07 12:27] LABS: IRON (FE) 30 UG/DL (65-175)
[2023-11-07 12:28] LABS: BLOOD UREA NITROGEN 17 MG/DL (9-23); CALCIUM LEVEL 8.9 MG/DL (8.3-10.6); CARBON DIOXIDE LEVEL 30 MMOL/L (20-31); CHLORIDE LEVEL 100 MMOL/L (98-107); GLOMERULAR FILTRATION RATE > 60.0 (>49); GLUCOSE, FASTING 207 MG/DL (74-106); POTASSIUM SERUM 4.9 MMOL/L (3.5-5.1); SODIUM LEVEL 136 MMOL/L (136-145)
[2023-11-07 12:36] LABS: HEMOGLOBIN A1c 6.8 % (4.0-6.0)
== END ==
LOC: SKLAB3 09:27
PROVIDERS: ATTEND Nurse Practitioner Family
DX: E11.621 Type 2 diabetes mellitus with foot ulcer (principal); L97.509 Non-pressure chronic ulcer of other part of unspecified foot with unspecified severity; M86.171 Other acute osteomyelitis, right ankle and foot; E11.69 Type 2 diabetes mellitus with other specified complication; D64.9 Anemia, unspecified

== ENCOUNTER → 2023-11-21 | Outpatient (REF) | payer MEDICAID, MEDICARE ==
[2023-11-21 08:42] LABS: BASO % 0.6 % (0.0-1.0); EOS # 0.1 10^3/uL (0.0-0.5); HEMATOCRIT 34.6 % (42.0-52.0); HEMOGLOBIN 10.6 g/dl (13.5-17.5); LYMPH # 1.5 10^3/uL (1.5-5.0); MEAN CORPUSCULAR HEMOGLOBIN 26.1 pg (27.0-33.0); MEAN CORPUSCULAR HGB CONC 30.6 g/dl (32.0-36.5); MEAN CORPUSCULAR VOLUME 85.2 fl (80.0-96.0); MONO # 0.8 10^3/uL (0.0-0.8); MONO % 11.9 % (2.0-8.0); NEUTROPHILS # 4.3 10^3/uL (1.5-8.5); NEUTROPHILS % 63.1 % (36.0-66.0); PLATELET COUNT, AUTOMATED 260 10^3/uL (150-450); RED BLOOD COUNT 4.06 10^6/uL (4.30-6.10); WHITE BLOOD COUNT 6.9 10^3/uL (4.0-10.0)
[2023-11-21 09:18] LABS: BLOOD UREA NITROGEN 26 MG/DL (9-23); CALCIUM LEVEL 9.6 MG/DL (8.3-10.6); CARBON DIOXIDE LEVEL 31 MMOL/L (20-31); CHLORIDE LEVEL 101 MMOL/L (98-107); CREATININE FOR GFR 0.34 MG/DL (0.70-1.30); GLOMERULAR FILTRATION RATE > 60.0 (>49); GLUCOSE, FASTING 177 MG/DL (74-106); POTASSIUM SERUM 4.2 MMOL/L (3.5-5.1); SODIUM LEVEL 140 MMOL/L (136-145)
== END ==
LOC: SKLAB3 10:03
PROVIDERS: ATTEND Nurse Practitioner Family
DX: I50.9 Heart failure, unspecified (principal); E87.5 Hyperkalemia

== ENCOUNTER → 2023-11-28 | Outpatient (REF) | payer MEDICARE, MEDICAID | LOC: SKLAB3 14:56 | PROVIDERS: ATTEND Nurse Practitioner Family | DX: E11.9 Type 2 diabetes mellitus without complications (principal); Z53.8 Procedure and treatment not carried out for other reasons ==

== ENCOUNTER → 2023-12-20 | Outpatient (REF) | payer MEDICARE, MEDICAID ==
[~2023-12-20] MED LIST changes: +DOXY-440 PO; -DOXY-444 PO; -PROC25SU24 PR; +PROC25SU27 PR
[2023-12-20 13:06] LABS: BASO % 0.3 % (0.0-1.0); EOS # 0.2 10^3/uL (0.0-0.5); EOS % 2.3 % (0.0-3.0); HEMATOCRIT 33.7 % (42.0-52.0); HEMOGLOBIN 10.4 g/dl (13.5-17.5); LYMPH # 1.3 10^3/uL (1.5-5.0); MEAN CORPUSCULAR HEMOGLOBIN 25.4 pg (27.0-33.0); MEAN CORPUSCULAR HGB CONC 30.9 g/dl (32.0-36.5); MEAN CORPUSCULAR VOLUME 82.2 fl (80.0-96.0); MONO # 0.7 10^3/uL (0.0-0.8); MONO % 10.4 % (2.0-8.0); NEUTROPHILS # 4.6 10^3/uL (1.5-8.5); NEUTROPHILS % 67.7 % (36.0-66.0); PLATELET COUNT, AUTOMATED 276 10^3/uL (150-450); WHITE BLOOD COUNT 6.9 10^3/uL (4.0-10.0)
[2023-12-20 13:27] LABS: ALBUMIN 3.1 G/DL (3.2-5.2); ALKALINE PHOSPHATASE 70 U/L (46-116); ALT/SGPT < 9 U/L (7.0-40); AST/SGOT < 8 U/L (<34); BILIRUBIN,TOTAL 0.2 MG/DL (0.3-1.2); BLOOD UREA NITROGEN 23 MG/DL (9-23); CALCIUM LEVEL 9.2 MG/DL (8.3-10.6); CARBON DIOXIDE LEVEL 29 MMOL/L (20-31); CHLORIDE LEVEL 100 MMOL/L (98-107); CREATININE FOR GFR 0.35 MG/DL (0.70-1.30); GLOMERULAR FILTRATION RATE > 60.0 (>49); GLUCOSE, FASTING 146 MG/DL (74-106); POTASSIUM SERUM 4.4 MMOL/L (3.5-5.1); SODIUM LEVEL 137 MMOL/L (136-145); TOTAL PROTEIN 6.2 G/DL (5.7-8.2)
== END ==
LOC: SKLAB3 12:03
PROVIDERS: ATTEND Internal Medicine
DX: I10 Essential (primary) hypertension (principal)

== ENCOUNTER → 2023-12-31 | Outpatient (REF) | payer MEDICARE, MEDICAID | LOC: SKLAB3 11:10 | PROVIDERS: ATTEND Internal Medicine | DX: Z01.818 Encounter for other preprocedural examination (principal); R94.31 Abnormal electrocardiogram [ECG] [EKG] ==

== ENCOUNTER 2024-01-10 04:24 | Observation (INO) | payer MEDICARE, MEDICAID ==
[~2024-01-10] VITALS: Ht 190.5 cm; Wt 77.5 kg
[~2024-01-10 04:24] MED LIST changes: -CRAN400C PO; +CRANBERRY400 MG PO
[2024-01-10 05:23] LABS: BASO % 0.2 % (0.0-1.0); HEMATOCRIT 40.4 % (42.0-52.0); HEMOGLOBIN 12.3 g/dl (13.5-17.5); LYMPH % 7.5 % (24.0-44.0); MEAN CORPUSCULAR HEMOGLOBIN 24.6 pg (27.0-33.0); MEAN CORPUSCULAR HGB CONC 30.4 g/dl (32.0-36.5); MEAN CORPUSCULAR VOLUME 80.8 fl (80.0-96.0); MONO # 1.2 10^3/uL (0.0-0.8); MONO % 9.1 % (2.0-8.0); NEUTROPHILS # 10.5 10^3/uL (1.5-8.5); NEUTROPHILS % 82.7 % (36.0-66.0); PLATELET COUNT, AUTOMATED 323 10^3/uL (150-450); WHITE BLOOD COUNT 12.7 10^3/uL (4.0-10.0)
[2024-01-10 05:36] LABS: CK-MB VALUE MASS < 1.0 NG/ML (<3.6); LIPASE 18 U/L (12-53)
[2024-01-10 05:38] LABS: ALBUMIN 3.6 G/DL (3.2-5.2); ALKALINE PHOSPHATASE 82 U/L (46-116); ALT/SGPT 9 U/L (7.0-40); AST/SGOT < 8 U/L (<34); BILIRUBIN,DIRECT 0.3 MG/DL (<0.4); BILIRUBIN,TOTAL 0.5 MG/DL (0.3-1.2); BLOOD UREA NITROGEN 36 MG/DL (9-23); CALCIUM LEVEL 9.5 MG/DL (8.3-10.6); CARBON DIOXIDE LEVEL 29 MMOL/L (20-31); CHLORIDE LEVEL 100 MMOL/L (98-107); CREATININE FOR GFR 0.61 MG/DL (0.70-1.30); GLOMERULAR FILTRATION RATE > 60.0 (>49); GLUCOSE, FASTING 210 MG/DL (74-106); POTASSIUM SERUM 4.8 MMOL/L (3.5-5.1); SODIUM LEVEL 139 MMOL/L (136-145)
[2024-01-10 05:39] LABS: CPK CREATINE PHOSPHOKINASE 36 U/L (46-171); MB/CK RELATIVE INDEX 2.77 (< OR =4)
[2024-01-10] MEDS: NS 1,000 ML IV ONE ×3 (06:02→18:37)
[2024-01-10] MEDS ORDERED: ISOVUE-370 76% 100ML VIAL As Ordered ONE (06:40)
[2024-01-10] MEDS: MIRALAX *UNIT DOSE* 17GM PACKET PO PRN (08:23)
[2024-01-10] MEDS: MEROPENEM INJ 1 GM in IV 1 EA IV ONE (08:25)
[2024-01-10] MEDS ORDERED: LOSA50TA28 PO (12:12)
[2024-01-10] MEDS ORDERED: HOME MED LIST COMPLETE! XX SCH (12:15)
[2024-01-10] MEDS ORDERED: MOM 30ML SUSPENSION UDC PO PRN (13:15)
[2024-01-10] MEDS ORDERED: MEROPENEM INJ 2 GM in NS 100 ML IV SCH (13:35)
[2024-01-10] MEDS ORDERED: GLUCOSE 4 GM CHEW PO PRN ×2 (13:35→18:15)
[2024-01-10] MEDS ORDERED: GLUCAGON INJ 1MG VIAL SC PRN ×2 (13:35→18:15)
[2024-01-10] MEDS ORDERED: DEXTROSE 50% 50ML SYRINGE IV PRN ×2 (13:36→18:15)
[2024-01-10 15:04] LABS: CK-MB VALUE MASS < 1.0 NG/ML (<3.6)
[2024-01-10 15:06] LABS: CPK CREATINE PHOSPHOKINASE 31 U/L (46-171); MB/CK RELATIVE INDEX 3.22 (< OR =4)
[2024-01-10 16:27] LABS: ERYTHROCYTE SEDIMENTATION RATE 98 mm/hr (0-20)
[2024-01-10] MEDS: MEROPENEM INJ 1 GM in IV 1 EA IV SCH (16:40)
[2024-01-10] MEDS ORDERED: INSULIN LISPRO (NovoLOG) PER UNIT SC SCH ×2 (17:30→21:00)
[2024-01-10 17:43] VITALS: BP 133/83; TEMP 98.6; O2SAT 93
[2024-01-10] MEDS: BISACODYL 10MG SUPP PR SCH (18:26)
[2024-01-10] MEDS: INSULIN LISPRO (NovoLOG) PER UNIT SC SCH (18:37)
[2024-01-10 20:00] VITALS: O2SAT 9
[2024-01-10] MEDS: ATORVASTATIN 20 MG TAB PO SCH (20:38)
[2024-01-10 21:00] VITALS: BP 137/78; TEMP 98.6; O2SAT 93
[2024-01-11 05:20] VITALS: BP 134/75; TEMP 97.7; O2SAT 90
[2024-01-11] MEDS ORDERED: IPRATROPIUM 0.5MG/ALBUTEROL 2.5MG INH SOL UD 3ML (DUONEB) NEB PRN (06:55)
[2024-01-11 07:50] LABS: HEMATOCRIT 31.4 % (42.0-52.0); MEAN CORPUSCULAR HEMOGLOBIN 24.7 pg (27.0-33.0); MEAN CORPUSCULAR HGB CONC 30.3 g/dl (32.0-36.5); MEAN CORPUSCULAR VOLUME 81.8 fl (80.0-96.0); PLATELET COUNT, AUTOMATED 262 10^3/uL (150-450); RED BLOOD COUNT 3.84 10^6/uL (4.30-6.10); WHITE BLOOD COUNT 9.2 10^3/uL (4.0-10.0)
[2024-01-11 08:02] LABS: HEMOGLOBIN 9.5 g/dl (13.5-17.5)
[2024-01-11 08:07] LABS: BLOOD UREA NITROGEN 18 MG/DL (9-23); CALCIUM LEVEL 8.5 MG/DL (8.3-10.6); CARBON DIOXIDE LEVEL 30 MMOL/L (20-31); CHLORIDE LEVEL 101 MMOL/L (98-107); CREATININE FOR GFR 0.36 MG/DL (0.70-1.30); GLOMERULAR FILTRATION RATE > 60.0 (>49); GLUCOSE, FASTING 116 MG/DL (74-106); MAGNESIUM LEVEL 2.1 MG/DL (1.8-2.4); POTASSIUM SERUM 3.5 MMOL/L (3.5-5.1); SODIUM LEVEL 137 MMOL/L (136-145)
[2024-01-11] MEDS: ASPIRIN 81MG CHEW TABLET PO SCH (08:25)
[2024-01-11] MEDS: ENOXAPARIN 40MG/0.4ML SYRINGE (J1650 PER 10MG) SC SCH (08:25)
[2024-01-11] MEDS: ESCITALOPRAM OXALATE 10 MG TAB (LEXAPRO) PO SCH (08:25)
[2024-01-11] MEDS: LOSARTAN 50MG TABLET PO SCH (08:30)
[2024-01-11 09:12] LABS: ATYPICAL LYMPH 1 % (0-5); LYMPHOCYTES 19 % (16-44); MONOCYTES 9 % (0-5); NEUTROPHILS 67 % (28-66); PLATELET CLUMPS SMALL AMT
[2024-01-11 09:14] LABS: POIKILOCYTOSIS 3+; SCHISTOCYTES 2+
[2024-01-11 09:15] LABS: BURR CELLS 2+; TEAR DROP CELLS 1+
[2024-01-11 09:16] LABS: ANISOCYTOSIS 1+; OVALOCYTES 3+
[2024-01-11 09:17] LABS: PLATELET ESTIMATE NORMAL (NORMAL)
[2024-01-11] MEDS: BALMEX CREAM 60GM EXT SCH (12:21)
[2024-01-11 14:00] VITALS: BP 122/66; TEMP 97.5; O2SAT 97
[2024-01-11] MEDS: FLEET ENEMA PR ONE (15:53)
[2024-01-11] MEDS: ACETAMINOPHEN TAB 650MG DOSE (2X325MG) PO PRN (20:43)
[2024-01-11 21:25] VITALS: BP 124/61; TEMP 98.1; O2SAT 96
[2024-01-12 05:24] VITALS: BP 133/74; TEMP 97.9; O2SAT 98
[2024-01-12] MEDS: MAALOX 30 ML SUSP *UDC PO PRN (06:10)
[2024-01-12 06:26] LABS: BLOOD UREA NITROGEN 12 MG/DL (9-23); CALCIUM LEVEL 8.1 MG/DL (8.3-10.6); CARBON DIOXIDE LEVEL 29 MMOL/L (20-31); CHLORIDE LEVEL 102 MMOL/L (98-107); CREATININE FOR GFR 0.31 MG/DL (0.70-1.30); GLOMERULAR FILTRATION RATE > 60.0 (>49); GLUCOSE, FASTING 120 MG/DL (74-106); MAGNESIUM LEVEL 1.8 MG/DL (1.8-2.4); POTASSIUM SERUM 3.4 MMOL/L (3.5-5.1); SODIUM LEVEL 139 MMOL/L (136-145)
[2024-01-12 09:19] VITALS: BP 114/51
[2024-01-12] MEDS: POTASSIUM CHLORIDE 10MEQ SR TABLET PO ONE (09:21)
[2024-01-12] MEDS: LACTULOSE 20GM/30ML SYRUP UDC PR ONE (11:46)
[2024-01-12 14:00] VITALS: BP 124/59; TEMP 97.2; O2SAT 97
[2024-01-12 17:36] VITALS: BP 124/59; TEMP 97.2; O2SAT 97
[2024-01-12 20:00] VITALS: BP 140/77; TEMP 98.2; O2SAT 99
[2024-01-13 05:35] VITALS: BP 125/65; TEMP 97.9; O2SAT 95
[2024-01-13 06:10] LABS: HEMATOCRIT 32.2 % (42.0-52.0); HEMOGLOBIN 9.8 g/dl (13.5-17.5); MEAN CORPUSCULAR HEMOGLOBIN 24.8 pg (27.0-33.0); MEAN CORPUSCULAR HGB CONC 30.4 g/dl (32.0-36.5); MEAN CORPUSCULAR VOLUME 81.5 fl (80.0-96.0); PLATELET COUNT, AUTOMATED 275 10^3/uL (150-450); RED BLOOD COUNT 3.95 10^6/uL (4.30-6.10)
[2024-01-13 06:35] LABS: BLOOD UREA NITROGEN 7 MG/DL (9-23); CALCIUM LEVEL 8.3 MG/DL (8.3-10.6); CARBON DIOXIDE LEVEL 32 MMOL/L (20-31); CHLORIDE LEVEL 101 MMOL/L (98-107); CREATININE FOR GFR 0.31 MG/DL (0.70-1.30); GLOMERULAR FILTRATION RATE > 60.0 (>49); GLUCOSE, FASTING 89 MG/DL (74-106); MAGNESIUM LEVEL 1.6 MG/DL (1.8-2.4); POTASSIUM SERUM 3.4 MMOL/L (3.5-5.1); SODIUM LEVEL 138 MMOL/L (136-145)
[2024-01-13] MEDS ORDERED: GLUCAGON INJ 1MG VIAL SC PRN (09:45)
[2024-01-13] MEDS ORDERED: GLUCOSE 4 GM CHEW PO PRN (09:45)
[2024-01-13] MEDS ORDERED: DEXTROSE 50% 50ML SYRINGE IV PRN (09:45)
[2024-01-13] MEDS: MAG SULF 1GM/100ML (MAG RUN) 1 GM in IV 1 EA IV SCH (11:25)
[2024-01-13] MEDS: INSULIN LISPRO (NovoLOG) PER UNIT SC SCH ×2 (11:28→21:00)
[2024-01-13 14:00] VITALS: BP 125/63; TEMP 98.1; O2SAT 92
[2024-01-13 20:31] VITALS: BP 134/66; TEMP 98.2; O2SAT 99
[2024-01-14 05:59] VITALS: BP 103/55; TEMP 97.9; O2SAT 96
[2024-01-14 07:51] LABS: BLOOD UREA NITROGEN 8 MG/DL (9-23); CALCIUM LEVEL 8.2 MG/DL (8.3-10.6); CARBON DIOXIDE LEVEL 33 MMOL/L (20-31); CHLORIDE LEVEL 100 MMOL/L (98-107); CREATININE FOR GFR 0.29 MG/DL (0.70-1.30); GLOMERULAR FILTRATION RATE > 60.0 (>49); GLUCOSE, FASTING 164 MG/DL (74-106); MAGNESIUM LEVEL 1.6 MG/DL (1.8-2.4); POTASSIUM SERUM 3.4 MMOL/L (3.5-5.1); SODIUM LEVEL 137 MMOL/L (136-145)
[2024-01-14] MEDS: POTASSIUM CHLORIDE 10MEQ SR TABLET PO SCH (08:15)
[2024-01-14 14:00] VITALS: BP 97/57; TEMP 97; O2SAT 94
[2024-01-14] MEDS ORDERED: ONDANSETRON 4MG 2ML VIAL IV PRN (16:20)
[2024-01-14] MEDS: MAG SULF 1GM/100ML (MAG RUN) 1 GM in IV 1 EA IV SCH (17:15)
[2024-01-14] MEDS: LACTULOSE 20GM/30ML SYRUP UDC PR ONE (19:23)
[2024-01-14] MEDS: KCL 10MEQ/100ML SWI (KRUN) 10 MEQ in IV 1 EA IV ONE (19:39)
[2024-01-15 04:50] VITALS: BP 127/79; TEMP 97.3; O2SAT 92
[2024-01-15 07:03] LABS: BLOOD UREA NITROGEN 10 MG/DL (9-23); CALCIUM LEVEL 8.2 MG/DL (8.3-10.6); CARBON DIOXIDE LEVEL 27 MMOL/L (20-31); CHLORIDE LEVEL 102 MMOL/L (98-107); CREATININE FOR GFR 0.23 MG/DL (0.70-1.30); GLOMERULAR FILTRATION RATE > 60.0 (>49); GLUCOSE, FASTING 185 MG/DL (74-106); MAGNESIUM LEVEL 1.6 MG/DL (1.8-2.4); POTASSIUM SERUM 3.7 MMOL/L (3.5-5.1); SODIUM LEVEL 137 MMOL/L (136-145)
[2024-01-15 09:30] VITALS: BP 129/76
[2024-01-15] MEDS: MAG SULF 1GM/100ML (MAG RUN) 1 GM in IV 1 EA IV SCH (10:12)
[2024-01-15 14:00] VITALS: BP 109/61; TEMP 97.2; O2SAT 97
[2024-01-15] MEDS ORDERED: META28.32 PO (14:16)
[2024-01-15] MEDS ORDERED: POTA-136 PO (14:16)
[2024-01-15] MEDS ORDERED: BISA10SU PR (14:16)
[2024-01-15] MEDS ORDERED: MIRA3350 PO (14:16)
== END 2024-01-15 15:19 ==
LOC: M ED 04:24 → M ED INP 04:25 → M MSPAV 17:45
PROVIDERS: ADMIT Student in an Organized Health Care Education/Training Program; ATTEND Student in an Organized Health Care Education/Training Program
DX: K59.00 Constipation, unspecified (principal); Z89.512 Acquired absence of left leg below knee; E11.42 Type 2 diabetes mellitus with diabetic polyneuropathy; N31.9 Neuromuscular dysfunction of bladder, unspecified; J96.11 Chronic respiratory failure with hypoxia; J96.21 Acute and chronic respiratory failure with hypoxia; G47.33 Obstructive sleep apnea (adult) (pediatric); I11.0 Hypertensive heart disease with heart failure; I50.32 Chronic diastolic (congestive) heart failure; I27.20 Pulmonary hypertension, unspecified; I73.9 Peripheral vascular disease, unspecified; E11.51 Type 2 diabetes mellitus with diabetic peripheral angiopathy without gangrene; E78.5 Hyperlipidemia, unspecified; F32.A Depression, unspecified; M19.90 Unspecified osteoarthritis, unspecified site; E87.20 Acidosis, unspecified; I25.2 Old myocardial infarction; D50.9 Iron deficiency anemia, unspecified; I63.19 Cerebral infarction due to embolism of other precerebral artery; Z74.01 Bed confinement status; Z86.718 Personal history of other venous thrombosis and embolism; Z86.711 Personal history of pulmonary embolism; Z79.82 Long term (current) use of aspirin; Z79.4 Long term (current) use of insulin; Z79.899 Other long term (current) drug therapy; Z88.1 Allergy status to other antibiotic agents; Z88.2 Allergy status to sulfonamides; Z88.8 Allergy status to other drugs, medicaments and biological substances; L97.519 Non-pressure chronic ulcer of other part of right foot with unspecified severity; E11.69 Type 2 diabetes mellitus with other specified complication; M86.8X7 Other osteomyelitis, ankle and foot; I25.10 Atherosclerotic heart disease of native coronary artery without angina pectoris; Z66 Do not resuscitate; E87.6 Hypokalemia; E83.42 Hypomagnesemia
CPT/HCPCS: 36415; 74018; 74177; 80048; 80076; 81000; 81015; 82550; 82553; 83605; 83690; 83735; 84145; 84484; 85025; 85027; 85652; 86140; 87040; 87086; 87426; 87507; 93005; 93041; 96361; 96365; 96366; 96367; 96372; 96376; 99285; G0378; J1650; J1815; J2184; J3475; Q9967

== ENCOUNTER 2024-01-17 10:45 | Day surgery (SDC) | payer MEDICARE, MEDICAID ==
[~2024-01-17] VITALS: Ht 190.5 cm; Wt 77.3 kg
[~2024-01-17 10:45] MED LIST changes: +BISA10SU PR; +LOSA50TA28 PO; +META28.32 PO; +MIRA3350 PO; +POTA-136 PO
[2024-01-17] MEDS ORDERED: GLUCOSE 4 GM CHEW PO PRN (11:20)
[2024-01-17] MEDS ORDERED: GLUCAGON INJ 1MG VIAL SC PRN (11:20)
[2024-01-17] MEDS ORDERED: DEXTROSE 50% 50ML SYRINGE IV PRN (11:20)
[2024-01-17] MEDS ORDERED: INSULIN LISPRO (NovoLOG) PER UNIT SC PRN (11:20)
[2024-01-17] MEDS ORDERED: LR 1,000 ML IV SCH (11:20)
[2024-01-17] MEDS ORDERED: MIDAZOLAM INJ 2MG/2ML VIAL As Ordered ONE (12:34)
[2024-01-17] MEDS ORDERED: fentaNYL 100 MCG/2 ML INJECTION As Ordered ONE (12:35)
[2024-01-17] MEDS: VANCOMYCIN HCL 1,000 MG, VIAL MATE ADAPTER 1 EACH in NS 250 ML IV ONE (12:50)
[2024-01-17] MEDS: LIDOCAINE 1% SDV 30ML VIAL As Ordered ONE (13:08)
[2024-01-17 13:35] VITALS: BP 110/66; TEMP 97.2; O2SAT 95
== END 2024-01-17 14:10 | disposition home or self-care (01) ==
LOC: M SDC 10:45
PROVIDERS: ATTEND Podiatrist Foot & Ankle Surgery
DX: M87.877 Other osteonecrosis, right toe(s) (principal); I10 Essential (primary) hypertension; G47.30 Sleep apnea, unspecified; E11.40 Type 2 diabetes mellitus with diabetic neuropathy, unspecified; I25.2 Old myocardial infarction; Z86.718 Personal history of other venous thrombosis and embolism; Z86.711 Personal history of pulmonary embolism; Z79.899 Other long term (current) drug therapy; Z88.8 Allergy status to other drugs, medicaments and biological substances; Z88.0 Allergy status to penicillin; Z88.1 Allergy status to other antibiotic agents; Z88.2 Allergy status to sulfonamides
CPT/HCPCS: 28288; 28820; 88305; 88311; J0665; J2250; J3010; J3370

== ENCOUNTER → 2024-01-24 | Outpatient (REF) | payer MEDICARE, MEDICAID | LOC: SKLAB3 13:03 | PROVIDERS: ATTEND Internal Medicine | DX: Z53.8 Procedure and treatment not carried out for other reasons (principal) ==

== ENCOUNTER → 2024-01-25 | Outpatient (REF) | payer MEDICARE, MEDICAID ==
[2024-01-25 11:19] LABS: HEMATOCRIT 33.8 % (42.0-52.0); MEAN CORPUSCULAR HEMOGLOBIN 24.5 pg (27.0-33.0); MEAN CORPUSCULAR HGB CONC 29.6 g/dl (32.0-36.5); MEAN CORPUSCULAR VOLUME 82.8 fl (80.0-96.0); PLATELET COUNT, AUTOMATED 272 10^3/uL (150-450); RED BLOOD COUNT 4.08 10^6/uL (4.30-6.10); WHITE BLOOD COUNT 6.3 10^3/uL (4.0-10.0)
[2024-01-25 11:47] LABS: ALKALINE PHOSPHATASE 86 U/L (46-116); ALT/SGPT 13 U/L (7.0-40); AST/SGOT < 8 U/L (<34); BILIRUBIN,TOTAL 0.3 MG/DL (0.3-1.2); BLOOD UREA NITROGEN 29 MG/DL (9-23); CALCIUM LEVEL 9.7 MG/DL (8.3-10.6); CARBON DIOXIDE LEVEL 26 MMOL/L (20-31); CHLORIDE LEVEL 102 MMOL/L (98-107); CREATININE FOR GFR 0.33 MG/DL (0.70-1.30); GLOMERULAR FILTRATION RATE > 60.0 (>49); GLUCOSE, FASTING 216 MG/DL (74-106); POTASSIUM SERUM 4.8 MMOL/L (3.5-5.1); SODIUM LEVEL 136 MMOL/L (136-145); TOTAL PROTEIN 6.2 G/DL (5.7-8.2)
== END ==
LOC: SKLAB3 09:37
PROVIDERS: ATTEND Internal Medicine
DX: Z01.818 Encounter for other preprocedural examination (principal); I95.9 Hypotension, unspecified; J98.4 Other disorders of lung

== ENCOUNTER → 2024-01-25 | Outpatient (CLI) | payer MEDICARE, MEDICAID | LOC: M RAD 14:27 | DX: Z01.818 Encounter for other preprocedural examination (principal); I95.9 Hypotension, unspecified; J98.4 Other disorders of lung ==

== ENCOUNTER → 2024-02-01 | Outpatient (REF) | payer MEDICARE, MEDICAID | LOC: SKLAB3 10:05 | PROVIDERS: ATTEND Internal Medicine | DX: Z53.8 Procedure and treatment not carried out for other reasons (principal) ==

== ENCOUNTER → 2024-02-06 | Outpatient (REF) | payer MEDICARE, MEDICAID ==
[~2024-02-06] MED LIST changes: +THERTAB52 PO; +TRES100I SC
[2024-02-06 18:47] LABS: APPEARANCE, URINE HAZY (CLEAR); BACTERIA, URINE AUTO NEGATIVE (NEGATIVE); BILIRUBIN, URINE AUTO NEGATIVE (NEGATIVE); BLOOD, URINE BLOOD 3+ (NEGATIVE); COLOR, URINE YELLOW (YELLOW); GLUCOSE, URINE (UA) AUTO 2+ mg/dL (NEGATIVE); KETONE, URINE AUTO TRACE mg/dL (NEGATIVE); LEUKOCYTE ESTERASE, URINE AUTO 3+ (NEGATIVE); MUCUS, URINE SMALL (NEGATIVE); NITRITE, URINE AUTO NEGATIVE (NEGATIVE); PROTEIN, URINE AUTO 2+ mg/dL (NEGATIVE); RBC, URINE AUTO TNTC /HPF (0-3); RENAL EPITHELIAL CELLS 1 /HPF; SPECIFIC GRAVITY URINE AUTO 1.018 (1.002-1.035); SQUAMOUS EPITHELIAL CELL UR AU 0 /HPF (0-6); UROBILINOGEN, URINE AUTO 0.2 mg/dL (0.0-2.0); WBC, URINE AUTO TNTC /HPF (0-3)
== END ==
LOC: SKLAB3 14:00
PROVIDERS: ATTEND Internal Medicine
DX: R82.998 Other abnormal findings in urine (principal)

== ENCOUNTER → 2024-02-18 | Outpatient (REF) | payer MEDICARE, MEDICAID ==
[2024-02-18 14:50] LABS: BASO % 0.3 % (0.0-1.0); EOS # 0.1 10^3/uL (0.0-0.5); EOS % 2.2 % (0.0-3.0); HEMOGLOBIN 10.1 g/dl (13.5-17.5); LYMPH # 1.6 10^3/uL (1.5-5.0); LYMPH % 27.5 % (24.0-44.0); MEAN CORPUSCULAR HEMOGLOBIN 24.6 pg (27.0-33.0); MEAN CORPUSCULAR HGB CONC 30.6 g/dl (32.0-36.5); MEAN CORPUSCULAR VOLUME 80.5 fl (80.0-96.0); MONO # 0.7 10^3/uL (0.0-0.8); MONO % 11.1 % (2.0-8.0); NEUTROPHILS # 3.5 10^3/uL (1.5-8.5); NEUTROPHILS % 58.1 % (36.0-66.0); PLATELET COUNT, AUTOMATED 294 10^3/uL (150-450)
[2024-02-18 15:17] LABS: TOTAL PROTEIN,RANDOM URINE 20.7 MG/DL (0.0-14.0)
[2024-02-18 15:24] LABS: ALBUMIN 3.5 G/DL (3.2-5.2); BLOOD UREA NITROGEN 36 MG/DL (9-23); CALCIUM LEVEL 9.7 MG/DL (8.3-10.6); CARBON DIOXIDE LEVEL 30 MMOL/L (20-31); CHLORIDE LEVEL 98 MMOL/L (98-107); CREATININE FOR GFR 0.35 MG/DL (0.70-1.30); GLOMERULAR FILTRATION RATE > 60.0 (>49); GLUCOSE, FASTING 179 MG/DL (74-106); PHOSPHORUS LEVEL 5.2 MG/DL (2.4-5.1); SODIUM LEVEL 134 MMOL/L (136-145)
[2024-02-18 19:19] LABS: APPEARANCE, URINE TURBID (CLEAR); BACTERIA, URINE AUTO 1+ (NEGATIVE); BILIRUBIN, URINE AUTO NEGATIVE (NEGATIVE); BLOOD, URINE BLOOD 2+ (NEGATIVE); COLOR, URINE YELLOW (YELLOW); GLUCOSE, URINE (UA) AUTO NEGATIVE (NEGATIVE); KETONE, URINE AUTO NEGATIVE (NEGATIVE); LEUKOCYTE ESTERASE, URINE AUTO 3+ (NEGATIVE); MUCUS, URINE SMALL (NEGATIVE); NITRITE, URINE AUTO NEGATIVE (NEGATIVE); PROTEIN, URINE AUTO 1+ mg/dL (NEGATIVE); RBC, URINE AUTO 2 /HPF (0-3); SPECIFIC GRAVITY URINE AUTO 1.014 (1.002-1.035); SQUAMOUS EPITHELIAL CELL UR AU 0 /HPF (0-6); UROBILINOGEN, URINE AUTO 0.2 mg/dL (0.0-2.0); WBC, URINE AUTO 4 /HPF (0-3)
== END ==
LOC: SKLAB3 09:19
PROVIDERS: ATTEND Internal Medicine
DX: N18.9 Chronic kidney disease, unspecified (principal)

== ENCOUNTER → 2024-03-11 | Outpatient (REF) | payer MEDICARE, MEDICAID ==
[2024-03-11 10:17] LABS: HEMOGLOBIN A1c 6.9 % (4.0-6.0)
== END ==
LOC: SKLAB3 08:22
PROVIDERS: ATTEND Internal Medicine
DX: E11.9 Type 2 diabetes mellitus without complications (principal)

== ENCOUNTER 2024-04-16 15:23 | Emergency (ER) | payer MEDICARE, MEDICAID ==
[~2024-04-16] VITALS: Ht 188 cm; Wt 76.4 kg
[~2024-04-16 15:23] MED LIST changes: -FEXO-157 PO; +FEXO-63 PO
[2024-04-16 16:38] VITALS: TEMP 97.5; O2SAT 100
[2024-04-16 16:45] VITALS: BP 128/68
== END 2024-04-16 17:05 | disposition home or self-care (01) ==
LOC: EDBD 15:23 → M ED 15:23
DX: Z96.0 Presence of urogenital implants (principal); I25.2 Old myocardial infarction; E11.9 Type 2 diabetes mellitus without complications; I25.119 Atherosclerotic heart disease of native coronary artery with unspecified angina pectoris; I10 Essential (primary) hypertension; E78.00 Pure hypercholesterolemia, unspecified; G47.33 Obstructive sleep apnea (adult) (pediatric); F32.A Depression, unspecified; Z88.1 Allergy status to other antibiotic agents; Z88.8 Allergy status to other drugs, medicaments and biological substances; Z79.1 Long term (current) use of non-steroidal anti-inflammatories (NSAID); Z79.4 Long term (current) use of insulin; Z79.84 Long term (current) use of oral hypoglycemic drugs; Z79.810 Long term (current) use of selective estrogen receptor modulators (SERMs); Z79.899 Other long term (current) drug therapy

== ENCOUNTER → 2024-05-06 | Outpatient (REF) | payer MEDICARE, MEDICAID ==
[2024-05-06 16:25] LABS: HEMOGLOBIN A1c 7.1 % (4.0-6.0)
== END ==
LOC: SKLAB3 07:00
PROVIDERS: ATTEND Internal Medicine
DX: E11.9 Type 2 diabetes mellitus without complications (principal)

== ENCOUNTER → 2024-05-13 | Outpatient (REF) | payer MEDICARE, MEDICAID ==
[2024-05-13 13:46] LABS: BASO % 0.5 % (0.0-1.0); EOS # 0.1 10^3/uL (0.0-0.5); EOS % 1.4 % (0.0-3.0); HEMATOCRIT 32.8 % (42.0-52.0); HEMOGLOBIN 9.9 g/dl (13.5-17.5); LYMPH # 1.5 10^3/uL (1.5-5.0); LYMPH % 23.6 % (24.0-44.0); MEAN CORPUSCULAR HEMOGLOBIN 25.6 pg (27.0-33.0); MEAN CORPUSCULAR HGB CONC 30.2 g/dl (32.0-36.5); MONO # 0.7 10^3/uL (0.0-0.8); MONO % 10.7 % (2.0-8.0); NEUTROPHILS # 4.1 10^3/uL (1.5-8.5); NEUTROPHILS % 63.2 % (36.0-66.0); PLATELET COUNT, AUTOMATED 281 10^3/uL (150-450); RED BLOOD COUNT 3.86 10^6/uL (4.30-6.10); WHITE BLOOD COUNT 6.5 10^3/uL (4.0-10.0)
[2024-05-13 14:23] LABS: ALBUMIN 3.2 G/DL (3.2-5.2); ALKALINE PHOSPHATASE 94 U/L (46-116); ALT/SGPT 10 U/L (7.0-40); AST/SGOT < 8 U/L (<34); BILIRUBIN,TOTAL 0.2 MG/DL (0.3-1.2); BLOOD UREA NITROGEN 30 MG/DL (9-23); CALCIUM LEVEL 9.8 MG/DL (8.3-10.6); CARBON DIOXIDE LEVEL 28 MMOL/L (20-31); CHLORIDE LEVEL 100 MMOL/L (98-107); CREATININE FOR GFR 0.32 MG/DL (0.70-1.30); GLOMERULAR FILTRATION RATE > 60.0 (>49); GLUCOSE, FASTING 234 MG/DL (74-106); POTASSIUM SERUM 4.4 MMOL/L (3.5-5.1); SODIUM LEVEL 135 MMOL/L (136-145); THYROID STIMULATING HORMONE 3.108 uIU/ML (0.55-4.78); TOTAL PROTEIN 6.3 G/DL (5.7-8.2)
[2024-05-13 14:24] LABS: VITAMIN B12 LEVEL 303 PG/ML (211-911)
[2024-05-13 14:26] LABS: FOLATE > 24.00 NG/ML (>5.4)
[2024-05-13 17:02] LABS: APPEARANCE, URINE CLOUDY (CLEAR); BACTERIA, URINE AUTO NEGATIVE (NEGATIVE); BILIRUBIN, URINE AUTO NEGATIVE (NEGATIVE); BLOOD, URINE BLOOD 1+ (NEGATIVE); COLOR, URINE YELLOW (YELLOW); GLUCOSE, URINE (UA) AUTO NEGATIVE (NEGATIVE); KETONE, URINE AUTO TRACE mg/dL (NEGATIVE); LEUKOCYTE ESTERASE, URINE AUTO 3+ (NEGATIVE); MUCUS, URINE SMALL (NEGATIVE); NITRITE, URINE AUTO NEGATIVE (NEGATIVE); PROTEIN, URINE AUTO 2+ mg/dL (NEGATIVE); RBC, URINE AUTO 17 /HPF (0-3); SQUAMOUS EPITHELIAL CELL UR AU 1 /HPF (0-6); UROBILINOGEN, URINE AUTO 0.2 mg/dL (0.0-2.0); WBC, URINE AUTO TNTC /HPF (0-3)
== END ==
LOC: SKLAB7 12:55
PROVIDERS: ATTEND Internal Medicine
DX: R41.82 Altered mental status, unspecified (principal); F03.90 Unspecified dementia, unspecified severity, without behavioral disturbance, psychotic disturbance, mood disturbance, and anxiety

== ENCOUNTER → 2024-05-19 | Outpatient (REF) | payer MEDICARE, MEDICAID ==
[2024-05-19 07:32] LABS: BASO % 0.3 % (0.0-1.0); EOS # 0.2 10^3/uL (0.0-0.5); EOS % 2.6 % (0.0-3.0); HEMATOCRIT 34.5 % (42.0-52.0); HEMOGLOBIN 10.2 g/dl (13.5-17.5); LYMPH # 1.6 10^3/uL (1.5-5.0); LYMPH % 27.7 % (24.0-44.0); MEAN CORPUSCULAR HEMOGLOBIN 25.5 pg (27.0-33.0); MEAN CORPUSCULAR HGB CONC 29.6 g/dl (32.0-36.5); MEAN CORPUSCULAR VOLUME 86.3 fl (80.0-96.0); MONO # 0.7 10^3/uL (0.0-0.8); MONO % 11.3 % (2.0-8.0); NEUTROPHILS # 3.3 10^3/uL (1.5-8.5); NEUTROPHILS % 57.4 % (36.0-66.0); PLATELET COUNT, AUTOMATED 290 10^3/uL (150-450); WHITE BLOOD COUNT 5.8 10^3/uL (4.0-10.0)
[2024-05-19 07:53] LABS: BLOOD UREA NITROGEN 41 MG/DL (9-23); CALCIUM LEVEL 9.6 MG/DL (8.3-10.6); CARBON DIOXIDE LEVEL 31 MMOL/L (20-31); CHLORIDE LEVEL 104 MMOL/L (98-107); CREATININE FOR GFR 0.34 MG/DL (0.70-1.30); GLOMERULAR FILTRATION RATE > 60.0 (>49); GLUCOSE, FASTING 108 MG/DL (74-106); POTASSIUM SERUM 4.8 MMOL/L (3.5-5.1); SODIUM LEVEL 139 MMOL/L (136-145)
== END ==
LOC: SKLAB3 07:00
PROVIDERS: ATTEND Internal Medicine
DX: N39.0 Urinary tract infection, site not specified (principal)

== ENCOUNTER → 2024-07-16 | Outpatient (CLI) | payer MEDICARE, MEDICAID | LOC: M RAD 13:04 | PROVIDERS: ATTEND Nurse Practitioner Family | DX: I72.8 Aneurysm of other specified arteries (principal) ==

== ENCOUNTER → 2024-08-05 | Outpatient (REF) | payer MEDICARE, MEDICAID ==
[2024-08-05 09:31] LABS: HEMATOCRIT 35.1 % (42.0-52.0); HEMOGLOBIN 10.3 g/dl (13.5-17.5); MEAN CORPUSCULAR HEMOGLOBIN 25.1 pg (27.0-33.0); MEAN CORPUSCULAR HGB CONC 29.3 g/dl (32.0-36.5); MEAN CORPUSCULAR VOLUME 85.4 fl (80.0-96.0); PLATELET COUNT, AUTOMATED 295 10^3/uL (150-450); RED BLOOD COUNT 4.11 10^6/uL (4.30-6.10)
[2024-08-05 09:59] LABS: ALBUMIN 3.2 G/DL (3.2-5.2); ALKALINE PHOSPHATASE 88 U/L (40-129); ALT/SGPT 35 U/L (7.0-40); AST/SGOT 22 U/L (<34); BILIRUBIN,TOTAL 0.3 MG/DL (0.3-1.2); BLOOD UREA NITROGEN 34 MG/DL (9-23); CALCIUM LEVEL 10.5 MG/DL (8.3-10.6); CARBON DIOXIDE LEVEL 31 MMOL/L (20-31); CHLORIDE LEVEL 100 MMOL/L (98-107); CREATININE FOR GFR 0.35 MG/DL (0.70-1.30); GLOMERULAR FILTRATION RATE > 60.0 (>49); GLUCOSE, FASTING 128 MG/DL (74-106); POTASSIUM SERUM 4.2 MMOL/L (3.5-5.1); SODIUM LEVEL 139 MMOL/L (136-145); TOTAL PROTEIN 6.6 G/DL (5.7-8.2)
[2024-08-05 11:16] LABS: HEMOGLOBIN A1c 6.8 % (4.0-6.0)
== END ==
LOC: SKLAB3 07:00
PROVIDERS: ATTEND Internal Medicine
DX: I10 Essential (primary) hypertension (principal); E11.9 Type 2 diabetes mellitus without complications

== ENCOUNTER → 2024-08-11 | Outpatient (REF) | payer MEDICARE, MEDICAID ==
[2024-08-11 09:54] LABS: BASO % 0.5 % (0.0-1.0); EOS # 0.1 10^3/uL (0.0-0.5); EOS % 1.8 % (0.0-3.0); HEMATOCRIT 38.1 % (42.0-52.0); HEMOGLOBIN 11.3 g/dl (13.5-17.5); LYMPH # 1.5 10^3/uL (1.5-5.0); LYMPH % 27.2 % (24.0-44.0); MEAN CORPUSCULAR HEMOGLOBIN 25.5 pg (27.0-33.0); MEAN CORPUSCULAR HGB CONC 29.7 g/dl (32.0-36.5); MONO # 0.5 10^3/uL (0.0-0.8); MONO % 9.4 % (2.0-8.0); NEUTROPHILS # 3.3 10^3/uL (1.5-8.5); NEUTROPHILS % 60.4 % (36.0-66.0); PLATELET COUNT, AUTOMATED 343 10^3/uL (150-450); RED BLOOD COUNT 4.43 10^6/uL (4.30-6.10); WHITE BLOOD COUNT 5.5 10^3/uL (4.0-10.0)
[2024-08-11 10:40] LABS: BLOOD UREA NITROGEN 33 MG/DL (9-23); CALCIUM LEVEL 10.2 MG/DL (8.3-10.6); CARBON DIOXIDE LEVEL 30 MMOL/L (20-31); CHLORIDE LEVEL 103 MMOL/L (98-107); CREATININE FOR GFR 0.35 MG/DL (0.70-1.30); GLOMERULAR FILTRATION RATE > 60.0 (>49); GLUCOSE, FASTING 169 MG/DL (74-106); MAGNESIUM LEVEL 1.7 MG/DL (1.8-2.4); PHOSPHORUS LEVEL 0.7 MG/DL (2.4-5.1); POTASSIUM SERUM 4.5 MMOL/L (3.5-5.1); SODIUM LEVEL 142 MMOL/L (136-145)
== END ==
LOC: SKLAB3 07:12
PROVIDERS: ATTEND Internal Medicine
DX: N18.9 Chronic kidney disease, unspecified (principal)

== ENCOUNTER → 2024-09-04 | Outpatient (REF) | payer MEDICARE, MEDICAID ==
[2024-09-04 14:23] LABS: HEMATOCRIT 29.9 % (42.0-52.0); HEMOGLOBIN 8.6 g/dl (13.5-17.5); MEAN CORPUSCULAR HEMOGLOBIN 25.9 pg (27.0-33.0); MEAN CORPUSCULAR HGB CONC 28.8 g/dl (32.0-36.5); MEAN CORPUSCULAR VOLUME 90.1 fl (80.0-96.0); PLATELET COUNT, AUTOMATED 388 10^3/uL (150-450); RED BLOOD COUNT 3.32 10^6/uL (4.30-6.10); WHITE BLOOD COUNT 5.4 10^3/uL (4.0-10.0)
[2024-09-04 14:47] LABS: ALBUMIN 2.7 G/DL (3.2-5.2); ALKALINE PHOSPHATASE 100 U/L (40-129); ALT/SGPT 35 U/L (7.0-40); AST/SGOT 18 U/L (<34); BILIRUBIN,TOTAL 0.3 MG/DL (0.3-1.2); BLOOD UREA NITROGEN 41 MG/DL (9-23); CALCIUM LEVEL 9.3 MG/DL (8.3-10.6); CARBON DIOXIDE LEVEL 31 MMOL/L (20-31); CHLORIDE LEVEL 105 MMOL/L (98-107); CREATININE FOR GFR 0.33 MG/DL (0.70-1.30); GLOMERULAR FILTRATION RATE > 60.0 (>49); GLUCOSE, FASTING 174 MG/DL (74-106); POTASSIUM SERUM 4.2 MMOL/L (3.5-5.1); PSA SCREENING 0.39 NG/ML (< 4.00); SODIUM LEVEL 145 MMOL/L (136-145); TOTAL PROTEIN 6.2 G/DL (5.7-8.2)
== END ==
LOC: SKLAB3 09:10
PROVIDERS: ATTEND Internal Medicine
DX: I10 Essential (primary) hypertension (principal); Z12.5 Encounter for screening for malignant neoplasm of prostate
CPT/HCPCS: 36415; 80053; 85027; G0103

== ENCOUNTER → 2024-09-24 | Outpatient (REF) | payer MEDICARE, MEDICAID ==
[2024-09-24 14:17] LABS: BASO % 0.4 % (0.0-1.0); EOS # 0.2 10^3/uL (0.0-0.5); HEMATOCRIT 31.5 % (42.0-52.0); HEMOGLOBIN 9.3 g/dl (13.5-17.5); LYMPH # 1.5 10^3/uL (1.5-5.0); LYMPH % 27.4 % (24.0-44.0); MEAN CORPUSCULAR HEMOGLOBIN 27.1 pg (27.0-33.0); MEAN CORPUSCULAR HGB CONC 29.5 g/dl (32.0-36.5); MEAN CORPUSCULAR VOLUME 91.8 fl (80.0-96.0); MONO # 0.7 10^3/uL (0.0-0.8); MONO % 12.9 % (2.0-8.0); NEUTROPHILS % 55.6 % (36.0-66.0); PLATELET COUNT, AUTOMATED 298 10^3/uL (150-450); RED BLOOD COUNT 3.43 10^6/uL (4.30-6.10); WHITE BLOOD COUNT 5.4 10^3/uL (4.0-10.0)
[2024-09-24 14:43] LABS: BLOOD UREA NITROGEN 22 MG/DL (9-23); CALCIUM LEVEL 9.3 MG/DL (8.3-10.6); CARBON DIOXIDE LEVEL 33 MMOL/L (20-31); CHLORIDE LEVEL 98 MMOL/L (98-107); CREATININE FOR GFR 0.28 MG/DL (0.70-1.30); GLOMERULAR FILTRATION RATE > 60.0 (>49); GLUCOSE, FASTING 335 MG/DL (74-106); POTASSIUM SERUM 4.7 MMOL/L (3.5-5.1); SODIUM LEVEL 136 MMOL/L (136-145)
[2024-09-24 14:49] LABS: KETONE, URINE MANUAL REFLEX NEGATIVE (NEGATIVE); PROTEIN, URINE MANUAL REFLEX 2+ mg/dL (NEGATIVE); SP GRAVITY,URINE MANUAL REFLEX 1.023 (1.002-1.035); UROBILINOGEN, UA MANUAL REFLEX NORMAL (NORMAL)
[2024-09-24 14:50] LABS: NITRITE, URINE MANUAL RFX NEGATIVE (NEGATIVE)
[2024-09-24 15:16] LABS: WBC, URINE MAN RFX TNTC /hpf (0-3)
[2024-09-24 15:18] LABS: RBC, URINE MAN REFLEX TNTC /hpf (0-3); TRIPLE PHOS CRYSTAL,URINE RFX MOD AMOUNT /hpf
[2024-09-24 15:20] LABS: SQUAMOUS EPITHELIAL URINE RFX NONE SEEN /hpf (SMALL AMT)
[2024-09-24 15:23] LABS: HYALINE CAST, URINE RFX NONE SEEN /lpf (0-1); MICROSCOPIC EXAM RFX PERFORMED
== END ==
LOC: SKLAB3 13:14
PROVIDERS: ATTEND Internal Medicine
DX: R31.9 Hematuria, unspecified (principal)

== ENCOUNTER → 2024-11-03 | Outpatient (REF) | payer MEDICARE, MEDICAID ==
[2024-11-03 11:12] LABS: BASO % 0.5 % (0.0-1.0); EOS # 0.2 10^3/uL (0.0-0.5); HEMATOCRIT 28.7 % (42.0-52.0); HEMOGLOBIN 8.4 g/dl (13.5-17.5); LYMPH # 1.1 10^3/uL (1.5-5.0); LYMPH % 25.8 % (24.0-44.0); MEAN CORPUSCULAR HEMOGLOBIN 25.6 pg (27.0-33.0); MEAN CORPUSCULAR HGB CONC 29.3 g/dl (32.0-36.5); MEAN CORPUSCULAR VOLUME 87.5 fl (80.0-96.0); MONO # 0.6 10^3/uL (0.0-0.8); MONO % 13.5 % (2.0-8.0); NEUTROPHILS # 2.4 10^3/uL (1.5-8.5); NEUTROPHILS % 55.5 % (36.0-66.0); PLATELET COUNT, AUTOMATED 270 10^3/uL (150-450); RED BLOOD COUNT 3.28 10^6/uL (4.30-6.10); WHITE BLOOD COUNT 4.3 10^3/uL (4.0-10.0)
[2024-11-03 11:45] LABS: ALBUMIN 2.8 G/DL (3.2-5.2); ALKALINE PHOSPHATASE 89 U/L (40-129); ALT/SGPT 9 U/L (7.0-40); AST/SGOT 9 U/L (<34); BILIRUBIN,TOTAL < 0.2 MG/DL (0.3-1.2); BLOOD UREA NITROGEN 23 MG/DL (9-23); CALCIUM LEVEL 8.8 MG/DL (8.3-10.6); CARBON DIOXIDE LEVEL 30 MMOL/L (20-31); CHLORIDE LEVEL 102 MMOL/L (98-107); CREATININE FOR GFR 0.33 MG/DL (0.70-1.30); GLOMERULAR FILTRATION RATE > 60.0 (>49); GLUCOSE, FASTING 164 MG/DL (74-106); POTASSIUM SERUM 4.6 MMOL/L (3.5-5.1); SODIUM LEVEL 141 MMOL/L (136-145); TOTAL PROTEIN 6.1 G/DL (5.7-8.2)
== END ==
LOC: SKLAB3 10:21
PROVIDERS: ATTEND Internal Medicine
DX: R31.9 Hematuria, unspecified (principal)

== ENCOUNTER → 2024-11-04 | Outpatient (REF) | payer MEDICARE, MEDICAID | LOC: SKLAB3 07:00 | PROVIDERS: ATTEND Internal Medicine | DX: E11.9 Type 2 diabetes mellitus without complications (principal) ==